=== PATIENT | female | born 1940 | race Caucasian/White ===

== ENCOUNTER → 2016-04-04 | Outpatient (CLI) | payer OTHER ==
[~2016-04-04] MED LIST: CHOL1CAP57 PO; LORA-741 PO; LOSA1TAB PO; MISC4CAP PO
== END | disposition home or self-care (01) ==
LOC: C.LAB 07:50
PROVIDERS: ATTEND Family Medicine
DX: R73.01 Impaired fasting glucose (principal)

== ENCOUNTER → 2016-10-22 | Outpatient (CLI) | payer OTHER | END | disposition home or self-care (01) | LOC: C.LABSPEC 10:46 | PROVIDERS: ATTEND Urology | DX: R33.9 Retention of urine, unspecified (principal); N39.0 Urinary tract infection, site not specified ==

== ENCOUNTER → 2016-10-31 | Outpatient (CLI) | payer OTHER ==
--- NOTE | 2016-10-31 12:44 | MAMMOGRAPHY REPORT ---
BILATERAL DIGITAL SCREENING MAMMOGRAM WITH CAD: 10/31/2016 CLINICAL HISTORY: Routine screening. TECHNIQUE: Current study was also evaluated with a Computer Aided Detection (CAD) system. Bilateral CC and MLO views were obtained. COMPARISON: Comparison is made to exams dated: 10/30/2015 mammogram, 10/26/2014 mammogram, 09/20/2013 m ammogram, 09/06/2012 mammogram, 09/04/2011 mammogram, and 09/02/2010 mammogram - [facility] enter. BREAST COMPOSITION: There are scattered areas of fibroglandular density in both breasts. FINDINGS: No suspicious masses, calcifications, or areas of architectural distortion are noted in ei ther breast. There has been no significant interval change compared to prior exams. Bilateral benign vascular calcifications are again noted. IMPRESSION: ACR BI-RADS CATEGORY 2: BENIGN There is no mammographic evidence of malignancy. A 1 year screening mammogram is recommended. The pa tient will receive written notification of the results. Approximately 10% of breast cancers are not detected with mammography. A negative mammographic report should not delay biopsy if a clinically suggestive mass is present. Shilpa Bardales M.D. 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
== END | disposition home or self-care (01) ==
LOC: C.MAMM 10:37
PROVIDERS: ATTEND Obstetrics & Gynecology
DX: Z12.31 Encounter for screening mammogram for malignant neoplasm of breast (principal)

== ENCOUNTER → 2016-11-24 | Outpatient (CLI) | payer OTHER | END | disposition home or self-care (01) | LOC: C.PAPS 14:53 | PROVIDERS: ATTEND Obstetrics & Gynecology | DX: Z12.4 Encounter for screening for malignant neoplasm of cervix (principal) ==

== ENCOUNTER → 2016-12-30 | Outpatient (CLI) | payer OTHER | END | disposition home or self-care (01) | LOC: C.LABSPEC 17:36 | PROVIDERS: ATTEND Nurse Practitioner Adult Health | DX: N39.0 Urinary tract infection, site not specified (principal) ==

== ENCOUNTER → 2017-04-07 | Outpatient (CLI) | payer OTHER | END | disposition home or self-care (01) | LOC: C.LAB 16:37 | PROVIDERS: ATTEND Urology | DX: N39.0 Urinary tract infection, site not specified (principal); R33.9 Retention of urine, unspecified ==

== ENCOUNTER 2019-09-01 18:49 | Inpatient (IN) ==
[2019-09-01] MEDS ORDERED: SODIUM CHLORIDE 0.9% 1000ML 1,000 ML IV ONE (18:57)
--- NOTE | 2019-09-01 19:22 | Emergency Department Note ---
History of Present Illness General Chief Complaint: Urinary Symptoms Stated Complaint: UTI, DR REFERRED Time Seen by Provider: 09/01/19 18:56 History of Present Illness Provider Complaint: abdominal pain Onset (ago): 1 week(s) Pain Consistency: intermittent Location: suprapubic Radiation: none Severity: moderate Maximum Pain Intensity: 6 Current Pain Intensity: 6 Quality: + sharp Relieved By: + nothing Exacerbated By: + nothing Associated Symptoms: + nausea, + fever, + chills and + dysuria; no vomiting, no diarrhea, no constipation, no hematemesis, no hematochezia, no melena, no hematuria, no anorexia and no syncope Patient states she was referred to the emergency department by urology Dr. Chávez. Home Medications Home Medications Medication Instructions Recorded Confirmed Type losartan 25 mg tablet 25 mg PO HS tab 08/26/18 09/01/19 History polyethylene glycol 3350 17 17 g PO DAILY PRN gm 08/26/18 09/01/19 History gram/dose oral powder lorazepam 0.5 mg tablet 0.5 mg PO HS PRN 04/08/19 09/01/19 History calcium carbonate-vitamin D3 1 tab PO QAM 04/09/19 09/01/19 History [Caltrate 600 plus D] lactobacillus comb no.10 0 mmu cells PO QAM 04/09/19 09/01/19 History [Probiotic] cranberry conc-ascorbic acid 1 cap PO TID 09/01/19 09/01/19 History [Cranberry Plus Vitamin C] Allergies Allergy/AdvReac Type Severity Reaction Status Date / Time celecoxib Allergy Severe Rash Verified 09/01/19 22:27 adhesive Allergy Intermediate RED Verified 08/24/19 09:38 IRRITATED SKIN ciprofloxacin [From Cipro] Allergy Mild Rash Verified 08/24/19 09:38 Sulfa (Sulfonamide Allergy Mild Hives Verified 09/01/19 22:27 Antibiotics) amoxicillin Allergy Unknown Rash Verified 09/01/19 22:27 cefepime Allergy Unknown Rash, drug Verified 09/01/19 22:27 eruption Penicillins Allergy Unknown Rash Verified 09/01/19 22:27 lactose AdvReac Intermediate GI UPSET Verified 08/24/19 09:38 vancomycin AdvReac Unknown Mook Verified 09/01/19 22:27 syndrome Past Med/Surg History Medical History Allergic reaction (Inactive 06/17/13) Cholecystectomy planned (Acute) Colitis (Acute) Cystitis Febrile illness (Inactive) Fever (Inactive 05/02/13) Fever (Inactive) Fever (Inactive) GI bleed Pneumonia (Resolved) Recurrent UTI (urinary tract infection) (Acute) Urticaria (Inactive) Surgical History H/O splenectomy (Acute) H/O: hysterectomy (Acute) History of cholecystectomy (Resolved) History of hysterectomy (Resolved) History of splenectomy (Resolved) Postoperative state (Inactive 02/18/13) Family History Other Family history non-contributory Social History Smoking Status: Never smoker Hx Alcohol Use: No Hx Substance Use: No Preferred Language: [place] Islander Communication Ability: Effective [employer] 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 Beliefs That Will Affect Care: Christianity Current Living Situation: Alone Other Information That Helps Us Care for You: No Feels Safe at Home: Yes Safety Concerns: Feels Safe At This Time Review of Systems A total of 10 systems reviewed and were otherwise negative Physical Exam Vital Signs: Vital Signs - 24 hr 09/01/19 18:51 09/01/19 20:20 09/01/19 21:55 Temperature 36.7 C Temperature Source Oral Pulse Rate 93 H Pulse Rate [Apical ] 80 76 Pulse Rhythm [Apic al] Regular Regular Pulse Strength [Ap ical] Normal Normal Respiratory Rate 18 18 18 Respiratory Effort / Characteristics Non-Labored Sponta neous Non-Labored Sponta neous Respiratory Depth Normal Normal Respiratory Patter n Regular Regular Blood Pressure 170/83 H Blood Pressure [Ri ght Arm] 157/96 H 155/79 H Blood Pressure Moira n 112 Blood Pressure Moira n [Right Arm] 116 104 Blood Pressure Pos ition Sitting Blood Pressure Pos ition [Right Arm] Sitting Sitting Pulse Oximetry 98 98 99 Oxygen Delivery Me thod Room Air Room Air Sepsis Recent Feve r Within 48 Hours No Sepsis New/Unexpla ined Change in Men shasha Status No Sepsis Action Take n by Nursing No Action Required Physical Exam: Physical Exam GENERAL: She is oriented to person, place, and time. She appears well-developed and well-nourished. She does not appear distressed. HENT: Exam performed. -Head: Normocephalic and atraumatic. -Right Ear: External ear normal. No mastoid tenderness. -Left Ear: External ear normal. No mastoid tenderness. -Mouth/Throat: The oropharynx is clear and moist. No trismus in the jaw. No dental abscesses or uvula swelling. No oropharyngeal exudate or tonsillar abscesses. EYES: Conjunctivae and EOM are normal. Pupils are equal, round, and reactive to light. Right eye exhibits no discharge. Left eye exhibits no discharge. No scleral icterus. NECK: Normal range of motion. Neck supple. No JVD present. No spinous process tenderness present. No carotid bruit present. No rigidity. No tracheal deviation and normal range of motion present. No Brudzinski's sign and no Kernig's sign noted. CV: Normal rate, regular rhythm, normal heart sounds and intact distal pulses. There is no peripheral edema. Palpable radial pulses bue. PULM/CHEST: Effort normal and breath sounds normal. No respiratory distress. No stridor. She has no wheezes. She has no rales. -Chest Wall: She exhibits no tenderness. ABD: The abdomen is soft. Bowel sounds are normal. She has no distension. No mass is present. There is no tenderness. There is no rebound, no guarding, no Nye's sign and no tenderness at McBurney's point. Rovsig negative MUSC/SKEL: Normal range of motion. There is no peripheral edema, tenderness or deformity. LYMPH: No cervical adenopathy. NEURO: She is alert and oriented to person, place, and time. She has normal strength. No cranial nerve deficit or sensory deficit. Coordination and gait normal. GCS eye subscore is 4. GCS verbal subscore is 5. GCS motor subscore is 6. Cerebellar tests wnl. SKIN: Skin is warm and dry. She is not diaphoretic. PSYCH: She has a normal mood and affect. Behavior is normal. Judgment and thought content normal. Course Course 1855: The patient was evaluated in room C11. A complete history and physical exam was performed. EMR reviewed. Patient has a history of recurrent UTIs per urology notes. She had a urine culture done on August 23 which grew out Pseudomonas sensitive to amikacin, ceftazidime, Cipro, imipenem, tobramycin and Zosyn. Patient has multiple allergies including to fluoroquinolones where her tongue and lips started swelling. Discussed with ER pharmacist who was able to access patient's chart in the past and the patient has had good results with cephalosporins and states that ceftazidime would be an appropriate antibiotic to start on the patient given her urine culture. No other oral antibiotics will be suitable to treat the patient's pseudomonal urine infection. 2145: Vital signs stable. Labs show no leukocytosis. Initial lactic acid elevated at 2.2. This was after fluid bolus administration as a first lactic acid collected in 1920 had hemolyzed. Given the elevated lactic acid and the Pseudomonas infection that is resistant to any oral antibiotic that the patient can take, [facility]. Administered Medications Acetaminophen (Tylenol) 650 mg PO Q4H PRN PRN Reason: Pain or Fever Stop: 10/02/19 00:51 Last Admin: 09/02/19 01:22 Dose: 650 mg Documented by: [id number] Famotidine (Pepcid) 20 mg PO QAM KEVIN Stop: 10/02/19 00:51 Last Admin: 09/02/19 01:22 Dose: 20 mg Documented by: [id number] Sodium Chloride (Nss 1000ml) 1,000 mls @ 250 mls/hr IV .Q4H KEVIN Stop: 09/02/19 04:51 Last Admin: 09/02/19 01:26 Dose: 250 mls/hr Documented by: [id number] Losartan Potassium (Cozaar) 25 mg PO HS KEVIN Stop: 10/02/19 20:59 Last Admin: 09/02/19 01:37 Dose: 25 mg Documented by: [id number] Discontinued Medications Sodium Chloride (Nss 1000ml) 1,000 mls @ 999 mls/hr IV .Q1H1M ONE Stop: 09/01/19 19:57 Last Infusion: 09/01/19 21:19 Dose: 0 mls/hr Documented by: [id number] Admin: 09/01/19 20:11 Dose: 999 mls/hr Documented by: [id number] Ceftazidime 2,000 mg/ Dextrose 60 mls @ 120 mls/hr IV Q8H KEVIN Stop: 09/11/19 19:59 Last Infusion: 09/01/19 21:08 Dose: 0 mls/hr Documented by: [id number] Admin: 09/01/19 20:15 Dose: 120 mls/hr Documented by: [id number] Imipenem/Cilastatin Sodium 500 (mg/ Dextrose) 110 mls @ 100 mls/hr IV Q6H KEVIN Stop: 09/11/19 23:44 Last Admin: 09/02/19 01:17 Dose: Not Given Documented by: [id number] Medical Decision Making Laboratory Data Result diagrams: 09/01/19 19:21 09/01/19 19:21 Lab Results 09/01/19 09/01/19 09/01/19 Range/Units 19:20 19:21 19:21 WBC 8.02 (4.8-10.8) K/uL RBC 4.00 L (4.2-5.4) M/uL Hgb 12.8 (12.0-16.0) g/dL Hct 37.7 (37-47) % MCV 94.3 (80-100) fL MCH 32.0 (25-34) pg MCHC 34.0 (32-36) g/dL RDW Std Deviation 47.1 H (36.4-46.3) fL RDW Coeff of Bakari 13.5 (11.5-14.5) % Plt Count 418 H (130-400) K/uL MPV 9.6 (7.4-10.4) fL Immature Gran % (Auto) 0.2 % Neut % (Auto) 55.3 % Lymph % (Auto) 26.9 % Archuleta % (Auto) 12.1 % Eos % (Auto) 4.0 % Baso % (Auto) 1.5 % Neut # (Auto) 4.43 (1.4-6.5) K/uL Lymph # (Auto) 2.16 (1.2-3.4) K/uL Archuleta # (Auto) 0.97 H (0.11-0.59) K/uL Eos # (Auto) 0.32 (0-0.5) K/uL Baso # (Auto) 0.12 (0-0.2) K/uL Immature Gran # (Auto) 0.02 (0.00-0.02) K/uL Sodium 134 L (136-145) mmol/L Potassium 4.9 (3.5-5.1) mmol/L Chloride 101 (98-107) mmol/L Carbon Dioxide 26 (21-32) mmol/L Anion Gap 7.0 (3-11) BUN 18 (7-18) mg/dl Creatinine 1.14 (0.6-1.2) mg/dl Est Cr Clr Drug Dosing 36.0 ml/min Est GFR ( Amer) 53.0 Est GFR (Non-Af Amer) 45.7 BUN/Creatinine Ratio 16.2 (10-20) Glucose 107 H (70-99) mg/dl Lactate (0.4-2.0) mmol/L Calcium 10.1 (8.5-10.1) mg/dl Total Bilirubin 0.4 (0.2-1) mg/dl Direct Bilirubin 0.1 (0-0.2) mg/dl AST 14 L (15-37) U/L ALT 15 (12-78) U/L Alkaline Phosphatase 107 (45-117) U/L Total Protein 9.0 H (6.4-8.2) gm/dl Albumin 3.6 (3.4-5.0) gm/dl Lipase 131 (73-393) U/L Urine Color Yellow Urine Appearance Cloudy A (Clear) Urine pH 6.0 (4.5-7.5) Ur Specific Cressey 1.011 (1.000-1.030) Urine Protein Negative (Negative) Urine Glucose (UA) Negative (Negative) Urine Ketones Negative (Negative) Urine Blood Trace H (Negative) Urine Nitrite Positive A (Negative) Urine Bilirubin Negative (Negative) Urine Urobilinogen Negative (Negative) Ur Leukocyte Esterase 2+ H (Negative) Urine WBC (Auto) >30 H (0-5) /hpf Urine RBC (Auto) 0-4 (0-4) /hpf U Hyaline Cast (Auto) 1-5 (0-5) /lpf U Epithel Cells (Auto) 10-20 H (0-5) /lpf Urine Bacteria (Auto) 2+ H (Negative) 09/01/19 09/01/19 Range/Units 19:21 21:17 WBC (4.8-10.8) K/uL RBC (4.2-5.4) M/uL Hgb (12.0-16.0) g/dL Hct (37-47) % MCV (80-100) fL MCH (25-34) pg MCHC (32-36) g/dL RDW Std Deviation (36.4-46.3) fL RDW Coeff of Bakari (11.5-14.5) % Plt Count (130-400) K/uL MPV (7.4-10.4) fL Immature Gran % (Auto) % Neut % (Auto) % Lymph % (Auto) % Archuleta % (Auto) % Eos % (Auto) % Baso % (Auto) % Neut # (Auto) (1.4-6.5) K/uL Lymph # (Auto) (1.2-3.4) K/uL [place]uleta # (Auto) (0.11-0.59) K/uL Eos # (Auto) (0-0.5) K/uL Baso # (Auto) (0-0.2) K/uL Immature Gran # (Auto) (0.00-0.02) K/uL Sodium (136-145) mmol/L Potassium (3.5-5.1) mmol/L Chloride (98-107) mmol/L Carbon Dioxide (21-32) mmol/L Anion Gap (3-11) BUN (7-18) mg/dl Creatinine (0.6-1.2) mg/dl Est Cr Clr Drug Dosing ml/min Est GFR ( Amer) Est GFR (Non-Af Amer) BUN/Creatinine Ratio (10-20) Glucose (70-99) mg/dl Lactate 2.2 H* (0.4-2.0) mmol/L Calcium (8.5-10.1) mg/dl Total Bilirubin (0.2-1) mg/dl Direct Bilirubin (0-0.2) mg/dl AST (15-37) U/L ALT (12-78) U/L Alkaline Phosphatase (45-117) U/L Total Protein (6.4-8.2) gm/dl Albumin (3.4-5.0) gm/dl Lipase (73-393) U/L Urine Color Urine Appearance (Clear) Urine pH (4.5-7.5) Ur Specific Cressey (1.000-1.030) Urine Protein (Negative) Urine Glucose (UA) (Negative) Urine Ketones (Negative) Urine Blood (Negative) Urine Nitrite (Negative) Urine Bilirubin (Negative) Urine Urobilinogen (Negative) Ur Leukocyte Esterase (Negative) Urine WBC (Auto) (0-5) /hpf Urine RBC (Auto) (0-4) /hpf U Hyaline Cast (Auto) (0-5) /lpf U Epithel Cells (Auto) (0-5) /lpf Urine Bacteria (Auto) (Negative) [facility] Narrative 1856: The patient was evaluated in room C11. A complete history and physical exam was performed. EMR reviewed. Patient has a history of recurrent UTIs per urology notes. She had a urine culture done on August 23 which grew out Pseudomonas sensitive to amikacin, ceftazidime, Cipro, imipenem, tobramycin and Zosyn. Patient has multiple allergies including to fluoroquinolones where her tongue and lips started swelling. Discussed with ER pharmacist who was able to access patient's chart in the past and the patient has had good results with cephalosporins and states that ceftazidime would be an appropriate antibiotic to start on the patient given her urine culture. No other oral antibiotics will be suitable to treat the patient's pseudomonal urine infection. 2144: Vital signs stable. Labs show no leukocytosis. Initial lactic acid e levated at 2.2. This was after fluid bolus administration as a first lactic acid collected in 192 had hemolyzed. Given the elevated lactic acid and the Pseudomonas infection that is resistant to any oral antibiotic that the patient can take, the patient will be admitted to the [facility] hospitalist team Dr. Tobias's team notified. Impression & Plan Pseudomonas urinary tract infection Discharge Plan Visit Data *Final* Discharge Date/Time: 09/02/19 00:19 Chief Complaint: Urinary Symptoms Stated Complaint: UTI, DR REFERRED ED Provider: Jameson Britton Discharge Problem: Pseudomonas urinary tract infection Patient Disposition: Admitted As Inpatient Discharge Instructions Interventions: ED Discharge Assessment Last Done: 09/02/19 00:19
[2019-09-01 19:34] LABS: Appearance Urine Cloudy (Clear); Bacteria Urine Automated 2+ (Negative); Bilirubin Urine Negative (Negative); Blood Urine Trace (Negative); Color Urine Yellow; Glucose Urine UA Negative (Negative); Ketones Urine Negative (Negative); Leukocyte Esterase Urine 2+ (Negative); Nitrite Urine Positive (Negative); Protein Urine Negative (Negative); RBC Urine Automated 0-4 /hpf (0-4); Specific Gravity Urine 1.011 (1.000-1.030); Urobilinogen Urine Negative (Negative); WBC Urine Automated >30 /hpf (0-5)
[2019-09-01 19:44] LABS: Basophils # (auto) 0.12 K/uL (0-0.2); Basophils % (auto) 1.5 %; Eosinophils # (auto) 0.32 K/uL (0-0.5); Hematocrit (blood only) 37.7 % (37-47); Hemoglobin 12.8 g/dL (12.0-16.0); Immature Granulocytes # (auto) 0.02 K/uL (0.00-0.02); Immature Granulocytes % (auto) 0.2 %; Lymphocytes # (auto) 2.16 K/uL (1.2-3.4); Lymphocytes % (auto) 26.9 %; Mean Corpuscular Volume 94.3 fL (80-100); Mean Platelet Volume 9.6 fL (7.4-10.4); Monocytes # (auto) 0.97 K/uL (0.11-0.59); Monocytes % (auto) 12.1 %; Neutrophils # (auto) 4.43 K/uL (1.4-6.5); Neutrophils % (auto) 55.3 %; Platelet Count 418 K/uL (130-400); RDW Coefficient of Variation 13.5 % (11.5-14.5); RDW Standard Deviation 47.1 fL (36.4-46.3); White Blood Count 8.02 K/uL (4.8-10.8)
[2019-09-01 20:39] LABS: Albumin Level 3.6 gm/dl (3.4-5.0); BUN Creatinine Ratio 16.2 (10-20); Bilirubin,Total 0.4 mg/dl (0.2-1); Calcium 10.1 mg/dl (8.5-10.1); Est GFR (Non-African American) 45.7
[2019-09-01 21:00] LABS: Bilirubin Direct 0.1 mg/dl (0-0.2); Potassium 4.9 mmol/L (3.5-5.1)
--- NOTE | 2019-09-01 23:39 | History & Physical Report ---
Date of Service September 01, 2019 Assessment & Plan (1) Urinary tract infection: Margie Douglas is a 79 y/o female with past medical hx of cervical cancer (treateed), HCC (current for 9 years), s/p multiple TACE and thermoablation procedures, carcinoid tumor of lung, Hep C, recurrent UTIs, urosepsis, multiple severe drug allergies who presented to [facility] for abormal outpatient lab. She had a positive Urine culture performed on 08/23 with ID of Pseudomonas aeruginosa with resistance to multiple drugs. - She saw urology on 08/23, and she follows with Dr. Chávez. She was told to come here after positive culture with ID/susceptibility. - She has a history of severe allergies to multiple abx. 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 - She follows with [facility] ID Dr. Vega and saw them via Telehealth on 06/29/19. At that time, recommendations for treatment in the hospital were aztreonam, carbapenem, aminoglycoside. - Note this current is resistant to Aztreonam. - In the ED, she was treated with Ceftazidime without any current reaction, itching, or rash. She also received 1L NSS Bolus. - No remarkable elevation WBC, electrolytes are within acceptable ranges, Creatinine 1.14. - No back pain or CVA tenderness concerning for Pyelonephritis, afebrile. - noted to have failed Macrobid outpt which she notes she took within the past couple of weeks without symptom improvement. - Discussed with attending antibiotic selection: plan to double cover to prevent any further resistance to single abx use that could be detrimental. Will discontinue use of Ceftazidime (3rd gen), as known severe allergy to Cefepime (4th gen). Will proceed with Imipenem and Tobramycin. These were based on ID note and also being severely limited to what we could use. - Will watch for allergic reactions, Benadryl 50mg PRN for itching/rash. - Urine cultures and blood cultures ordered. - Coags ordered. DVT ppx: SCDs, unsure of Lovenox use with recent chemoembolization, she is mobile. FENGI: Regular diet, Pepcid 20mg PO daily to help prevent any allergic GI reaction. Will give another 1L NSS via 250mL/hr for 1 bag. Dipso: Full admit, discharge planning consult as suspect might need home abx. Code: DNR/DNI (2) Pseudomonas aeruginosa infection: (3) Dysuria: as above (4) Recurrent UTI: Seems to be doing everything she can to decrease rate, takes cranberry pills, strict hygiene, staying hydrated.I did discuss maybe should consider restarting Premerin cream. (5) Hypertension: Acceptable ranges currently, c/w Losartan 25mg PO HS (6) Hepatocellular carcinoma: Follows with [facility], notes diagnosis 9 years ago, recent chemoembolization about 3-4 weeks at with IR at [facility]. (7) Allergy to sulfa drugs: noted in history, avoid sulfa drugs (8) Cervical cancer: She notes in her 20s-30s, treated. (9) Carcinoid tumor of lung: Noted in chart review, did not discuss with patient, she didn't note carcinoid hx History of Present Illness Chief Complaint: Multi-drug resistant UTI Primary Care Provider: Bradley Jeter Margie Douglas is a 79 y/o female with past medical hx of cervical cancer (treateed), HCC (current for 9 years), s/p multiple TACE and thermoablation procedures, carcinoid tumor of lung, Hep C, recurrent UTIs, urosepsis, multiple severe drug allergies who presented to [facility] for abormal outpatient lab. She had a positive Urine culture performed on 08/23 with ID of Pseudomonas aeruginosa with resistance to multiple drugs. Problematically, she has a history of severe allergies to multiple abx. 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 She follows with [facility] ID Dr. Vega and saw them via Telehealth on 06/29/19. At that time, recommendations for treatment in the hospital were aztreonam, carbapenem, aminoglycoside. Note this current is resistant to Aztreonam. She saw urology on 08/23, and she follows with Dr. Chávez. She was told to come here after positive culture with ID/susceptibility. She notes she has a h/o bladder repair, gave to 6 kids with a set of kids. She takes measures to decrease her UTI rate, takes cranberry pills, strict hygiene, staying hydrated. She recently stopped taking her Premarin cream because she was concerned about interaction with her current Hepatocellular carcinoma. She notes not feeling well since procedure with IR at [facility] with what she describes as chemoembolization (TACE) for her HCC. This has been present for about 3 weeks. She notes feeling generally unwell, easily fatigued, dysuria, urinary frequency. She does not note back pain, abdominal pain, fevers, chills, chest pain, shortness of breath. In the ED, she was treated with Ceftazidime without any current reaction, itching, or rash. Allergies Allergy/AdvReac Type Severity Reaction Status Date / Time celecoxib Allergy Severe Rash Verified 09/01/19 22:27 adhesive Allergy Intermediate RED Verified 08/24/19 09:38 IRRITATED SKIN ciprofloxacin [From Cipro] Allergy Mild Rash Verified 08/24/19 09:38 Sulfa (Sulfonamide Allergy Mild Hives Verified 09/01/19 22:27 Antibiotics) amoxicillin Allergy Unknown Rash Verified 09/01/19 22:27 cefepime Allergy Unknown Rash, drug Verified 09/01/19 22:27 eruption Penicillins Allergy Unknown Rash Verified 09/01/19 22:27 lactose AdvReac Intermediate GI UPSET Verified 08/24/19 09:38 vancomycin AdvReac Unknown Mook Verified 09/01/19 22:27 syndrome Home Medications Home Medications Medication Instructions Recorded Confirmed Type losartan 25 mg tablet 25 mg PO HS tab 08/26/18 09/01/19 History polyethylene glycol 3350 17 17 g PO DAILY PRN gm 08/26/18 09/01/19 History gram/dose oral powder lorazepam 0.5 mg tablet 0.5 mg PO HS PRN 04/08/19 09/01/19 History calcium carbonate-vitamin D3 1 tab PO QAM 04/09/19 09/01/19 History [Caltrate 600 plus D] lactobacillus comb no.10 0 mmu cells PO QAM 04/09/19 09/01/19 History [Probiotic] cranberry conc-ascorbic acid 1 cap PO TID 09/01/19 09/01/19 History [Cranberry Plus Vitamin C] Past Med/Surg History Medical History Allergic reaction (Inactive 06/17/13) Cholecystectomy planned (Acute) Colitis (Acute) Cystitis Febrile illness (Inactive) Fever (Inactive 05/02/13) Fever (Inactive) Fever (Inactive) GI bleed Pneumonia (Resolved) Recurrent UTI (urinary tract infection) (Acute) Urticaria (Inactive) Surgical History H/O splenectomy (Acute) H/O: hysterectomy (Acute) History of cholecystectomy (Resolved) History of hysterectomy (Resolved) History of splenectomy (Resolved) Postoperative state (Inactive 02/18/13) Family History Other Family history non-contributory Social History Smoking Status: Never smoker Hx Alcohol Use: No Hx Substance Use: No Preferred Language: Lao Communication Ability: Effective Qm Consultant Required: No Beliefs That Will Affect Care: Protestant Current Living Situation: Alone Other Information That Helps Us Care for You: No Feels Safe at Home: Yes Safety Concerns: Feels Safe At This Time Review of Systems Review of Systems: All systems reviewed & are unremarkable except as noted in HPI & below Constitutional: + fatigue and + malaise; no fever and no chills Eyes: no diplopia and no spots in vision Ear, Nose, Mouth, Throat: no epistaxis and no sore throat Respiratory: no cough and no dyspnea Cardiovascular: no chest pain, no palpitations and no syncope Gastrointestinal: no abdominal pain, no nausea and no vomiting Genitourinary: as per Subjective / HPI Musculoskeletal: no back pain and no neck pain Integumentary: no rash and no lesions Neurologic: no numbness and no syncope Psychiatric: + anxiety ( in November;current COVID, treated with Ativan as outpt) Physical Exam Constitutional: WD/WN, vitals as above cooperative and comfortable Eyes: PERRL, conjunctivae normal, anicteric sclerae ENMT: external ear and nose normal, oropharynx normal Neck: normal visual inspection and trachea midline Respiratory: normal respiratory effort, lungs clear to auscultation Cardiovascular: RRR, no murmur, no edema Gastrointestinal (Abdomen): Percussion/Palpation: abdomen soft; abdomen nontender, no guarding and abdomen not rigid Musculoskeletal: Head/Neck/Chest: normocephalic and head atraumatic No CVA tenderness Skin: no rashes, warm and dry Neurologic: moves all extremities and awake Psychiatric: Orientation: alert and oriented x 3 Mood: + anxious mood Results & Data Results & Data ([facility]) Vital Signs (Past 12 Hours) Vital Signs Temp Pulse Pulse Resp BP BP Pulse Ox 09/01/19 21:55 76 18 155/79 H 99 09/01/19 20:20 80 18 157/96 H 98 09/01/19 18:51 36.7 C 93 H 18 170/83 H 98 Laboratory Results Laboratory Results - last 24 hr 09/01/19 09/01/19 09/01/19 19:20 19:21 19:21 WBC 8.02 RBC 4.00 L Hgb 12.8 Hct 37.7 MCV 94.3 MCH 32.0 MCHC 34.0 RDW Std Deviation 47.1 H RDW Coeff of Bakari 13.5 Plt Count 418 H MPV 9.6 Immature Gran % (Auto) 0.2 Neut % (Auto) 55.3 Lymph % (Auto) 26.9 [place] % (Auto) 12.1 Eos % (Auto) 4.0 Baso % (Auto) 1.5 Neut # (Auto) 4.43 Lymph # (Auto) 2.16 Marion # (Auto) 0.97 H Eos # (Auto) 0.32 Baso # (Auto) 0.12 Immature Gran # (Auto) 0.02 Sodium 134 L Potassium 4.9 Chloride 101 Carbon Dioxide 26 Anion Gap 7.0 BUN 18 Creatinine 1.14 Est Cr Clr Drug Dosing 36.0 Est GFR ( Amer) 53.0 Est GFR (Non-Af Amer) 45.7 BUN/Creatinine Ratio 16.2 Glucose 107 H Lactate Calcium 10.1 Total Bilirubin 0.4 Direct Bilirubin 0.1 AST 14 L ALT 15 Alkaline Phosphatase 107 Total Protein 9.0 H Albumin 3.6 Lipase 131 Urine Color Yellow Urine Appearance Cloudy A Urine pH 6.0 Ur Specific [place] 1.011 Urine Protein Negative Urine Glucose (UA) Negative Urine Ketones Negative Urine Blood Trace H Urine Nitrite Positive A Urine Bilirubin Negative Urine Urobilinogen Negative Ur Leukocyte Esterase 2+ H Urine WBC (Auto) >30 H Urine RBC (Auto) 0-4 U Hyaline Cast (Auto) 1-5 U Epithel Cells (Auto) 10-20 H Urine Bacteria (Auto) 2+ H 09/01/19 09/01/19 09/01/19 19:21 21:17 23:38 WBC RBC Hgb Hct MCV MCH MCHC RDW Std Deviation RDW Coeff of Bakari Plt Count MPV Immature Gran % (Auto) Neut % (Auto) Lymph % (Auto) [place] % (Auto) Eos % (Auto) Baso % (Auto) Neut # (Auto) Lymph # (Auto) Marion # (Auto) Eos # (Auto) Baso # (Auto) Immature Gran # (Auto) Sodium Potassium Chloride Carbon Dioxide Anion Gap BUN Creatinine Est Cr Clr Drug Dosing Est GFR ( Amer) Est GFR (Non-Af Amer) BUN/Creatinine Ratio Glucose Lactate 2.2 H* 0.8 Calcium Total Bilirubin Direct Bilirubin AST ALT Alkaline Phosphatase Total Protein Albumin Lipase Urine Color Urine Appearance Urine pH Ur Specific [place] Urine Protein Urine Glucose (UA) Urine Ketones Urine Blood Urine Nitrite Urine Bilirubin Urine Urobilinogen Ur Leukocyte Esterase Urine WBC (Auto) Urine RBC (Auto) U Hyaline Cast (Auto) U Epithel Cells (Auto) Urine Bacteria (Auto) Code Status & VTE Plan Code Status DNR/DNI VTE Prophylaxis Plan VTE Prophylaxis will be ordered: Yes Supervising Physician Co-Signing Physician Notes Attending addendum: I have physically seen this patient, have supervised the medical residents activities, and agree with the H&P unless as otherwise noted. Assessment and Plan: Recurrent Pseudomonas aeruginosa UTI- Multidrug-resistant in a patient with multiple drug sensitivities. Double covered with IV meropenem and tobramycin IV. IV fluids Tylenol 650 mg p.o. every 6 hours as needed mild pain or temperature. previously had followed with Dr. Rossi, and will soon be seeing Dr. Chávez from urology Hypertension- Continue losartan with hold parameters Hepatocellular carcinoma- status post recent chemoembolization with [facility] IR 3 to 4 weeks ago. Remaining orders and notations as noted Resident Activity Tracking Resident Involvement: Resident Care Provided Care Provided: Adult [facility] Medicine
[2019-09-01] MEDS ORDERED: IMIPENEM/CILASTATIN SODIUM 500 MG in DEXTROSE 5% 100 ML IV SCH (23:45)
[2019-09-01] MEDS ORDERED: IMIPENEM/CILASTATIN CONSULT ACTIVE PRN (23:59)
[2019-09-02] MEDS ORDERED: ALUMINUM/MAGNESIUM SUSP 30 ML UDC PO PRN (00:52)
[2019-09-02] MEDS ORDERED: SODIUM CHLORIDE 0.9% 1000ML 1,000 ML IV SCH (00:52)
[2019-09-02] MEDS ORDERED: ONDANSETRON INJ 2 MG/ML 2 ML VIAL IV PRN (00:52)
[2019-09-02] MEDS ORDERED: ACETAMINOPHEN 325 MG TAB PO PRN (00:52)
[2019-09-02] MEDS ORDERED: DiphenhydrAMINE HCL 50 MG/ML VIAL IV PRN (00:52)
[2019-09-02] MEDS ORDERED: MAGNESIUM HYDROXIDE SUSP 30 ML UDC PO PRN (00:52)
[2019-09-02] MEDS ORDERED: MELATONIN 3 MG TAB PO PRN (00:52)
[2019-09-02] MEDS ORDERED: POLYETHYLENE (MIRALAX) 17 GM PACK PO PRN (00:52)
[2019-09-02] MEDS ORDERED: IMIPENEM/CILASTATIN CONSULT ACTIVE PRN ×2 (00:52→15:12)
[2019-09-02] MEDS ORDERED: DEXTROSE 5% IV SCH (01:00)
[2019-09-02] MEDS ORDERED: TOBRAMYCIN SULFATE IV SCH (01:00)
[2019-09-02] MEDS ORDERED: TOBRAMYCIN CONSULT ACTIVE PRN (01:04)
[2019-09-02 01:14] LABS: INR 1.1 (0.9-1.1); Prothrombin Time 11.1 Seconds (9.0-12.0)
[2019-09-02] MEDS: FAMOTIDINE 20 MG TAB PO SCH ×2 (01:22→09:10)
[2019-09-02] MEDS: LOSARTAN POTASSIUM 25 MG TAB PO SCH ×2 (01:37→20:12)
[2019-09-02] MEDS: IMIPENEM/CILASTATIN SODIUM 300 MG in DEXTROSE 5% 100 ML IV SCH ×4 (02:36→22:22)
[2019-09-02 08:53] LABS: Basophils # (auto) 0.08 K/uL (0-0.2); Basophils % (auto) 1.2 %; Eosinophils % (auto) 4.6 %; Hemoglobin 12.1 g/dL (12.0-16.0); Immature Granulocytes # (auto) 0.02 K/uL (0.00-0.02); Immature Granulocytes % (auto) 0.3 %; Lymphocytes # (auto) 1.25 K/uL (1.2-3.4); Lymphocytes % (auto) 19.1 %; Mean Corpuscular Hgb Conc 33.6 g/dL (32-36); Mean Corpuscular Volume 95.2 fL (80-100); Mean Platelet Volume 9.7 fL (7.4-10.4); Monocytes # (auto) 0.71 K/uL (0.11-0.59); Monocytes % (auto) 10.9 %; Neutrophils # (auto) 4.17 K/uL (1.4-6.5); Neutrophils % (auto) 63.9 %; Platelet Count 419 K/uL (130-400); RDW Coefficient of Variation 13.7 % (11.5-14.5); RDW Standard Deviation 47.7 fL (36.4-46.3); Red Blood Count 3.78 M/uL (4.2-5.4); White Blood Count 6.53 K/uL (4.8-10.8)
[2019-09-02] MEDS ORDERED: NON-FORMULARY MEDICATION (Cranberry Conc-Ascorbic Acid [Cranberry Plus Vitamin C] 1 CAP) PO SCH (09:00)
[2019-09-02] MEDS: LACTOBACILLUS ACIDOPHILUS (FLORANEX) TAB PO SCH ×4 (09:10→20:12)
[2019-09-02 09:26] LABS: Albumin Level 2.9 gm/dl (3.4-5.0); BUN Creatinine Ratio 13.2 (10-20); Creatinine Clr Calc Pharmacy 40.7 ml/min; Est GFR (African American) 58.5; Est GFR (Non-African American) 50.5; Potassium 4.9 mmol/L (3.5-5.1)
[2019-09-02 09:29] LABS: Albumin Globulin Ratio 0.6 (0.9-2); Bilirubin,Total 0.5 mg/dl (0.2-1); Globulin 4.6 gm/dl (2.5-4.0); Total Protein 7.5 gm/dl (6.4-8.2)
--- NOTE | 2019-09-02 11:08 | Pharmacy Report ---
Pharmacy Abx Initial Consult - Date of Service September 02, 2019 - Pharmacy Dosing Scope Date of Consult: 08/31 Consultation requested by: Dr. Huerta Pharmacy is consulted to initiate tobramycin dosing therapy, order appropriate labs and adjust drug dose/frequency. - Subjective The patient is a 79 year old F admitted on 09/01/19 23:23. - Objective Height: 5 ft 6 in Weight: 68.1 kg Vital Signs (Past 12hrs): Vital Signs Temp Pulse Resp BP Pulse Ox 09/02/19 07:48 36.6 C 73 19 145/69 H 97 09/02/19 04:01 36.7 C 66 18 135/72 97 09/02/19 00:20 36.9 C 79 18 172/77 H 95 09/01/19 23:59 73 13 146/70 H 96 Lab Results (24hrs): Laboratory Tests (24 Hours) 09/02/19 09/02/19 09/02/19 08:36 08:36 08:36 WBC 6.53 Neut # (Auto) 4.17 Creatinine 1.05 Est Cr Clr Drug Dosing 40.7 Random Tobramycin 7.10 09/01/19 09/01/19 19:21 19:21 WBC 8.02 Neut # (Auto) 4.43 Creatinine 1.14 Est Cr Clr Drug Dosing 36.0 Random Tobramycin Micro Results: 09/01/19 23:38 Aerobic Blood Culture - Pending Blood Anaerobic Blood Culture - Pending 09/01/19 23:37 Aerobic Blood Culture - Pending Blood Anaerobic Blood Culture - Pending 09/01/19 19:20 Urine Culture - Pending Urine,Clean Catch - Risk Factors for Resistance * History of infection with a multidrug-resistant organism - Assessment & Plan Assessment 79 year old F admitted with UTI- culture from 08/23 growing pseudomonas, sensitive to amikacin, ceftazidime, ciprofloxacin, imipenem,tobramycin, zosyn. Nickolast has multiple allergies including fluoroquinolones, penicillins, and a reaction to cefepime listed. Patient was started of ceftazidime in the ED but was switched to imipenem + tobramycin for double coverage by admitting team due to previous allergy to cefepime. ID consulted- will await their input as to w eather double coverage is needed. Plan Tobramycin * Patient meets criteria for extended-interval aminoglycoside dosing per the Urban-Kody nomogram * Dose: 340 mg (5 mg/kg) every 36 hours * Random level was 7.10 mcg/ml, 7.08 hrs after start of infusion * Dosage based on actual body weight as patient weight is < 1.2x ideal body weight Pharmacy will continue to follow and will adjust dose/frequency as necessary. Thank you.
[2019-09-02] MEDS ORDERED: FAMOTIDINE 20 MG in SYRINGE 3 ML IV STA (12:10)
[2019-09-02] MEDS ORDERED: predniSONE 50 MG TAB PO STA (12:10)
--- NOTE | 2019-09-02 12:37 | Urology Consultation ---
Date of Consultation September 02, 2019 Assessment & Plan (1) Pseudomonas aeruginosa infection: Long history of UTI with MDR infections in past and significant allergies which limit therapy options. Patient in ICU with supportive care and hydration and IV antibiotics. Agree with plans for monitoring. Likely need infectious disease and wallpaper hanger helper management of issues in future to better determine options for high risk for recurrent severe infections Likely benefit from imaging to rule out stones and other possible infection source. Recommend hydration and supportive management. History of Present Illness Attending Physician: Kyle Rossi MD History of Present Illness Consultation for well known patient with UTI/Pyelo, discomfort, and ill feelings. Long history of multiple UTI with MDR UTI in past. Patient developed sudden onset of ill feeling with mild pain into flank going down and radiating into groin and back in waves comes and goes. Ill feeling can be severe at times. Complex history. Discussed and reviewed patient's family history for any history of issues, infections, and disease. Also, discussed patient's medical/surgery history especially related to any history of urinary issues or stone disease. Patient was admitted and is undergoing observation with broad spectrum IV antibiotics. Has multiple allergies which limit options for therapy. Allergies Allergy/AdvReac Type Severity Reaction Status Date / Time celecoxib Allergy Severe Rash Verified 09/01/19 22:27 adhesive Allergy Intermediate RED Verified 08/24/19 09:38 IRRITATED SKIN ciprofloxacin [From Cipro] Allergy Mild Rash Verified 08/24/19 09:38 Sulfa (Sulfonamide Allergy Mild Hives Verified 09/01/19 22:27 Antibiotics) amoxicillin Allergy Unknown Rash Verified 09/01/19 22:27 cefepime Allergy Unknown Rash, drug Verified 09/01/19 22:27 eruption Penicillins Allergy Unknown Rash Verified 09/01/19 22:27 lactose AdvReac Intermediate GI UPSET Verified 08/24/19 09:38 vancomycin AdvReac Unknown Mook Verified 09/01/19 22:27 syndrome Home Medications Home Medications Medication Instructions Recorded Confirmed Type losartan 25 mg tablet 25 mg PO HS tab 08/26/18 09/01/19 History polyethylene glycol 3350 17 17 g PO DAILY PRN gm 08/26/18 09/01/19 History gram/dose oral powder lorazepam 0.5 mg tablet 0.5 mg PO HS PRN 04/08/19 09/01/19 History calcium carbonate-vitamin D3 1 tab PO QAM 04/09/19 09/01/19 History [Caltrate 600 plus D] lactobacillus comb no.10 0 mmu cells PO QAM 04/09/19 09/01/19 History [Probiotic] cranberry conc-ascorbic acid 1 cap PO TID 09/01/19 09/01/19 History [Cranberry Plus Vitamin C] Patient History Medical History Allergic reaction (Inactive 06/17/13) Cholecystectomy planned (Acute) Colitis (Acute) Cystitis Febrile illness (Inactive) Fever (Inactive 05/02/13) Fever (Inactive) Fever (Inactive) GI bleed Pneumonia (Resolved) Recurrent UTI (urinary tract infection) (Acute) Urticaria (Inactive) Surgical History H/O splenectomy (Acute) H/O: hysterectomy (Acute) History of cholecystectomy (Resolved) History of hysterectomy (Resolved) History of splenectomy (Resolved) Postoperative state (Inactive 02/18/13) Family History Other Family history non-contributory Social History Smoking Status: Never smoker Hx Alcohol Use: No Hx Substance Use: No Preferred Language: Tanzanian Communication Ability: Effective Chief Informatics Officer Required: No Beliefs That Will Affect Care: Buddhism Current Living Situation: Alone Other Information That Helps Us Care for You: No Feels Safe at Home: Yes Safety Concerns: Feels Safe At This Time Review of Systems Review of Systems: All systems reviewed & are unremarkable except as noted in HPI & below Physical Exam Physical Exam: General: Alert and oriented x 3 in no acute distress. Patient is well nourished and well kept. HEENT: Normocephalic Atraumatic. Inspection normal. Cranial Nerves 2-12 Grossly intact. Nares are clear. Neck is supple. Normal inspection of face. Normal inspection of neck. Neurologic: No deficits on inspection. Baseline for motor function and sensory. Psychologic: Normal affect. Respiratory: Nonlabored. No use of accessory muscles. No tachypnea or dyspnea. Cardiovascular: No tachycardia Skin: [place] and Dry. No rashes or visible lesions. Extremities: Moving without issues. No motor deficits on inspection Lymphatics: No edema Abdomen: Soft Non-distended. No acites. No rebound or guarding. Results & Data Vital Signs (Past 12 Hours) Vital Signs Temp Pulse Resp BP Pulse Ox 09/02/19 11:13 36.6 C 75 18 160/74 H 97 09/02/19 07:48 36.6 C 73 19 145/69 H 97 09/02/19 04:01 36.7 C 66 18 135/72 97 PG Care Time/CCT Total # of Minutes Spent Total Time Spent with Patient: Total time spent is greater than 50% in coordination of care (as documented) at patient's floor/unit and/or counseling patient: Coding Level of Care Code 28228 Inpt Consult Level 5 Diagnoses Pseudomonas aeruginosa infection A49.8
[2019-09-02 13:33] LABS: iSTAT Potassium 5.8 mmol/L (3.3-5.0)
[2019-09-02 13:34] LABS: iSTAT Ionized Calcium 1.15 mmol/l (1.12-1.32)
--- NOTE | 2019-09-02 13:35 | Allergy & Immunology Consult ---
Date of Consultation September 02, 2019 Assessment & Plan (1) Multiple drug allergies: patient presents today with a history of multiple drug allergies in the setting of pseudomonal and E Coli urinary tract infection. she was started on a combination of imipenem and tobramycin, but developed a macular eruption. 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 This often happens in patients either with active malignancy or history of malignancy. it is thought to represent abnormal/ hyperactive immune function which then leads to nonspecific reactions to antibiotics. This can be challenging to treat this patient's often developed skin rashes to just about any antibiotic. In most cases, we can treat through the rash with a combination of steroids and antihistamines. In this case, it is somewhat difficult to determine the mechanism of her previous reactions, as there was discordance between the patient's history and h er actual reactions. If she did indeed have a blistering skin rash with penicillins, these would need to be completely avoided moving forward. These types of reactions cannot be desensitized and would be on the spectrum of Vance Favian's/TEN. On the other hand, for medications to which she has developed hives or angioedema, these may be IgE mediated and the desensitization could be helpful in this setting. I discussed the case with Dr. Rossi and we decided that the most optimal antibiotic would be ciprofloxacin, as The Pseudomonas was sensitive and she could be discharged with an oral form to finish her course at home. As her reaction to this was angioedema and along the lines of IgE mediated, I expect that the desensitization be useful to allow her to tolerate the Cipro. He will work on moving her to the ICU to have this done and I spoke to pharmacy and sent an order for the Cipro desensitization. The goal would be to start this at 8:00 a.m. on 09/03/19. it is possible that even with the desensitization she may still develop a rash with this antibiotic that is along the lines of the non- IgE, multiple drug allergy reaction. If this happens and she develops a ma cular or maculopapular / non hive rash without any oral lesions or will as rashes, we can treat through this with a nonsedating antihistamine like cetirizine 10 mg b.i.d., hydroxyzine 25 mg at bedtime, and prednisone 20-40 mg daily to allow her to complete the course of antibiotics. History of Present Illness Attending Physician: Kyle Rossi MD History of Present Illness Patient is a 79-year-old female with a history of multiple drug allergies who presents with a urinary tract infection with previous cultures growing Pseudomonas and E coli. The Pseudomonas is sensitive to amikacin, ceftazidime, Cipro, imipenem, tobramycin, Zosyn. Due to her multiple drug allergies, she was being treated with imipenem, but developed a rash after the 2nd dose. She describes a rashes itchy and very irritating. It occurs primarily in the thighs in the groin area, trunk, underneath the breasts and on the abdomen, and on the back. She denies any other symptoms. Blood work did not show any eosinophilia. I reviewed her medication allergies. Her reaction to penicillin occurred many years ago and she does not recall all of the specific details. She thinks that this was a rash, but not necessarily severe. She was avoiding penicillin, but then got amoxicillin at some point, and she cannot recall exactly when. However, she got a severe rash that required hospitalization for a week. She believes that this was a blistering type of skin rash. she has since avoided all Penicillin. More recently, within the past year so she had a similar type of reaction to cefepime. She believes that this also led to a blistering skin rash with sloughing of the skin similar to Amoxicillin. she believes this was treated with steroids and resolved. However, I reviewed the ER notes from the cefepime reaction, and it appears that this was a macular rash without any blistering or mucosal involvement. She also had a reaction to Celebrex that she said were also a blistering skin rash. However, reviewing her discharge summary from that admission, there was no sloughing of the skin.As result, it is not clear Whether the patient's history is reliable with regards to these drug reactions. She believes that the Cipro reaction was a few months ago. She received this for urinary infection and after taking a dose developed swelling of the lips and tongue. I was not able to find any records of her Cipro reaction. Allergies Allergy/AdvReac Type Severity Reaction Status Date / Time celecoxib Allergy Severe Rash Verified 09/01/19 22:27 adhesive Allergy Intermediate RED Verified 08/24/19 09:38 IRRITATED SKIN ciprofloxacin [From Cipro] Allergy Mild Rash Verified 08/24/19 09:38 Sulfa (Sulfonamide Allergy Mild Hives Verified 09/01/19 22:27 Antibiotics) amoxicillin Allergy Unknown Rash Verified 09/01/19 22:27 cefepime Allergy Unknown Rash, drug Verified 09/01/19 22:27 eruption Penicillins Allergy Unknown Rash Verified 09/01/19 22:27 lactose AdvReac Intermediate GI UPSET Verified 08/24/19 09:38 vancomycin AdvReac Unknown Mook Verified 09/01/19 22:27 syndrome Home Medications Home Medications Medication Instructions Recorded Confirmed Type losartan 25 mg tablet 25 mg PO HS tab 08/26/18 09/01/19 History polyethylene glycol 3350 17 17 g PO DAILY PRN gm 08/26/18 09/01/19 History gram/dose oral powder lorazepam 0.5 mg tablet 0.5 mg PO HS PRN 04/08/19 09/01/19 History calcium carbonate-vitamin D3 1 tab PO QAM 04/09/19 09/01/19 History [Caltrate 600 plus D] lactobacillus comb no.10 0 mmu cells PO QAM 04/09/19 09/01/19 History [Probiotic] cranberry conc-ascorbic acid 1 cap PO TID 09/01/19 09/01/19 History [Cranberry Plus Vitamin C] Patient History Medical History Allergic reaction (Inactive 06/17/13) Cholecystectomy planned (Acute) Colitis (Acute) Cystitis Febrile illness (Inactive) Fever (Inactive 05/02/13) Fever (Inactive) Fever (Inactive) GI bleed Pneumonia (Resolved) Recurrent UTI (urinary tract infection) (Acute) Urticaria (Inactive) Surgical History H/O splenectomy (Acute) H/O: hysterectomy (Acute) History of cholecystectomy (Resolved) History of hysterectomy (Resolved) History of splenectomy (Resolved) Postoperative state (Inactive 02/18/13) Family History Other Family history non-contributory Social History Smoking Status: Never smoker Hx Alcohol Use: No Hx Substance Use: No Preferred Language: Surinamese Communication Ability: Effective [employer] Required: No Beliefs That Will Affect Care: [facility] Current Living Situation: Alone Other Information That Helps Us Care for You: No Feels Safe at Home: Yes Safety Concerns: Feels Safe At This Time Physical Exam Physical Exam: General: alert and oriented. Head: normal in appearance Ears: tympanic membranes clear bilaterally Eyes: sclera anicteric, no conjunctival injection Nose: nasal mucosa without edema, without erythema, without bogginess Throat: oropharynx clear, no cobblestoning, tonsil exam unremarkable Neck and lymphatics: without lymphadenopathy or thyromegaly. Trachea Midline. No masses appreciated. Cardiovascular: regular rate and rhythm, normal S1 and S2. No murmurs, rubs, gallops appreciated. Lungs: Clear to auscultation bilaterally. No wheezing, rhonchi, crackles. Abdomen: Soft, non-tender, normal bowel sounds. Peripheral vascular and extremities: no cyanosis, clubbing, edema. Skin: Erythematous, macular eruption on the inner thighs bilaterally, and the abdomen, under her breasts. A few areas on the back appear maculopapular in nature. However, there are no hive like lesions. She does not have any oral lesions. Results & Data Vital Signs (Past 12 Hours) Vital Signs Temp Pulse Resp BP Pulse Ox 09/02/19 11:13 36.6 C 75 18 160/74 H 97 09/02/19 07:48 36.6 C 73 19 145/69 H 97 09/02/19 04:01 36.7 C 66 18 135/72 97 09/02/19 00:20 36.9 C 79 18 172/77 H 95 Coding Level of Care Code 06429 Initial Inpt Care Lvl 2 Diagnoses Multiple drug allergies Z88.9
--- NOTE | 2019-09-02 15:10 | Hospitalist Progress Note ---
Date of Service September 02, 2019 Assessment & Plan (1) Pseudomonas urinary tract infection: Urine culture from 08/23 grew Pseudomonas sens to Cipro, Zosyn, tobramycin, and ceftazidime. - Continue imipenem/cilastatin per immunology - Considering desensitizing to Cipro tomorrow (2) Multiple drug allergies: Seen by Dr. Wolfe with thought this is a multi-drug reaction that may be associated with her cancer. - Start cetirizine & hydroxyzine - Continue prednisone 20 mg PO daily (3) DVT prophylaxis: Lovenox Admission and Anticipated Discharge Date Admission Date: September 01, 2019 Subjective Was feeling better this morning, and now has a rash. Reports no fevers/chills, chest pain, shortness of breath, abdominal pain, nausea, or vomiting. Physical Exam Constitutional: WD/WN, vitals as above Eyes: EOM intact bilaterally; no conjunctival abnormality ENMT: external ear and nose normal, oropharynx normal Neck: trachea midline, no thyromegaly normal visual inspection Respiratory: normal respiratory effort, lungs clear to auscultation no respiratory distress Cardiovascular: RRR, no murmur, no edema Gastrointestinal (Abdomen): Inspection/Auscultation: abdomen normal to inspection; abdomen not distended Musculoskeletal: no cyanosis or clubbing, extremities motor strength 5/5 Skin: + rash (Red, but not papular.) Neurologic: moves all extremities and awake Psychiatric: Orientation: alert, oriented to person and cooperative Results & Data Results & Data ([facility]) Vital Signs (Past 12 Hours) Vital Signs Temp Pulse Resp BP Pulse Ox 09/02/19 11:13 36.6 C 75 18 160/74 H 97 09/02/19 07:48 36.6 C 73 19 145/69 H 97 09/02/19 04:01 36.7 C 66 18 135/72 97 PG Care Time/CCT Total # of Minutes Spent Total Time Spent with Patient: Total time spent is greater than 50% in coordination of care (as documented) at patient's floor/unit and/or counseling patient: Coding Level of Care Code 63222 Subseq Hosp Care Lvl 3 Diagnoses Pseudomonas urinary tract infection N39.0; B96.5 Multiple drug allergies Z88.9 DVT prophylaxis Z29.9
[2019-09-02] MEDS ORDERED: IMIPENEM/CILASTATIN SODIUM 500 MG in DEXTROSE 5% 100 ML IV SCH (15:15)
--- NOTE | 2019-09-02 15:54 | Electrocardiogram Report ---
Test Reason : Blood Pressure : / mmHG Vent. Rate : 074 BPM Atrial Rate : 074 BPM P-R Int : 154 ms QRS Dur : 092 ms QT Int : 372 ms P-R-T Axes : 042 004 032 degrees QTc Int : 412 ms Poor data quality, interpretation may be adversely affected Normal sinus rhythm Normal ECG When compared with ECG of 02-MAY-2013 11:43, T wave amplitude has increased in Anterior leads Confirmed by Daniel Duncan ([id number]) on 09/02/2019 3:53:29 PM Referred By: Yusuf Chávez Confirmed By:Daniel Duncan
[2019-09-02] MEDS: CETIRIZINE HCL 10 MG TABLET PO SCH ×2 (17:50→20:12)
--- NOTE | 2019-09-02 19:49 | Billing Data ---
Date of Service September 02, 2019 Coding Level of Care Code 93425 Initial Inpt Care Lvl 3
[2019-09-02] MEDS: LORazepam 0.5 MG TAB PO PRN (22:27)
[2019-09-03] MEDS: IMIPENEM/CILASTATIN SODIUM 300 MG in DEXTROSE 5% 100 ML IV SCH ×3 (04:13→15:13)
[2019-09-03 06:19] LABS: Basophils # (auto) 0.01 K/uL (0-0.2); Basophils % (auto) 0.1 %; Hematocrit (blood only) 31.5 % (37-47); Hemoglobin 10.5 g/dL (12.0-16.0); Immature Granulocytes # (auto) 0.02 K/uL (0.00-0.02); Immature Granulocytes % (auto) 0.2 %; Lymphocytes # (auto) 0.95 K/uL (1.2-3.4); Lymphocytes % (auto) 10.3 %; Mean Corpuscular Hemoglobin 31.3 pg (25-34); Mean Corpuscular Hgb Conc 33.3 g/dL (32-36); Monocytes % (auto) 3.2 %; Neutrophils # (auto) 7.97 K/uL (1.4-6.5); Neutrophils % (auto) 86.2 %; Platelet Count 406 K/uL (130-400); RDW Coefficient of Variation 13.4 % (11.5-14.5); RDW Standard Deviation 46.1 fL (36.4-46.3); Red Blood Count 3.35 M/uL (4.2-5.4); White Blood Count 9.25 K/uL (4.8-10.8)
[2019-09-03 06:56] LABS: Albumin Level 2.6 gm/dl (3.4-5.0); BUN Creatinine Ratio 16.6 (10-20); Calcium 8.5 mg/dl (8.5-10.1); Creatinine Clr Calc Pharmacy 39.5 ml/min; Est GFR (African American) 56.5; Est GFR (Non-African American) 48.8; Potassium 4.6 mmol/L (3.5-5.1)
[2019-09-03 06:58] LABS: Albumin Globulin Ratio 0.6 (0.9-2); Bilirubin,Total 0.3 mg/dl (0.2-1); Globulin 4.1 gm/dl (2.5-4.0); Total Protein 6.7 gm/dl (6.4-8.2)
[2019-09-03] MEDS: CETIRIZINE HCL 10 MG TABLET PO SCH ×2 (07:57→21:31)
[2019-09-03] MEDS: ENOXAPARIN INJ 40 MG/0.4 ML SYR SQ SCH (07:57)
[2019-09-03] MEDS: FAMOTIDINE 20 MG TAB PO SCH (07:58)
[2019-09-03] MEDS: LACTOBACILLUS ACIDOPHILUS (FLORANEX) TAB PO SCH ×4 (07:58→21:32)
[2019-09-03] MEDS: predniSONE 20 MG TAB PO SCH (07:59)
[2019-09-03] MEDS ORDERED: TOBRAMYCIN SULFATE IV SCH (13:30)
[2019-09-03] MEDS ORDERED: DEXTROSE 5% IV SCH ×3 (13:30→16:30)
--- NOTE | 2019-09-03 13:53 | Hospitalist Progress Note ---
Date of Service September 03, 2019 Assessment & Plan (1) Pseudomonas urinary tract infection: Urine culture from 08/23 grew Pseudomonas sens to Cipro, Zosyn, tobramycin, and ceftazidime. - Continue imipenem/cilastatin per immunology - Cipro desensitization today in the ICU (2) Multiple drug allergies: Seen by Dr. 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 For this type of rash, it can t reated through. - Start cetirizine & hydroxyzine - Continue prednisone 20 mg PO daily (3) Hypertension: BP is 170/80 today. - Continue losartan (4) Hepatocellular carcinoma: S/p TACE in [place] recently. - Outpatient follow up (5) DVT prophylaxis: Lovenox Admission and Anticipated Discharge Date Admission Date: September 02, 2019 Subjective No major overnight events. Her rash is improved today. Reports no fevers/chills, chest pain, shortness of breath, abdominal pain, nausea, or vomiting. Physical Exam Constitutional: WD/WN, vitals as above Eyes: EOM intact bilaterally; no conjunctival abnormality ENMT: external ear and nose normal, oropharynx normal Neck: trachea midline, no thyromegaly normal visual inspection Respiratory: normal respiratory effort, lungs clear to auscultation no respiratory distress Cardiovascular: RRR, no murmur, no edema Gastrointestinal (Abdomen): Inspection/Auscultation: abdomen normal to inspection; abdomen not distended Musculoskeletal: no cyanosis or clubbing, extremities motor strength 5/5 Skin: + rash (Red, but not papular.) Neurologic: moves all extremities and awake Psychiatric: Orientation: alert, oriented to person and cooperative Results & Data Results & Data ([facility]) Vital Signs (Past 12 Hours) Vital Signs Temp Pulse Pulse Resp BP BP Pulse Ox 09/03/19 11:18 36.5 C 65 20 169/79 H 98 09/03/19 08:14 36.9 C 72 20 136/68 99 09/03/19 07:45 102 H 09/03/19 04:31 36.7 C 68 16 159/67 H 98 PG Care Time/CCT Total # of Minutes Spent Total Time Spent with Patient: Total time spent is greater than 50% in coordination of care (as documented) at patient's floor/unit and/or counseling patient: Coding Level of Care Code 54672 Subseq Hosp Care Lvl 3 Diagnoses Pseudomonas urinary tract infection N39.0; B96.5 Multiple drug allergies Z88.9 Hypertension I10 Hepatocellular carcinoma C22.0 DVT prophylaxis Z29.9
[2019-09-03] MEDS ORDERED: EPINEPHRINE ADULT AUTO-INJECT 0.3 MG SYR IM PRN (14:17)
[2019-09-03] MEDS ORDERED: DiphenhydrAMINE HCL 50 MG/ML VIAL IV PRN (14:17)
[2019-09-03] MEDS ORDERED: ALBUTEROL 0.083% NEBU SOLN 3 ML VIAL NEB PRN (14:17)
--- NOTE | 2019-09-03 14:27 | Procedure Note ---
Procedure Note Date of Service September 03, 2019 Procedure: Partner Indwelling Peripherally Inserted IV Catheter Placement Attending: Dr. Lazo APC: Vern Farnsworth PA-C Indication: Need for IV Access, Poor Vascular Access Anesthesia: None Verbal consent was obtained from patient prior to performing the procedure. A time-out was completed verifying correct patient, procedure, site, positioning, and implant(s) or special equipment if applicable. Utilizing bedside ultrasound, vascularity of the RIGHT upper extremity was assessed. Vessel size was noted for appropriate catheter selection and skin was marked with gentle pressure. Patients RIGHT upper extremity was prepped and draped in the usual sterile fashion utilizing chlorhexidine. Ultrasound guidance was used to aid needle placement. A 20 g Endurance Catheter was introduced into the RIGHT Forearm vein under direct ultrasound guidance. Guide wire was easily deployed without resistance. Catheter was threaded over the guide wire without resistance and the entire apparatus was removed intact. Good venous blood return was noted in the catheter. The IV catheter was easily flushed with sterile saline flush. Sterile clave was attached to the end of the catheter and good blood return was again noted. Tourniquet was released. StatLock device and sterile dressing were applied. The patient tolerated the procedure well. Blood Loss: Minimal Complications: None Procedural Ultrasound Guidance: Procedure Date: 09/03/2019 Indication: Poor Vascular Access Attending: Dr. Lazo APC: Vern Farnsworth PA-C Artery/Veins Identified: YES Access confirmed in Vein with ultrasound: YES Complications: NONE Patient tolerated procedure: WELL Coding CPT Codes Tubes, Drains, and Vasc Access - Tubes, Drains, and Vasc Access: [id number] Venipuncture, Age 3/>Req phys skill, (sep proc), Dx/Tx (not rtn) ([id number]) [facility] Codes (Charges) Tubes, Drains, and Vasc Access Procedure 1: Tubes, Drains, and Vasc Access: [id number] Venipuncture, Age 3/>Req phys skill, (sep proc), Dx/Tx (not rtn)
[2019-09-03] MEDS ORDERED: EPINEPHrine INJ 1 MG/ML AMP IM PRN (14:30)
--- NOTE | 2019-09-03 14:48 | Critical Care Consultation ---
Date of Consultation September 03, 2019 Assessment & Plan (1) Desensitization to allergens: Reason Critically Ill: 79-year-old female here with a PMHx significant for multiple UTIs who presented with recurrent UTI with allergens to multiple antibiotics and who was admitted for treatment of UTi, transferred to ICU for ciprofloxacin desensitization. Neuro - A&O3, no issues Cardiac - HTN, no acute concerns Respiratory - no concerns GI - diverticulosis of colon, hepatocellular carcinoma RENAL/LYTES - No significant electrolyte derangement. Replace lytes as needed. - Recurrent UTIs, current infection with Pseudomonas treated with Imipenem. receiving densensitization for ciprofloxacin ICU monitoring for allergic reactions during densistization procedure ENDO - no concerns HEME - Stable H&H. ID - see Monitor fever curve. INTEGUMENTARY - drug eruption rash prsen LINES/IV ACCESS - L PIV intact, US guided PIV in R arm placed in ICU DVT PROPHYLAXIS - heparin sq Goals of care: Pt previously DNR/DNI. Conversation between Vern GERARDO, myself, patient, patient's daughter regarding possibility to allergic reaction including laryngeal edema and cessation of breathing during procedure, and benefit of temporary intubation to allow for airway protection until swelling can be reduced and medication discontinued. Patient agreed, and okay with temporary intubation and ventilation in the setting of airway compromise during desensitization procedure. Will re-assess code status with patient after procedure. Thank you for allowing us to be part of this patient's care. Please refer to Dr. Lazo's documentation for any further recommendations. (2) Pseudomonas urinary tract infection: (3) Allergy to sulfa drugs: (4) Drug eruption: Supervising Physician Co-Signing Physician Notes Dr. Tubbs was resident physician during care of patient. I separately evaluated patient for cowart portions of the history and the exam. I was present during the critical portion of medical decision making, and I discussed the case with the resident. I generally agree with the findings and plan. History of Present Illness Attending Physician: Kyle Rossi MD History of Present Illness 79 yo F with ongoing frequent UTIs, following with urology who also has had numerous allergic reactions to ciprofloxacin, cefepime, penicillins, vancomycin, sulfa antibiotics. + rash on torso and inner thigh from recent antibiotics. denies shortness of breath,trouble breathing, chest tightness, swelling. Allergies Allergy/AdvReac Type Severity Reaction Status Date / Time celecoxib Allergy Severe Rash Verified 09/01/19 22:27 ciprofloxacin [From Cipro] Allergy Severe DRESS Verified 09/04/19 15:03 adhesive Allergy Intermediate RED Verified 08/24/19 09:38 IRRITATED SKIN Sulfa (Sulfonamide Allergy Mild Hives Verified 09/01/19 22:27 Antibiotics) amoxicillin Allergy Unknown Rash Verified 09/01/19 22:27 cefepime Allergy Unknown Rash, drug Verified 09/01/19 22:27 eruption Penicillins Allergy Unknown Rash Verified 09/01/19 22:27 lactose AdvReac Intermediate GI UPSET Verified 08/24/19 09:38 vancomycin AdvReac Unknown Mook Verified 09/01/19 22:27 syndrome Home Medications Home Medications Medication Instructions Recorded Confirmed Type losartan 25 mg tablet 25 mg PO HS tab 08/26/18 09/01/19 History polyethylene glycol 3350 17 17 g PO DAILY PRN gm 08/26/18 09/01/19 History gram/dose oral powder lorazepam 0.5 mg tablet 0.5 mg PO HS PRN 04/08/19 09/01/19 History Caltrate 600 plus D 1 tab PO QAM 04/09/19 09/01/19 History Probiotic 0 mmu cells PO QAM 04/09/19 09/01/19 History Cranberry Plus Vitamin C 1 cap PO TID 09/01/19 09/01/19 History cetirizine [Zyrtec] 20 mg PO BID #60 tab 09/12/19 Rx hydroxyzine HCl 25 mg PO HS #30 tab 09/12/19 Rx prednisone 20 mg PO DAILY #10 tab 09/12/19 Rx Patient History Medical History Allergic reaction (Inactive 06/17/13) Cholecystectomy planned (Acute) Colitis (Acute) Cystitis Febrile illness (Inactive) Fever (Inactive 05/02/13) Fever (Inactive) Fever (Inactive) GI bleed Pneumonia (Resolved) Recurrent UTI (urinary tract infection) (Acute) Urticaria (Inactive) Surgical History H/O splenectomy (Acute) H/O: hysterectomy (Acute) History of cholecystectomy (Resolved) History of hysterectomy (Resolved) History of splenectomy (Resolved) Postoperative state (Inactive 02/18/13) Family History Other Family history non-contributory Social History Smoking Status: Never smoker Hx Alcohol Use: No Hx Substance Use: No Preferred Language: Arabic Communication Ability: Effective Technical Marketing Engineer Required: No Beliefs That Will Affect Care: Sabianist Current Living Situation: Alone Feels Safe at Home: Yes Review of Systems Review of Systems: All systems reviewed & are unremarkable except as noted in HPI & below Physical Exam Physical Exam: Constitutional: thin, in no apparent distress, sitting comfortably in bed. Eyes: EOMI, pupils equal and reactive bilaterally, no scleral icterus Cardiac: RRR, no murmurs, gallops or rubs. Normal S1, S2 Pulm: CTA BL, no wheezes, rhonchi, crackles or rubs, moving air well throughout both lungs Abd: soft, nontender, nondistended, normal bowel sounds, no rebound or guarding Extremities: 2+ peripheral pulses, no edema Neuro: no focal deficits, moving all 4 limbs, A&Ox3 Skin: papular, erythematous rash covering Results & Data Results & Data ([facility]) Vital Signs (Past 12 Hours) Vital Signs Temp Pulse Pulse Resp BP BP BP 09/03/19 14:23 69 15 142/89 H 09/03/19 13:59 76 09/03/19 13:52 36.9 C 73 15 131/96 09/03/19 13:46 36.9 C 73 22 189/91 H 09/03/19 11:18 36.5 C 65 20 169/79 H 09/03/19 08:14 36.9 C 72 20 136/68 09/03/19 07:45 102 H 09/03/19 04:31 36.7 C 68 16 159/67 H Pulse Ox 09/03/19 14:23 100 09/03/19 13:59 09/03/19 13:52 99 09/03/19 13:46 99 09/03/19 11:18 98 09/03/19 08:14 99 09/03/19 07:45 09/03/19 04:31 98 Laboratory Results WBC 9.25 K/uL (4.8-10.8) 09/03/19 05:52 RBC 3.35 M/uL (4.2-5.4) L 09/03/19 05:52 Hgb 10.5 g/dL (12.0-16.0) L 09/03/19 05:52 POC Hgb 15.0 g/dl (12.0-16.0) 09/01/19 19:41 Hct 31.5 % (37-47) L 09/03/19 05:52 POC Hct 44 % (37-47) 09/01/19 19:41 MCV 94.0 fL (80-100) 09/03/19 05:52 MCH 31.3 pg (25-34) 09/03/19 05:52 MCHC 33.3 g/dL (32-36) 09/03/19 05:52 RDW Std Deviation 46.1 fL (36.4-46.3) 09/03/19 05:52 RDW Coeff of Bakari 13.4 % (11.5-14.5) 09/03/19 05:52 Plt Count 406 K/uL (130-400) H 09/03/19 05:52 MPV 10.0 fL (7.4-10.4) 09/03/19 05:52 Immature Gran % (Auto) 0.2 % 09/03/19 05:52 Neut % (Auto) 86.2 % 09/03/19 05:52 Lymph % (Auto) 10.3 % 09/03/19 05:52 Tripp % (Auto) 3.2 % 09/03/19 05:52 Eos % (Auto) 0.0 % 09/03/19 05:52 Baso % (Auto) 0.1 % 09/03/19 05:52 Neut # (Auto) 7.97 K/uL (1.4-6.5) H 09/03/19 05:52 Lymph # (Auto) 0.95 K/uL (1.2-3.4) L 09/03/19 05:52 Tripp # (Auto) 0.30 K/uL (0.11-0.59) 09/03/19 05:52 Eos # (Auto) 0.00 K/uL (0-0.5) 09/03/19 05:52 Baso # (Auto) 0.01 K/uL (0-0.2) 09/03/19 05:52 Immature Gran # (Auto) 0.02 K/uL (0.00-0.02) 09/03/19 05:52 PT 11.1 Seconds (9.0-12.0) 09/01/19 23:40 INR 1.1 (0.9-1.1) 09/01/19 23:40 POC Sodium 132 mmol/L (135-144) L 09/01/19 19:41 Sodium 134 mmol/L (136-145) L 09/03/19 05:52 POC Potassium 5.8 mmol/L (3.3-5.0) H 09/01/19 19:41 Potassium 4.6 mmol/L (3.5-5.1) 09/03/19 05:52 POC Chloride 99 mmol/L (101-112) L 09/01/19 19:41 Chloride 103 mmol/L (98-107) 09/03/19 05:52 Carbon Dioxide 24 mmol/L (21-32) 09/03/19 05:52 POC Total CO2 26 mmol/L (24-31) 09/01/19 19:41 Anion Gap 7.0 (3-11) 09/03/19 05:52 POC Anion Gap 15.0 mmol/L (16-25) L 09/01/19 19:41 POC BUN 27 mg/dl (7-18) H 09/01/19 19:41 BUN 18 mg/dl (7-18) 09/03/19 05:52 Creatinine 1.08 mg/dl (0.6-1.2) 09/03/19 05:52 POC Creatinine 1.0 mg/dl (0.6-1.3) 09/01/19 19:41 Est Cr Clr Drug Dosing 39.5 ml/min 09/03/19 05:52 Est GFR ( Amer) 56.5 09/03/19 05:52 Est GFR (Non-Af Amer) 48.8 09/03/19 05:52 BUN/Creatinine Ratio 16.6 (10-20) 09/03/19 05:52 Glucose 176 mg/dl (70-99) H 09/03/19 05:52 POC Glucose 168 mg/dl (70-99) H 09/03/19 14:56 POC Glucose (other) 108 mg/dl (70-99) H 09/01/19 19:41 Lactate 0.8 mmol/L (0.4-2.0) 09/01/19 23:38 Calcium 8.5 mg/dl (8.5-10.1) 09/03/19 05:52 POC Ioniz Calcium Terri 1.15 mmol/l (1.12-1.32) 09/01/19 19:41 Magnesium 2.0 mg/dl (1.8-2.4) 09/03/19 05:52 Total Bilirubin 0.3 mg/dl (0.2-1) 09/03/19 05:52 Direct Bilirubin 0.1 mg/dl (0-0.2) 09/01/19 19:21 AST 8 U/L (15-37) L 09/03/19 05:52 ALT 10 U/L (12-78) L 09/03/19 05:52 Alkaline Phosphatase 82 U/L (45-117) 09/03/19 05:52 Total Protein 6.7 gm/dl (6.4-8.2) 09/03/19 05:52 Albumin 2.6 gm/dl (3.4-5.0) L 09/03/19 05:52 Globulin 4.1 gm/dl (2.5-4.0) H 09/03/19 05:52 Albumin/Globulin Ratio 0.6 (0.9-2) L 09/03/19 05:52 Lipase 131 U/L (73-393) 09/01/19 19:21 Urine Color Yellow 09/01/19 19:20 Urine Appearance Cloudy (Clear) A 09/01/19 19:20 Urine pH 6.0 (4.5-7.5) 09/01/19 19:20 Ur Specific [place] 1.011 (1.000-1.030) 09/01/19 19:20 Urine Protein Negative (Negative) 09/01/19 19:20 Urine Glucose (UA) Negative (Negative) 09/01/19 19: Urine Ketones Negative (Negative) 09/01/19 19:20 Urine Blood Trace (Negative) H 09/01/19 19:20 Urine Nitrite Positive (Negative) A 09/01/19 19:20 Urine Bilirubin Negative (Negative) 09/01/19 19:20 Urine Urobilinogen Negative (Negative) 09/01/19 19:20 Ur Leukocyte Esterase 2+ (Negative) H 09/01/19 19:20 Urine WBC (Auto) >30 /hpf (0-5) H 09/01/19 19:20 Urine RBC (Auto) 0-4 /hpf (0-4) 09/01/19 19:20 U Hyaline Cast (Auto) 1-5 /lpf (0-5) 09/01/19 19:20 U Epithel Cells (Auto) 10-20 /lpf (0-5) H 09/01/19 19:20 Urine Bacteria (Auto) 2+ (Negative) H 09/01/19 19:20 Random Tobramycin 7.10 mcg/ml 09/02/19 08:36 Resident Activity Tracking Resident Involvement: Resident Care Provided Care Provided: Adult Hospital Medicine
[2019-09-03] MEDS ORDERED: CIPROFLOXACIN IV SCH ×2 (15:30→16:30)
[2019-09-03] MEDS ORDERED: CIPROFLOXACIN / D5W 400 MG/200 ML BAG IV SCH (18:00)
[2019-09-03] MEDS: LOSARTAN POTASSIUM 25 MG TAB PO SCH (21:30)
[2019-09-04] MEDS: LORazepam 0.5 MG TAB PO PRN (04:05)
[2019-09-04] MEDS ORDERED: DiphenhydrAMINE HCL 50 MG/ML VIAL IV STA ×2 (04:15→06:29)
[2019-09-04] MEDS ORDERED: HYDROCORTISONE 1% OINT 30 GM TUBE EXT PRN (06:29)
--- NOTE | 2019-09-04 09:36 | XRay Report ---
KUB CLINICAL HISTORY: Generalized abdominal pain. FINDINGS: An AP supine abdominal radiograph is compared to study dated 02/06/2012 and correlated with abdominal CT dated 07/16/2018. There is a nonobstructed abdominal bowel gas pattern noting moderate to severe constipation. No evidence of intraperitoneal free air is seen on this supine examination. Cho lecystectomy clips are noted in the right upper quadrant. Suture material projects over the left uppe r quadrant. A surgical clip is also seen in the pelvis. There are no abnormal abdominal calcification s. A phlebolith is noted in the left hemipelvis. The skeletal structures are osteopenic and appear in tact. Fusion hardware is noted in the lumbar spine. IMPRESSION: Moderate to severe constipation. Electronically signed by: Angel Samaniego M.D. 09/04/2019 9:34 AM
[2019-09-04] MEDS: LACTOBACILLUS ACIDOPHILUS (FLORANEX) TAB PO SCH ×4 (10:03→20:24)
[2019-09-04] MEDS: ENOXAPARIN INJ 40 MG/0.4 ML SYR SQ SCH (10:03)
[2019-09-04] MEDS: predniSONE 20 MG TAB PO SCH (10:03)
[2019-09-04] MEDS: FAMOTIDINE 20 MG TAB PO SCH (10:03)
[2019-09-04] MEDS: CETIRIZINE HCL 10 MG TABLET PO SCH ×2 (10:03→20:24)
--- NOTE | 2019-09-04 11:13 | Allergy & Immunology Prog Note ---
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 However, recommend checking a CBC with diff, LFTs, renal function. More dangerous rashes like SJS/TEN or DRESS often present with fever + abnormalities that can include eosinophilis (>1500 cells/mcl), rise in transaminases, or decrease in renal function. If all of those are OK, would try to treat through the rash so she can complete the course of cipro. Would go up on the dose of prednisone to 40-50 mg range, increase cetirizine to 20 mg BID, continue hydroxyzine 25 mg at bedtime, and instead of using benadryl for break through symptoms, would switch to hydroxyzine 25 mg q4-6 h prn (in addition to nightly dose). Hyrdroxyzine is metabolized to an active antihistamine that has a long half life in the skin, whereas benadryl wears off after ~4h and the rash can start to rebound when this happens. If there is a change in any of the blood markers, she develops a fever, she gets any oral lesions, or the rash starts to look bullous or appears like a target lesion on the palms/soles , would need to switch to a different abx and likely would have to switch back to the imipenem with the antihistamine/prednisone cocktail. Admission and Anticipated Discharge Date Admission Date: September 02, 2019 Subjective Pt tolerated desensitization well, but then developed a rash overnight into the next AM. This occurred on her cheeks first and then spread to other areas on the body - chest, abdomen, back mainly. She says that this rash has a burning character, which was similar to the last time she reacted to cipro. She said that episode was also associated with lip and tongue swelling, but has none of that now. That rash also seemed to come on after about 12-24 hours. She denies any oral lesions. The rash on the trunk and back does not burn, but feels more irritated with some pruritus. She has been getting Benadryl, which seems to be helping to decrease the burning and rash on the face. No fevers or chills. No shortness of breath or other associated sx. Review of Systems Review of Systems: All systems reviewed & are unremarkable except as noted in HPI & below Physical Exam Physical Exam: General: alert and oriented. Head: normal in appearance Eyes: sclera anicteric, no conjunctival injection Throat: no sores or ulcers, no redness, no swelling. Oropharynx clear, no cobblestoning, tonsil exam unremarkable Neck and lymphatics: without lymphadenopathy or thyromegaly. Trachea Midline. No masses appreciated. Cardiovascular: regular rate and rhythm, normal S1 and S2. Lungs: Clear to auscultation bilaterally. No wheezing, rhonchi, crackles. Abdomen: Soft, non-tender, normal bowel sounds. Peripheral vascular and extremities: no cyanosis, clubbing, edema. Skin: confluent, erythematous, macular rash on cheeks. Erythematous lacy rash on the abdomen, macular. No bullous lesions. No target lesions. Results & Data ([facility]) Vital Signs (Past 12 Hours) Vital Signs Temp Pulse Pulse Resp BP Pulse Ox 09/04/19 08:00 71 09/04/19 07:36 36.3 C L 62 19 146/74 H 95 09/04/19 06:27 68 18 136/83 100 09/04/19 03:49 36.5 C 73 18 142/83 H 95 09/03/19 23:41 88 PG Care Time/CCT Total # of Minutes Spent Total Time Spent with Patient: Total time spent is greater than 50% in coordination of care (as documented) at patient's floor/unit and/or counseling patient: Coding Level of Care Code 99492 Inpt Consult Level 4 Diagnoses Multiple drug allergies Z88.9
[2019-09-04 11:33] LABS: Hematocrit (blood only) 32.8 % (37-47); Hemoglobin 11.3 g/dL (12.0-16.0); Mean Corpuscular Hemoglobin 32.1 pg (25-34); Mean Corpuscular Hgb Conc 34.5 g/dL (32-36); Mean Corpuscular Volume 93.2 fL (80-100); Mean Platelet Volume 9.6 fL (7.4-10.4); Platelet Count 372 K/uL (130-400); RDW Coefficient of Variation 13.5 % (11.5-14.5); RDW Standard Deviation 45.8 fL (36.4-46.3); Red Blood Count 3.52 M/uL (4.2-5.4); White Blood Count 11.28 K/uL (4.8-10.8)
--- NOTE | 2019-09-04 11:53 | Hospitalist Progress Note ---
Date of Service September 04, 2019 Assessment & Plan (1) Pseudomonas urinary tract infection: Urine culture from 08/23 grew Pseudomonas sens to Cipro, Zosyn, tobramycin, and ceftazidime. - Continue imipenem/cilastatin per immunology - Cipro desensitization on 09/03 in the ICU went ok -> No angioedema, but now has a burning rash on her face, chest, and stomach. Dr. Perea feels this is part of her multi-drug allergy. Will (2) Multiple drug allergies: Seen by Dr. 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 For this type of rash, it can treated through. - Today unclear if she is having a SJS/TEN or DRESS: Will increase prednisone to 50 mg daily, cetirizine 20 mg PO BID, and hydroxyzine QHS & Q4h PRN. From school business administrator note on 09/03: "If there is a change in any of the blood markers, she develops a fever, she gets any oral lesions, or the rash starts to look bullous or appears like a target lesion on the palms/soles , would need to switch to a different abx and likely would have to switch back to the imipenem with the antihistamine/prednisone cocktail." (3) Hypertension: BP is 145/80 today. - Continue losartan (4) Hepatocellular carcinoma: S/p TACE in [place] recently. - Outpatient follow up (5) DVT prophylaxis: Lovenox Admission and Anticipated Discharge Date Admission Date: September 02, 2019 Subjective With worsening rash that started last night. It is a burning rash that hurts. Reports no fevers/chills, chest pain, shortness of breath, abdominal pain, nausea, or vomiting. Physical Exam Constitutional: WD/WN, vitals as above Eyes: EOM intact bilaterally; no conjunctival abnormality ENMT: external ear and nose normal, oropharynx normal Neck: trachea midline, no thyromegaly normal visual inspection Respiratory: normal respiratory effort, lungs clear to auscultation no respiratory distress Cardiovascular: RRR, no murmur, no edema Gastrointestinal (Abdomen): Inspection/Auscultation: abdomen normal to inspection; abdomen not distended Musculoskeletal: no cyanosis or clubbing, extremities motor strength 5/5 Skin: + rash (Red, but not papular. Diffuse on face, chest, and stomach.) Neurologic: moves all extremities and awake Psychiatric: Orientation: alert, oriented to person and cooperative Results & Data Results & Data ([facility]) Vital Signs (Past 12 Hours) Vital Signs Temp Pulse Pulse Resp BP Pulse Ox 09/04/19 11:45 36.5 C 62 19 143/79 H 98 09/04/19 08:00 71 09/04/19 07:36 36.3 C L 62 19 146/74 H 95 09/04/19 06:27 68 18 136/83 100 09/04/19 03:49 36.5 C 73 18 142/83 H 95 PG Care Time/CCT Total # of Minutes Spent Total Time Spent with Patient: Total time spent is greater than 50% in coordination of care (as documented) at patient's floor/unit and/or counseling patient: Coding Level of Care Code 72341 Subseq Hosp Care Lvl 3 Diagnoses Pseudomonas urinary tract infection N39.0; B96.5 Multiple drug allergies Z88.9 Hypertension I10 Hepatocellular carcinoma C22.0 DVT prophylaxis Z29.9
[2019-09-04 12:05] LABS: BUN Creatinine Ratio 16.3 (10-20); Calcium 9.1 mg/dl (8.5-10.1); Creatinine Clr Calc Pharmacy 38.8 ml/min; Est GFR (African American) 55.3; Est GFR (Non-African American) 47.7
[2019-09-04] MEDS: predniSONE 50 MG TAB PO SCH (12:14)
[2019-09-04 12:30] LABS: Alanine Aminotransferase 11 U/L (12-78); Alkaline Phosphatase 88 U/L (45-117); Aspartate Aminotransferase 10 U/L (15-37); Bilirubin Direct < 0.1 mg/dl (0-0.2); Bilirubin,Total 0.4 mg/dl (0.2-1); Total Protein 7.3 gm/dl (6.4-8.2)
[2019-09-04] MEDS ORDERED: CETIRIZINE HCL 10 MG TABLET PO ONE (12:30)
[2019-09-04 12:36] LABS: Basophils # (auto) 0.04 K/uL (0-0.2); Basophils % (auto) 0.4 %; Eosinophils # (auto) 0.58 K/uL (0-0.5); Eosinophils % (auto) 5.1 %; Immature Granulocytes # (auto) 0.04 K/uL (0.00-0.02); Immature Granulocytes % (auto) 0.4 %; Lymphocytes # (auto) 1.72 K/uL (1.2-3.4); Lymphocytes % (auto) 15.2 %; Monocytes # (auto) 1.27 K/uL (0.11-0.59); Monocytes % (auto) 11.2 %; Neutrophils # (auto) 7.66 K/uL (1.4-6.5); Neutrophils % (auto) 67.7 %
[2019-09-04] MEDS ORDERED: CIPROFLOXACIN / D5W 200 MG/100 ML BAG IV ONE (14:00)
[2019-09-04] MEDS ORDERED: IMIPENEM/CILASTATIN CONSULT ACTIVE PRN (14:59)
[2019-09-04] MEDS: IMIPENEM/CILASTATIN SODIUM 300 MG in DEXTROSE 5% 100 ML IV SCH ×2 (15:37→21:49)
[2019-09-04] MEDS: LOSARTAN POTASSIUM 25 MG TAB PO SCH (20:23)
[2019-09-05] MEDS: IMIPENEM/CILASTATIN SODIUM 300 MG in DEXTROSE 5% 100 ML IV SCH ×4 (03:45→20:59)
[2019-09-05 06:18] LABS: Basophils # (auto) 0.01 K/uL (0-0.2); Basophils % (auto) 0.1 %; Hematocrit (blood only) 33.2 % (37-47); Hemoglobin 10.9 g/dL (12.0-16.0); Immature Granulocytes # (auto) 0.03 K/uL (0.00-0.02); Immature Granulocytes % (auto) 0.3 %; Lymphocytes # (auto) 1.34 K/uL (1.2-3.4); Lymphocytes % (auto) 11.2 %; Mean Corpuscular Hemoglobin 30.8 pg (25-34); Mean Corpuscular Hgb Conc 32.8 g/dL (32-36); Mean Corpuscular Volume 93.8 fL (80-100); Mean Platelet Volume 9.7 fL (7.4-10.4); Monocytes # (auto) 1.14 K/uL (0.11-0.59); Monocytes % (auto) 9.5 %; Neutrophils # (auto) 9.45 K/uL (1.4-6.5); Neutrophils % (auto) 78.9 %; Platelet Count 375 K/uL (130-400); RDW Coefficient of Variation 13.6 % (11.5-14.5); RDW Standard Deviation 46.9 fL (36.4-46.3); Red Blood Count 3.54 M/uL (4.2-5.4); White Blood Count 11.97 K/uL (4.8-10.8)
[2019-09-05 06:55] LABS: Albumin Level 2.7 gm/dl (3.4-5.0); BUN Creatinine Ratio 18.8 (10-20); Calcium 8.9 mg/dl (8.5-10.1); Creatinine Clr Calc Pharmacy 40.3 ml/min; Est GFR (African American) 57.8; Est GFR (Non-African American) 49.9; Magnesium 2.1 mg/dl (1.8-2.4); Potassium 4.5 mmol/L (3.5-5.1)
[2019-09-05 06:58] LABS: Albumin Globulin Ratio 0.7 (0.9-2); Bilirubin,Total 0.3 mg/dl (0.2-1); Total Protein 6.7 gm/dl (6.4-8.2)
[2019-09-05] MEDS: predniSONE 50 MG TAB PO SCH (09:06)
[2019-09-05] MEDS: ENOXAPARIN INJ 40 MG/0.4 ML SYR SQ SCH (09:06)
[2019-09-05] MEDS: FAMOTIDINE 20 MG TAB PO SCH (09:07)
[2019-09-05] MEDS: LACTOBACILLUS ACIDOPHILUS (FLORANEX) TAB PO SCH ×4 (09:07→21:06)
[2019-09-05] MEDS: CETIRIZINE HCL 10 MG TABLET PO SCH ×2 (09:07→21:05)
[2019-09-05] MEDS: LOSARTAN POTASSIUM 25 MG TAB PO SCH (21:05)
--- NOTE | 2019-09-05 22:27 | Hospitalist Progress Note ---
Date of Service September 05, 2019 Assessment & Plan (1) Pseudomonas urinary tract infection: Urine culture from 08/23 grew Pseudomonas sens to Cipro, Zosyn, tobramycin, and ceftazidime. - Continue imipenem/cilastatin per immunology - Patient did not tolerate the cipro desentization. Plan will be to complete 10 days worth of antibiotics. (2) Multiple drug allergies: Seen by Dr. 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 For this type of rash, it can treated through. - Today unclear if she is having a SJS/TEN or DRESS: Will increase prednisone to 50 mg daily, cetirizine 20 mg PO BID, and hydroxyzine QHS & Q4h PRN. From investment recovery technician note on 09/03: "If there is a change in any of the blood markers, she develops a fever, she gets any oral lesions, or the rash starts to look bullous or appears like a target lesion on the palms/soles , would need to switch to a different abx and likely would have to switch back to the imipenem with the antihistamine/prednisone cocktail." (3) Hypertension: BP is 145/80 today. - Continue losartan (4) Hepatocellular carcinoma: S/p TACE in [place] recently. - Outpatient follow up (5) DVT prophylaxis: Lovenox Admission and Anticipated Discharge Date Admission Date: September 02, 2019 Subjective Patient reports she is tolerating her medication better than before. She feels better today. She is still concerned about going home however and is unsure is she will be able to handle it. Review of Systems Review of Systems: All systems reviewed & are unremarkable except as noted in HPI & below Physical Exam Physical Exam: Constitutional: WD/WN, vitals as above Eyes: EOM intact bilaterally; no conjunctival abnormality ENMT: external ear and nose normal, oropharynx normal Neck: trachea midline, no thyromegaly normal visual inspection Respiratory: normal respiratory effort, lungs clear to auscultation no respiratory distress Cardiovascular: RRR, no murmur, no edema Gastrointestinal (Abdomen): Inspection/Auscultation: abdomen normal to ins pection; abdomen not distended Musculoskeletal: no cyanosis or clubbing, extremities motor strength 5/5 Skin: + decreased rash (Red, but not papular. Diffuse on face, chest, and stomach.) Neurologic: moves all extremities and awake Psychiatric: Orientation: alert, oriented to person and cooperative Results & Data Results & Data ([facility]) Vital Signs (Past 12 Hours) Vital Signs Temp Pulse Pulse Resp BP Pulse Ox 09/05/19 19:42 36.7 C 70 18 152/81 H 94 09/05/19 16:00 68 09/05/19 15:45 36.6 C 67 19 165/72 H 94 09/05/19 12:14 36.5 C 68 19 148/77 H 99 PG Care Time/CCT Total # of Minutes Spent Total Time Spent with Patient: Total time spent is greater than 50% in coordination of care (as documented) at patient's floor/unit and/or counseling patient: Coding Level of Care Code 78474 Subseq Hosp Care Lvl 3 Diagnoses Pseudomonas urinary tract infection N39.0; B96.5 Multiple drug allergies Z88.9 Hypertension I10 Hepatocellular carcinoma C22.0 DVT prophylaxis Z29.9 Time Spent (min) 35
[2019-09-05] MEDS: LORazepam 0.5 MG TAB PO PRN (23:32)
[2019-09-06] MEDS: IMIPENEM/CILASTATIN SODIUM 300 MG in DEXTROSE 5% 100 ML IV SCH ×4 (04:23→21:11)
[2019-09-06] MEDS: FAMOTIDINE 20 MG TAB PO SCH (08:08)
[2019-09-06] MEDS: predniSONE 50 MG TAB PO SCH (08:08)
[2019-09-06] MEDS: CETIRIZINE HCL 10 MG TABLET PO SCH ×2 (08:08→21:12)
[2019-09-06] MEDS: ENOXAPARIN INJ 40 MG/0.4 ML SYR SQ SCH (08:09)
[2019-09-06] MEDS: LACTOBACILLUS ACIDOPHILUS (FLORANEX) TAB PO SCH ×4 (08:09→21:13)
[2019-09-06] MEDS: POLYETHYLENE (MIRALAX) 17 GM PACK PO SCH (08:09)
[2019-09-06] MEDS: LOSARTAN POTASSIUM 25 MG TAB PO SCH (21:12)
[2019-09-06] MEDS: LORazepam 0.5 MG TAB PO PRN (22:10)
--- NOTE | 2019-09-06 23:04 | Hospitalist Progress Note ---
Date of Service September 06, 2019 Assessment & Plan (1) Pseudomonas urinary tract infection: Urine culture from 08/23 grew Pseudomonas sens to Cipro, Zosyn, tobramycin, and ceftazidime. - Continue imipenem/cilastatin per immunology - Patient did not tolerate the cipro desentization. Plan will be to complete 10 days worth of antibiotics. (2) Multiple drug allergies: Seen by Dr. 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 For this type of rash, it can treated through. - Today unclear if she is having a SJS/TEN or DRESS: Will continue prednisone to 50 mg daily, cetirizine 20 mg PO BID, and hydroxyzine QHS & Q4h PRN. From cost coordinator note on 09/03: "If there is a change in any of the blood markers, she develops a fever, she gets any oral lesions, or the rash starts to look bullous or appears like a target lesion on the palms/soles , would need to switch to a different abx and likely would have to switch back to the imipenem with the antihistamine/prednisone cocktail." (3) Hypertension: BP is 145/80 today. - Continue losartan (4) Hepatocellular carcinoma: S/p TACE in [place] recently. - Outpatient follow up (5) DVT prophylaxis: Lovenox Admission and Anticipated Discharge Date Admission Date: September 02, 2019 Subjective 79 yo female reports feeling well. She has no new complaints at this time. I answered most of the patients questions. Review of Systems Review of Systems: All systems reviewed & are unremarkable except as noted in HPI & below Physical Exam Physical Exam: Constitutional: WD/WN, vitals as above Eyes: EOM intact bilaterally; no conjunctival abnormality ENMT: external ear and nose normal, oropharynx normal Neck: trachea midline, no thyromegaly normal visual inspection Respiratory: normal respiratory effort, lungs clear to auscultation no respiratory distress Cardiovascular: RRR, no murmur, no edema Gastrointestinal (Abdomen): Inspection/Auscultation: abdomen normal to inspection; abdomen not distended Musculoskeletal: no cyanosis or clubbing, extremities motor strength 5/5 Skin: + decreased rash (Red, but not papular. Diffuse on face, chest, and stomach.) Neurologic: moves all extremities and awake Psychiatric: Orientation: alert, oriented to person and cooperative Results & Data Results & Data ([place]) Vital Signs (Past 12 Hours) Vital Signs Temp Pulse Pulse Resp BP Pulse Ox 09/06/19 16:00 36.8 C 76 65 18 147/63 H 97 09/06/19 15:40 36.8 C 66 18 147/63 H 96 09/06/19 12:00 36.9 C 20 157/71 H 98 PG Care Time/CCT Total # of Minutes Spent Total Time Spent with Patient: Total time spent is greater than 50% in coordination of care (as documented) at patient's floor/unit and/or counseling patient: Coding Level of Care Code 26569 Subseq Hosp Care Lvl 3 Diagnoses Pseudomonas urinary tract infection N39.0; B96.5 Multiple drug allergies Z88.9 Hypertension I10 Hepatocellular carcinoma C22.0 DVT prophylaxis Z29.9 Time Spent (min) 25
[2019-09-07] MEDS: IMIPENEM/CILASTATIN SODIUM 300 MG in DEXTROSE 5% 100 ML IV SCH ×4 (03:50→20:22)
[2019-09-07] MEDS: ENOXAPARIN INJ 40 MG/0.4 ML SYR SQ SCH (08:33)
[2019-09-07] MEDS: POLYETHYLENE (MIRALAX) 17 GM PACK PO SCH (08:34)
[2019-09-07] MEDS: predniSONE 50 MG TAB PO SCH (08:34)
[2019-09-07] MEDS: LACTOBACILLUS ACIDOPHILUS (FLORANEX) TAB PO SCH ×4 (08:34→20:22)
[2019-09-07] MEDS: FAMOTIDINE 20 MG TAB PO SCH (08:34)
[2019-09-07] MEDS: CETIRIZINE HCL 10 MG TABLET PO SCH ×2 (08:35→20:22)
[2019-09-07 10:29] LABS: Basophils # (auto) 0.06 K/uL (0-0.2); Basophils % (auto) 0.4 %; Eosinophils % (auto) 0.7 %; Hematocrit (blood only) 32.7 % (37-47); Hemoglobin 11.2 g/dL (12.0-16.0); Immature Granulocytes # (auto) 0.07 K/uL (0.00-0.02); Immature Granulocytes % (auto) 0.5 %; Lymphocytes # (auto) 3.94 K/uL (1.2-3.4); Mean Corpuscular Hemoglobin 31.8 pg (25-34); Mean Corpuscular Hgb Conc 34.3 g/dL (32-36); Mean Corpuscular Volume 92.9 fL (80-100); Mean Platelet Volume 10.2 fL (7.4-10.4); Monocytes % (auto) 13.3 %; Neutrophils % (auto) 56.1 %; Platelet Count 364 K/uL (130-400); RDW Coefficient of Variation 13.8 % (11.5-14.5); RDW Standard Deviation 46.3 fL (36.4-46.3); Red Blood Count 3.52 M/uL (4.2-5.4); White Blood Count 13.57 K/uL (4.8-10.8)
[2019-09-07 10:45] LABS: BUN Creatinine Ratio 22.8 (10-20); Calcium 9.1 mg/dl (8.5-10.1); Creatinine Clr Calc Pharmacy 42.3 ml/min; Est GFR (African American) 61.3; Est GFR (Non-African American) 52.9; Potassium 4.5 mmol/L (3.5-5.1)
[2019-09-07] MEDS: LOSARTAN POTASSIUM 25 MG TAB PO SCH (20:22)
--- NOTE | 2019-09-07 22:56 | Hospitalist Progress Note ---
Date of Service September 07, 2019 Assessment & Plan (1) Pseudomonas urinary tract infection: Urine culture from 08/23 grew Pseudomonas sens to Cipro, Zosyn, tobramycin, and ceftazidime. - Continue imipenem/cilastatin per immunology - Patient did not tolerate the cipro desentization. Plan will be to complete 10 days worth of antibiotics. Patient cannot be discharged as no doctor is willing to manage her antibiotics as an outpatient. (2) Multiple drug allergies: Seen by Dr. 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 For this type of rash, it can treated through. - Today unclear if she is having a SJS/TEN or DRESS: Will continue prednisone to 50 mg daily, cetirizine 20 mg PO BID, and hydroxyzine QHS & Q4h PRN. From property management bookkeeper note on 09/03: "If there is a change in any of the blood markers, she develops a fever, she gets any oral lesions, or the rash starts to look bullous or appears like a target lesion on the palms/soles , would need to switch to a different abx and likely would have to switch back to the imipenem with the antihistamine/prednisone cocktail." (3) Hypertension: BP is 145/80 today. - Continue losartan (4) Hepatocellular carcinoma: S/p TACE in [place] recently. - Outpatient follow up (5) DVT prophylaxis: Lovenox Admission and Anticipated Discharge Date Admission Date: September 02, 2019 Subjective 79 yo female reports no new symptoms. Review of Systems Review of Systems: All systems reviewed & are unremarkable except as noted in HPI & below Physical Exam Physical Exam: Constitutional: WD/WN, vitals as above Eyes: EOM intact bilaterally; no conjunctival abnormality ENMT: external ear and nose normal, oropharynx normal Neck: trachea midline, no thyromegaly normal visual inspection Respiratory: normal respiratory effort, lungs clear to auscultation no respiratory distress Cardiovascular: RRR, no murmur, no edema Gastrointestinal (Abdomen): Inspection/Auscultation: abdomen normal to inspection; abdomen not distended Musculoskeletal: no cyanosis or clubbing, extremities motor strength 5/5 Skin: + decreased rash (Red, but not papular. Diffuse on face, chest, and stomach.) Neurologic: moves all extremities and awake Psychiatric: Orientation: alert, oriented to person and cooperative Results & Data Results & Data ([facility]) Vital Signs (Past 12 Hours) Vital Signs Temp Pulse Pulse Resp BP Pulse Ox 09/07/19 19:33 36.9 C 74 18 123/76 93 09/07/19 16:00 71 09/07/19 15:27 36.9 C 67 18 146/70 H 93 09/07/19 11:26 37.2 C 65 18 161/80 H 98 PG Care Time/CCT Total # of Minutes Spent Total Time Spent with Patient: Total time spent is greater than 50% in coordination of care (as documented) at patient's floor/unit and/or counseling patient: Coding Level of Care Code 90374 Subseq Hosp Care Lvl 2 Diagnoses Pseudomonas urinary tract infection N39.0; B96.5 Multiple drug allergies Z88.9 Hypertension I10 Hepatocellular carcinoma C22.0 DVT prophylaxis Z29.9 Time Spent (min) 25
[2019-09-07] MEDS: LORazepam 0.5 MG TAB PO PRN (23:49)
[2019-09-08] MEDS: IMIPENEM/CILASTATIN SODIUM 300 MG in DEXTROSE 5% 100 ML IV SCH ×4 (04:18→21:43)
[2019-09-08 07:16] LABS: Creatinine Clr Calc Pharmacy 38.1 ml/min; Est GFR (African American) 54.1; Est GFR (Non-African American) 46.7
[2019-09-08] MEDS: POLYETHYLENE (MIRALAX) 17 GM PACK PO SCH (07:42)
[2019-09-08] MEDS: ENOXAPARIN INJ 40 MG/0.4 ML SYR SQ SCH (07:48)
[2019-09-08] MEDS: FAMOTIDINE 20 MG TAB PO SCH (07:49)
[2019-09-08] MEDS: LACTOBACILLUS ACIDOPHILUS (FLORANEX) TAB PO SCH ×4 (07:49→20:57)
[2019-09-08] MEDS: predniSONE 50 MG TAB PO SCH (07:49)
[2019-09-08] MEDS: CETIRIZINE HCL 10 MG TABLET PO SCH ×2 (07:50→20:58)
[2019-09-08] MEDS: LOSARTAN POTASSIUM 25 MG TAB PO SCH (20:56)
[2019-09-08] MEDS: LORazepam 0.5 MG TAB PO PRN (21:45)
--- NOTE | 2019-09-08 23:00 | Hospitalist Progress Note ---
Date of Service September 08, 2019 Assessment & Plan (1) Pseudomonas urinary tract infection: Urine culture from 08/23 grew Pseudomonas sens to Cipro, Zosyn, tobramycin, and ceftazidime. - Continue imipenem/cilastatin per immunology - Patient did not tolerate the cipro desentization. Plan will be to complete 10 days worth of antibiotics. Patient cannot be discharged as no doctor is willing to manage her antibiotics as an outpatient. (2) Multiple drug allergies: Seen by Dr. 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 For this type of rash, it can treated through. - Today unclear if she is having a SJS/TEN or DRESS: Will continue prednisone to 50 mg daily, cetirizine 20 mg PO BID, and hydroxyzine QHS & Q4h PRN. From obiee architect note on 09/03: "If there is a change in any of the blood markers, she develops a fever, she gets any oral lesions, or the rash starts to look bullous or appears like a target lesion on the palms/soles , would need to switch to a different abx and likely would have to switch back to the imipenem with the antihistamine/prednisone cocktail." (3) Hypertension: BP is 145/80 today. - Continue losartan (4) Hepatocellular carcinoma: S/p TACE in [place] recently. - Outpatient follow up (5) DVT prophylaxis: Lovenox Admission and Anticipated Discharge Date Admission Date: September 02, 2019 Subjective 79 yo female is feeling well. She is tolerating the medication. Review of Systems Review of Systems: All systems reviewed & are unremarkable except as noted in HPI & below Physical Exam Physical Exam: Constitutional: WD/WN, vitals as above Eyes: EOM intact bilaterally; no conjunctival abnormality ENMT: external ear and nose normal, oropharynx normal Neck: trachea midline, no thyromegaly normal visual inspection Respiratory: normal respiratory effort, lungs clear to auscultation no respiratory distress Cardiovascular: RRR, no murmur, no edema Gastrointestinal (Abdomen): Inspection/Auscultation: abdomen normal to inspection; abdomen not distended Musculoskeletal: no cyanosis or clubbing, extremities motor strength 5/5 Skin: + decreased rash (Red, but not papular. Diffuse on face, chest, and stomach.) Neurologic: moves all extremities and awake Psychiatric: Orientation: alert, oriented to person and cooperative Results & Data Results & Data ([facility]) Vital Signs (Past 12 Hours) Vital Signs Temp Pulse Resp BP BP Pulse Ox 09/08/19 19:30 37.3 C 64 19 145/76 H 96 09/08/19 15:26 36.6 C 74 18 162/75 H 95 09/08/19 12:00 37.0 C 61 17 150/72 H 97 PG Care Time/CCT Total # of Minutes Spent Total Time Spent with Patient: Total time spent is greater than 50% in coordination of care (as documented) at patient's floor/unit and/or counseling patient: Coding Level of Care Code 24592 Subseq Hosp Care Lvl 2 Diagnoses Pseudomonas urinary tract infection N39.0; B96.5 Multiple drug allergies Z88.9 Hypertension I10 Hepatocellular carcinoma C22.0 DVT prophylaxis Z29.9 Time Spent (min) 25
[2019-09-09] MEDS: IMIPENEM/CILASTATIN SODIUM 300 MG in DEXTROSE 5% 100 ML IV SCH ×4 (04:33→22:24)
[2019-09-09] MEDS: LACTOBACILLUS ACIDOPHILUS (FLORANEX) TAB PO SCH ×4 (07:35→21:35)
[2019-09-09] MEDS: POLYETHYLENE (MIRALAX) 17 GM PACK PO SCH (08:29)
[2019-09-09] MEDS: ENOXAPARIN INJ 40 MG/0.4 ML SYR SQ SCH (08:35)
[2019-09-09] MEDS: CETIRIZINE HCL 10 MG TABLET PO SCH ×2 (08:36→21:37)
[2019-09-09] MEDS: predniSONE 50 MG TAB PO SCH (08:36)
[2019-09-09] MEDS: FAMOTIDINE 20 MG TAB PO SCH (08:36)
[2019-09-09] MEDS: LOSARTAN POTASSIUM 25 MG TAB PO SCH (21:35)
--- NOTE | 2019-09-09 22:31 | Hospitalist Progress Note ---
Date of Service September 09, 2019 Assessment & Plan (1) Pseudomonas urinary tract infection: Urine culture from 08/23 grew Pseudomonas sens to Cipro, Zosyn, tobramycin, and ceftazidime. - Continue imipenem/cilastatin per immunology - Patient did not tolerate the cipro desentization. Plan will be to complete 10 days worth of antibiotics. Patient cannot be discharged as no doctor is willing to manage her antibiotics as an outpatient. Discharge day will be on Thursday. (2) Multiple drug allergies: Seen by Dr. 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 For this type of rash, it can treated through. - Today unclear if she is having a SJS/TEN or DRESS: Will continue prednisone to 50 mg daily, cetirizine 20 mg PO BID, and hydroxyzine QHS & Q4h PRN. From occupational therapy teacher note on 09/03: "If there is a change in any of the blood markers, she develops a fever, she gets any oral lesions, or the rash starts to look bullous or appears like a target lesion on the palms/soles , would need to switch to a different abx and likely would have to switch back to the imipenem with the antihistamine/prednisone cocktail." (3) Hypertension: BP is 145/80 today. - Continue losartan (4) Hepatocellular carcinoma: S/p TACE in [place] recently. - Outpatient follow up (5) DVT prophylaxis: Lovenox Admission and Anticipated Discharge Date Admission Date: September 02, 2019 Subjective 79 yo female reports feeling well. She states she is tolerating her medication. Review of Systems Review of Systems: All systems reviewed & are unremarkable except as noted in HPI & below Physical Exam Physical Exam: Constitutional: WD/WN, vitals as above Eyes: EOM intact bilaterally; no conjunctival abnormality ENMT: external ear and nose normal, oropharynx normal Neck: trachea midline, no thyromegaly normal visual inspection Respiratory: normal respiratory effort, lungs clear to auscultation no respiratory distress Cardiovascular: RRR, no murmur, no edema Gastrointestinal (Abdomen): Inspection/Auscultation: abdomen normal to inspection; abdomen not distended Musculoskeletal: no cyanosis or clubbing, extremities motor strength 5/5 Skin: + decreased rash (Red, but not papular. Diffuse on face, chest, and stomach.) Neurologic: moves all extremities and awake Psychiatric: Orientation: alert, oriented to person and cooperative Results & Data Results & Data ([facility]) Vital Signs (Past 12 Hours) Vital Signs Temp Pulse Resp BP Pulse Ox 09/09/19 19:57 36.6 C 60 17 166/53 H 96 09/09/19 15:25 36.7 C 60 18 146/70 H 97 09/09/19 12:13 36.5 C 72 16 139/62 98 PG Care Time/CCT Total # of Minutes Spent Total Time Spent with Patient: Total time spent is greater than 50% in coordination of care (as documented) at patient's floor/unit and/or counseling patient: Coding Level of Care Code 34694 Subseq Hosp Care Lvl 1 Diagnoses Pseudomonas urinary tract infection N39.0; B96.5 Multiple drug allergies Z88.9 Hypertension I10 Hepatocellular carcinoma C22.0 DVT prophylaxis Z29.9
[2019-09-09] MEDS: LORazepam 0.5 MG TAB PO PRN (23:35)
[2019-09-10] MEDS: IMIPENEM/CILASTATIN SODIUM 300 MG in DEXTROSE 5% 100 ML IV SCH ×4 (04:08→21:55)
[2019-09-10] MEDS: LACTOBACILLUS ACIDOPHILUS (FLORANEX) TAB PO SCH ×4 (08:55→21:59)
[2019-09-10] MEDS: predniSONE 50 MG TAB PO SCH (08:57)
[2019-09-10] MEDS: CETIRIZINE HCL 10 MG TABLET PO SCH ×2 (08:57→21:58)
[2019-09-10] MEDS: FAMOTIDINE 20 MG TAB PO SCH (08:57)
[2019-09-10] MEDS: POLYETHYLENE (MIRALAX) 17 GM PACK PO SCH (08:58)
[2019-09-10] MEDS: ENOXAPARIN INJ 40 MG/0.4 ML SYR SQ SCH (09:26)
[2019-09-10] MEDS: LOSARTAN POTASSIUM 25 MG TAB PO SCH (21:58)
--- NOTE | 2019-09-10 22:19 | Hospitalist Progress Note ---
Date of Service September 10, 2019 Assessment & Plan (1) Pseudomonas urinary tract infection: Urine culture from 08/23 grew Pseudomonas sens to Cipro, Zosyn, tobramycin, and ceftazidime. - Continue imipenem/cilastatin per immunology - Patient did not tolerate the cipro desentization. Plan will be to complete 10 days worth of antibiotics. Patient cannot be discharged as no doctor is willing to manage her antibiotics as an outpatient. Discharge day will be on Thursday. (2) Multiple drug allergies: Seen by Dr. 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 For this type of rash, it can treated through. - Today unclear if she is having a SJS/TEN or DRESS: Will continue prednisone to 50 mg daily, cetirizine 20 mg PO BID, and hydroxyzine QHS & Q4h PRN. From parachute folder note on 09/03: "If there is a change in any of the blood markers, she develops a fever, she gets any oral lesions, or the rash starts to look bullous or appears like a target lesion on the palms/soles , would need to switch to a different abx and likely would have to switch back to the imipenem with the antihistamine/prednisone cocktail." (3) Hypertension: BP is 145/80 today. - Continue losartan (4) Hepatocellular carcinoma: S/p TACE in [place] recently. - Outpatient follow up (5) DVT prophylaxis: Lovenox Admission and Anticipated Discharge Date Admission Date: September 02, 2019 Subjective Patient reports feeling well. Review of Systems Review of Systems: All systems reviewed & are unremarkable except as noted in HPI & below Physical Exam Physical Exam: Constitutional: WD/WN, vitals as above Eyes: EOM intact bilaterally; no conjunctival abnormality ENMT: external ear and nose normal, oropharynx normal Neck: trachea midline, no thyromegaly normal visual inspection Respiratory: normal respiratory effort, lungs clear to auscultation no respiratory distress Cardiovascular: RRR, no murmur, no edema Gastrointestinal (Abdomen): Inspection/Auscultation: abdomen normal to inspection; abdomen not distended Musculoskeletal: no cyanosis or clubbing, extremities motor strength 5/5 Skin: + decreased rash (Red, but not papular. Diffuse on face, chest, and stomach.) Neurologic: moves all extremities and awake Psychiatric: Orientation: alert, oriented to person and cooperative Results & Data Results & Data ([facility]) Vital Signs (Past 12 Hours) Vital Signs Temp Pulse Pulse Resp BP Pulse Ox 09/10/19 19:08 36.5 C 77 18 120/71 93 09/10/19 18:40 90 09/10/19 15:35 36.7 C 71 18 116/69 91 09/10/19 14:54 70 09/10/19 12:13 36.6 C 56 L 17 134/70 98 PG Care Time/CCT Total # of Minutes Spent Total Time Spent with Patient: Total time spent is greater than 50% in coordination of care (as documented) at patient's floor/unit and/or counseling patient: Coding Level of Care Code 68986 Subseq Hosp Care Lvl 1 Diagnoses Pseudomonas urinary tract infection N39.0; B96.5 Multiple drug allergies Z88.9 Hypertension I10 Hepatocellular carcinoma C22.0 DVT prophylaxis Z29.9
[2019-09-11] MEDS: IMIPENEM/CILASTATIN SODIUM 300 MG in DEXTROSE 5% 100 ML IV SCH ×4 (04:33→22:13)
[2019-09-11 08:43] LABS: Creatinine Clr Calc Pharmacy 40.3 ml/min; Est GFR (African American) 57.8; Est GFR (Non-African American) 49.9
[2019-09-11] MEDS: ENOXAPARIN INJ 40 MG/0.4 ML SYR SQ SCH (09:06)
[2019-09-11] MEDS: predniSONE 50 MG TAB PO SCH (09:07)
[2019-09-11] MEDS: LACTOBACILLUS ACIDOPHILUS (FLORANEX) TAB PO SCH ×4 (09:07→21:13)
[2019-09-11] MEDS: CETIRIZINE HCL 10 MG TABLET PO SCH ×2 (09:07→21:31)
[2019-09-11] MEDS: POLYETHYLENE (MIRALAX) 17 GM PACK PO SCH (09:07)
[2019-09-11] MEDS: FAMOTIDINE 20 MG TAB PO SCH (09:07)
[2019-09-11] MEDS: LOSARTAN POTASSIUM 25 MG TAB PO SCH (21:31)
--- NOTE | 2019-09-11 22:03 | Hospitalist Progress Note ---
Date of Service September 11, 2019 Assessment & Plan (1) Pseudomonas urinary tract infection: Urine culture from 08/23 grew Pseudomonas sens to Cipro, Zosyn, tobramycin, and ceftazidime. - Continue imipenem/cilastatin per immunology - Patient did not tolerate the cipro desentization. Plan will be to complete 10 days worth of antibiotics. Patient cannot be discharged as no doctor is willing to manage her antibiotics as an outpatient. Discharge day will be on Thursday. Can be discharged in the AM. Plan would be to have 8 day taper of prednisone. Beginning with 40 mg tomorrow. (2) Multiple drug allergies: Seen by Dr. 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 For this type of rash, it can treated through. - Today unclear if she is having a SJS/TEN or DRESS: Will continue prednisone to 50 mg daily, cetirizine 20 mg PO BID, and hydroxyzine QHS & Q4h PRN. From motorcoach driver note on 09/03: "If there is a change in any of the blood markers, she develops a fever, she gets any oral lesions, or the rash starts to look bullous or appears like a target lesion on the palms/soles , would need to switch to a different abx and likely would have to switch back to the imipenem with the antihis tamine/prednisone cocktail." (3) Hypertension: BP is 145/80 today. - Continue losartan (4) Hepatocellular carcinoma: S/p TACE in [place] recently. - Outpatient follow up (5) DVT prophylaxis: Lovenox Admission and Anticipated Discharge Date Admission Date: September 02, 2019 Subjective 79 yo female reports no new symptoms. Review of Systems Review of Systems: All systems reviewed & are unremarkable except as noted in HPI & below Physical Exam Physical Exam: Constitutional: WD/WN, vitals as above Eyes: EOM intact bilaterally; no conjunctival abnormality ENMT: external ear and nose normal, oropharynx normal Neck: trachea midline, no thyromegaly normal visual inspection Respiratory: normal respiratory effort, lungs clear to auscultation no respiratory distress Cardiovascular: RRR, no murmur, no edema Gastrointestinal (Abdomen): Inspection/Auscultation: abdomen normal to inspection; abdomen not distended Musculoskeletal: no cyanosis or clubbing, extremities motor strength 5/5 Skin: + decreased rash (Red, but not papular. Diffuse on face, chest, and stomach.) Neurologic: moves all extremities and awake Psychiatric: Orientation: alert, oriented to person and cooperative Results & Data Results & Data ([facility]) Vital Signs (Past 12 Hours) Vital Signs Temp Pulse Pulse Resp BP Pulse Ox 09/11/19 18:55 36.7 C 65 19 144/76 H 95 09/11/19 16:00 76 09/11/19 15:38 36.7 C 67 19 130/75 93 09/11/19 12:06 36.6 C 59 L 18 119/69 96 09/11/19 11:42 66 PG Care Time/CCT Total # of Minutes Spent Total Time Spent with Patient: Total time spent is greater than 50% in coordination of care (as documented) at patient's floor/unit and/or counseling patient: Coding Level of Care Code 14560 Subseq Hosp Care Lvl 2 Diagnoses Pseudomonas urinary tract infection N39.0; B96.5 Multiple drug allergies Z88.9 Hypertension I10 Hepatocellular carcinoma C22.0 DVT prophylaxis Z29.9
[2019-09-12] MEDS: IMIPENEM/CILASTATIN SODIUM 300 MG in DEXTROSE 5% 100 ML IV SCH ×2 (04:04→10:21)
[2019-09-12 07:31] VITALS: TEMP 98.2; O2SAT 96
[2019-09-12] MEDS: LACTOBACILLUS ACIDOPHILUS (FLORANEX) TAB PO SCH (09:28)
[2019-09-12] MEDS: POLYETHYLENE (MIRALAX) 17 GM PACK PO SCH (09:29)
[2019-09-12] MEDS: FAMOTIDINE 20 MG TAB PO SCH (09:29)
[2019-09-12] MEDS: predniSONE 50 MG TAB PO SCH (09:29)
[2019-09-12] MEDS: ENOXAPARIN INJ 40 MG/0.4 ML SYR SQ SCH (09:29)
[2019-09-12] MEDS: CETIRIZINE HCL 10 MG TABLET PO SCH (09:30)
[2019-09-12 12:20] VITALS: PULSE 64
[2019-09-12 12:46] VITALS: BP 150/72
--- NOTE | 2019-09-12 13:25 | Billing Data ---
Date of Service August Coding Level of Care Code 13791 Inpt Consult Level 4
--- NOTE | 2019-09-12 15:56 | Discharge Summary ---
Date of Service September 12, 2019 Admission HPI Per Admitting Provider Margie Douglas is a 79 y/o female with past medical hx of cervical cancer (treateed), HCC (current for 9 years), s/p multiple TACE and thermoablation procedures, carcinoid tumor of lung, Hep C, recurrent UTIs, urosepsis, multiple severe drug allergies who presented to [facility] for abormal outpatient lab. She had a positive Urine culture performed on 08/23 with ID of Pseudomonas aeruginosa with resistance to multiple drugs. Problematically, she has a history of severe allergies to multiple abx. 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 She follows with [facility] ID Dr. Vega and saw them via Telehealth on 06/29/19. At that time, recommendations for treatment in the hospital were aztreonam, carbapenem, aminoglycoside. Note this current is resistant to Aztreonam. She saw urology on 08/23, and she follows with Dr. Chávez. She was told to come here after positive culture with ID/susceptibility. She notes she has a h/o bladder repair, gave to 6 kids with a set of kids. She takes measures to decrease her UTI rate, takes cranberry pills, strict hygiene, staying hydrated. She recently stopped taking her Premarin cream because she was concerned about interaction with her current Hepatocellular carcinoma. She notes not feeling well since procedure with IR at [facility] with what she describes as chemoembolization (TACE) for her HCC. This has been present for about 3 weeks. She notes feeling generally unwell, easily fatigued, dysuria, urinary frequency. She does not note back pain, abdominal pain, fevers, chills, chest pain, shortness of breath. In the ED, she was treated with Ceftazidime without any current reaction, itching, or rash. Principal Diagnosis Pseudomonas UTI Multiple drug allergies Discharge Exam Constitutional WD/WN, vitals as above Eyes EOM intact bilaterally; no conjunctival abnormality ENMT external ear and nose normal, oropharynx normal Neck trachea midline, no thyromegaly normal visual inspection Respiratory normal respiratory effort, lungs clear to auscultation no respiratory distress Cardiovascular RRR, no murmur, no edema Gastrointestinal (Abdomen) Inspection/Auscultation: abdomen normal to inspection; abdomen not distended Musculoskeletal no cyanosis or clubbing, extremities motor strength 5/5 Skin + rash (Red, but not papular. Diffuse on face, chest, and stomach.) Neurologic moves all extremities and awake Psychiatric Orientation: alert, oriented to person and cooperative Discharge Data Allergies Allergy/AdvReac Type Severity Reaction Status Date / Time celecoxib Allergy Severe Rash Verified 09/01/19 22:27 ciprofloxacin [From Cipro] Allergy Severe DRESS Verified 09/04/19 15:03 adhesive Allergy Intermediate RED Verified 08/24/19 09:38 IRRITATED SKIN Sulfa (Sulfonamide Allergy Mild Hives Verified 09/01/19 22:27 Antibiotics) amoxicillin Allergy Unknown Rash Verified 09/01/19 22:27 cefepime Allergy Unknown Rash, drug Verified 09/01/19 22:27 eruption Penicillins Allergy Unknown Rash Verified 09/01/19 22:27 lactose AdvReac Intermediate GI UPSET Verified 08/24/19 09:38 vancomycin AdvReac Unknown Mook Verified 09/01/19 22:27 syndrome Consultations 09/01/19 21:44 ED Decision to Admit Stat 09/02/19 00:52 Consult Case Management - Discharge Planning Routine 09/02/19 09:42 Consult Allergy / Immunology Routine Consult Infectious Diseases Routine 09/02/19 17:39 Consult Lodging Manager Routine Hospital Course (1) Pseudomonas urinary tract infection: Urine culture from 08/23 grew Pseudomonas sens to Cipro, Zosyn, tobramycin, and ceftazidime. - Continued imipenem/cilastatin until 09/11 for 10-day course. - Cipro desensitization on 09/03 did not work. Concern for DRESS/SJS/TEN syndrome. Cipro allergy updated. - KUB on 09/03 did not show any kidney stones as a nidus of infection/UTIs. - Will need to follow up with Dr. Chávez for ultrasound and cystoscopy on September 27. (2) Multiple drug allergies: Seen by Dr. 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 For this type of rash, it can treated through. - Attempted Cipro desensitization on 09/03, but possibly had a SJS/TEN or DRESS reaction. Allergy updated in the chart for a strict contraindication. For other antibiotic reactions with rash, will hopefully be able to treat through with pre-treatment with cetirizine and hydrozyxine. -> Prior to starting antibiotics (if able), take Zyrtec 20 mg PO BID and hydroxyzine 25 mg PO QHS for 4-5 days prior to starting the antibiotic. (3) Hypertension: BP is 145/80 today. - Continue losartan (4) Hepatocellular carcinoma: S/p TACE in [place] recently. - Outpatient follow up (5) DVT prophylaxis: Lovenox Total Time Total Time Spent Total Time Spent (In Minutes): 35 Discharge Plan Discharge Items Patient Disposition: Home - Self-Care Reason For Visit: MDR UTI Discharge Diagnosis: Urinary tract infection Activity: Resume your previous activity Non-emergency contact: Primary Care Provider and Urologist Call non-emergency contact if: your symptoms worsen and your pain is worsening Follow-up/Referrals: Yusuf Chávez DO [Physician] - Bradley Jeter [Primary Care Provider] - Isaias Perea MD [Physician] - (Please try to see Dr. Perea in his office in 1-2 weeks to help test for further allergies.) Diet: Regular Addtl Attending Provider Instructions: You were admitted to the hospital with a urinary tract infection. Due to your trouble with antibiotics, you had to be admitted to the hospital for IV antibiotics. The antibiotic that worked for you was called "Primaxin" or imipe nem. We couldn't find someone to monitor the antibiotics, so we had to keep you here to receive them. You got a total of 10 days. Please take the prednisone 40 mg for [address] Perea will help you taper this is you need it. Please call his office this week. Please take the cetirizine and hydroxyzine also for 5 more [address] Please see Dr. Chávez in the office on September 27 for the ultrasound and cystoscopy. Please see Dr. Perea in 1-2 weeks. He will help with further allergy testing and planning. If you need an antibiotic before you see Dr. Perea, please start taking Zyrtec (cetirizine) 20 mg two times per day as well as Vistaril (hydroxyzine) 25 mg in the evening before bedtime. Start this 3 days before you need the antibiotic. You can also take the Vistaril up to every 6 hours as needed for itchiness. Please avoid Benadryl as it can cause a "roller-coaster" effect and make you more itchy as it wears off. Pending Studies at Discharge: No Stand-Alone Forms: My [facility], Smoking Cessation Medications and DC Order Prescriptions: New cetirizine [Zyrtec] 10 mg tablet 20 mg PO BID Qty: 60 RF: 0 hydroxyzine HCl 25 mg tablet 25 mg PO HS Qty: 30 RF: 0 prednisone 20 mg tablet 20 mg PO DAILY Qty: 10 RF: 0 Continued polyethylene glycol 3350 [Miralax] 17 gram/dose powder 17 g PO DAILY PRN (Reason: Constipation) RF: 0 losartan [Cozaar] 25 mg tablet 25 mg PO HS RF: 0 lorazepam [Ativan] 0.5 mg tablet 0.5 mg PO HS PRN (Reason: Anxiety/Sleep) RF: 0 Probiotic 20 billion cell Capsule 0 mmu cells PO QAM RF: 0 Caltrate 600 plus D 600 mg (1,500 mg)-800 unit Tablet,Chewable 1 tab PO QAM RF: 0 Cranberry Plus Vitamin C 140-100 mg Capsule 1 cap PO TID RF: 0 Discharge Orders: Discharge Order (Routine); Ordered 09/12/19 Ordered By: Kyle Barba/Other Patient Handouts: Prednisolone tablets, Cetirizine tablets, Hydroxyzine capsules or tablets Admission Data Admit Date/Time: 09/02/19 00:52 Attending Provider: Kyle Rossi Admit Provider: Federico Huerta Primary Care Provider: Bradley Jeter Other Providers: Kyle Rossi ; Kieran Small ; Isaias Perea Carlos M. ; Nataliia Monahan ; Marcio Vega I. ; Luiz Marr II ; Ann Marie Camara ; Dmitry Beck ; Bradley Lazo ; [facility] Other Interventions: Discharge Summary Assessment (RN) Last Done: 09/12/19 12:44 DC Date/Time DO NOT enter until pt leaves facility: 09/12/19 13:41 Coding Level of Care Code D/C Day Management >30 mins Diagnoses Pseudomonas urinary tract infection N39.0; B96.5 Multiple drug allergies Z88.9 Hypertension I10 Hepatocellular carcinoma C22.0 DVT prophylaxis Z29.9
== END 2019-09-12 13:41 | disposition home or self-care (01) | DRG 690 ==
LOC: ED 18:49 → 2E 23:23 → SUATTDRO 23:23 → 2E 09-02 00:19 → SUATTDRO 09-02 00:52 → 1E 09-03 13:43 → 2S 09-03 22:14

== ENCOUNTER 2020-06-25 16:59 | Inpatient (IN) ==
[2020-06-25 18:27] LABS: Basophils # (auto) 0.12 K/uL (0-0.2); Eosinophils # (auto) 1.43 K/uL (0-0.5); Eosinophils % (auto) 11.8 %; Hemoglobin 11.3 g/dL (12.0-16.0); Immature Granulocytes # (auto) 0.03 K/uL (0.00-0.02); Immature Granulocytes % (auto) 0.2 %; Lymphocytes # (auto) 2.94 K/uL (1.2-3.4); Lymphocytes % (auto) 24.4 %; Mean Corpuscular Hemoglobin 32.3 pg (25-34); Mean Corpuscular Hgb Conc 34.2 g/dL (32-36); Mean Corpuscular Volume 94.3 fL (80-100); Monocytes # (auto) 1.33 K/uL (0.11-0.59); Neutrophils # (auto) 6.22 K/uL (1.4-6.5); Neutrophils % (auto) 51.6 %; Platelet Count 316 K/uL (130-400); RDW Coefficient of Variation 14.1 % (11.5-14.5); RDW Standard Deviation 48.5 fL (36.4-46.3); White Blood Count 12.07 K/uL (4.8-10.8)
[2020-06-25 18:31] LABS: Appearance Urine Cloudy (Clear); Bilirubin Urine Negative (Negative); Blood Urine Trace (Negative); Color Urine Yellow; Glucose Urine UA Negative (Negative); Ketones Urine Negative (Negative); Leukocyte Esterase Urine 2+ (Negative); Nitrite Urine Positive (Negative); Protein Urine Negative (Negative); Specific Gravity Urine 1.008 (1.000-1.030); Urobilinogen Urine Negative (Negative)
[2020-06-25 18:40] LABS: Bacteria Urine 3+ (Negative)
[2020-06-25 18:42] LABS: RBC Urine 0-4 /hpf (0-4)
[2020-06-25 18:48] LABS: Alanine Aminotransferase 15 U/L (12-78); Albumin Level 3.7 gm/dl (3.4-5.0); Aspartate Aminotransferase 14 U/L (15-37); BUN Creatinine Ratio 17.5 (10-20); Blood Urea Nitrogen 17 mg/dl (7-18); Calcium 9.4 mg/dl (8.5-10.1); Carbon Dioxide 23 mmol/L (21-32); Chloride 103 mmol/L (98-107); Est GFR (African American) 63.1 ml/min; Est GFR (Non-African American) 54.5 ml/min; Glucose 87 mg/dl (70-99); Potassium 4.5 mmol/L (3.5-5.1); Sodium 133 mmol/L (136-145)
[2020-06-25 18:51] LABS: Albumin Globulin Ratio 0.9 (0.9-2); Alkaline Phosphatase 70 U/L (45-117); Bilirubin,Total 0.4 mg/dl (0.2-1); Globulin 4.2 gm/dl (2.5-4.0); Total Protein 7.9 gm/dl (6.4-8.2)
[2020-06-25] MEDS ORDERED: diphenhydrAMINE 50 MG/ML VIAL IV STA (19:23)
[2020-06-25] MEDS ORDERED: methylPREDNISolone 125 MG/2 ML VIAL IV STA (19:23)
--- NOTE | 2020-06-25 19:32 | Emergency Department Note ---
Impression & Plan Weakness, Leukocytosis, Bilateral flank pain, Acute UTI ED Provider Note NAME: JUSTINE PENA AGE: 80 SEX: F : 1940 ARRIVES VIA: Walk-In INFORMANT: [Patient][family] ED PROVIDER(S): [Angel Silveira MD] CHIEF COMPLAINT: Urinary symptoms HISTORY OF PRESENT ILLNESS: The patient is an 80-year-old female presents to the ED with urinary symptoms. The patient has not felt quite right for a few weeks and last week, she had a urine culture run that grew Pseudomonas. The Pseudomonas was resistant and she has quite a few allergies. Her reactions to antibiotics have been severe. Because of her findings and history, she was sent to the ED for hospitalization. She has been admitted before for similar reasons. There reilly been no fever, she has had some lower back pain, no anterior abdominal pain, no pelvic pain. She has felt nauseated but there has been no vomiting. No cough or cold or congestion. No chest pain. The patient states that she did notice just over the last 2 days that it is starting to burn when she urinates. REVIEW OF SYSTEMS: See HPI for pertinent positives and negatives. A total of ten systems were reviewed and were otherwise negative. PMHx/PSHx: See Below SOCIAL HISTORY: See Below. PHYSICAL EXAM: GENERAL: Patient is in no acute distress. HEENT: No acute trauma, normocephalic atraumatic, mucous membranes moist, no nasal congestion, no scleral icterus. NECK: No stridor, no adenopathy, no meningismus, trachea is midline. LUNGS: Clear to auscultation bilaterally, no wheeze, no rhonchi, breath sounds equal. Back: Mild flank discomfort to percussion bilaterally. HEART: Without murmurs gallops or rubs, regular rate and rhythm. ABDOMEN: Soft, nontender, bowel sounds positive, no hernias, no peritonitis. EXTREMITIES: No cyanosis or edema, full range of motion of all the joints without pain or difficulty, no signs for acute trauma. NEUROLOGIC: Oriented x 3, no acute motor or sensory deficits, no focal weakness. SKIN: No rash, no jaundice, no diaphoresis. DIFFERENTIAL DIAGNOSIS: Infection, dehydration, metabolic abnormality, hypo/hyperglycemia, UTI, resistant infection, electrolyte disturbance, anemia, hypoxia, cardiac sources, intracerebral event, toxicologic issues, stroke, TIA, as well as other pathologies. EMERGENCY DEPARTMENT COURSE/PROCEDURES: MEDICAL DECISION MAKING: There is a mild leukocytosis, this could be consistent with infection. No concerning anemia. There is a normal platelet count. Sodium slightly low at 133, no kidney failure. No concerning liver enzyme elevation. Urinalysis results are consistent with infection. Covid testing returned negative. I was able to review the patient's outpatient urine culture. She grew Pseudomonas which was sensitive to most pseudomonal antibiotics including imipenem. On my exam, the patient was not toxic. She was not febrile. She did have some flank discomfort to percussion. The patient received IV Solu-Medrol and IV Benadryl. These medications were given in advance as she has a history of severe reactions to antibiotics. I discussed the use of meropenem with the hospitalist and we have chosen this antibiotic given all of her allergies and the sensitivities. The choice of antibiotics was also discussed with pharmacy. The patient is being hospitalized given the UTI, her allergy history. She has required hospitalization before. I did speak with the patient, I talked with case management. The on-call hospitalist was consulted. 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 Urinary tract infection Urticaria Surgical History (Updated 06/25/20 @ 19:49 by Guerline Vega DO) H/O: hysterectomy History of cholecystectomy History of splenectomy Family History Other Family history non-contributory Social History Smoking Status: Never smoker Hx Alcohol Use: Yes Alcohol type: wine Hx Substance Use: No Preferred Language: Azeri Communication Ability: Effective Sandwich Machine Operator Required: No Beliefs That Will Affect Care: None and Restorationist Restorationist Beliefs: Hindu Current Living Situation: Alone Other Information That Helps Us Care for You: No Feels Safe at Home: Yes Safety Concerns: Feels Safe At This Time Assistive Devices: Glasses Allergies Allergies Allergy/AdvReac Type Severity Reaction Status Date / Time celecoxib Allergy Severe Rash Verified 06/08/20 12:37 ciprofloxacin [From Cipro] Allergy Severe DRESS Verified 06/08/20 12:37 adhesive Allergy Intermediate RED Verified 06/08/20 12:37 IRRITATED SKIN Sulfa (Sulfonamide Allergy Mild Hives Verified 06/08/20 12:37 Antibiotics) amoxicillin Allergy Unknown Rash Verified 06/08/20 12:37 cefepime Allergy Unknown Rash, drug Verified 06/08/20 12:37 eruption Penicillins Allergy Unknown Rash Verified 06/08/20 12:37 lactose AdvReac Intermediate GI UPSET Verified 06/08/20 12:37 vancomycin AdvReac Unknown Mook Verified 06/08/20 12:37 syndrome Home Meds Home Medications Medication Instructions Recorded Confirmed polyethylene glycol 3350 17 17 g PO DAILY PRN gm 08/26/18 06/25/20 gram/dose oral powder lorazepam 0.5 mg tablet 0.5 mg PO HS PRN 04/08/19 06/25/20 Probiotic 0 mmu cells PO QAM 04/09/19 06/25/20 acetaminophen [Tylenol Extra 500 mg PO Q6H PRN 04/12/20 06/25/20 Strength] conjugated estrogens 0.625 mg VAGINAL 3XWK 04/12/20 06/25/20 amlodipine 2.5 mg tablet 2.5 mg PO DAILY 05/11/20 06/25/20 cranberry conc-ascorbic acid 1 cap PO DAILY 06/25/20 06/25/20 fluocinonide 1 applic TOPICAL BID PRN 06/25/20 06/25/20 Results & Data (ED) Vital Signs Vital Signs - 24 hr 06/25/20 17:12 06/25/20 19:40 06/25/20 21:02 Temperature 36.8 C Temperature Source Temporal Artery Scan Pulse Rate 83 Pulse Rate [Right Finger] 85 87 Pulse Rhythm Regular Pulse Strength Normal Respiratory Rate 18 20 20 Respiratory Effort / Characteristics Non-Labored Spontaneous Respiratory Depth Normal Respiratory Pattern Regular Blood Pressure 184/84 H Blood Pressure [Right Arm] 190/93 H 190/93 H Blood Pressure Mean 117 Blood Pressure Mean [Right Arm] 125 125 Blood Pressure Position [Right Arm] Sitting Lying Pulse Oximetry 96 98 98 Oxygen Delivery Method Room Air Room Air Room Air Sepsis Recent Fever Within 48 Hours No Sepsis New/Unexplained Change in Mental Status No Sepsis Action Taken by Nursing No Action Required Home Medications Current Medication List: was personally reviewed by me Laboratory Data Attestation: I reviewed the patient's lab results. Result diagrams: 06/25/20 18:17 06/25/20 18:17 Lab Results 06/25/20 06/25/20 06/25/20 Range/Units 18:17 18:17 18:17 WBC 12.07 H (4.8-10.8) K/uL RBC 3.50 L (4.2-5.4) M/uL Hgb 11.3 L (12.0-16.0) g/dL Hct 33.0 L (37-47) % MCV 94.3 (80-100) fL MCH 32.3 (25-34) pg MCHC 34.2 (32-36) g/dL RDW Std Deviation 48.5 H (36.4-46.3) fL RDW Coeff of Bakari 14.1 (11.5-14.5) % Plt Count 316 (130-400) K/uL MPV 10.0 (7.4-10.4) fL Immature Gran % (Auto) 0.2 % Neut % (Auto) 51.6 % Lymph % (Auto) 24.4 % Bent % (Auto) 11.0 % Eos % (Auto) 11.8 % Baso % (Auto) 1.0 % Neut # (Auto) 6.22 (1.4-6.5) K/uL Lymph # (Auto) 2.94 (1.2-3.4) K/uL Bent # (Auto) 1.33 H (0.11-0.59) K/uL Eos # (Auto) 1.43 H (0-0.5) K/uL Baso # (Auto) 0.12 (0-0.2) K/uL Immature Gran # (Auto) 0.03 H (0.00-0.02) K/uL Sodium 133 L (136-145) mmol/L Potassium 4.5 (3.5-5.1) mmol/L Chloride 103 (98-107) mmol/L Carbon Dioxide 23 (21-32) mmol/L Anion Gap 8.0 (3-11) BUN 17 (7-18) mg/dl Creatinine 0.98 (0.6-1.2) mg/dl Est Cr Clr Drug Dosing Not Reportable Est GFR ( Amer) 63.1 ml/min Est GFR (Non-Af Amer) 54.5 ml/min BUN/Creatinine Ratio 17.5 (10-20) Glucose 87 (70-99) mg/dl Calcium 9.4 (8.5-10.1) mg/dl Total Bilirubin 0.4 (0.2-1) mg/dl AST 14 L (15-37) U/L ALT 15 (12-78) U/L Alkaline Phosphatase 70 (45-117) U/L Total Protein 7.9 (6.4-8.2) gm/dl Albumin 3.7 (3.4-5.0) gm/dl Globulin 4.2 H (2.5-4.0) gm/dl Albumin/Globulin Ratio 0.9 (0.9-2) Urine Color Yellow Urine Appearance Cloudy A (Clear) Urine pH 6.0 (4.5-7.5) Ur Specific [place] 1.008 (1.000-1.030) Urine Protein Negative (Negative) Urine Glucose (UA) Negative (Negative) Urine Ketones Negative (Negative) Urine Blood Trace H (Negative) Urine Nitrite Positive A (Negative) Urine Bilirubin Negative (Negative) Urine Urobilinogen Negative (Negative) Ur Leukocyte Esterase 2+ H (Negative) Urine RBC 0-4 (0-4) /hpf Urine WBC 10-30 H (0-5) /hpf Ur Epithelial Cells 10-20 H (0-5) /lpf Urine Bacteria 3+ H (Negative) Acetaminophen (10-30) ug/ml COVID-19 Eval Order SARS-CoV-2 (PCR) (Negative) 06/25/20 06/25/20 06/25/20 Range/Units 19:47 19:47 20:36 WBC (4.8-10.8) K/uL RBC (4.2-5.4) M/uL Hgb (12.0-16.0) g/dL Hct (37-47) % MCV (80-100) fL MCH (25-34) pg MCHC (32-36) g/dL RDW Std Deviation (36.4-46.3) fL RDW Coeff of Bakari (11.5-14.5) % Plt Count (130-400) K/uL MPV (7.4-10.4) fL Immature Gran % (Auto) % Neut % (Auto) % Lymph % (Auto) % Bent % (Auto) % Eos % (Auto) % Baso % (Auto) % Neut # (Auto) (1.4-6.5) K/uL Lymph # (Auto) (1.2-3.4) K/uL Bent # (Auto) (0.11-0.59) K/uL Eos # (Auto) (0-0.5) K/uL Baso # (Auto) (0-0.2) K/uL Immature Gran # (Auto) (0.00-0.02) K/uL Sodium (136-145) mmol/L Potassium (3.5-5.1) mmol/L Chloride (98-107) mmol/L Carbon Dioxide (21-32) mmol/L Anion Gap (3-11) BUN (7-18) mg/dl Creatinine (0.6-1.2) mg/dl Est Cr Clr Drug Dosing Est GFR ( Amer) ml/min Est GFR (Non-Af Amer) ml/min BUN/Creatinine Ratio (10-20) Glucose (70-99) mg/dl Calcium (8.5-10.1) mg/dl Total Bilirubin (0.2-1) mg/dl AST (15-37) U/L ALT (12-78) U/L Alkaline Phosphatase (45-117) U/L Total Protein (6.4-8.2) gm/dl Albumin (3.4-5.0) gm/dl Globulin (2.5-4.0) gm/dl Albumin/Globulin Ratio (0.9-2) Urine Color Urine Appearance (Clear) Urine pH (4.5-7.5) Ur Specific [place] (1.000-1.030) Urine Protein (Negative) Urine Glucose (UA) (Negative) Urine Ketones (Negative) Urine Blood (Negative) Urine Nitrite (Negative) Urine Bilirubin (Negative) Urine Urobilinogen (Negative) Ur Leukocyte Esterase (Negative) Urine RBC (0-4) /hpf Urine WBC (0-5) /hpf Ur Epithelial Cells (0-5) /lpf Urine Bacteria (Negative) Acetaminophen < 2 L (10-30) ug/ml COVID-19 Eval Order Covid19 at [facility] SARS-CoV-2 (PCR) NEGATIVE (Negative) Administered Medications Acetaminophen (Acetaminophen 500 Mg Tab) 1,000 mg PO Q8 PRN PRN Reason: pain or fever Stop: 07/25/20 22:36 Last Admin: 06/25/20 23:20 Dose: 1,000 mg Documented by: [id number] Cetirizine HCl (Cetirizine Hcl 10 Mg Tablet) 10 mg PO BID KEVIN Stop: 07/25/20 22:36 Last Admin: 06/25/20 23:55 Dose: 10 mg Documented by: [id number] Hydroxyzine HCl (Hydroxyzine Hcl 10 Mg Tab) 10 mg PO KEVIN Stop: 07/25/20 22:36 Last Admin: 06/25/20 23:55 Dose: 10 mg Documented by: [id number] Meropenem 500 mg/ Syringe 10 mls @ 2 mls/min IV Q12H KEVIN; Protocol Stop: 06/30/20 21:59 Last Admin: 06/25/20 23:54 Dose: 2 mls/min Documented by: [id number] Sodium Chloride (Nss 1000ml) 1,000 mls @ 100 mls/hr IV .Q10H KEVIN Stop: 06/26/20 18:36 Last Admin: 06/25/20 23:54 Dose: 100 mls/hr Documented by: [id number] Melatonin (Melatonin 3 Mg Tab) 3 mg PO HS [facility] Stop: 07/25/20 22:36 Last Admin: 06/25/20 23:56 Dose: 3 mg Documented by: [id number] Metoprolol Tartrate (Metoprolol Tartrate 1 Mg/Ml Vial) 5 mg IV Q4 PRN PRN Reason: see dose instructions Stop: 07/26/20 00:00 Last Admin: 06/25/20 23:56 Dose: 5 mg Documented by: [id number] Discontinued Medications Diphenhydramine HCl (Diphenhydramine 50 Mg/Ml Vial) 6.25 mg IV NOW STA Stop: 06/25/20 19:24 Last Admin: 06/25/20 19:35 Dose: 6.25 mg Documented by: [id number] Methylprednisolone (Methylprednisolone 125 Mg/2 Ml Vial) 60 mg IV NOW STA Stop: 06/25/20 19:24 Last Admin: 06/25/20 19:35 Dose: 60 mg Documented by: [id number] Miscellaneous (Patient's Height And Weight Needed) 1 ea N/A NOW STA Stop: 06/25/20 21:07 Last Admin: 06/25/20 21:10 Dose: 1 ea Documented by: [id number] Discharge Plan Visit Data Chief Complaint: Urinary Symptoms Stated Complaint: UTI SYMPTOMS ED Provider: Angel Silveira Discharge Problem: Weakness, Leukocytosis, Bilateral flank pain, Acute UTI Patient Disposition: Admitted As Inpatient Condition: Fair Discharge Instructions Interventions: ED Discharge Assessment Last Done: 06/25/20 22:20 Discharge Problem: Leukocytosis Qualifiers: Leukocytosis type: unspecified Qualified Code(s): D72.829 - Elevated white blood cell count, unspecified
[2020-06-25] MEDS ORDERED: MEROPENEM CONSULT ACITVE PRN (20:21)
--- NOTE | 2020-06-25 20:22 | History & Physical Report ---
Date of Service June 25, 2020 Assessment & Plan (1) Complicated UTI (urinary tract infection): 80 yo F with an extensive list of allergies to antibiotics, frequent pseudomonas UTIs requiring hospitalization, multiple cancers, who is being admitted for a UTI growing pansensitive Pseudomonas. UTI - pansensitive (<2 imipenem, <0.25 ciprofloxacin, 16 zosyn, <1 cefepime) per outpatient urine culture - started on meropenem in ER give allergies to other antibiotics - predosed with solumedrol and benadryl - in house UA showing 2+ LE, bacteria, Nitrites. UCx pending - afebrile, wbc 12.7, not tachycardic, no blood cultures drawn give stable status and receipt of antibiotics - acetaminophen level <2, drawn due to patient reportedly taking 3g of tylenol at home for multiple days - continue cranberry tabs, probiotic, vaginal estrogen to help avoid bacterial overgrowth Allergy History - per recommendations from Resident Engineer Dr. Perea, will give 40 mg prednisone daily, cetirizine 10 mg BID, hydroxyzine 10 mg HS - communication order to monitor for rash/respiratory distress Resitant HTN - amlodipine 2.5 mg daily. recently taken off HCTZ and started on 25 metoprolol succinate at bedtime. - PRN IV metoprolol for SBP >180 with HR >60 or HR >120 with Sys BP >100 Insomnia - cont nightly ativan 0.5 mg PO HS Hyponatremia - mild, likely secondary to HCTZ that was recently stopped - on NS for IVF, should return to normal without additional intervention DVT ppx: lovenox FEN/GI: regular diet, Code Status: DNR/DNI Dispo: PCU (2) Hepatocellular carcinoma: (3) Dysuria: (4) Diverticulosis of colon: (5) Chronic kidney disease with active medical management without dialysis, stage 3 (moderate): (6) Insomnia: (7) Gastritis: (8) Multiple drug allergies: (9) Pseudomonas aeruginosa infection: (10) Internal hemorrhoids: (11) Hypertension: History of Present Illness 80 yo F with hx leukemia, CKD3, HTN, Hep C, currently undergoing treatment of hepatocellular carcinoma, sent to ED by PCP for urine cultre growing Pseudomonas. Patient has an extensive history of resistant UTIs growing Pseudomonas. She also has multiple antibiotic allergies to ciprofloxacin, penicillins, Sulfa, cefepime, vancomycin. She states with most of these allergies she swells and has a body-wide rash but does not have any throat swelling/pressure or compromise of airway. She recently saw Dr. Perea of allergy/immunology who recommended she be on daily prednisone and anti-histamine optimization if she is getting antibiotics. She states she has been feeling burning with urination, increased frequency and general malaise for the past 5-6 days. She was seen by her PCP who had an outpatient UA and Culture sent, which brought her to the ED today. Chief Complaint: UTI Primary Care Provider: Bradley Jeter Allergies Allergy/AdvReac Type Severity Reaction Status Date / Time celecoxib Allergy Severe Rash Verified 06/08/20 12:37 ciprofloxacin [From Cipro] Allergy Severe DRESS Verified 06/08/20 12:37 adhesive Allergy Intermediate RED Verified 06/08/20 12:37 IRRITATED SKIN Sulfa (Sulfonamide Allergy Mild Hives Verified 06/08/20 12:37 Antibiotics) amoxicillin Allergy Unknown Rash Verified 06/08/20 12:37 cefepime Allergy Unknown Rash, drug Verified 06/08/20 12:37 eruption Penicillins Allergy Unknown Rash Verified 06/08/20 12:37 lactose AdvReac Intermediate GI UPSET Verified 06/08/20 12:37 vancomycin AdvReac Unknown Mook Verified 06/08/20 12:37 syndrome Home Medications Medication Instructions Recorded Confirmed Type polyethylene glycol 3350 17 17 g PO DAILY PRN gm 08/26/18 06/25/20 History gram/dose oral powder lorazepam 0.5 mg tablet 0.5 mg PO HS PRN 04/08/19 06/25/20 History Probiotic 0 mmu cells PO QAM 04/09/19 06/25/20 History acetaminophen [Tylenol Extra 500 mg PO Q6H PRN 04/12/20 06/25/20 History Strength] conjugated estrogens 0.625 mg VAGINAL 3XWK 04/12/20 06/25/20 History amlodipine 2.5 mg tablet 2.5 mg PO DAILY 05/11/20 06/25/20 History cranberry conc-ascorbic acid 1 cap PO DAILY 06/25/20 06/25/20 History fluocinonide 1 applic TOPICAL BID PRN 06/25/20 06/25/20 History 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 Urinary tract infection Urticaria Surgical History (Updated 06/25/20 @ 19:49 by Guerline Vega DO) H/O: hysterectomy History of cholecystectomy History of splenectomy Family History Other Family history non-contributory Social History Smoking Status: Never smoker Hx Alcohol Use: Yes Alcohol type: wine Hx Substance Use: No Preferred Language: Albanian Communication Ability: Effective Bean Weigher Required: No Beliefs That Will Affect Care: None and Rastafarian Rastafarian Beliefs: Scientology marital status: / Current Living Situation: Alone How many Children do You have: 6 Other Information That Helps Us Care for You: No Feels Safe at Home: Yes Safety Concerns: Feels Safe At This Time Assistive Devices: None Review of Systems Constitutional: + chills; no fever, no sweats and no fatigue Eyes: no blind spots and no discharge Ear, Nose, Mouth, Throat: no hearing loss and no nasal congestion Respiratory: no cough and no dyspnea Cardiovascular: no chest pain, no dyspnea on exertion and no edema Gastrointestinal: + abdominal pain, + nausea and + diarrhea/loose stools; no vomiting, no constipation and no blood in stools Genitourinary: + dysuria and + urinary frequency Musculoskeletal: no joint pain and no myalgia Neurologic: no tingling, no numbness and no headache(s) Endocrine: + fatigue Physical Exam Physical Exam: Constitutional: thin elderly female laying in bed in no acute distress Eyes: EOMI, pupils equal and reactive bilaterally, no scleral icterus Cardiac: RRR, no murmurs, gallops or rubs. Normal S1, S2 Pulm: CTA BL, no wheezes, rhonchi, crackles or rubs, moving air well throughout both lungs Abd: soft, nontender, nondistended, normal bowel sounds, no rebound or guarding Extremities: 2+ peripheral pulses, no edema Neuro: no focal deficits, moving all 4 limbs, A&Ox3 Skin: dry, without rashes or erythema Results & Data Results & Data ([facility]) Vital Signs (Past 12 Hours) Vital Signs Temp Pulse Pulse Resp BP BP Pulse Ox 06/25/20 19:40 85 20 190/93 H 98 06/25/20 17:12 36.8 C 83 18 184/84 H 96 Laboratory Results WBC 12.07 K/uL (4.8-10.8) H 06/25/20 18:17 RBC 3.50 M/uL (4.2-5.4) L 06/25/20 18:17 Hgb 11.3 g/dL (12.0-16.0) L 06/25/20 18:17 Hct 33.0 % (37-47) L 06/25/20 18:17 MCV 94.3 fL (80-100) 06/25/20 18:17 MCH 32.3 pg (25-34) 06/25/20 18:17 MCHC 34.2 g/dL (32-36) 06/25/20 18:17 RDW Std Deviation 48.5 fL (36.4-46.3) H 06/25/20 18:17 RDW Coeff of Bakari 14.1 % (11.5-14.5) 06/25/20 18:17 Plt Count 316 K/uL (130-400) 06/25/20 18:17 MPV 10.0 fL (7.4-10.4) 06/25/20 18:17 Immature Gran % (Auto) 0.2 % 06/25/20 18:17 Neut % (Auto) 51.6 % 06/25/20 18:17 Lymph % (Auto) 24.4 % 06/25/20 18:17 Luce % (Auto) 11.0 % 06/25/20 18:17 Eos % (Auto) 11.8 % 06/25/20 18:17 Baso % (Auto) 1.0 % 06/25/20 18:17 Neut # (Auto) 6.22 K/uL (1.4-6.5) 06/25/20 18:17 Lymph # (Auto) 2.94 K/uL (1.2-3.4) 06/25/20 18:17 Luce # (Auto) 1.33 K/uL (0.11-0.59) H 06/25/20 18:17 Eos # (Auto) 1.43 K/uL (0-0.5) H 06/25/20 18:17 Baso # (Auto) 0.12 K/uL (0-0.2) 06/25/20 18:17 Immature Gran # (Auto) 0.03 K/uL (0.00-0.02) H 06/25/20 18:17 Sodium 133 mmol/L (136-145) L 06/25/20 18:17 Potassium 4.5 mmol/L (3.5-5.1) 06/25/20 18:17 Chloride 103 mmol/L (98-107) 06/25/20 18:17 Carbon Dioxide 23 mmol/L (21-32) 06/25/20 18:17 Anion Gap 8.0 (3-11) 06/25/20 18:17 BUN 17 mg/dl (7-18) 06/25/20 18:17 Creatinine 0.98 mg/dl (0.6-1.2) 06/25/20 18:17 Est Cr Clr Drug Dosing Not Reportable 06/25/20 18:17 Est GFR ( Amer) 63.1 ml/min 06/25/20 18:17 Est GFR (Non-Af Amer) 54.5 ml/min 06/25/20 18:17 BUN/Creatinine Ratio 17.5 (10-20) 06/25/20 18:17 Glucose 87 mg/dl (70-99) 06/25/20 18:17 Calcium 9.4 mg/dl (8.5-10.1) 06/25/20 18:17 Total Bilirubin 0.4 mg/dl (0.2-1) 06/25/20 18:17 AST 14 U/L (15-37) L 06/25/20 18:17 ALT 15 U/L (12-78) 06/25/20 18:17 Alkaline Phosphatase 70 U/L (45-117) 06/25/20 18:17 Total Protein 7.9 gm/dl (6.4-8.2) 06/25/20 18:17 Albumin 3.7 gm/dl (3.4-5.0) 06/25/20 18:17 Globulin 4.2 gm/dl (2.5-4.0) H 06/25/20 18:17 Albumin/Globulin Ratio 0.9 (0.9-2) 06/25/20 18:17 Urine Color Yellow 06/25/20 18:17 Urine Appearance Cloudy (Clear) A 06/25/20 18:17 Urine pH 6.0 (4.5-7.5) 06/25/20 18:17 Ur Specific [place] 1.008 (1.000-1.030) 06/25/20 18:17 Urine Protein Negative (Negative) 06/25/20 18:17 Urine Glucose (UA) Negative (Negative) 06/25/20 18:17 Urine Ketones Negative (Negative) 06/25/20 18:17 Urine Blood Trace (Negative) H 06/25/20 18:17 Urine Nitrite Positive (Negative) A 06/25/20 18:17 Urine Bilirubin Negative (Negative) 06/25/20 18:17 Urine Urobilinogen Negative (Negative) 06/25/20 18:17 Ur Leukocyte Esterase 2+ (Negative) H 06/25/20 18:17 Urine RBC 0-4 /hpf (0-4) 06/25/20 18:17 Urine WBC 10-30 /hpf (0-5) H 06/25/20 18:17 Ur Epithelial Cells 10-20 /lpf (0-5) H 06/25/20 18:17 Urine Bacteria 3+ (Negative) H 06/25/20 18:17 Acetaminophen < 2 ug/ml (10-30) L 06/25/20 20:36 COVID-19 Eval Order Covid19 at [facility] 06/25/20 19:47 SARS-CoV-2 (PCR) NEGATIVE (Negative) 06/25/20 19:47 Supervising Physician Co-Signing Physician Notes Patient seen and examined, chart reviewed, case discussed with Dr. Tubbs and I agree with her assessment and plan as above. 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 Patient has had multiple UTIs in the past with Pseudomonas. She presents today with several days of generalized weakness and not feeling well as well as dysuria. Urine culture obtained from outpatient setting positive for Pseudomonas - fairly sensitive strain, however, patient has had severe reaction to Ciprofloxacin in the past so outpatient therapy is limited. On exam she is afebrile, HD stable, nontoxic in appearance Skin - no rash HEENT - NC/AT, PERRL, EOMI, MMM, Neck supple Heart - +S1/S2, regular, no m/r/g Lungs - CTA Abd - +BS, soft, NT/ND, mild suprapubic discomfort, no CVA tenderness Ext - No edema Labs and images reviewed - +leukocytosis, +peripheral eosionophilia Assessment/Plan: 80yo C female presenting with Pseudomonas UTI/cystitis. Patient with multiple drug allergies and is unable to receive outpatient therapy. She has been seen by ID as well as Allergy/Immunology in the past for these issues. She is nontoxic in appearance. HD stable -Meropenem -Continue Prednisone, Cetirizine and Hydroxyzine while receiving antibiotics -Remainder of plan as above Resident Activity Tracking Resident Involvement: Resident Care Provided Care Provided: Adult Hospital Medicine
[2020-06-25] MEDS ORDERED: PATIENT'S HEIGHT AND WEIGHT NEEDED STA (21:06)
[2020-06-25] MEDS ORDERED: ONDANSETRON INJ 2 MG/ML 2 ML VIAL IV PRN (22:37)
[2020-06-25] MEDS ORDERED: POLYETHYLENE (MIRALAX) 17 GM PACK PO PRN (22:37)
[2020-06-25] MEDS ORDERED: ALUMINUM/MAGNESIUM SUSP 30 ML UDC PO PRN (22:37)
[2020-06-25] MEDS ORDERED: NITROGLYCERIN SL 0.4 MG/TAB TAB SL PRN (22:37)
[2020-06-25] MEDS: ACETAMINOPHEN 500 MG TAB PO PRN (23:20)
[2020-06-25] MEDS: SODIUM CHLORIDE 0.9% 1000ML 1,000 ML IV SCH (23:54)
[2020-06-25] MEDS: MEROPENEM 500 MG in SYRINGE 0 ML IV SCH (23:54)
[2020-06-25] MEDS: hydrOXYzine HCl 10 MG TAB PO SCH (23:55)
[2020-06-25] MEDS: CETIRIZINE HCL 10 MG TABLET PO SCH (23:55)
[2020-06-25] MEDS: MELATONIN 3 MG TAB PO SCH (23:56)
[2020-06-26] MEDS ORDERED: METOPROLOL TARTRATE 1 MG/ML VIAL IV PRN
[2020-06-26] MEDS ORDERED: diphenhydrAMINE 50 MG/ML VIAL IV STA (01:50)
[2020-06-26] MEDS: LORazepam 0.5 MG TAB PO PRN ×2 (03:29→22:18)
[2020-06-26] MEDS: amLODIPine BESYLATE 5 MG TAB PO SCH (07:48)
[2020-06-26] MEDS: predniSONE 20 MG TAB PO SCH (07:48)
[2020-06-26] MEDS: ENOXAPARIN INJ 40 MG/0.4 ML SYR SQ SCH (07:49)
[2020-06-26] MEDS: ADVANCED PROBIOTIC 1250 MG CAPSULE PO SCH (07:49)
[2020-06-26] MEDS: METOPROLOL SUCC 25MG EXT REL TAB PO SCH (07:54)
[2020-06-26] MEDS: ACETAMINOPHEN 500 MG TAB PO PRN ×2 (08:56→17:12)
[2020-06-26] MEDS: CETIRIZINE HCL 10 MG TABLET PO SCH ×2 (09:23→21:02)
[2020-06-26] MEDS: MEROPENEM 500 MG in SYRINGE 0 ML IV SCH ×2 (10:12→22:18)
--- NOTE | 2020-06-26 11:29 | Hospitalist Progress Note ---
Date of Service June 26, 2020 Assessment & Plan (1) Complicated UTI (urinary tract infection): Margie is an 80 yo F with an extensive list of allergies to antibiotics, frequent pseudomonas UTIs requiring hospitalization, HCC, Carcinoid tumor of lung, CKD III who presented to [facility] at recommendation of outpatient provider after growing culture for pansensitive Pseudomonas. She is hemodynamically stable. Urinary Tract Infection -- with history of multiple Pseudomonas UTIs - patient reporting several days' worth of dysuria, urinary frequency, and urgency without systemic manifestations - work-up as follows: - pansensitive Pseudomonas (<2 imipenem, <0.25 ciprofloxacin, 16 zosyn, <1 cefepime) per outpatient urine culture reported 06/21/20 - in house UA showing 2+ LE, bacteria, Nitrites. UCx pending - afebrile, WBC 12.7, not tachycardic, no blood cultures drawn give stable status and receipt of antibiotics - acetaminophen level <2, drawn due to patient reportedly taking 3g of tylenol at home for multiple days - given high risk for MDR and culture showing Pseudomonas and numerous allergies, initiated on Ertapenem - Previous ID consult in 04/2020 recommending fosfomycin as possible agent -- should provide coverage against Pseudomonas, Klebsiella - Given that this can be taken orally may also reduce need for future hospitalizations - Thorough discussion with patient and daughter this evening. They are aware this is a novel drug to her immune system and may/may not produce reaction - Amenable to proceed. Will continue prednisone, cetirizine, hydroxyzine as below - Trial tomorrow AM. Plan for staying until second dose as tomorrow will be initial exposure - await UCX here, sensitivities - adjust p.r.n. - Allergy treatment as outlined below - continue cranberry tabs, probiotic, vaginal estrogen to help avoid bacterial overgrowth Significant History of Pharmacologic Allergens - patient has a significant amount of cutaneous allergies to antimicrobials - has followed with Dr. Perea, chief payroll clerk here, who recommended the following whenever on ABX: - prednisone 40mg daily, cetirizine 10 mg BID, hydroxyzine 10 mg HS - will continue - communication order entered to monitor for rash/respiratory distress Resistant HTN - Continue amlodipine 2.5mg PO daily - Continue metoprolol 25mg PO qAM - Hold ARB, HCTZ at recommendation of nephrology (see note 06/25) - PRN IV metoprolol for SBP >180 with HR >60 or HR >120 with Sys BP >100 CKD III - Baseline Cr 1.0 - 1.3, EGFR ~42 per nephrology notes 06/25 - Renally dose medications - Noted -- stable Insomnia - Continue nightly Ativan 0.5 mg PO HS Hyponatremia - noted at 133 on admission - mild, likely secondary to HCTZ that was recently stopped - s/p nearly ~2L NSS since arrival -- will d/c for now - promote PO initake - BMP in AM DVT ppx: lovenox FEN/GI: regular diet, Code Status: DNR/DNI Dispo: PCU (2) Ford-Favian syndrome: (3) Hepatocellular carcinoma: (4) Dysuria: (5) Diverticulosis of colon: (6) Chronic kidney disease with active medical management without dialysis, stage 3 (moderate): (7) Insomnia: (8) Gastritis: (9) Multiple drug allergies: (10) Pseudomonas aeruginosa infection: (11) Internal hemorrhoids: (12) Hypertension: Admission and Anticipated Discharge Date Admission Date: June 25, 2020 Supervising Physician Co-Signing Physician Notes Patient seen and examined with PGY-1 Dr. Toscano. Agree with history, exam findings, assessment and plan of care as outlined. In brief, Ms. Douglas is an 80 year old female with prior history of simple cystitis with Klebsiella and Pseudomonas requiring hospital admission for IV antibiotics due to multiple drug allergies. Infectious disease was consulted during a spring admission for assistance with antibiotic selection in the face of these allergies. She is also followed by allergy as an outpatient. Outpatient culture growing ortega-sensitive Pseudomonas. Started on meropenem here. She is pre-medicated with prednisone and zrytec. Has soumya doing well on this. Well appearing, non-toxic. Abdomen is soft, non-tender. No suprapubic tenderness. No CVA tenderness. 1. simple cystitis in the setting of multiple drug allergies. Continue meropenem for tonight and plan to switch to fosfomycin tomorrow AM. If she tolerates this well, will give second dose on morning. Discussed risks/benefits of fosfomycin. One big benefit of this antibiotic is that she will be able to get this as an outpatient if she does not have a reaction and will keep her out of the hospital. Other chronic medical issues are stable. Home medications are being continued. Dispo: possible discharge on after antibiotic dose. Subjective Feeing tired this morning. Reviewed HPI with her - no significant additions or modifications to remark on. Frustrated she has another UTI. From a systemic standpoint, she denies any recent fevers/chills/sweats. Appetite isn't great but has been able to eat/drink without difficulty. Still reports dysuria, but better than before. Can't tell if she still has urinary frequency/urgency as she's been getting IVF. No significant back pain. No nausea or vomiting. Review of Systems Review of Systems: as per HPI Physical Exam Physical Exam: General: Frail and tired appearing 80yoF who is lying back in her hospital bed, relaxed, upon my arrival. She converses freely without acute distress. HEENT: NCAT. Eyes - Sclera are white, anicteric, and without injection. PERRL. Cardiac: Normal rate and regular rhythm; S1 and S2 present with no murmurs, rubs, or gallops. Pulmonary: Good respiratory effort with symmetric expansion of the chest. No use of accessory muscles. Lungs were clear to auscultation bilaterally with no crackles or wheezes. Abdominal: Normoactive bowel sounds. Abdomen was soft, nondistended, and non- tender to palpation. No suprapubic tenderness. Very mild left CVA tenderness. Extremities: Upper and lower extremities are warm and well perfused. Radial pulses 2+. Results & Data Results & Data ([facility]) Vital Signs (Past 12 Hours) Vital Signs Temp Pulse Pulse Resp BP BP Pulse Ox 06/26/20 08:00 68 06/26/20 07:17 36.4 C L 74 17 133/70 96 06/26/20 03:26 36.4 C L 74 20 144/77 H 96 06/25/20 23:56 186/76 H Resident Activity Tracking Resident Involvement: Resident Care Provided Care Provided: Adult [facility] Medicine
[2020-06-26] MEDS: SODIUM CHLORIDE 0.9% 1000ML 1,000 ML IV SCH (11:33)
[2020-06-26] MEDS: PANTOprazole 40 MG TAB PO SCH (11:50)
--- NOTE | 2020-06-26 18:43 | Billing Data ---
Date of Service June 25, 2020 Coding Level of Care Code 01287 Initial Inpt Care Lvl 3
[2020-06-26] MEDS: hydrOXYzine HCl 10 MG TAB PO SCH (21:03)
[2020-06-26] MEDS: MELATONIN 3 MG TAB PO SCH (21:08)
--- NOTE | 2020-06-27 07:01 | Hospitalist Progress Note ---
Date of Service June 27, 2020 Assessment & Plan (1) Complicated UTI (urinary tract infection): Margie is an 80 yo F with an extensive list of allergies to antibiotics, frequent pseudomonas UTIs requiring hospitalization, HCC, Carcinoid tumor of lung, CKD III who presented to [facility] at recommendation of outpatient provider after growing culture for pansensitive Pseudomonas. She is hemodynamically stable. Urinary Tract Infection -- with history of multiple Pseudomonas UTIs - patient reporting several days' worth of dysuria, urinary frequency, and urgency without systemic manifestations - work-up as follows: - pansensitive Pseudomonas (<2 imipenem, <0.25 ciprofloxacin, 16 zosyn, <1 cefepime) per outpatient urine culture reported 06/21/20 - in house UA showing 2+ LE, bacteria, Nitrites. UCx pending - afebrile, WBC 12.7, not tachycardic, no blood cultures drawn give stable status and receipt of antibiotics - given high risk for MDR and culture showing Pseudomonas and numerous allergies, initiated on meropenem* (not ertapenem - written incorrectly yesterday but pt has been on meropenem) - UCX demonstrating GNB -- characterizations, sensitivities pending - Trial fosfomycin x 2 days (complete 3 day treatment course) -- if patient has reaction on day 1/2, switch back to meropenem - Allergy treatment as outlined below - continue cranberry tabs, probiotic, vaginal estrogen to help avoid bacterial overgrowth Significant History of Pharmacologic Allergens - patient has a significant amount of cutaneous allergies to antimicrobials - has followed with Dr. Perea, global supply chain vice president here, who recommended the following whenever on ABX: - prednisone 40mg daily, cetirizine 10 mg BID, hydroxyzine 10 mg HS - will continue - tolerating Fosfomycin well so far - will monitor. PRN IV benadryl electronic scale subassembler should it be needed - communication order entered to monitor for rash/respiratory distress Resistant HTN -- stable since arrival - Continue amlodipine 2.5mg PO daily - Continue metoprolol 25mg PO qAM - Hold ARB, HCTZ at recommendation of nephrology (see note 06/25) - PRN IV metoprolol for SBP >180 with HR >60 or HR >120 with Sys BP >100 CKD III - Baseline Cr 1.0 - 1.3, EGFR ~42 per nephrology notes 06/25 - Renally dose medications - Noted -- stable Insomnia - Continue nightly Ativan 0.5 mg PO HS Hyponatremia - noted at 133 on admission - mild, likely secondary to HCTZ that was recently stopped - s/p nearly ~2L NSS since arrival -- will d/c for now - promote PO initake, recheck - will recheck tomorrow AM DVT ppx: lovenox FEN/GI: regular diet, Code Status: DNR/DNI Dispo: PCU (2) Hepatocellular carcinoma: (3) Dysuria: (4) Diverticulosis of colon: (5) Chronic kidney disease with active medical management without dialysis, stage 3 (moderate): (6) Insomnia: (7) Gastritis: (8) Multiple drug allergies: (9) Pseudomonas aeruginosa infection: (10) Internal hemorrhoids: (11) Hypertension: Admission and Anticipated Discharge Date Admission Date: June 25, 2020 Supervising Physician Co-Signing Physician Notes Patient seen and examined with PGY-1 Dr. Toscano. Agree with history, exam findings, assessment and plan of care as outlined. In brief, Ms. Douglas is an 80 year old female with prior history of simple cystitis with Klebsiella and Pseudomonas requiring hospital admission for IV antibiotics due to multiple drug allergies. Infectious disease was consulted during a spring admission for assistance with antibiotic selection in the face of these allergies. She is also followed by allergy as an outpatient. Outpatient culture growing ortega-sensitive Pseudomonas. Started on meropenem here. She is pre-medicated with prednisone and zrytec. Has soumya doing well on this. She did get her first dose of fosfomycin today. Did mention that her cheeks felt a bit warm, but did not have a rash or redness in the chest or neck. Urniary symptoms are resolved. Well appearing, non-toxic Heart with regular rate and rhythm. Lungs are clear to auscultation throughout. No wheezes, ronchi or rales. 1. simple cystitis in the setting of multiple drug allergies. First dose of fosfomycin today--did well. Will continue with two more doses to complete treatment course. Other chronic medical issues are stable. Home medications are being continued. Dispo: possible discharge on after antibiotic dose. Subjective Feeling well. Less dysuria, urinary frequency. Got good sleep. No nausea or vomiting. No flank pain. Otherwise, eagerly looking forward to Fosfomycin this AM -- thinks she may have gotten it once before, but isn't sure Review of Systems Review of Systems: As per HPI Physical Exam Physical Exam: General: Tired appearing 80yoF who is lying back in her hospital bed, relaxed, upon my arrival. She converses freely without acute distress. HEENT: NCAT. Eyes - Sclera are white, anicteric, and without injection. PERRL. Cardiac: Normal rate and regular rhythm; S1 and S2 present with no murmurs, rubs, or gallops. Pulmonary: Good respiratory effort with symmetric expansion of the chest. No use of accessory muscles. Lungs were clear to auscultation bilaterally with no crackles or wheezes. Abdominal: Normoactive bowel sounds. Abdomen was soft, nondistended, and non- tender to palpation. No suprapubic tenderness. Extremities: Upper and lower extremities are warm and well perfused. Radial pulses 2+. Results & Data Results & Data ([facility]) Vital Signs (Past 12 Hours) Vital Signs Temp Pulse Pulse Resp BP Pulse Ox 06/27/20 03:40 36.4 C L 61 18 126/66 98 06/27/20 01:00 70 06/26/20 23:00 36.4 C L 64 20 115/61 96 06/26/20 19:50 36.7 C 60 18 134/66 96 Resident Activity Tracking Resident Involvement: Resident Care Provided Care Provided: Adult Hospital Medicine
[2020-06-27] MEDS: ENOXAPARIN INJ 40 MG/0.4 ML SYR SQ SCH (07:32)
[2020-06-27] MEDS: predniSONE 20 MG TAB PO SCH (07:33)
[2020-06-27] MEDS: ADVANCED PROBIOTIC 1250 MG CAPSULE PO SCH (07:33)
[2020-06-27] MEDS: amLODIPine BESYLATE 5 MG TAB PO SCH (07:33)
[2020-06-27] MEDS: METOPROLOL SUCC 25MG EXT REL TAB PO SCH (07:33)
[2020-06-27] MEDS: CETIRIZINE HCL 10 MG TABLET PO SCH ×2 (07:34→20:35)
[2020-06-27] MEDS: PANTOprazole 40 MG TAB PO SCH (07:34)
[2020-06-27 08:05] LABS: BUN Creatinine Ratio 23.2 (10-20); Calcium 9.2 mg/dl (8.5-10.1); Creatinine Clr Calc Pharmacy 37.2 ml/min; Est GFR (African American) 53.2 ml/min; Est GFR (Non-African American) 45.9 ml/min; Potassium 4.6 mmol/L (3.5-5.1)
[2020-06-27] MEDS ORDERED: diphenhydrAMINE 50 MG/ML VIAL IV PRN (08:39)
[2020-06-27] MEDS: FOSFOMYCIN TROMETHAMINE 3 GM PACKET PO SCH (08:40)
[2020-06-27] MEDS: MELATONIN 3 MG TAB PO SCH (20:35)
[2020-06-27] MEDS: hydrOXYzine HCl 10 MG TAB PO SCH (20:35)
[2020-06-27] MEDS ORDERED: PREMARIN VAG CRM 14 APPLN/30 GM TUBE PV SCH (21:00)
[2020-06-27] MEDS: ACETAMINOPHEN 500 MG TAB PO PRN (23:22)
[2020-06-28] MEDS: predniSONE 20 MG TAB PO SCH (07:19)
[2020-06-28] MEDS: METOPROLOL SUCC 25MG EXT REL TAB PO SCH (07:19)
[2020-06-28] MEDS: amLODIPine BESYLATE 5 MG TAB PO SCH (07:20)
[2020-06-28] MEDS: CETIRIZINE HCL 10 MG TABLET PO SCH (07:21)
[2020-06-28] MEDS: ADVANCED PROBIOTIC 1250 MG CAPSULE PO SCH (07:21)
[2020-06-28] MEDS: PANTOprazole 40 MG TAB PO SCH (07:21)
[2020-06-28] MEDS: ENOXAPARIN INJ 40 MG/0.4 ML SYR SQ SCH (07:22)
[2020-06-28 07:24] LABS: BUN Creatinine Ratio 22.8 (10-20); Calcium 9.4 mg/dl (8.5-10.1); Creatinine Clr Calc Pharmacy 42.1 ml/min; Est GFR (African American) 55.5 ml/min; Est GFR (Non-African American) 47.9 ml/min; Potassium 4.1 mmol/L (3.5-5.1)
[2020-06-28 07:50] LABS: Basophils # (auto) 0.06 K/uL (0-0.2); Basophils % (auto) 0.4 %; Eosinophils # (auto) 0.79 K/uL (0-0.5); Eosinophils % (auto) 5.2 %; Hemoglobin 11.5 g/dL (12.0-16.0); Immature Granulocytes # (auto) 0.05 K/uL (0.00-0.02); Immature Granulocytes % (auto) 0.3 %; Lymphocytes # (auto) 4.19 K/uL (1.2-3.4); Lymphocytes % (auto) 27.6 %; Mean Corpuscular Hemoglobin 31.7 pg (25-34); Mean Corpuscular Hgb Conc 33.8 g/dL (32-36); Mean Corpuscular Volume 93.7 fL (80-100); Mean Platelet Volume 10.7 fL (7.4-10.4); Monocytes # (auto) 1.38 K/uL (0.11-0.59); Monocytes % (auto) 9.1 %; Neutrophils % (auto) 57.4 %; Platelet Count 297 K/uL (130-400); RDW Coefficient of Variation 14.5 % (11.5-14.5); RDW Standard Deviation 49.5 fL (36.4-46.3); Red Blood Count 3.63 M/uL (4.2-5.4); White Blood Count 15.17 K/uL (4.8-10.8)
[2020-06-28] MEDS: FOSFOMYCIN TROMETHAMINE 3 GM PACKET PO SCH (08:42)
[2020-06-28] MEDS: ACETAMINOPHEN 500 MG TAB PO PRN (11:26)
--- NOTE | 2020-06-28 12:22 | Discharge Summary ---
Date of Service June 28, 2020 Admission HPI Per Admitting Provider 80 yo F with hx leukemia, CKD3, HTN, Hep C, currently undergoing treatment of hepatocellular carcinoma, sent to ED by PCP for urine cultre growing Pseudomonas. Patient has an extensive history of UTIs growing Pseudomonas. She also has multiple antibiotic allergies to ciprofloxacin, penicillins, Sulfa, cefepime, vancomycin. She states with most of these allergies she swells and has a body-wide rash but does not have any throat swelling/pressure or compromise of airway. She recently saw Dr. Perea of allergy/immunology who recommended she be on daily prednisone and anti-histamine optimization if she is getting anti biotics. She states she has been feeling burning with urination, increased frequency and general malaise for the past 5-6 days. She was seen by her PCP who had an outpatient UA and Culture sent, which brought her to the ED today. Chief Complaint: UTI Primary Care Provider: Bradley Jeter Admission Exam Per Admitting Provider Constitutional: thin elderly female laying in bed in no acute distress Eyes: EOMI, pupils equal and reactive bilaterally, no scleral icterus Cardiac: RRR, no murmurs, gallops or rubs. Normal S1, S2 Pulm: CTA BL, no wheezes, rhonchi, crackles or rubs, moving air well throughout both lungs Abd: soft, nontender, nondistended, normal bowel sounds, no rebound or guarding Extremities: 2+ peripheral pulses, no edema Neuro: no focal deficits, moving all 4 limbs, A&Ox3 Skin: dry, without rashes or erythema Principal Diagnosis Pseudomonas UTI Discharge Exam General: Frail and tired appearing 80yoF who is lying back in her hospital bed, relaxed, upon my arrival. She converses freely without acute distress. HEENT: NCAT. Eyes - Sclera are white, anicteric, and without injection. PERRL. Cardiac: Normal rate and regular rhythm; S1 and S2 present with no murmurs, rubs, or gallops. Pulmonary: Good respiratory effort with symmetric expansion of the chest. No use of accessory muscles. Lungs were clear to auscultation bilaterally with no crackles or wheezes. Abdominal: Normoactive bowel sounds. Abdomen was soft, nondistended, and non- tender to palpation. No suprapubic tenderness. Very mild left CVA tenderness. Extremities: Upper and lower extremities are warm and well perfused. Radial pulses 2+. Discharge Data Allergies Allergy/AdvReac Type Severity Reaction Status Date / Time celecoxib Allergy Severe Rash Verified 06/08/20 12:37 ciprofloxacin [From Cipro] Allergy Severe DRESS Verified 06/08/20 12:37 adhesive Allergy Intermediate RED Verified 06/08/20 12:37 IRRITATED SKIN Sulfa (Sulfonamide Allergy Mild Hives Verified 06/08/20 12:37 Antibiotics) amoxicillin Allergy Unknown Rash Verified 06/08/20 12:37 cefepime Allergy Unknown Rash, drug Verified 06/08/20 12:37 eruption Penicillins Allergy Unknown Rash Verified 06/08/20 12:37 lactose AdvReac Intermediate GI UPSET Verified 06/08/20 12:37 vancomycin AdvReac Unknown Mook Verified 06/08/20 12:37 syndrome Consultations 06/25/20 19:28 ED Decision to Admit Stat Hospital Course (1) Complicated UTI (urinary tract infection): Margie is an 80 yo F with an extensive list of allergies to antibiotics, frequent pseudomonas UTIs requiring hospitalization, HCC, Carcinoid tumor of lung, CKD III who presented to [facility] at recommendation of outpatient provider after growing culture for pansensitive Pseudomonas. She is hemodynamically stable. Urinary Tract Infection -- uncomplicated; with history of multiple Pseudomonas UTIs - patient reported several days' worth of dysuria, urinary frequency, and urgency without systemic manifestations - work-up as follows: - outpatient (06/21) and inpatient UCX growing pansensitive Pseudomonas - in house UA showing 2+ LE, bacteria, Nitrites. UCx pending - initially on meropenem due to significant number of allergies to ABX - switched to Fosfomycin thereafter with ~3 day treatment course (previously recommended by Juan BROWN during Spring admission) - utilized pre-treatment outlined below with good response - continued cranberry tabs, probiotic, vaginal estrogen to help avoid bacterial overgrowth Significant History of Pharmacologic Allergens - patient has a significant amount of cutaneous allergies to antimicrobials - has followed with Dr. Perea, manager utilization here, who recommended the following whenever on ABX: - prednisone 40mg daily, cetirizine 10 mg BID, hydroxyzine 10 mg HS - worked well during stay here - tolerated Fosfomycin well ------ Patient has been noted to have multiple hospitalizations secondary to UTIs in the setting of her multiple antibiotic restrictions due to severe allergies. If Pseudomonas UTI appreciated as outpatient and attempting to treat, can consider the following regimen (potentially to prevent further hospitalizations): 1. Pretreat with prednisone 40mg daily, cetirizine 10mg b.i.d. [these two at least 1 hour before administration], hydroxyzine 10mg qHS 2. Utilize fosfomycin x 2+ days (traditionally used as a single, one time dose; previous ID recommendations had suggested higher for her - use clinical judgement to modify as appropriate) ------ Resistant HTN -- stable since arrival - Continue amlodipine - Continue metoprolol - Hold ARB, HCTZ at recommendation of nephrology (note 06/25) CKD III - Baseline Cr 1.0 - 1.3, EGFR ~42 per nephrology notes 06/25 Insomnia - Continue nightly Ativan 0.5 mg PO HS Code: DNR/DNI (2) Hepatocellular carcinoma: (3) Dysuria: (4) Diverticulosis of colon: (5) Chronic kidney disease with active medical management without dialysis, stage 3 (moderate): (6) Insomnia: (7) Gastritis: (8) Multiple drug allergies: (9) Pseudomonas aeruginosa infection: (10) Internal hemorrhoids: (11) Hypertension: Total Time Total Time Spent Total Time Spent (In Minutes): 30 Total Time Includes: Examination of the Patient, Discharge Planning, Medication Reconciliation, Communication With Other Providers and Other Discharge Plan Discharge Items Patient Disposition: Home - Self-Care Reason For Visit: PSEUDOMONAS UTI Discharge Diagnosis: Pseudomonas UTI Condition on Discharge: Fair Activity: Per Instructions section Non-emergency contact: Primary Care Provider Call non-emergency contact if: you have any medication questions, your symptoms worsen and your temperature is above 101 Follow-up/Referrals: Bradley Jeter [Primary Care Provider] - Diet: Regular Addtl Attending Provider Instructions: You were seen and managed at [facility] for evaluation of a Pseudomonas UTI. During your stay, we underwent extensive conversation about the antibiotic needs of the specific type of UTI, and the options that we have available to us that would be reasonable based off your severe allergy history. You are initially treated with the medication through IV; we then discussed transitioning to a medication called fosfomycin to help complete your course. Thankfully, you demonstrated no allergic response to this medication over the 2 days you were given it here. Upon your discharge, please follow these instructions: - Take Atarax 10mg x 1 the night of your discharge - Tomorrow morning, take prednisone 40mg x 1 and cetirizine 10mg with it at the same time (note: your prednisone may come in 2x 20mg pills - take both at the same time to achieve dose of 40mg) - Wait an hour from the time you take your prednisone - Take your Fosfomycin - That night, take the other ceterizine 10mg x 1 Please follow-up with your primary care physician within 1 week to review this visit. In the interim, if you begin experiencing any worsening discomfort with urination, urinary frequency or urgency (meaning having to go frequently, but disproportionally based off how much or drinking), fever, chills, nausea, vomiting, shortness of breath, significant allergic reaction, or other worrisome symptoms to you, please seek medical attention for evaluation; if your symptoms are severe, please call 911 or report to the nearest ER for evaluation. It has been a pleasure caring for you while here; we wish you all the best in your recovery! Shayne Toscano MD Resident Physician [facility] Medicine [address], [address] [place], [place] ----- FOR YOUR REFERENCE (plan we discussed as an option for going forward): Ms. Douglas has had multiple hospitalizations secondary to Pseudomonas/Klebsiella UTIs in the setting of multiple antibiotic restrictions due to severe allergies. If Pseudomonas UTI appreciated as outpatient and attempting to treat, can consider the following regimen (potentially to prevent further hospitalizations): 1. Pretreat with prednisone 40mg daily in AM, cetirizine 10mg b.i.d. [these two at least 1 hour before administration]; also add hydroxyzine 10mg qHS over treatment duration 2. Utilize fosfomycin x 2+ days (traditionally used as a single, one time dose; previous ID recommendations had suggested higher for her - use clinical judgement to modify as appropriate) Pending Studies at Discharge: No Stand-Alone Forms: My Bloxy, Smoking Cessation Medications and DC Order Prescriptions: New fosfomycin tromethamine 3 gram packet 1 packet PO ONCE 1 Days Qty: 1 RF: 0 hydroxyzine HCl 10 mg tablet 10 mg PO HS 1 Days Qty: 1 RF: 0 prednisone 20 mg tablet 40 mg PO DAILY 1 Days Qty: 2 RF: 0 cetirizine 10 mg Tablet 10 mg PO BID 1 Days Qty: 2 RF: 0 Continued polyethylene glycol 3350 [Miralax] 17 gram/dose powder 17 g PO DAILY PRN (Reason: Constipation) RF: 0 amlodipine 2.5 mg tablet 2.5 mg PO DAILY RF: 0 lorazepam [Ativan] 0.5 mg tablet 0.5 mg PO HS PRN (Reason: Anxiety/Sleep) RF: 0 Probiotic 20 billion cell Capsule 0 mmu cells PO QAM RF: 0 acetaminophen [Tylenol Extra Strength] 500 mg Tablet 500 mg PO Q6H PRN (Reason: Pain) RF: 0 conjugated estrogens 0.625 mg/gram Cream 0.625 mg VAGINAL 3XWK RF: 0 cranberry conc-ascorbic acid 140-100 mg Capsule 1 cap PO DAILY RF: 0 fluocinonide 0.05 % Solution 1 applic TOPICAL BID PRN (Reason: Skin Irritation) RF: 0 Discharge Orders: Discharge Order (Routine); Ordered 06/28/20 Ordered By: Shayne Toscano Admission Data Admit Date/Time: 06/25/20 21:10 Attending Provider: Paolo Russell Admit Provider: Sadaf Tubbs Primary Care Provider: Bradley Jeter Other Providers: Guerline Vega Other Interventions: Discharge Summary Assessment (RN) Last Done: 06/28/20 15:56 Supervising Physician Co-Signing Physician Notes Patient seen and examined with PGY-1 Dr. Toscano. Agree with history, exam findings, assessment and plan of care as outlined. In brief, Ms. Douglas is an 80 year old female with prior history of simple cystitis with Klebsiella and Pseudomonas requiring hospital admission for IV antibiotics due to multiple drug allergies. Infectious disease was consulted during a spring admission for assistance with antibiotic selection in the face of these allergies. She is also followed by allergy as an outpatient. Outpatient culture growing ortega-sensitive Pseudomonas. Started on meropenem here. She is pre-medicated with prednisone and zrytec. Has soumya doing well on this. She did get her second dose of fosfomycin today. Did not have an adverse reaction. Does endorse minimal dysuria this morning. Well appearing, non-toxic 1. simple cystitis in the setting of multiple drug allergies. Received 1 day of meropenem and 2 doses of fosfomycin. Will get one more dose of fosfomycin tomorrow for a total of 4 days of antibiotic treatment for simple cystitis. With the last dose of fosfomycin, she will still take the steroid and zyrtec with the atarax at night. Other chronic medical issues are stable. Home medications are being continued. Dispo: Discharge home today. I personally spent 35 minutes discharge planning for this patient. Resident Activity Tracking Resident Involvement: Resident Care Provided Care Provided: Adult Hospital Medicine
== END 2020-06-28 15:32 | disposition home or self-care (01) | DRG 690 ==
LOC: ED 16:59 → 2S 21:10 → SUATTDRO 21:10 → 2S 22:20

== ENCOUNTER 2020-09-16 19:08 | Inpatient (IN) ==
[2020-09-16] MEDS ORDERED: SODIUM CHLORIDE 0.9% 1000ML 1,000 ML IV STA (19:34)
--- NOTE | 2020-09-16 19:42 | Emergency Department Note ---
Impression & Plan Urinary tract infection, Diarrhea, Acute dehydration ED Provider Note NAME: JUSTINE PENA AGE: 80 SEX: F : 1940 ARRIVES VIA: Walk-In INFORMANT: Patient, ED PROVIDER(S): Daniel Ruiz DO CHIEF COMPLAINT: Diarrhea HPI: The patient is an 80-year-old female who presented to the emergency department for an evaluation of diarrhea. The patient states that she started having loose bowel movements over the last few days. She was treated on Thursday with immunotherapy for hepatocellular carcinoma. The patient received OPDIVO. The patient has a 9-year history of hepatocellular carcinoma. She is received chemotherapy in the past. She started having some increase in tumor growth and was thought to be a good candidate for immunotherapy. She received this therapy on Thursday. She called her primary oncologist today and was referred to the emergency department. There was concern of dehydration. The patient presented with a family member. They state that the diarrhea is not on unexpected given the immunotherapy but she was sent in for concerns of dehydration. She was recently treated for a UTI. She states those symptoms have resolved. She denies having any back pain. She does describe some abdominal pain which she describes as crampy. She denies having any nausea or vomiting at this time. She has no chest pain or difficulty breathing. She denies having any black or bloody bowel movements. ROS: See above HPI for pertinent positives & negatives. A total of 10 systems reviewed and were otherwise negative. PAST MEDICAL HISTORY: See Below PAST SURGICAL HISTORY: See Below FAMILY HISTORY: See Below SOCIAL HISTORY: See Below HOME MEDICATIONS: See Below ALLERGIES: See Below VITALS: See Below PHYSICAL EXAMINATION: GENERAL: Patient is awake alert in no acute distress patient is resting comf ortably and showing no signs of anxiety EYES: The conjunctivae are clear. The pupils are round and reactive. EARS, NOSE, MOUTH AND THROAT: The nose is without any evidence of any deformity. NECK: The neck is nontender and supple. RESPIRATORY: Normal respiratory effort is noted there is no evidence of wheezing rhonchi or rales CARDIOVASCULAR: Regular rate and rhythm noted there no murmurs rubs or gallops normal S1 normal S2. GASTROINTESTINAL: The abdomen is soft and mildly distended. There is no guarding or rigidity noted. MUSCULOSKELETAL/EXTREMITIES: There is no evidence of gross deformity full range of motion is noted in the hips and shoulders. SKIN: There is no obvious evidence of any rash. There are no petechiae, pallor or cyanosis noted. NEUROLOGIC: Patient is awake alert and oriented x3. MEDICAL DECISION MAKING: The patient is an 80-year-old female who presented to the emergency department for an evaluation of diarrhea. The patient was recently treated with immunotherapy for recurrent hepatocellular carcinoma. The patient started having diarrhea which was felt to be secondary to the therapy. The patient presented to the emergency department at the request of her primary oncologist for IV fluids. The patient was found to have an elevated white blood cell count as well as signs of urinary tract infection. I reviewed the patient's recent urinary cultures does show that she has had multiple different bacteria including Klebsiella and Pseudomonas. The problem is the patient has multiple allergies to antibiotics. I discussed the patient's laboratory and radiographic studies with her. I discussed her case with the on-call [facility]ist. Given her findings he did recommend we start the patient on gentamicin and they will determine further treatment as an inpatient. The patient was agreeable with this plan. Triage Nursing notes reviewed. Prior medical records reviewed Vital Signs: reviewed and remarkable for no significant abnormalities Differential diagnosis: Infection, dehydration, metabolic abnormality, hypo/hyperglycemia, electrolyte disturbance, anemia, hypoxia, cardiac sources, intracerebral event, toxicologic, neurologic, as well as other pathologies. ER treatment provided: See below Diagnostics interpreted by me: ECG: none Cardiac Monitoring: An order was placed for continuous cardiac monitoring. The monitor shows a rate of 80 bpm with sinus rhythm. Laboratory studies: As stated above and show below. Imaging studies: See below Consultation(s): I discussed this case with Dr. Nichols who is on-call for the [facility] group. He will evaluate the patient in the emergency department for further management and disposition. 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 Urinary tract infection Urticaria Surgical History H/O: hysterectomy History of cholecystectomy History of splenectomy Family History Other Family history non-contributory Social History Smoking Status: Never smoker Hx Alcohol Use: No Hx Substance Use: No Preferred Language: [place] Communication Ability: Effective Branch Service Representative Required: No Beliefs That Will Affect Care: None marital status: / Current Living Situation: Alone How many Children do You have: 6 Other Information That Helps Us Care for You: No Feels Safe at Home: Yes Safety Concerns: Feels Safe At This Time Assistive Devices: Glasses Allergies Allergies Allergy/AdvReac Type Severity Reaction Status Date / Time celecoxib Allergy Severe Rash Verified 09/16/20 19:19 ciprofloxacin [From Cipro] Allergy Severe DRESS Verified 09/16/20 19:19 adhesive Allergy Intermediate RED Verified 09/16/20 19:19 IRRITATED SKIN Sulfa (Sulfonamide Allergy Mild Hives Verified 09/16/20 19:19 Antibiotics) amoxicillin Allergy Unknown Rash Verified 09/16/20 19:19 cefepime Allergy Unknown Rash, drug Verified 09/16/20 19:19 eruption Penicillins Allergy Unknown Rash Verified 09/16/20 19:19 lactose AdvReac Intermediate GI UPSET Verified 09/16/20 19:19 vancomycin AdvReac Unknown Mook Verified 09/16/20 19:19 syndrome Home Meds Home Medications Medication Instructions Recorded Confirmed polyethylene glycol 3350 17 17 g PO DAILY PRN gm 08/26/18 09/16/20 gram/dose oral powder (Miralax) lorazepam 0.5 mg tablet (Ativan) 0.5 mg PO HS 04/08/19 09/16/20 lactobacillus comb no.10 20 0 mmu cells PO QAM 04/09/19 09/16/20 billion cell capsule (Probiotic) acetaminophen 500 mg tablet 500 mg PO Q6H PRN 04/12/20 09/16/20 (Tylenol Extra Strength) conjugated estrogens 0.625 mg/gram 0.625 mg VAGINAL 3XWK 04/12/20 09/16/20 vaginal cream amlodipine 2.5 mg tablet 2.5 mg PO DAILY 05/11/20 09/16/20 cranberry concentrate-ascorbic 1 cap PO DAILY 06/25/20 09/16/20 acid 140 mg-100 mg capsule fluocinonide 0.05 % topical 1 applic TOPICAL BID PRN 06/25/20 09/16/20 solution ascorbic acid (vitamin C) 500 mg 500 mg PO DAILY 09/16/20 09/16/20 tablet (Vitamin C) methenamine hippurate 1 gram tablet 1 g PO DAILY 09/16/20 09/16/20 Results & Data (ED) Vital Signs Vital Signs - 24 hr 09/16/20 19:16 09/16/20 19:53 09/16/20 20:30 Temperature 36.5 C Temperature Source Temporal Artery Scan Pulse Rate 88 100 H 73 Pulse Rate from SpO2 Sensor 73 Respiratory Rate 18 14 24 Respiratory Depth Normal Blood Pressure 172/79 H 165/71 H 144/51 H Blood Pressure Mean 110 102 82 Pulse Oximetry 96 98 97 Oxygen Delivery Method Room Air Room Air Room Air Sepsis Recent Fever Within 48 Hours No Sepsis New/Unexplained Change in Mental Status N/A Sepsis Action Taken by Nursing No Action Required 09/16/20 21:00 09/16/20 21:30 09/16/20 22:00 Temperature Temperature Source Pulse Rate 72 91 H 82 Pulse Rate from SpO2 Sensor 72 88 82 Respiratory Rate 18 19 19 Respiratory Depth Blood Pressure 150/55 H 159/57 H 161/58 H Blood Pressure Mean 86 91 92 Pulse Oximetry 97 98 98 Oxygen Delivery Method Room Air Room Air Room Air Sepsis Recent Fever Within 48 Hours Sepsis New/Unexplained Change in Mental Status Sepsis Action Taken by Group Home Medications Current Medication List: was personally reviewed by me Laboratory Data Attestation: I reviewed the patient's lab results. Result diagrams: 09/16/20 20:08 09/16/20 20:08 Lab Results 09/16/20 09/16/20 09/16/20 Range/Units 20:08 20:08 20:08 WBC 17.15 H (4.8-10.8) K/uL RBC 3.60 L (4.2-5.4) M/uL Hgb 11.7 L (12.0-16.0) g/dL Hct 34.2 L (37-47) % MCV 95.0 (80-100) fL MCH 32.5 (25-34) pg MCHC 34.2 (32-36) g/dL RDW Std Deviation 50.7 H (36.4-46.3) fL RDW Coeff of Bakari 14.6 H (11.5-14.5) % Plt Count 293 (130-400) K/uL MPV 10.4 (7.4-10.4) fL Immature Gran % (Auto) 0.2 % Neut % (Auto) 71.6 % Lymph % (Auto) 11.5 % Ferry % (Auto) 10.6 % Eos % (Auto) 5.6 % Baso % (Auto) 0.5 % Neut # (Auto) 12.28 H (1.4-6.5) K/uL Lymph # (Auto) 1.98 (1.2-3.4) K/uL Ferry # (Auto) 1.81 H (0.11-0.59) K/uL Eos # (Auto) 0.96 H (0-0.5) K/uL Baso # (Auto) 0.09 (0-0.2) K/uL Immature Gran # (Auto) 0.03 H (0.00-0.02) K/uL Sodium 133 L (136-145) mmol/L Potassium 4.9 (3.5-5.1) mmol/L Chloride 101 (98-107) mmol/L Carbon Dioxide 25 (21-32) mmol/L Anion Gap 7.0 (3-11) BUN 19 H (7-18) mg/dl Creatinine 0.99 (0.6-1.2) mg/dl Est Cr Clr Drug Dosing 42.4 ml/min Est GFR ( Amer) 62.4 ml/min Est GFR (Non-Af Amer) 53.8 ml/min BUN/Creatinine Ratio 19.1 (10-20) Glucose 99 (70-99) mg/dl Calcium 9.3 (8.5-10.1) mg/dl Magnesium 1.7 L (1.8-2.4) mg/dl Total Bilirubin 0.6 (0.2-1) mg/dl AST 23 (15-37) U/L ALT 19 (12-78) U/L Alkaline Phosphatase 75 (45-117) U/L Total Protein 7.9 (6.4-8.2) gm/dl Albumin 3.5 (3.4-5.0) gm/dl Globulin 4.4 H (2.5-4.0) gm/dl Albumin/Globulin Ratio 0.8 L (0.9-2) Lipase 102 (73-393) U/L Specimen Hemolysis Urine Color Yellow Urine Appearance Cloudy A (Clear) Urine pH 6.0 (4.5-7.5) Ur Specific [place] 1.010 (1.000-1.030) Urine Protein Negative (Negative) Urine Glucose (UA) Negative (Negative) Urine Ketones Negative (Negative) Urine Blood Negative (Negative) Urine Nitrite Negative (Negative) Urine Bilirubin Negative (Negative) Urine Urobilinogen Negative (Negative) Ur Leukocyte Esterase 2+ H (Negative) Urine WBC (Auto) >30 H (0-5) /hpf Urine RBC (Auto) 0-4 (0-4) /hpf U Hyaline Cast (Auto) 1-5 (0-5) /lpf U Epithel Cells (Auto) 20-30 H (0-5) /lpf Urine Bacteria (Auto) 4+ H (Negative) COVID-19 Eval Order SARS-CoV-2 (PCR) (Negative) 09/16/20 09/16/20 Range/Units 20:49 20:49 WBC (4.8-10.8) K/uL RBC (4.2-5.4) M/uL Hgb (12.0-16.0) g/dL Hct (37-47) % MCV (80-100) fL MCH (25-34) pg MCHC (32-36) g/dL RDW Std Deviation (36.4-46.3) fL RDW Coeff of Bakari (11.5-14.5) % Plt Count (130-400) K/uL MPV (7.4-10.4) fL Immature Gran % (Auto) % Neut % (Auto) % Lymph % (Auto) % Ferry % (Auto) % Eos % (Auto) % Baso % (Auto) % Neut # (Auto) (1.4-6.5) K/uL Lymph # (Auto) (1.2-3.4) K/uL Ferry # (Auto) (0.11-0.59) K/uL Eos # (Auto) (0-0.5) K/uL Baso # (Auto) (0-0.2) K/uL Immature Gran # (Auto) (0.00-0.02) K/uL Sodium (136-145) mmol/L Potassium (3.5-5.1) mmol/L Chloride (98-107) mmol/L Carbon Dioxide (21-32) mmol/L Anion Gap (3-11) BUN (7-18) mg/dl Creatinine (0.6-1.2) mg/dl Est Cr Clr Drug Dosing ml/min Est GFR ( Amer) ml/min Est GFR (Non-Af Amer) ml/min BUN/Creatinine Ratio (10-20) Glucose (70-99) mg/dl Calcium (8.5-10.1) mg/dl Magnesium (1.8-2.4) mg/dl Total Bilirubin (0.2-1) mg/dl AST (15-37) U/L ALT (12-78) U/L Alkaline Phosphatase (45-117) U/L Total Protein (6.4-8.2) gm/dl Albumin (3.4-5.0) gm/dl Globulin (2.5-4.0) gm/dl Albumin/Globulin Ratio (0.9-2) Lipase (73-393) U/L Specimen Hemolysis Urine Color Urine Appearance (Clear) Urine pH (4.5-7.5) Ur Specific [place] (1.000-1.030) Urine Protein (Negative) Urine Glucose (UA) (Negative) Urine Ketones (Negative) Urine Blood (Negative) Urine Nitrite (Negative) Urine Bilirubin (Negative) Urine Urobilinogen (Negative) Ur Leukocyte Esterase (Negative) Urine WBC (Auto) (0-5) /hpf Urine RBC (Auto) (0-4) /hpf U Hyaline Cast (Auto) (0-5) /lpf U Epithel Cells (Auto) (0-5) /lpf Urine Bacteria (Auto) (Negative) COVID-19 Eval Order Covid19 at [facility] SARS-CoV-2 (PCR) NEGATIVE (Negative) Administered Medications Acetaminophen (Acetaminophen 325 Mg Tab) 650 mg PO Q4H PRN PRN Reason: Pain or Fever Stop: 10/17/20 00:03 Last Admin: 09/17/20 01:31 Dose: 650 mg Documented by: [id number] Cetirizine HCl (Cetirizine Hcl 10 Mg Tablet) 10 mg PO BID KEVIN Stop: 10/17/20 00:29 Last Admin: 09/17/20 01:23 Dose: 10 mg Documented by: [id number] Diclofenac Sodium (Diclofenac Sod 1% Gel 100 Gm Tube) 2 gm EXT Q6 KEVIN Stop: 10/17/20 00:29 Last Admin: 09/17/20 01:24 Dose: 2 gm Documented by: [id number] Hydroxyzine HCl (Hydroxyzine Hcl 10 Mg Tab) 10 mg PO HS KEVIN Stop: 10/17/20 00:29 Last Admin: 09/17/20 01:23 Dose: 10 mg Documented by: [id number] Prednisone (Prednisone 20 Mg Tab) 40 mg PO DAILY KEVIN Stop: 10/17/20 00:29 Last Admin: 09/17/20 01:23 Dose: 40 mg Documented by: [id number] Discontinued Medications Acetaminophen (Acetaminophen 500 Mg Tab) Confirm Administered Dose 500 mg .ROUTE .STK-MED ONE Stop: 09/16/20 21:27 Last Admin: 09/16/20 21:27 Dose: 500 mg Documented by: [id number] Sodium Chloride (Nss 1000ml) 1,000 mls @ 999 mls/hr IV .Q1H1M STA Stop: 09/16/20 20:34 Last Infusion: 09/16/20 21:08 Dose: 0 mls/hr Documented by: [id number] Admin: 09/16/20 20:07 Dose: 999 mls/hr Documented by: [id number] Magnesium Sulfate/Dextrose (Magnesium Sulfate / D5w) 1 gm in 100 mls @ 100 mls/hr IV NOW STA Stop: 09/16/20 21:51 Last Infusion: 09/16/20 22:01 Dose: 0 mls/hr Documented by: [id number] Admin: 09/16/20 20:59 Dose: 100 mls/hr Documented by: [id number] Gentamicin Sulfate 320 mg/ (Dextrose) 108 mls @ 100 mls/hr IV ONE ONE; Protocol Stop: 09/16/20 22:47 Last Infusion: 09/16/20 23:24 Dose: 0 mls/hr Documented by: [id number] Admin: 09/16/20 22:17 Dose: 100 mls/hr Documented by: [id number] Lorazepam (Lorazepam 1 Mg Tab) 1 mg PO NOW STA Stop: 09/16/20 22:17 Last Admin: 09/16/20 22:21 Dose: 1 mg Documented by: [id number] Imaging Data Radiologist's Impression: KUB X-Ray 09/16/20 19:34 KUB CLINICAL HISTORY: Diarrhea. FINDINGS: 2 AP supine abdominal radiographs are compared to study dated 09/04/2019 and correlated with abdominal CT dated 07/16/2018. There is a nonobstructed abdominal bowel gas pattern. Moderate fecal retention is seen in the right colon. No evidence of intraperitoneal free air is seen on these supine images. Cholecystectomy clips and suture material project over the upper abdomen. There are no abnormal abdominal calcifications. There is advanced atherosclerotic calcification of the abdominal aorta. The skeletal structures are osteopenic and appear intact. Postoperative and spondylotic change is noted in the lumbar spine. The lung bases are clear as imaged. IMPRESSION: Nonobstructed bowel gas pattern. Electronically signed by: Angel Samaniego M.D. 09/16/2020 7:52 PM Discharge Plan Visit Data Chief Complaint: Illness Stated Complaint: NAUSEA, DIARRHEA, WEAKNESS , DEHYDRATION ED Provider: Daniel Ruiz Discharge Problem: Urinary tract infection, Diarrhea, Acute dehydration Patient Disposition: Admitted As Inpatient Condition: Good Discharge Instructions Interventions: ED Discharge Assessment Last Done: 09/16/20 23:28 Discharge Problem: Urinary tract infection Qualifiers: Urinary tract infection type: site unspecified Hematuria presence: without hematuria Qualified Code(s): N39.0 - Urinary tract infection, site not specified Diarrhea Qualifiers: Diarrhea type: unspecified type Qualified Code(s): R19.7 - Diarrhea, unspecified
--- NOTE | 2020-09-16 19:54 | XRay Report ---
KUB CLINICAL HISTORY: Diarrhea. FINDINGS: 2 AP supine abdominal radiographs are compared to study dated 09/04/2019 and correlated with abdominal CT dated 07/16/2018. There is a nonobstructed abdominal bowel gas pattern. Moderate fecal re tention is seen in the right colon. No evidence of intraperitoneal free air is seen on these supine i mages. Cholecystectomy clips and suture material project over the upper abdomen. There are no abnorma l abdominal calcifications. There is advanced atherosclerotic calcification of the abdominal aorta. T he skeletal structures are osteopenic and appear intact. Postoperative and spondylotic change is note d in the lumbar spine. The lung bases are clear as imaged. IMPRESSION: Nonobstructed bowel gas pattern. Electronically signed by: Angel Samaniego M.D. 09/16/2020 7:52 PM
[2020-09-16 20:18] LABS: Basophils # (auto) 0.09 K/uL (0-0.2); Basophils % (auto) 0.5 %; Eosinophils # (auto) 0.96 K/uL (0-0.5); Eosinophils % (auto) 5.6 %; Hematocrit (blood only) 34.2 % (37-47); Hemoglobin 11.7 g/dL (12.0-16.0); Immature Granulocytes # (auto) 0.03 K/uL (0.00-0.02); Immature Granulocytes % (auto) 0.2 %; Lymphocytes # (auto) 1.98 K/uL (1.2-3.4); Lymphocytes % (auto) 11.5 %; Mean Corpuscular Hemoglobin 32.5 pg (25-34); Mean Corpuscular Hgb Conc 34.2 g/dL (32-36); Mean Platelet Volume 10.4 fL (7.4-10.4); Monocytes # (auto) 1.81 K/uL (0.11-0.59); Monocytes % (auto) 10.6 %; Neutrophils # (auto) 12.28 K/uL (1.4-6.5); Neutrophils % (auto) 71.6 %; Platelet Count 293 K/uL (130-400); RDW Coefficient of Variation 14.6 % (11.5-14.5); RDW Standard Deviation 50.7 fL (36.4-46.3); White Blood Count 17.15 K/uL (4.8-10.8)
[2020-09-16 20:19] LABS: Appearance Urine Cloudy (Clear); Bacteria Urine Automated 4+ (Negative); Bilirubin Urine Negative (Negative); Blood Urine Negative (Negative); Color Urine Yellow; Epithelial Cell Urine Auto 20-30 /lpf (0-5); Glucose Urine UA Negative (Negative); Ketones Urine Negative (Negative); Leukocyte Esterase Urine 2+ (Negative); Nitrite Urine Negative (Negative); Protein Urine Negative (Negative); RBC Urine Automated 0-4 /hpf (0-4); Urobilinogen Urine Negative (Negative); WBC Urine Automated >30 /hpf (0-5)
[2020-09-16 20:35] LABS: Albumin Level 3.5 gm/dl (3.4-5.0); BUN Creatinine Ratio 19.1 (10-20); Calcium 9.3 mg/dl (8.5-10.1); Creatinine Clr Calc Pharmacy 42.4 ml/min; Est GFR (African American) 62.4 ml/min; Est GFR (Non-African American) 53.8 ml/min; Magnesium 1.7 mg/dl (1.8-2.4); Potassium 4.9 mmol/L (3.5-5.1)
[2020-09-16 20:49] LABS: Albumin Globulin Ratio 0.8 (0.9-2); Bilirubin,Total 0.6 mg/dl (0.2-1); Globulin 4.4 gm/dl (2.5-4.0); Total Protein 7.9 gm/dl (6.4-8.2)
[2020-09-16] MEDS ORDERED: MAGNESIUM SULFATE / D5W 1 GM/100 ML BAG IV STA (20:52)
[2020-09-16] MEDS ORDERED: ACETAMINOPHEN 500 MG TAB ONE (21:26)
[2020-09-16] MEDS ORDERED: GENTAMICIN CONSULT ACTIVE PRN (21:42)
[2020-09-16] MEDS ORDERED: GENTAMICIN SULFATE 320 MG in DEXTROSE 5% 100 ML IV ONE (21:43)
--- NOTE | 2020-09-16 22:08 | History & Physical Report ---
Date of Service September 16, 2020 Assessment & Plan (1) Diarrhea: Plan: Mrs. 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 - etiology uncertain: could be due to a viral or bacterial gastroenteritis vs. side effect of recent Opdivo infusion vs. manifestation of carcinoid syndrome - WBC elevated, which would favor infectious etiology, although patient may also have concurrent urinary tract infection - carcinoid syndrome seems unlikely, as this condition has a lower likelihood in primary lung tumors (compared to those in the abdomen) and patient has no other apparent sequela - patient does have risk factors for cdiff given recent antibiotic use and hospitalization within the last 3 months. Cdiff test ordered - stool culture ordered - continue home probiotic (2) Acute UTI: Plan: - patient reports dysuria - UA showing 2+ LE, 4+ bacteria, neg nitrites - urine culture pending - presumptive uncomplicated urinary tract infection - history of pseudomonal UTIs with allergic reactions to various classes of antibiotics (mostly cutaneous) - 1 dose gentamicin given in ED. After discussion with pharmacy, will transition to meropenem IV with the plan to go to Fosfomycin as an oral agent upon dischar ge - pre-treatment with prednisone 40mg daily, cetirizine 10mg BID and hydroxyzine 10mg HQ per Dr. Perea recommendations (3) Leukocytosis: Plan: - WBC elevated to 17k on admission - etiology: possible due to urinary tract infection vs. gastroenteritis vs. multifactorial - antibiotics as above - trend CBC (4) Hypomagnesemia: Plan: - level was 1.7 on admission - 1g replacement ordered - recheck level in am DVT ppx: Lovenox Diet: regular Dispo: Med/Surg Code: DNR/DNI, I discussed with patient History of Present Illness Primary Care Provider: Bradley Jeter Mrs. Douglas is an 80 yo woman with a PMHx of hepatitis C and hepatocellular carcinoma who presents for evaluation of a 1 day history of bilateral lower quadrant abdominal pain and non-bloody diarrhea. She denies any preceding illness, ie fever/chills, cough, congestion, generalized malaise. On 09/14/20, she did undergo an IV infusion of immunotherapy (Opdivo) for her hepatocellular carcinoma - despite having completed chemo, her tumor has enlarged on surveillance scans. The evening after her infusion, she developed a rash - but the bilateral lower quadrant abdominal pain did not begin until Satur morning (09/15/20). The diarrhea started today. She has been nauseous, but has not vomited. She has been able to hold down some applesauce and a piece of toast. Of note, she was recently admitted at [facility] in June 2020 for a urinary tract infection; recurrent UTI in August 2020 (treated as outpatient). She has a history of pseudomonal UTIs. While inpatient, she was initially placed on meropenem due to significant number of allergies to antibiotics (all seem to be cutaneous), however she was switched to Fosfomycin thereafter. She follows with Dr. Perea in [facility], who has recommended pre-treatment with prednisone 40mg daily, cetirizine 10 mg BID, hydroxyzine 10 mg HS while on any antimicrobial therapy. In the ED, she was afebrile. Her HR was initially 100bpm on arrival, but soon went down to 80 bpm. BP was 138/52. RR 17, satting 96 on room air. Her WBC was elevated to 17. Her Hgb was 11.7, MCV 95. Na low at 133, Mag low at 1.7. Kidney function normal, LFTs not elevated. Lipase not elevated. UA showing 2+ LE, neg nitrites, 4+ bacteria. Urine culture pending. COVDI 19 neg. She was givne 1g of IV magnesium, 1 liter of NSS and started on IV gentimycin in the ED. Allergies Allergy/AdvReac Type Severity Reaction Status Date / Time celecoxib Allergy Severe Rash Verified 09/16/20 19:19 ciprofloxacin [From Cipro] Allergy Severe DRESS Verified 09/16/20 19:19 adhesive Allergy Intermediate RED Verified 09/16/20 19:19 IRRITATED SKIN Sulfa (Sulfonamide Allergy Mild Hives Verified 09/16/20 19:19 Antibiotics) amoxicillin Allergy Unknown Rash Verified 09/16/20 19:19 cefepime Allergy Unknown Rash, drug Verified 09/16/20 19:19 eruption Penicillins Allergy Unknown Rash Verified 09/16/20 19:19 lactose AdvReac Intermediate GI UPSET Verified 09/16/20 19:19 vancomycin AdvReac Unknown Mook Verified 09/16/20 19:19 syndrome Home Medications Medication Instructions Recorded Confirmed Type polyethylene glycol 3350 17 17 g PO DAILY PRN gm 08/26/18 09/16/20 History gram/dose oral powder (Miralax) lorazepam 0.5 mg tablet (Ativan) 0.5 mg PO HS 04/08/19 09/16/20 History lactobacillus comb no.10 20 0 mmu cells PO QAM 04/09/19 09/16/20 History billion cell capsule (Probiotic) acetaminophen 500 mg tablet 500 mg PO Q6H PRN 04/12/20 09/16/20 History (Tylenol Extra Strength) conjugated estrogens 0.625 mg/gram 0.625 mg VAGINAL 3XWK 04/12/20 09/16/20 History vaginal cream amlodipine 2.5 mg tablet 2.5 mg PO DAILY 05/11/20 09/16/20 History cranberry concentrate-ascorbic 1 cap PO DAILY 06/25/20 09/16/20 History acid 140 mg-100 mg capsule fluocinonide 0.05 % topical 1 applic TOPICAL BID PRN 06/25/20 09/16/20 History solution ascorbic acid (vitamin C) 500 mg 500 mg PO DAILY 09/16/20 09/16/20 History tablet (Vitamin C) methenamine hippurate 1 gram tablet 1 g PO DAILY 09/16/20 09/16/20 History 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 Urinary tract infection Urticaria Surgical History H/O: hysterectomy History of cholecystectomy History of splenectomy Family History Other Family history non-contributory Social History Smoking Status: Never smoker Hx Alcohol Use: No Hx Substance Use: No Preferred Language: [place] Communication Ability: Effective Driver Education Instructor Required: No Beliefs That Will Affect Care: None marital status: / Current Living Situation: Alone How many Children do You have: 6 Other Information That Helps Us Care for You: No Feels Safe at Home: Yes Safety Concerns: Feels Safe At This Time Assistive Devices: None Review of Systems Constitutional: no fever and no chills Respiratory: no cough Cardiovascular: no chest pain Gastrointestinal: + abdominal pain and + diarrhea/loose stools; no vomiting and no blood in stools Genitourinary: + dysuria Physical Exam Constitutional: WD/WN, vitals as above cooperative; no acute distress Eyes: + anicteric sclerae ENMT: external ear and nose normal, oropharynx normal Neck: trachea midline Respiratory: normal respiratory effort, lungs clear to auscultation no cough Cardiovascular: RRR, no murmur, no edema Heart Sounds: normal S1 and normal S2 Extremities: no pedal edema Gastrointestinal (Abdomen): Inspection/Auscultation: abdomen normal to in spection and normal bowel sounds; abdomen not distended Percussion/Palpation: + abdomen tender (b/l lower quadrants ) and abdomen soft; no guarding Musculoskeletal: Head/Neck/Chest: normocephalic and head atraumatic Skin: no rashes, warm and dry Neurologic: moves all extremities Psychiatric: A+Ox3, euthymic affect Results & Data Results & Data ([facility]) Vital Signs (Past 12 Hours) Vital Signs Temp Pulse Resp BP Pulse Ox 09/16/20 21:30 91 H 19 159/57 H 98 09/16/20 21:00 72 18 150/55 H 97 09/16/20 20:30 73 24 144/51 H 97 09/16/20 19:53 100 H 14 165/71 H 98 09/16/20 19:16 36.5 C 88 18 172/79 H 96 Code Status & VTE Plan VTE Prophylaxis Plan VTE Prophylaxis will be ordered: Yes Supervising Physician Co-Signing Physician Notes Attending addendum: I have physically seen this patient, have supervised the medical residents activities, and agree with the H&P unless as otherwise noted. Assessment and Plan: Diarrhea- Follow stool culture and C. difficile studies Cholestyramine twice daily for treatment Acute urinary tract infection- History of Pseudomonas 06/25/2020 History of Klebsiella 1 and 2 resistant to nitrofurantoin Extended release gentamicin IV given in ED we will continue, do not recommend conversion to meropenem or fosfomycin inpatient, and subject patient to need for desensitization Remaining orders and notations as noted Resident Activity Tracking Resident Involvement: Resident Care Provided Care Provided: Adult Hospital Medicine (1) Leukocytosis Leukocytosis type: unspecified Qualified Code(s): D72.829 - Elevated white blood cell count, unspecified
[2020-09-16] MEDS ORDERED: LORazepam 1 MG TAB PO STA (22:16)
[2020-09-17] MEDS ORDERED: ONDANSETRON INJ 2 MG/ML 2 ML VIAL IV PRN (00:04)
[2020-09-17] MEDS ORDERED: MEROPENEM CONSULT ACITVE PRN (00:36)
[2020-09-17] MEDS: CETIRIZINE HCL 10 MG TABLET PO SCH ×3 (01:23→21:16)
[2020-09-17] MEDS: predniSONE 20 MG TAB PO SCH ×2 (01:23→09:25)
[2020-09-17] MEDS: hydrOXYzine HCl 10 MG TAB PO SCH ×2 (01:23→21:15)
[2020-09-17] MEDS: DICLOFENAC SOD 1% GEL 100 GM TUBE EXT SCH ×5 (01:24→21:15)
[2020-09-17] MEDS: ACETAMINOPHEN 325 MG TAB PO PRN ×4 (01:31→21:20)
[2020-09-17] MEDS: MEROPENEM 500 MG in SYRINGE 0 ML IV SCH ×2 (05:15→16:09)
[2020-09-17 06:03] LABS: Hematocrit (blood only) 31.9 % (37-47); Hemoglobin 10.7 g/dL (12.0-16.0); Mean Corpuscular Hemoglobin 31.5 pg (25-34); Mean Corpuscular Hgb Conc 33.5 g/dL (32-36); Mean Corpuscular Volume 93.8 fL (80-100); Mean Platelet Volume 9.7 fL (7.4-10.4); Platelet Count 266 K/uL (130-400); RDW Coefficient of Variation 14.4 % (11.5-14.5); RDW Standard Deviation 49.8 fL (36.4-46.3); White Blood Count 14.66 K/uL (4.8-10.8)
[2020-09-17 06:27] LABS: Acanthocytes 1+; Basophils # (auto) 0.03 K/uL (0-0.2); Basophils % (auto) 0.2 %; Eosinophils # (auto) 0.11 K/uL (0-0.5); Eosinophils % (auto) 0.8 %; Immature Granulocytes # (auto) 0.05 K/uL (0.00-0.02); Immature Granulocytes % (auto) 0.3 %; Lymphocytes % (auto) 6.8 %; Monocytes # (auto) 0.26 K/uL (0.11-0.59); Monocytes % (auto) 1.8 %; Neutrophils # (auto) 13.21 K/uL (1.4-6.5); Neutrophils % (auto) 90.1 %
[2020-09-17 06:30] LABS: BUN Creatinine Ratio 17.4 (10-20); Calcium 8.4 mg/dl (8.5-10.1); Creatinine Clr Calc Pharmacy 46.7 ml/min; Est GFR (Non-African American) 60.4 ml/min; Magnesium 2.4 mg/dl (1.8-2.4)
[2020-09-17] MEDS: amLODIPine BESYLATE 5 MG TAB PO SCH (09:23)
[2020-09-17] MEDS: ADVANCED PROBIOTIC 1250 MG CAPSULE PO SCH (09:24)
[2020-09-17] MEDS: ENOXAPARIN INJ 40 MG/0.4 ML SYR SQ SCH (09:26)
--- NOTE | 2020-09-17 09:42 | Hospitalist Progress Note ---
Date of Service September 17, 2020 Assessment & Plan (1) Diarrhea: (2) Acute UTI: (3) Leukocytosis: (4) Hypomagnesemia: Plan: Mrs. 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 Diarrhea - etiology uncertain: could be due to a viral or bacterial gastroenteritis vs. side effect of recent Opdivo infusioon - patient does have risk factors for cdiff given recent antibiotic use and hospitalization within the last 3 months. - Cdiff test ordered -- only one BM thus far (making Cdiff very unlikely) and test was not able to be performed per lab - stool culture ordered - continue home probiotic Acute UTI - patient reports dysuria - UA showing 2+ LE, 4+ bacteria, neg nitrites - urine culture growing Gram negative bacilli - history of pseudomonal UTIs with allergic reactions to various classes of antibiotics (mostly cutaneous) - 1 dose gentamicin given in ED - Transitioned to meropenem IV with the plan to go to Fosfomycin as an oral agent upon discharge - Pre-treatment with prednisone 40mg daily, cetirizine 10mg BID and hydroxyzine 10mg HQ per Dr. Perea recommendations Hypomagnesemia - resolved - level was 1.7 on admission, which normalized after 1g repletion DVT ppx: Lovenox Diet: regular Dispo: Med/Surg Code: DNR/DNI Admission and Anticipated Discharge Date Admission Date: September 16, 2020 Supervising Physician Co-Signing Physician Notes Patient seen and examined with PGY-2 Dr. Combs. Agree with history, exam findings, assessment and plan of care as outlined. In brief, Ms. Douglas is an 80 year old female with hx of hepatitis C, HCC, and new carcinoid tumor of the lung admitted with diarrhea and lower abdominal pain. Today, she had one episode of soft stool that appeared slimy with a pink tinge. Abdominal pain is slightly improved. No nausea, vomiting. Vital signs and nursing notes reviewed. Well appearing. Heart with regular rate and rhythm. No peripheral edema. Lungs are clear to auscultation. Abdomen is soft. Minimally distended. Tender in the left lower quadrant and suprapubic area. Labs and imaging reviewed. 1. Diarrhea/abdominal pain. Lower suspicion for c. diff since she has only had 1 bowel movement since admission. ?mild colitis secondary to viral infection vs medication side effect. 2. Dirty urine. Culture with gram neg bacilliawaiting final results. Continue with meropenem and prednisone, cetirizine, hydroxyzine. Can discharge with fosfomycin if needed. 3. Leukocytosis. Improving, but may not decrease down to normal given concomitant prednisone. Monitor. 4. Hypomag. Repleted. 5. Carcinoid tumor of the lung. Follows with [facility] (Dr. Meza). Dispo: pending clinical improvement. Subjective Patient reports feeling a bit tired and weak today. She has tolerated oral nutrition and hydration here--reports feeling somewhat queasy but no vomiting. She has had one BM thus far since admission, which she says was loose. Otherwise hemodynamically stable, afebrile. Review of Systems Review of Systems: per Subjective Physical Exam Constitutional: WD/WN, vitals as above cooperative; no acute distress Eyes: + anicteric sclerae ENMT: external ear and nose normal, oropharynx normal Respiratory: normal respiratory effort, lungs clear to auscultation no cough Cardiovascular: RRR, no murmur, no edema Heart Sounds: normal S1 and normal S2 Extremities: no pedal edema Gastrointestinal (Abdomen): Inspection/Auscultation: abdomen normal to inspection, + abdomen distended (mildly) and normal bowel sounds Percussion/Palpation: + abdomen tender (b/l lower quadrants ) and abdomen soft; no guarding Musculoskeletal: Head/Neck/Chest: normocephalic and head atraumatic Skin: no rashes, warm and dry Neurologic: moves all extremities Psychiatric: A+Ox3, euthymic affect Results & Data Results [facility] ([facility]) Vital Signs (Past 12 Hours) Vital Signs Temp Pulse Pulse Resp BP BP Pulse Ox 09/17/20 08:00 36.7 C 73 16 130/71 95 09/16/20 23:40 36.9 C 81 16 152/70 H 97 09/16/20 23:00 80 17 138/52 L 96 09/16/20 22:30 84 20 144/47 H 97 09/16/20 22:00 82 19 161/58 H 98 Resident Activity Tracking Resident Involvement: Resident Care Provided Care Provided: Adult Hospital Medicine (1) Leukocytosis Leukocytosis type: unspecified Qualified Code(s): D72.829 - Elevated white blood cell count, unspecified
[2020-09-17] MEDS ORDERED: MELATONIN 3 MG TAB PO PRN (21:21)
[2020-09-17] MEDS ORDERED: LORazepam 0.5 MG TAB PO STA (21:32)
[2020-09-18] MEDS: MEROPENEM 500 MG in SYRINGE 0 ML IV SCH (04:35)
[2020-09-18] MEDS: DICLOFENAC SOD 1% GEL 100 GM TUBE EXT SCH ×2 (04:35→12:40)
[2020-09-18 06:14] LABS: Basophils # (auto) 0.02 K/uL (0-0.2); Basophils % (auto) 0.1 %; Eosinophils # (auto) 0.13 K/uL (0-0.5); Eosinophils % (auto) 0.7 %; Hematocrit (blood only) 30.1 % (37-47); Hemoglobin 10.2 g/dL (12.0-16.0); Immature Granulocytes # (auto) 0.06 K/uL (0.00-0.02); Immature Granulocytes % (auto) 0.3 %; Lymphocytes % (auto) 13.2 %; Mean Corpuscular Hemoglobin 31.6 pg (25-34); Mean Corpuscular Hgb Conc 33.9 g/dL (32-36); Mean Corpuscular Volume 93.2 fL (80-100); Mean Platelet Volume 10.2 fL (7.4-10.4); Monocytes # (auto) 2.22 K/uL (0.11-0.59); Monocytes % (auto) 12.2 %; Neutrophils % (auto) 73.5 %; Platelet Count 253 K/uL (130-400); RDW Coefficient of Variation 14.5 % (11.5-14.5); RDW Standard Deviation 49.8 fL (36.4-46.3); Red Blood Count 3.23 M/uL (4.2-5.4); White Blood Count 18.13 K/uL (4.8-10.8)
[2020-09-18 06:41] LABS: BUN Creatinine Ratio 26.3 (10-20); Calcium 8.6 mg/dl (8.5-10.1); Creatinine Clr Calc Pharmacy 46.2 ml/min; Est GFR (African American) 69.1 ml/min; Est GFR (Non-African American) 59.6 ml/min; Potassium 4.3 mmol/L (3.5-5.1)
[2020-09-18] MEDS: CETIRIZINE HCL 10 MG TABLET PO SCH (08:40)
[2020-09-18] MEDS: ADVANCED PROBIOTIC 1250 MG CAPSULE PO SCH (08:40)
[2020-09-18] MEDS: predniSONE 20 MG TAB PO SCH (08:40)
[2020-09-18] MEDS: amLODIPine BESYLATE 5 MG TAB PO SCH (08:40)
[2020-09-18] MEDS: ENOXAPARIN INJ 40 MG/0.4 ML SYR SQ SCH (08:41)
--- NOTE | 2020-09-18 10:37 | Billing Data ---
Date of Service September 18, 2020 Coding Level of Care Code 82196 Initial Inpt Care Lvl 3
[2020-09-18] MEDS: ACETAMINOPHEN 325 MG TAB PO PRN (12:41)
--- NOTE | 2020-09-18 12:43 | Discharge Summary ---
Date of Service September 18, 2020 Admission HPI Per Admitting Provider Mrs. Douglas is an 80 yo woman with a PMHx of hepatitis C and hepatocellular carcinoma who presents for evaluation of a 1 day history of bilateral lower quadrant abdominal pain and non-bloody diarrhea. She denies any preceding illness, ie fever/chills, cough, congestion, generalized malaise. On 09/14/20, she did undergo an IV infusion of immunotherapy (Opdivo) for her hepatocellular carcinoma - despite having completed chemo, her tumor has enlarged on surveillance scans. The evening after her infusion, she developed a rash - but the bilateral lower quadrant abdominal pain did not begin until Thursday morning (09/15/20). The diarrhea started today. She has been nauseous, but has not vomited. She has been able to hold down some applesauce and a piece of toast. Of note, she was recently admitted at [facility] in June 2020 for a urinary tract infection; recurrent UTI in August 2020 (treated as outpatient). She has a history of pseudomonal UTIs. While inpatient, she was initially placed on meropenem due to significant number of allergies to antibiotics (all seem to be cutaneous), however she was switched to Fosfomycin thereafter. She follows with Dr. Perea in [facility], who has recommended pre-treatment with prednisone 40mg daily, cetirizine 10 mg BID, hydroxyzine 10 mg HS while on any antimicrobial therapy. In the ED, she was afebrile. Her HR was initially 100bpm on arrival, but soon went down to 80 bpm. BP was 138/52. RR 17, satting 96 on room air. Her WBC was elevated to 17. Her Hgb was 11.7, MCV 95. Na low at 133, Mag low at 1.7. Kidney function normal, LFTs not elevated. Lipase not elevated. UA showing 2+ LE, neg nitrites, 4+ bacteria. Urine culture pending. COVDI 19 neg. She was givne 1g of IV magnesium, 1 liter of NSS and started on IV gentimycin in the ED. Admission Exam Per Admitting Provider Constitutional: WD/WN, vitals as above cooperative; no acute distress Eyes: + anicteric sclerae ENMT: external ear and nose normal, oropharynx normal Neck: trachea midline Respiratory: normal respiratory effort, lungs clear to auscultation no cough Cardiovascular: RRR, no murmur, no edema Heart Sounds: normal S1 and normal S2 Extremities: no pedal edema Gastrointestinal (Abdomen): Inspection/Auscultation: abdomen normal to inspection and normal bowel sounds; abdomen not distended Percussion/Palpation: + abdomen tender (b/l lower quadrants ) and abdomen soft; no guarding Musculoskeletal: Head/Neck/Chest: normocephalic and head atraumatic Skin: no rashes, warm and dry Neurologic: moves all extremities Psychiatric: A+Ox3, euthymic affect Principal Diagnosis Diarrhea, UTI Discharge Exam Constitutional well developed; no acute distress and not ill appearing Respiratory normal respiratory effort, lungs clear to auscultation Cardiovascular RRR, no murmur, no edema Gastrointestinal (Abdomen) Inspection/Auscultation: abdomen normal to inspection; abdomen not distended Percussion/Palpation: + abdomen tender (lower abdomen) Skin no rashes, warm and dry Discharge Data Allergies Allergy/AdvReac Type Severity Reaction Status Date / Time celecoxib Allergy Severe Rash Verified 09/16/20 19:19 ciprofloxacin [From Cipro] Allergy Severe DRESS Verified 09/16/20 19:19 adhesive Allergy Intermediate RED Verified 09/16/20 19:19 IRRITATED SKIN Sulfa (Sulfonamide Allergy Mild Hives Verified 09/16/20 19:19 Antibiotics) amoxicillin Allergy Unknown Rash Verified 09/16/20 19:19 cefepime Allergy Unknown Rash, drug Verified 09/16/20 19:19 eruption Penicillins Allergy Unknown Rash Verified 09/16/20 19:19 lactose AdvReac Intermediate GI UPSET Verified 09/16/20 19:19 vancomycin AdvReac Unknown Mook Verified 09/16/20 19:19 syndrome Consultations 09/16/20 21:42 ED Decision to Admit Stat Hospital Course (1) Diarrhea: (2) Acute UTI: (3) Leukocytosis: (4) Hypomagnesemia: Mrs. 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 Diarrhea - etiology uncertain: could be due to a viral or bacterial gastroenteritis vs. side effect of recent Opdivo infusioon - patient did have risk factors for cdiff given recent antibiotic use and hospitalization within the last 3 months. - Cdiff test ordered -- only one BM during admission (making Cdiff very unlikely) and test was not able to be performed per lab - stool culture pending at time of DC--will update patient if results are concerning - Advised on bland diet while recovering from presumed viral GI illness/OTC meds for symptomatic relief as needed - continue home probiotic Acute UTI - patient reports dysuria - UA showing 2+ LE, 4+ bacteria, neg nitrites - urine culture with pansensitive Klebsiella - history of pseudomonal UTIs with allergic reactions to various classes of antibiotics (mostly cutaneous) - 1 dose gentamicin given in ED - Transitioned to meropenem IV while admitted - Prescribed Fosfomycin 3g x1 dose on day after discharge - Patient given additional fosfomycin dose and she already had two at home--advised to take one every 10 days for prophylaxis of UTI - Recommend continuing UTI ppx until seen by ID in November - Pre-treatment with prednisone 40mg daily, cetirizine 10mg BID and hydroxyzine 10mg HQ per Dr. Perea recommendations--prescribed 1 week of these and recommend f/u with PCP to discuss this in the setting of continuing with prohylaxis as above Hypomagnesemia - resolved - level was 1.7 on admission, which normalized after 1g repletion Diet: reg Dispo: Home -- Self Care Total Time Total Time Spent Total Time Spent (In Minutes): see attending attestation Discharge Plan Discharge Items Patient Disposition: Home - Self-Care Reason For Visit: DIARRHEA Discharge Diagnosis: Diarrhea, acute UTI Condition on Discharge: Good Activity: Per Instructions section Non-emergency contact: Primary Care Provider and Specialist Call non-emergency contact if: you have any medication questions, your symptoms worsen and your temperature is above 101 Follow-up/Referrals: Bradley Jeter [Primary Care Provider] - (Office will call patient with appointment date and time) Diet: Regular Addtl Attending Provider Instructions: You were admitted to [facility] for diarrhea. You were also found to have acute urinary tract infection. While admitted your diarrhea self resolved and as such, we consider it is possible that you had a viral illness causing this versus side effect of your recent immunotherapy. As discussed, this should continue to improve on its own. We recommend that you continue to follow a bland diet until you are able to tolerate advancing your diet to regular nutrition. If you do have symptoms with certain foods, consider avoiding these for a while until no symptoms occur with them. You can try over the counter Pepto Bismol for GI upset, just note that this medication can cause dark or black stools with normal use. For your urinary tract infection you were treated with intravenous meropenem and were given pretreatment with prednisone, cetirizine, and hydroxyzine as previously recommended by Allergy/Immunology. At discharge you will be prescribed fosfomycin. You will take 1 pack every 10 days for prophylaxis of future urinary tract infections. We recommend that you follow with your primary care provider to continue to discuss this plan going forward. Additionally, you will need to continue to be treated with prednisone, cetirizine, and hydroxyzine to avoid allergic reaction to the antibiotic. We will send you enough of these medications for a week of treatment. From this point onward please discuss this with your primary care provider for further instructions. Pending Studies at Discharge: No Stand-Alone Forms: [facility], Smoking Cessation Medications and DC Order Prescriptions: New cetirizine 10 mg Tablet 10 mg PO BID 7 Days Qty: 14 RF: 0 hydroxyzine HCl 10 mg Tablet 10 mg PO HS 7 Days Qty: 7 RF: 0 prednisone 20 mg Tablet 40 mg PO DAILY 7 Days Qty: 14 RF: 0 fosfomycin tromethamine 3 gram packet 1 packet PO .Q WEEK 14 Days Qty: 2 RF: 0 Continued polyethylene glycol 3350 [Miralax] 17 gram/dose powder 17 g PO DAILY PRN (Reason: Constipation) RF: 0 amlodipine 2.5 mg tablet 2.5 mg PO DAILY RF: 0 lorazepam [Ativan] 0.5 mg tablet 0.5 mg PO HS RF: 0 Probiotic 20 billion cell Capsule 0 mmu cells PO QAM RF: 0 acetaminophen [Tylenol Extra Strength] 500 mg Tablet 500 mg PO Q6H PRN (Reason: Pain) RF: 0 conjugated estrogens 0.625 mg/gram Cream 0.625 mg VAGINAL 3XWK RF: 0 methenamine hippurate 1 gram tablet 1 g PO DAILY RF: 0 ascorbic acid (vitamin C) [Vitamin C] 500 mg tablet 500 mg PO DAILY RF: 0 cranberry conc-ascorbic acid 140-100 mg Capsule 1 cap PO DAILY RF: 0 fluocinonide 0.05 % Solution 1 applic TOPICAL BID PRN (Reason: Skin Irritation) RF: 0 Discharge Orders: Discharge Order (Routine); Ordered 09/18/20 Ordered By: Demetrius Barba/Other Patient Handouts: Treating Diarrhea Admission Data Admit Date/Time: 09/17/20 12:19 Attending Provider: Paolo Russell Admit Provider: Senia Omer Primary Care Provider: Bradley Jeter Other Providers: Kieran Small Other Interventions: Discharge Summary Assessment (RN) Last Done: 09/18/20 13:34 Supervising Physician Co-Signing Physician Notes Patient seen and examined with PGY-2 Dr. Combs. Agree with history, exam findings, assessment and plan of care as outlined. In brief, Ms. Douglas is an 80 year old female with hx of hepatitis C, HCC, and new carcinoid tumor of the lung admitted with diarrhea and lower abdominal pain. She has not had any bowel movements since the initial one yesterday. PO intake is ok. Still has some lower abdominal discomfort, but otherwise doing well. Vital signs and nursing notes reviewed. Well appearing. No acute distress. Labs and imaging reviewed. 1. Diarrhea/abdominal pain. Lower suspicion for c. diff since she has only had 1 bowel movement since admission. Stool culture is negative. ?mild colitis secondary to viral infection vs medication side effect. 2. Dirty urine. Culture with Kelbsiella. Stop meropenem. She can take one more day of fosfomycin. Continue prednisone, cetirizine, hydroxyzine while she is on antibiotics. Discussed using fosfomycin prophylactically in addition to methen amine as was prescribed by ID. 3. Leukocytosis. Secondary to steroid use. 4. Hypomag. Repleted. 5. Carcinoid tumor of the lung. [facility]s [facility] (Dr. Meza). Dispo: Discharge home. I personally spent 25 minutes discharge planning for this patient. Resident Activity Tracking Resident Involvement: Resident Care Provided Care Provided: Adult Hospital Medicine
== END 2020-09-18 15:10 | disposition home or self-care (01) | DRG 690 ==
LOC: ED 19:08 → 3E 19:08 → SUATTDRO 22:02 → 3E 23:28
DX: Z87.440 Personal history of urinary (tract) infections; B96.1 Klebsiella pneumoniae [K. pneumoniae] as the cause of diseases classified elsewhere; Z86.19 Personal history of other infectious and parasitic diseases; E83.42 Hypomagnesemia; Z88.0 Allergy status to penicillin; Z88.2 Allergy status to sulfonamides; C22.0 Liver cell carcinoma; Y92.009 Unspecified place in unspecified non-institutional (private) residence as the place of occurrence of the external cause; N39.0 Urinary tract infection, site not specified; T45.1X5A Adverse effect of antineoplastic and immunosuppressive drugs, initial encounter; A08.4 Viral intestinal infection, unspecified; C7A.090 Malignant carcinoid tumor of the bronchus and lung; R19.7 Diarrhea, unspecified; Z90.81 Acquired absence of spleen; Z66 Do not resuscitate; E86.0 Dehydration

== ENCOUNTER 2020-10-24 11:04 | Inpatient (IN) ==
[2020-10-24 13:12] LABS: Basophils # (auto) 0.13 K/uL (0-0.2); Basophils % (auto) 1.2 %; Eosinophils # (auto) 1.38 K/uL (0-0.5); Eosinophils % (auto) 12.3 %; Hematocrit (blood only) 39.5 % (37-47); Hemoglobin 12.9 g/dL (12.0-16.0); Immature Granulocytes # (auto) 0.02 K/uL (0.00-0.02); Immature Granulocytes % (auto) 0.2 %; Lymphocytes % (auto) 20.4 %; Mean Corpuscular Hemoglobin 31.6 pg (25-34); Mean Corpuscular Hgb Conc 32.7 g/dL (32-36); Mean Corpuscular Volume 96.8 fL (80-100); Mean Platelet Volume 10.1 fL (7.4-10.4); Monocytes # (auto) 1.06 K/uL (0.11-0.59); Monocytes % (auto) 9.4 %; Neutrophils # (auto) 6.36 K/uL (1.4-6.5); Neutrophils % (auto) 56.5 %; Platelet Count 358 K/uL (130-400); RDW Coefficient of Variation 14.1 % (11.5-14.5); RDW Standard Deviation 50.5 fL (36.4-46.3); Red Blood Count 4.08 M/uL (4.2-5.4); White Blood Count 11.25 K/uL (4.8-10.8)
[2020-10-24 13:43] LABS: Albumin Globulin Ratio 0.7 (0.9-2); Albumin Level 3.5 gm/dl (3.4-5.0); BUN Creatinine Ratio 17.1 (10-20); Bilirubin,Total 0.6 mg/dl (0.2-1); Calcium 9.5 mg/dl (8.5-10.1); Creatinine Clr Calc Pharmacy 34.7 ml/min; Est GFR (African American) 48.9 ml/min; Est GFR (Non-African American) 42.2 ml/min; Total Protein 8.5 gm/dl (6.4-8.2)
[2020-10-24] MEDS ORDERED: SODIUM CHLORIDE 0.9% 1000ML 1,000 ML IV ONE (15:30)
--- NOTE | 2020-10-24 15:39 | Electrocardiogram Report ---
Test Reason : Blood Pressure : / mmHG Vent. Rate : 074 BPM Atrial Rate : 074 BPM P-R Int : 144 ms QRS Dur : 092 ms QT Int : 378 ms P-R-T Axes : 056 015 054 degrees QTc Int : 419 ms Normal sinus rhythm Normal ECG When compared with ECG of 01-SEP-2019 19:49, No significant change was found Confirmed by Daniel Duncan ([id number]) on 10/24/2020 3:39:31 PM Referred By: Confirmed By:Daniel Duncan
--- NOTE | 2020-10-24 15:39 | Emergency Department Note ---
Impression & Plan Acute upper gastrointestinal bleeding, Hepatocellular carcinoma, Cough, Hematemesis ED Provider Note NAME: JUSTINE PENA AGE: 80 SEX: F : 1940 ARRIVES VIA: Walk-In INFORMANT: Patient ED PROVIDER(S): Shayne Meneses DO CHIEF COMPLAINT: Vomiting up blood HPI: Patient is an 80-year-old female, with a past medical history of liver cancer since the ER for a little bit of a cough. She has dyspnea and dry cough. She was coughing which gagged herself and made her self vomit. She vomited up bright red blood. She believes it is about a quarter of a cup to half a cup. Denies any headache or change in vision. No chest pain or shortness of breath. She denies any blood thinners, Motrin or ibuprofen/NSAIDs or steroids.. No dysuria or frequency. No other exacerbating or remitting factors. No dark tarry stools or black stools. ROS: See above HPI for pertinent positives & negatives. A total of 10 systems reviewed and were otherwise negative. PAST MEDICAL HISTORY:See Below PAST SURGICAL HISTORY:See Below FAMILY HISTORY:See Below SOCIAL HISTORY:See Below HOME MEDICATIONS:See Below ALLERGIES:See Below VITALS:See Below PHYSICAL EXAMINATION: GENERAL: Sitting up in bed, alert, well appearing, well nourished, no distress, non-toxic EYE EXAM: normal conjunctiva. OROPHARYNX: no exudate, no erythema, lips, buccal mucosa, and tongue normal and mucous membranes are moist NECK: supple, no nuchal rigidity, no adenopathy, non-tender LUNGS: Clear to auscultation. Normal chest wall mechanics HEART: no murmurs, S1 normal and S2 normal ABDOMEN: abdomen soft, non-tender, normo-active bowel sounds, no masses, no rebound or guarding. UPPER EXTREMITIES: upper extremities are grossly normal. LOWER EXTREMITIES: No pitting edema. NEURO EXAM: Normal sensorium, cranial nerves II-XII grossly intact, normal speech, no gross weakness of arms, no gross weakness of legs. MEDICAL DECISION MAKING: Patient is an 80 presents ER for about a fourth of a cup to half of a cup of bright red blood with a PMH of HCC. IV was established with a presenting. Labs show mild leukocytosis of 11,000. 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 Creatinine 1.2. Lipase was normal. Covid was negative. Patient was typed and screened. CT abdomen pelvis shows some thickening of the antrum of the gastric region. Discussed with Dr. Joseph recommend admission, Protonix drip and bolus as well as octreotide drip. Discussed with hospitalist for further evaluation. Will likely scope in the a.m. Patient was updated bedside. Triage Nursing notes reviewed. Limited review of prior medical records performed Vital Signs: reviewed and remarkable for HTN Differential diagnosis: Differential diagnoses includes but is not limited to pneumonia, bronchitis, COPD/Asthma exacerbation, pneumothorax, pulmonary embolism, congestive heart failure, acute coronary syndrome ER treatment provided: See below Diagnostics interpreted by me: ECG: Sinus rhythm rate of 74 Normal axis No PVCs QTC 419 Cardiac Monitoring: An order was placed for continuous cardiac monitoring. The monitor shows a rate of 82 with sinus rhythm. Laboratory studies: As stated above and show below. Imaging studies: See below Consultation(s): Discussed with Dr. Joseph as stated above Discussed with hospitalist Dr. Agarwal Procedures: none Critical Care: None 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 Urinary tract infection Urticaria Surgical History H/O: hysterectomy History of cholecystectomy History of splenectomy Family History Other Family history non-contributory Social History Smoking Status: Never smoker Hx Alcohol Use: No Hx Substance Use: No Preferred Language: Guyanese Communication Ability: Effective Associate Professor Of Radiology Required: No Beliefs That Will Affect Care: None marital status: / Current Living Situation: Alone How many Children do You have: 6 Feels Safe at Home: Yes Assistive Devices: None Allergies Allergies Allergy/AdvReac Type Severity Reaction Status Date / Time celecoxib Allergy Severe Rash Verified 10/24/20 15:39 ciprofloxacin [From Cipro] Allergy Severe DRESS Verified 10/24/20 15:39 adhesive Allergy Intermediate RED Verified 10/24/20 15:39 IRRITATED SKIN Sulfa (Sulfonamide Allergy Mild Hives Verified 10/24/20 15:39 Antibiotics) amoxicillin Allergy Unknown Rash Verified 10/24/20 15:39 cefepime Allergy Unknown Rash, drug Verified 10/24/20 15:39 eruption Penicillins Allergy Unknown Rash Verified 10/24/20 15:39 lactose AdvReac Intermediate GI UPSET Verified 10/24/20 15:39 vancomycin AdvReac Unknown Mook Verified 10/24/20 15:39 syndrome Home Meds Home Medications Medication Instructions Recorded Confirmed polyethylene glycol 3350 17 17 g PO DAILY PRN gm 08/26/18 10/24/20 gram/dose oral powder (Miralax) lorazepam 0.5 mg tablet (Ativan) 0.5 mg PO HS 04/08/19 10/24/20 acetaminophen 500 mg tablet 500 mg PO Q6H PRN 04/12/20 10/24/20 (Tylenol Extra Strength) amlodipine 2.5 mg tablet 2.5 mg PO DAILY 05/11/20 10/24/20 fluocinonide 0.05 % topical 1 applic TOPICAL BID PRN 06/25/20 10/24/20 solution ascorbic acid (vitamin C) 500 mg 500 mg PO BID 09/16/20 10/24/20 tablet (Vitamin C) methenamine hippurate 1 gram tablet 1 g PO BID 09/16/20 10/24/20 Opdivo 1 dose IV . Q 2 WEEKS 10/24/20 10/24/20 diclofenac sodium 1 % topical gel 2 g TOPICAL QID 10/24/20 10/24/20 hydroxyzine HCl 10 mg tablet 10 mg PO TID PRN 10/24/20 10/24/20 lorazepam 0.5 mg tablet 0.5 mg PO UD PRN 10/24/20 10/24/20 Results & Data (ED) Vital Signs Vital Signs - 24 hr 10/24/20 11:36 10/24/20 15:35 10/24/20 17:52 Temperature 37 C Temperature Source Oral Pulse Rate 87 Pulse Rate [Right Finger] 81 81 Respiratory Rate 16 19 18 Respiratory Effort / Characteristics Non-Labored Non-Labored Respiratory Depth Normal Normal Blood Pressure 167/75 H Blood Pressure [Right Arm] 157/74 H 166/75 H Blood Pressure Mean 105 Blood Pressure Mean [Right Arm] 101 105 Pulse Oximetry 97 96 99 Oxygen Delivery Method Room Air Room Air Room Air Sepsis Recent Fever Within 48 Hours No Sepsis New/Unexplained Change in Mental Status No Sepsis Action Taken by Nursing No Action Required Laboratory Data Result diagrams: 10/24/20 12:36 10/24/20 12:36 Lab Results 10/24/20 10/24/20 10/24/20 Range/Units 12:36 12:36 15:55 WBC 11.25 H (4.8-10.8) K/uL RBC 4.08 L (4.2-5.4) M/uL Hgb 12.9 (12.0-16.0) g/dL Hct 39.5 (37-47) % MCV 96.8 (80-100) fL MCH 31.6 (25-34) pg MCHC 32.7 (32-36) g/dL RDW Std Deviation 50.5 H (36.4-46.3) fL RDW Coeff of Bakari 14.1 (11.5-14.5) % Plt Count 358 (130-400) K/uL MPV 10.1 (7.4-10.4) fL Immature Gran % (Auto) 0.2 % Neut % (Auto) 56.5 % Lymph % (Auto) 20.4 % Marshall % (Auto) 9.4 % Eos % (Auto) 12.3 % Baso % (Auto) 1.2 % Neut # (Auto) 6.36 (1.4-6.5) K/uL Lymph # (Auto) 2.30 (1.2-3.4) K/uL Marshall # (Auto) 1.06 H (0.11-0.59) K/uL Eos # (Auto) 1.38 H (0-0.5) K/uL Baso # (Auto) 0.13 (0-0.2) K/uL Immature Gran # (Auto) 0.02 (0.00-0.02) K/uL Sodium 135 L (136-145) mmol/L Potassium (3.5-5.1) mmol/L Chloride 107 (98-107) mmol/L Carbon Dioxide 23 (21-32) mmol/L Anion Gap 5.0 (3-11) BUN 21 H (7-18) mg/dl Creatinine 1.21 H (0.6-1.2) mg/dl Est Cr Clr Drug Dosing 34.7 ml/min Est GFR ( Amer) 48.9 ml/min Est GFR (Non-Af Amer) 42.2 ml/min BUN/Creatinine Ratio 17.1 (10-20) Glucose 114 H (70-99) mg/dl Calcium 9.5 (8.5-10.1) mg/dl Total Bilirubin 0.6 (0.2-1) mg/dl AST (15-37) U/L ALT 17 (12-78) U/L Alkaline Phosphatase 109 (45-117) U/L Total Protein 8.5 H (6.4-8.2) gm/dl Albumin 3.5 (3.4-5.0) gm/dl Globulin 5.0 H (2.5-4.0) gm/dl Albumin/Globulin Ratio 0.7 L (0.9-2) Lipase 116 (73-393) U/L COVID-19 Eval Order SARS-CoV-2 (PCR) (Negative) Blood Type Antibody Screen 10/24/20 10/24/20 10/24/20 Range/Units 15:55 17:48 17:48 WBC (4.8-10.8) K/uL RBC (4.2-5.4) M/uL Hgb (12.0-16.0) g/dL Hct (37-47) % MCV (80-100) fL MCH (25-34) pg MCHC (32-36) g/dL RDW Std Deviation (36.4-46.3) fL RDW Coeff of Bakari (11.5-14.5) % Plt Count (130-400) K/uL MPV (7.4-10.4) fL Immature Gran % (Auto) % Neut % (Auto) % Lymph % (Auto) % Marshall % (Auto) % Eos % (Auto) % Baso % (Auto) % Neut # (Auto) (1.4-6.5) K/uL Lymph # (Auto) (1.2-3.4) K/uL Marshall # (Auto) (0.11-0.59) K/uL Eos # (Auto) (0-0.5) K/uL Baso # (Auto) (0-0.2) K/uL Immature Gran # (Auto) (0.00-0.02) K/uL Sodium (136-145) mmol/L Potassium (3.5-5.1) mmol/L Chloride (98-107) mmol/L Carbon Dioxide (21-32) mmol/L Anion Gap (3-11) BUN (7-18) mg/dl Creatinine (0.6-1.2) mg/dl Est Cr Clr Drug Dosing ml/min Est GFR ( Amer) ml/min Est GFR (Non-Af Amer) ml/min BUN/Creatinine Ratio (10-20) Glucose (70-99) mg/dl Calcium (8.5-10.1) mg/dl Total Bilirubin (0.2-1) mg/dl AST (15-37) U/L ALT (12-78) U/L Alkaline Phosphatase (45-117) U/L Total Protein (6.4-8.2) gm/dl Albumin (3.4-5.0) gm/dl Globulin (2.5-4.0) gm/dl Albumin/Globulin Ratio (0.9-2) Lipase (73-393) U/L COVID-19 Eval Order Covid19 at [facility] SARS-CoV-2 (PCR) NEGATIVE (Negative) Blood Type A Positive Antibody Screen NEGATIVE Administered Medications Discontinued Medications Sodium Chloride (Nss 1000ml) 1,000 mls @ 999 mls/hr IV .Q1H1M ONE Stop: 10/24/20 16:30 Last Infusion: 10/24/20 17:17 Dose: 0 mls/hr Documented by: [id number] Admin: 10/24/20 15:49 Dose: 999 mls/hr Documented by: [id number] Ioversol (Optiray 320 100ml) 90 ml IV ONCE ONE Stop: 10/24/20 16:08 Last Admin: 10/24/20 16:07 Dose: 90 ml Documented by: [id number] Imaging Data Radiologist's Impression: Abdomen/Pelvis CT 10/24/20 15:[address] WITH IV CONTRAST CT DOSE: 314.94 mGy.cm HISTORY: vomiting blood TECHNIQUE: Multiaxial CT images of the abdomen and pelvis were performed following the use of intravenous contrast. A dose lowering technique was utilized adhering to the principles of ALARA. COMPARISON STUDY: Abdomen and pelvis CT 07/16/2018. FINDINGS: Mild interstitial thickening at the lung bases which is likely chronic. No pneumoperitoneum. No pneumatosis. L3-L5 posterior decompression fusion with pedicle screws and rods. Small hiatus hernia. There is mild thickening at the gastric antrum best seen on image 159. Prior cholecystectomy and partial right hepatectomy. Intermittent low density lesion within the right hepatic lobe demonstrating peripheral calcification. This appears to have increased in size and currently measures approximately 5.5 x 4.8 cm. This previously measured approximately 5.2 x 4.5 cm. This abuts results in mild mass effect along the upper pole the right kidney. Stable 1.9 cm hypodense lesion within the left hepatic lobe. This favors a cyst. The main portal vein is patent. Normal pancreas. The spleen is not identified and may be surgically absent. The adrenal glands unremarkable. No hydronephrosis. Stable small bilateral renal hypodense lesions. Interval development of necrotic retroperitoneal lymphadenopathy. Dominant lymph node on image 160 measures 3 cm. The aorta is normal in caliber. The bladder is unremarkable. The uterus is surgically absent. Extensive colonic diverticulosis. No evidence for acute diverticulitis. Moderate well-formed stool within the colon. No evidence for bowel obstruction. There is a mildly enlarged lymph node inferior to the right hepatic lobe mass which measures 11 mm on image 101. This is suspicious for underlying malignancy. IMPRESSION: 1. Increase in size in the solid and cystic lesion within the residual right h epatic lobe at the resection margin. This abuts and results in mild mass effect along the adjacent right kidney. There is also retroperitoneal necrotic lymphadenopathy as described above. These finds are highly suspicious for neoplastic/metastatic disease. 2. Mild thickening of the gastric antrum. This may represent a nonspecific gastritis. 3. No evidence for bowel obstruction. 4. Colonic diverticulosis. No evidence for acute diverticulitis. 5. Postoperative changes as described above. ACT 112: Negative or not required by law. Electronically signed by: Hung Sommer M.D. 10/24/2020 4:27 PM Chest X-Ray 10/24/20 16:39 XR chest 1V portable HISTORY: cough COMPARISON: Chest 07/26/2017. FINDINGS: No pneumothorax. No pleural effusions. The heart is normal in size. There is mild diffuse interstitial thickening. This is likely chronic. No new focal lung consolidations to suggest pneumonia. No evidence for pulmonary edema. There is a mildly tortuous thoracic aorta. Cervical spinal fusion hardware is again noted. There is a 2 cm lobular left upper lobe mass. This is been present dating back to the 2011 studies. This may have slightly increased in size in the interval. IMPRESSION: 1. No acute process within the chest. 2. A 1.9 cm lobular left upper lobe mass which has been present since 2010. This may have slightly increased in size in the interval. Follow-up nonemergent pulmonary consultation and chest CT is recommended for further evaluation. ACT 112: Positive. There are findings on this exam that require communication between the performing entity and the patient following Patient Test Result Information Act ([place] Act 112) guidelines. Electronically signed by: Hung Sommer M.D. 10/24/2020 5:24 PM Discharge Plan Visit Data Chief Complaint: Cough Stated Complaint: COUGHING UP BLOOD ED Provider: Shayne Meneses Discharge Problem: Acute upper gastrointestinal bleeding, Hepatocellular carcinoma, Cough, Hematemesis Forms Stand Alone Forms: LP33.[id number] Prescriptions Prescriptions: No Action polyethylene glycol 3350 [Miralax] 17 gram/dose powder 17 g PO DAILY PRN (Reason: Constipation) RF: 0 amlodipine 2.5 mg tablet 2.5 mg PO DAILY RF: 0 lorazepam [Ativan] 0.5 mg tablet 0.5 mg PO HS RF: 0 acetaminophen [Tylenol Extra Strength] 500 mg Tablet 500 mg PO Q6H PRN (Reason: Pain) RF: 0 methenamine hippurate 1 gram tablet 1 g PO BID RF: 0 ascorbic acid (vitamin C) [Vitamin C] 500 mg tablet 500 mg PO BID RF: 0 hydroxyzine HCl 10 mg tablet 10 mg PO TID PRN (Reason: Anxiety) RF: 0 lorazepam 0.5 mg tablet 0.5 mg PO UD PRN (Reason: for cancer treatment) RF: 0 diclofenac sodium [Voltaren] 1 % Gel 2 g TOPICAL QID RF: 0 Opdivo 1 dose IV . Q 2 WEEKS RF: 0 fluocinonide 0.05 % Solution 1 applic TOPICAL BID PRN (Reason: Skin Irritation) RF: 0 Referrals Referrals: Bradley Jeter [Primary Care Provider] -
[2020-10-24] MEDS ORDERED: OPTIRAY 320 100ml IV ONE (16:07)
--- NOTE | 2020-10-24 16:28 | CT Scan Report ---
ABDOMEN AND PELVIS CT WITH IV CONTRAST CT DOSE: 314.94 mGy.cm HISTORY: vomiting blood TECHNIQUE: Multiaxial CT images of the abdomen and pelvis were performed following the use of intrave nous contrast. A dose lowering technique was utilized adhering to the principles of ALARA. COMPARISON STUDY: Abdomen and pelvis CT 07/16/2018. FINDINGS: Mild interstitial thickening at the lung bases which is likely chronic. No pneumoperitoneum . No pneumatosis. L3-L5 posterior decompression fusion with pedicle screws and rods. Small hiatus her cristiano. There is mild thickening at the gastric antrum best seen on image 159. Prior cholecystectomy and partial right hepatectomy. Intermittent low density lesion within the right hepatic lobe demonstrati ng peripheral calcification. This appears to have increased in size and currently measures approximat juan carlos 5.5 x 4.8 cm. This previously measured approximately 5.2 x 4.5 cm. This abuts results in mild mas s effect along the upper pole the right kidney. Stable 1.9 cm hypodense lesion within the left hepati c lobe. This favors a cyst. The main portal vein is patent. Normal pancreas. The spleen is not identi fied and may be surgically absent. The adrenal glands unremarkable. No hydronephrosis. Stable small b ilateral renal hypodense lesions. Interval development of necrotic retroperitoneal lymphadenopathy. D ominant lymph node on image 160 measures 3 cm. The aorta is normal in caliber. The bladder is unremar kable. The uterus is surgically absent. Extensive colonic diverticulosis. No evidence for acute diver ticulitis. Moderate well-formed stool within the colon. No evidence for bowel obstruction. There is a mildly enlarged lymph node inferior to the right hepatic lobe mass which measures 11 mm on image 101 . This is suspicious for underlying malignancy. IMPRESSION: 1. Increase in size in the solid and cystic lesion within the residual right hepatic lobe at the rese ction margin. This abuts and results in mild mass effect along the adjacent right kidney. There is al so retroperitoneal necrotic lymphadenopathy as described above. These finds are highly suspicious for neoplastic/metastatic disease. 2. Mild thickening of the gastric antrum. This may represent a nonspecific gastritis. 3. No evidence for bowel obstruction. 4. Colonic diverticulosis. No evidence for acute diverticulitis. 5. Postoperative changes as described above. ACT 112: Negative or not required by law. Electronically signed by: Hung Sommer M.D. 10/24/2020 4:27 PM
--- NOTE | 2020-10-24 17:26 | XRay Report ---
XR chest 1V portable HISTORY: cough COMPARISON: Chest 07/26/2017. FINDINGS: No pneumothorax. No pleural effusions. The heart is normal in size. There is mild diffuse i nterstitial thickening. This is likely chronic. No new focal lung consolidations to suggest pneumonia . No evidence for pulmonary edema. There is a mildly tortuous thoracic aorta. Cervical spinal fusion hardware is again noted. There is a 2 cm lobular left upper lobe mass. This is been present dating ba ck to the 2011 studies. This may have slightly increased in size in the interval. IMPRESSION: 1. No acute process within the chest. 2. A 1.9 cm lobular left upper lobe mass which has been present since 2010. This may have slightly in creased in size in the interval. Follow-up nonemergent pulmonary consultation and chest CT is recomme nded for further evaluation. ACT 112: Positive. There are findings on this exam that require communication between the performing entity and the patient following Patient Test Result Information Act ([place] Act 112) guidelines. Electronically signed by: Hugn Sommer M.D. 10/24/2020 5:24 PM
[2020-10-24] MEDS ORDERED: PANTOPRAZOLE BOLUS/DRIP 1 EA IV STA (17:31)
[2020-10-24] MEDS ORDERED: PANTOprazole 80 MG in DEXTROSE 5% 100 ML IV ONE (17:31)
[2020-10-24] MEDS ORDERED: OCTREOTIDE ACETATE 50 MCG in SYRINGE 9.5 ML IV STA (17:33)
--- NOTE | 2020-10-24 18:54 | History & Physical Report ---
Date of Service October 24, 2020 Assessment & Plan (1) Hepatocellular carcinoma: Plan: Admit to monitored bed ER physicians already discussed with GI, they are recommending a PPI and octreotide drips, will order Will keep patient n.p.o. on gentle IV hydration Follow H&H every 8 hours, does not need a pRBC transfusion at this time Consult GI for further recommendations, consideration to EGD in the morning if patient remains stable (2) Hypertension: Plan: Blood pressure is a little elevated, will continue to monitor and may drop on the octreotide drip We will hold antihypertensives for now, consider dosing after planned procedure History of Present Illness Chief Complaint: Hematemesis Primary Care Provider: Bradley Jeter This is an 80-year-old female with past medical history of hepatocellular carcinoma on immunotherapy that presents today complaining of hematemesis. Patient is a decent historian, accompanied by her daughter. Patient has been receiving immunotherapy for her HCC. She says she has developed a mild cough but read that this is one of the side effects she was not concerned. Earlier today she had a coughing fit that seemed more extreme. She got a little mucus stuck in her throat and felt that she had vomited. When she did, she found bright red blood in the vomitus. This was only a single episode and has not occurred since. However, the patient was concerned enough to seek medical attention here in the hospital. Patient denies of the symptoms such as shortness of breath, hemoptysis, rectal bleeding or more systemic symptoms such as fever and chills, continued nausea or vomiting, palpitations, chest pain. Work-up to emergency room reveals a hemoglobin of 12.9 which is actually better than her baseline. She does have a mild white count of this is improved. Other laboratory work is normal. CT scan of the abdomen pelvis shows a necrotic right hepatic lobe lesion which is presumably her known carcinoma but no other findings that would explain the bleeding. Allergies Allergy/AdvReac Type Severity Reaction Status Date / Time celecoxib Allergy Severe Rash Verified 10/24/20 15:39 ciprofloxacin [From Cipro] Allergy Severe DRESS Verified 10/24/20 15:39 adhesive Allergy Intermediate RED Verified 10/24/20 15:39 IRRITATED SKIN Sulfa (Sulfonamide Allergy Mild Hives Verified 10/24/20 15:39 Antibiotics) amoxicillin Allergy Unknown Rash Verified 10/24/20 15:39 cefepime Allergy Unknown Rash, drug Verified 10/24/20 15:39 eruption Penicillins Allergy Unknown Rash Verified 10/24/20 15:39 lactose AdvReac Intermediate GI UPSET Verified 10/24/20 15:39 vancomycin AdvReac Unknown Mook Verified 10/24/20 15:39 syndrome Home Medications Medication Instructions Recorded Confirmed Type polyethylene glycol 3350 17 17 g PO DAILY PRN gm 08/26/18 10/24/20 History gram/dose oral powder (Miralax) lorazepam 0.5 mg tablet (Ativan) 0.5 mg PO HS 04/08/19 10/24/20 History acetaminophen 500 mg tablet 500 mg PO Q6H PRN 04/12/20 10/24/20 History (Tylenol Extra Strength) amlodipine 2.5 mg tablet 2.5 mg PO DAILY 05/11/20 10/24/20 History fluocinonide 0.05 % topical 1 applic TOPICAL BID PRN 06/25/20 10/24/20 History solution ascorbic acid (vitamin C) 500 mg 500 mg PO BID 09/16/20 10/24/20 History tablet (Vitamin C) methenamine hippurate 1 gram tablet 1 g PO BID 09/16/20 10/24/20 History Opdivo 1 dose IV . Q 2 WEEKS 10/24/20 10/24/20 History diclofenac sodium 1 % topical gel 2 g TOPICAL QID 10/24/20 10/24/20 History hydroxyzine HCl 10 mg tablet 10 mg PO TID PRN 10/24/20 10/24/20 History lorazepam 0.5 mg tablet 0.5 mg PO UD PRN 10/24/20 10/24/20 History 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 Urinary tract infection Urticaria Surgical History H/O: hysterectomy History of cholecystectomy History of splenectomy Family History Other Family history non-contributory Social History Smoking Status: Never smoker Hx Alcohol Use: No Hx Substance Use: No Preferred Language: Portuguese Communication Ability: Effective [employer] Required: No Beliefs That Will Affect Care: None marital status: / Current Living Situation: Alone How many Children do You have: 6 Feels Safe at Home: Yes Assistive Devices: None Review of Systems Constitutional: no fever, no chills, no weakness, no weight loss and no weight gain Eyes: as per Subjective / HPI Respiratory: no cough, no chest congestion, no dyspnea and no dyspnea on exertion Cardiovascular: no chest pain, no orthopnea, no palpitations, no lightheadedness and no edema Gastrointestinal: + abdominal pain (vague diffuse), + bloating and + hematemesis; no nausea, no vomiting, no constipation and no diarrhea/loose stools Genitourinary: no dysuria, no difficulty urinating, no urinary frequency, no urinary hesitancy, no urinary urgency and no flank pain Musculoskeletal: no back pain, no neck pain, no joint pain, no stiffness and no myalgia Integumentary: no rash Neurologic: no gait abnormality, no unsteadiness, no falls and no generalized weakness Physical Exam Constitutional: cooperative; no acute distress Neck: trachea midline, no thyromegaly Respiratory: normal respiratory effort Auscultation: lungs clear to auscultation bilaterally; no crackles, no rales, no rhonchi and no wheezes Cardiovascular: Rate/Rhythm: regular rate and regular rhythm Heart Sounds: normal S1 and normal S2 Gastrointestinal (Abdomen): Inspection/Auscultation: abdomen normal to inspection Percussion/Palpation: abdomen soft and + tympanic to percussion; abdomen nontender, no guarding, abdomen not rigid and no hepatosplenomegaly Skin: no rashes, warm and dry Results & Data Results & Data ([facility]) Vital Signs (Past 12 Hours) Vital Signs Temp Pulse Pulse Resp BP BP Pulse Ox 10/24/20 17:52 81 18 166/75 H 99 10/24/20 15:35 81 19 157/74 H 96 10/24/20 11:36 37 C 87 16 167/75 H 97 Laboratory Results Laboratory Results WBC 11.25 K/uL (4.8-10.8) H 10/24/20 12:36 RBC 4.08 M/uL (4.2-5.4) L 10/24/20 12:36 Hgb 12.9 g/dL (12.0-16.0) 10/24/20 12:36 Hct 39.5 % (37-47) 10/24/20 12:36 MCV 96.8 fL (80-100) 10/24/20 12:36 MCH 31.6 pg (25-34) 10/24/20 12:36 MCHC 32.7 g/dL (32-36) 10/24/20 12:36 RDW Std Deviation 50.5 fL (36.4-46.3) H 10/24/20 12:36 RDW Coeff of Bakari 14.1 % (11.5-14.5) 10/24/20 12:36 Plt Count 358 K/uL (130-400) 10/24/20 12:36 MPV 10.1 fL (7.4-10.4) 10/24/20 12:36 Immature Gran % (Auto) 0.2 % 10/24/20 12:36 Neut % (Auto) 56.5 % 10/24/20 12:36 Lymph % (Auto) 20.4 % 10/24/20 12:36 [place] % (Auto) 9.4 % 10/24/20 12:36 Eos % (Auto) 12.3 % 10/24/20 12:36 Baso % (Auto) 1.2 % 10/24/20 12:36 Neut # (Auto) 6.36 K/uL (1.4-6.5) 10/24/20 12:36 Lymph # (Auto) 2.30 K/uL (1.2-3.4) 10/24/20 12:36 [place] # (Auto) 1.06 K/uL (0.11-0.59) H 10/24/20 12:36 Eos # (Auto) 1.38 K/uL (0-0.5) H 10/24/20 12:36 Baso # (Auto) 0.13 K/uL (0-0.2) 10/24/20 12:36 Immature Gran # (Auto) 0.02 K/uL (0.00-0.02) 10/24/20 12:36 Sodium 135 mmol/L (136-145) L 10/24/20 12:36 Potassium mmol/L (3.5-5.1) 10/24/20 12:36 Chloride 107 mmol/L (98-107) 10/24/20 12:36 Carbon Dioxide 23 mmol/L (21-32) 10/24/20 12:36 Anion Gap 5.0 (3-11) 10/24/20 12:36 BUN 21 mg/dl (7-18) H 10/24/20 12:36 Creatinine 1.21 mg/dl (0.6-1.2) H 10/24/20 12:36 Est Cr Clr Drug Dosing 34.7 ml/min 10/24/20 12:36 Est GFR ( Amer) 48.9 ml/min 10/24/20 12:36 Est GFR (Non-Af Amer) 42.2 ml/min 10/24/20 12:36 BUN/Creatinine Ratio 17.1 (10-20) 10/24/20 12:36 Glucose 114 mg/dl (70-99) H 10/24/20 12:36 Calcium 9.5 mg/dl (8.5-10.1) 10/24/20 12:36 Total Bilirubin 0.6 mg/dl (0.2-1) 10/24/20 12:36 AST U/L (15-37) 10/24/20 12:36 ALT 17 U/L (12-78) 10/24/20 12:36 Alkaline Phosphatase 109 U/L (45-117) 10/24/20 12:36 Total Protein 8.5 gm/dl (6.4-8.2) H 10/24/20 12:36 Albumin 3.5 gm/dl (3.4-5.0) 10/24/20 12:36 Globulin 5.0 gm/dl (2.5-4.0) H 10/24/20 12:36 Albumin/Globulin Ratio 0.7 (0.9-2) L 10/24/20 12:36 Lipase 116 U/L (73-393) 10/24/20 15:55 COVID-19 Eval Order Covid19 at [facility] 10/24/20 17:48 SARS-CoV-2 (PCR) NEGATIVE (Negative) 10/24/20 17:48 Blood Type A Positive 10/24/20 15:55 Antibody Screen NEGATIVE 10/24/20 15:55 Impressions Abdomen/Pelvis CT 10/24/20 15:[address] WITH IV CONTRAST CT DOSE: 314.94 mGy.cm HISTORY: vomiting blood TECHNIQUE: Multiaxial CT images of the abdomen and pelvis were performed following the use of intravenous contrast. A dose lowering technique was utilized adhering to the principles of ALARA. COMPARISON STUDY: Abdomen and pelvis CT 07/16/2018. FINDINGS: Mild interstitial thickening at the lung bases which is likely chronic. No pneumoperitoneum. No pneumatosis. L3-L5 posterior decompression fusion with pedicle screws and rods. Small hiatus hernia. There is mild thickening at the gastric antrum best seen on image 159. Prior cholecystectomy and partial right hepatectomy. Intermittent low density lesion within the right hepatic lobe demonstrating peripheral calcification. This appears to have increased in size and currently measures approximately 5.5 x 4.8 cm. This previously measured approximately 5.2 x 4.5 cm. This abuts results in mild mass effect along the upper pole the right kidney. Stable 1.9 cm hypodense lesion within the left hepatic lobe. This favors a cyst. The main portal vein is patent. Normal pancreas. The spleen is not identified and may be surgically absent. The adrenal glands unremarkable. No hydronephrosis. Stable small bilateral renal hypodense lesions. Interval development of necrotic retroperitoneal lymphadenopathy. Dominant lymph node on image 160 measures 3 cm. The aorta is normal in caliber. The bladder is unremarkable. The uterus is surgically absent. Extensive colonic diverticulosis. No evidence for acute diverticulitis. Moderate well-formed stool within the colon. No evidence for bowel obstruction. There is a mildly enlarged lymph node inferior to the right hepatic lobe mass which measures 11 mm on image 101. This is suspicious for underlying malignancy. IMPRESSION: 1. Increase in size in the solid and cystic lesion within the residual right hepatic lobe at the resection margin. This abuts and results in mild mass effect along the adjacent right kidney. There is also retroperitoneal necrotic lymphadenopathy as described above. These finds are highly suspicious for neoplastic/metastatic disease. 2. Mild thickening of the gastric antrum. This may represent a nonspecific gastritis. 3. No evidence for bowel obstruction. 4. Colonic diverticulosis. No evidence for acute diverticulitis. 5. Postoperative changes as described above. ACT 112: Negative or not required by law. Electronically signed by: Hung Sommer M.D. 10/24/2020 4:27 PM Chest X-Ray 10/24/20 16:39 XR chest 1V portable HISTORY: cough COMPARISON: Chest 07/26/2017. FINDINGS: No pneumothorax. No pleural effusions. The heart is normal in size. There is mild diffuse interstitial thickening. This is likely chronic. No new focal lung consolidations to suggest pneumonia. No evidence for pulmonary edema. There is a mildly tortuous thoracic aorta. Cervical spinal fusion hardware is again noted. There is a 2 cm lobular left upper lobe mass. This is been present dating back to the 2010 studies. This may have slightly increased in size in the interval. IMPRESSION: 1. No acute process within the chest. 2. A 1.9 cm lobular left upper lobe mass which has been present since 2010. This may have slightly increased in size in the interval. Follow-up nonemergent pulmonary consultation and chest CT is recommended for further evaluation. ACT 112: Positive. There are findings on this exam that require communication between the performing entity and the patient following Patient Test Result Information Act ([place] Act 112) guidelines. Electronically signed by: Hung Sommer M.D. 10/24/2020 5:24 PM PG Care Time/CCT Total # of Minutes Spent Total Time Spent with Patient: Total time spent is greater than 50% in coordination of care (as documented) at patient's floor/unit and/or counseling patient: Coding Level of Care Code 75052 Initial Inpt Care Lvl 3 Diagnoses Hepatocellular carcinoma C22.0 Hypertension I10
[2020-10-24] MEDS: OCTREOTIDE ACETATE 500 MCG in 0.9 % SODIUM CHLORIDE 100 ML IV SCH (19:25)
[2020-10-24] MEDS: PANTOprazole 40 MG in DEXTROSE 5% 100 ML IV SCH (20:15)
[2020-10-24] MEDS ORDERED: ONDANSETRON INJ 2 MG/ML 2 ML VIAL IV PRN (21:24)
[2020-10-24] MEDS: SODIUM CHLORIDE 0.9% 1000ML 1,000 ML IV SCH (22:00)
[2020-10-24 22:03] LABS: Hematocrit (blood only) 33.7 % (37-47); Hemoglobin 10.9 g/dL (12.0-16.0)
[2020-10-24] MEDS: DICLOFENAC SOD 1% GEL 100 GM TUBE EXT SCH (22:33)
[2020-10-24 23:24] LABS: Appearance Urine Clear (Clear); Bilirubin Urine Negative (Negative); Blood Urine Negative (Negative); Color Urine Orange; Glucose Urine UA Negative (Negative); Ketones Urine Negative (Negative); Leukocyte Esterase Urine Negative (Negative); Nitrite Urine Negative (Negative); Protein Urine Negative (Negative); Specific Gravity Urine 1.022 (1.000-1.030); Urobilinogen Urine Negative (Negative)
[2020-10-25] MEDS: PANTOprazole 40 MG in DEXTROSE 5% 100 ML IV SCH ×4 (02:09→15:45)
[2020-10-25] MEDS: OCTREOTIDE ACETATE 500 MCG in 0.9 % SODIUM CHLORIDE 100 ML IV SCH ×3 (04:15→17:35)
[2020-10-25 06:13] LABS: Basophils # (auto) 0.17 K/uL (0-0.2); Basophils % (auto) 1.7 %; Eosinophils # (auto) 1.43 K/uL (0-0.5); Eosinophils % (auto) 14.6 %; Hematocrit (blood only) 33.8 % (37-47); Immature Granulocytes # (auto) 0.02 K/uL (0.00-0.02); Immature Granulocytes % (auto) 0.2 %; Lymphocytes # (auto) 2.13 K/uL (1.2-3.4); Lymphocytes % (auto) 21.7 %; Mean Corpuscular Hemoglobin 31.3 pg (25-34); Mean Corpuscular Hgb Conc 32.5 g/dL (32-36); Mean Corpuscular Volume 96.3 fL (80-100); Mean Platelet Volume 10.2 fL (7.4-10.4); Monocytes % (auto) 13.3 %; Neutrophils # (auto) 4.76 K/uL (1.4-6.5); Neutrophils % (auto) 48.5 %; Platelet Count 337 K/uL (130-400); RDW Coefficient of Variation 14.1 % (11.5-14.5); RDW Standard Deviation 49.7 fL (36.4-46.3); Red Blood Count 3.51 M/uL (4.2-5.4); White Blood Count 9.81 K/uL (4.8-10.8)
[2020-10-25 06:48] LABS: BUN Creatinine Ratio 14.3 (10-20); Calcium 8.6 mg/dl (8.5-10.1); Creatinine Clr Calc Pharmacy 37.8 ml/min; Est GFR (African American) 54.3 ml/min; Est GFR (Non-African American) 46.9 ml/min; Potassium 4.7 mmol/L (3.5-5.1)
[2020-10-25] MEDS: SODIUM CHLORIDE 0.9% 1000ML 1,000 ML IV SCH (07:41)
[2020-10-25] MEDS: DICLOFENAC SOD 1% GEL 100 GM TUBE EXT SCH ×2 (08:25→21:37)
--- NOTE | 2020-10-25 08:38 | Hospitalist Progress Note ---
Date of Service October 25, 2020 Assessment & Plan (1) Acute upper gastrointestinal bleeding: Plan: 80-year-old female with history of HCV, HCC (on immunotherapy via Dr. Meza), and carcinoid tumor of the lung who presented to [facility] following a single episode of post-tussive emesis with hematemesis. She is hemodynamically stable. Hematemesis -- in the setting of ongoing HCC * In the setting of ongoing treatment for HCC with immunotherapy * Clinically, does appear to be hematemesis. While it did occur in a post- tussive state, less likely this was hemoptysis based on story and lung exam. Notable that she does have a carcinoid tumor in [place]OV[place]. No infectious symptoms to suggest infectious-etiology. * Work-up as follows: -- Hgb 11.0 (patient's baseline), VSS -- stable throughout day -- LFTs grossly within normal limits -- CT-A/P showing increase in right hepatic lobe lesion, +necrotic LAD, mild thickening of gastric antrum, diverticulosis -- A+/Ig- * GI Consulted in ED, appreciate insight and recommendations: -- EGD: Mild Schatzki ring s/p clipping; portal HTN gastropathy; no bleeding * Given unremarkable EGD --> d/c octreotide, PPI gtt. Will add protonix 40 b.i.d. po for now * Given rather unremarkable EGD --> proceed with chest CT to r/o hemoptyic etiology * Continue PPI b.i.d. * Transfuse if symptomatic anemia or Hgb < 8 HTN * Stable in setting of possible UGIB * Hold amlodipine * Consider adjustment of octreotide if needed Code: FULL CODE Dispo: MS/Tele Diet: NPO in setting of upcoming EGD PPX: SCDs (2) Cough: (3) Hematemesis: (4) Carcinoid tumor of lung: (5) Urinary tract infection: (6) Diarrhea: (7) Acute dehydration: (8) Diarrhea: Admission and Anticipated Discharge Date Admission Date: October 24, 2020 Supervising Physician Co-Signing Physician Notes I personally examined the patient and verified all cowart points of history and exam, discussed case, and agree with decision making with Dr Toscano Feeling pretty good post EGD. Notes that she was able to eat about half of her tray, feels full relatively easily, but no nausea vomiting or abdominal pain. Discussed situation, reviewed labs and imaging and scope with patient personally at the bedside. Vitals noted, in general she is awake and alert pleasant no distress. HEENT normocephalic atraumatic mucous membranes moist. Breathing unlabored no accessory muscle use good effort. Gait is stable with no instability. Neuro without focal deficits. Hematemesisfortunately resolved without any significant acute blood loss anemia (strongly suspect high hemoglobin at ER visit was hemoconcentration, given that hemoglobin quickly dropped to and stayed at what has been her recent baseline). Follow into tomorrow, hopefully home as long as she continues to look and feel well. Otherwise as above Subjective Feeling ok this morning. Just fatigued. Wasn't able to sleep last night. No pain. Breathing ok. No belly pain. No chest pain or palpitations. Appetite ok. Reviewed history -- On immunotherapy now. Since she has started, has had a cough -- was told this was a known side effect. Also occasionally gets hives. Has been in normal health up until yesterday, had a coughing fit (which isn't totally unusual for her) and felt like she had to 'gag.' [place] nauseous, then threw up BRB - said it 'covered the toilet bowl and went everywhere.' No other episodes of this. No frequent nausea. No recent chills, fevers, NS. Cough hasn't changed. Passing BMs ok, no melena or hematochezia. Voiding w/o difficulty. Review of Systems Review of Systems: as per HPI Physical Exam Physical Exam: General: Frail [id number] female who is lying back in her hospital bed, sleeping, upon my arrival. She awakens easily and converses without difficulty. Fully alert and oriented. No acute distress. HEENT: NCAT. Eyes - Sclera are white, anicteric, and without injection. Mouth - MMM with no tonsillar edema or exudates. Cardiac: Normal rate and regular rhythm; S1 and S2 present with no murmurs, rubs, or gallops. Pulmonary: Good respiratory effort with symmetric expansion of the chest. No use of accessory muscles. Lungs were clear to auscultation bilaterally with no crackles or wheezes. Abdominal: Normoactive bowel sounds. Abdomen was soft, nondistended, and non- tender to palpation. No hepatomegaly or splenomegaly. Extremities: Upper and lower extremities are warm and well perfused. No peripheral edema. Psych: Well-developed, well-nourished, appropriately dressed for occasion. Behavior is cooperative and appropriate. Affect is WNL. Insight is appropriate. Results & Data Results & Data ([facility]) Vital Signs (Past 12 Hours) Vital Signs Temp Pulse Pulse Resp BP BP Pulse Ox 10/25/20 08:01 68 10/25/20 07:38 36.8 C 63 18 121/61 94 10/25/20 03:30 36.5 C 78 16 138/66 96 10/24/20 23:12 75 10/24/20 23:00 36.7 C 91 H 18 153/75 H 96 10/24/20 21:30 36.8 C 90 16 179/75 H 96 10/24/20 21:24 91 H Resident Activity Tracking Resident Involvement: Resident Care Provided Care Provided: Adult Hospital Medicine (1) Urinary tract infection Hematuria presence: without hematuria Urinary tract infection type: site unspecified Qualified Code(s): N39.0 - Urinary tract infection, site not specified (2) Diarrhea Diarrhea type: unspecified type Qualified Code(s): R19.7 - Diarrhea, unspecified (3) Hematemesis Nausea presence: unspecified Qualified Code(s): K92.0 - Hematemesis
--- NOTE | 2020-10-25 10:39 | Gastrointestinal Consultation ---
Date of Consultation October 25, 2020 Assessment & Plan (1) Acute upper gastrointestinal bleeding: (2) Hematemesis: DDX: bleeding from varices (no recent EGD per her report) vs Carlene-Cedillo tear vs PUD vs AVM vs portal gastropathy with bleeding vs other. Plan: * NPO for now. * Continue PPI and Octreotide ggts. * EGD today with Dr. Elizabeth for further evaluation. * Further recommendations pending results of testing. Thank you for allowing us to participate in the care of this pleasant patient. If you have any questions or concerns, please do not hesitate to contact us. Supervising Physician Co-Signing Physician Notes I personally evaluated the patient and agree with the findings as documented by RAIN Bowens Exam: abd: soft, nt, nd Proceed with EGD. risks/benefits and procedure discussed with patient, who agrees to proceed History of Present Illness Reason for Consultation: Hematemesis Requesting Physician: Dr. Agarwal Attending Physician: Shayne Liz DO History of Present Illness Patient is a 80 y.o. female with a history of Hep C cirrhosis currently undergoing treatment for HCC via Dr. Meza of [facility] oncology. She follows [facility] hepatology in [place], [place] as well. States she was doing well with her immunotherapy until she developed an abrupt onset of bright red emesis yesterday. States "it splattered all over the toilet". Her H&H dropped from 12.9/37.[address] 10.9/[address].7. Dr. Mas was notified upon her arrival last evening and he advised she be started on both PPI and Octreotide ggts with plan for upper endoscopic evaluation today. She denies any further hematemesis since arrival. No associated chest or abdominal pain, nausea, melena or hematochezia. States she has been bloated since starting Opdivo and her upper abdomen is sore but not tender. She remains NPO. Allergies Allergy/AdvReac Type Severity Reaction Status Date / Time celecoxib Allergy Severe Rash Verified 10/24/20 15:39 ciprofloxacin [From Cipro] Allergy Severe DRESS Verified 10/24/20 15:39 adhesive Allergy Intermediate RED Verified 10/24/20 15:39 IRRITATED SKIN Sulfa (Sulfonamide Allergy Mild Hives Verified 10/24/20 15:39 Antibiotics) amoxicillin Allergy Unknown Rash Verified 10/24/20 15:39 cefepime Allergy Unknown Rash, drug Verified 10/24/20 15:39 eruption Penicillins Allergy Unknown Rash Verified 10/24/20 15:39 lactose AdvReac Intermediate GI UPSET Verified 10/24/20 15:39 vancomycin AdvReac Unknown Mook Verified 10/24/20 15:39 syndrome Home Medications Medication Instructions Recorded Confirmed Type polyethylene glycol 3350 17 17 g PO DAILY PRN gm 08/26/18 10/24/20 History gram/dose oral powder (Miralax) lorazepam 0.5 mg tablet (Ativan) 0.5 mg PO HS 04/08/19 10/24/20 History acetaminophen 500 mg tablet 500 mg PO Q6H PRN 04/12/20 10/24/20 History (Tylenol Extra Strength) amlodipine 2.5 mg tablet 2.5 mg PO DAILY 05/11/20 10/24/20 History fluocinonide 0.05 % topical 1 applic TOPICAL BID PRN 06/25/20 10/24/20 History solution ascorbic acid (vitamin C) 500 mg 500 mg PO BID 09/16/20 10/24/20 History tablet (Vitamin C) methenamine hippurate 1 gram tablet 1 g PO BID 09/16/20 10/24/20 History Opdivo 1 dose IV . Q 2 WEEKS 10/24/20 10/24/20 History diclofenac sodium 1 % topical gel 2 g TOPICAL QID 10/24/20 10/24/20 History hydroxyzine HCl 10 mg tablet 10 mg PO TID PRN 10/24/20 10/24/20 History lorazepam 0.5 mg tablet 0.5 mg PO UD PRN 10/24/20 10/24/20 History Patient History Medical History Acute ischemic colitis Allergic reaction (06/17/13) Carcinoid tumor of lung Cervical cancer Colitis Cystitis Desensitization to allergens Diverticulosis of colon DVT prophylaxis Febrile illness GI bleed Hepatitis C virus Hyperkalemia Pneumonia Recurrent UTI (urinary tract infection) 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 Urinary tract infection Urticaria Surgical History H/O: hysterectomy History of cholecystectomy History of splenectomy Family History Other Family history non-contributory Social History Smoking Status: Never smoker Hx Alcohol Use: No Hx Substance Use: No Preferred Language: Bhutanese Communication Ability: 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 Beliefs That Will Affect Care: None marital status: / Current Living Situation: Alone How many Children do You have: 6 Other Information That Helps Us Care for You: No Feels Safe at Home: Yes Safety Concerns: Feels Safe At This Time Assistive Devices: None Review of Systems Constitutional: no fever, no chills and no fatigue Respiratory: + cough; no dyspnea Cardiovascular: as per Subjective / HPI; no chest pain and no palpitations Gastrointestinal: as per Subjective / HPI Physical Exam Constitutional: WD/WN, vitals as above Eyes: EOM intact bilaterally Neck: normal appearance Respiratory: normal respiratory effort, lungs clear to auscultation Cardiovascular: Rate/Rhythm: regular rate and regular rhythm Heart Sounds: no gallop and no murmur Gastrointestinal (Abdomen): normal bowel sounds, soft, nontender, no hepatosplenomegaly Inspection/Auscultation: abdomen not distended Musculoskeletal: Extremities: no cyanosis no lower extremity edema Skin: no rashes, warm and dry Neurologic: moves all extremities Psychiatric: A+Ox3, euthymic affect Results & Data ([facility]) Vital Signs (Past 12 Hours) Vital Signs Temp Pulse Pulse Resp BP BP Pulse Ox 10/25/20 08:01 68 10/25/20 07:38 36.8 C 63 18 121/61 94 10/25/20 03:30 36.5 C 78 16 138/66 96 10/24/20 23:12 75 10/24/20 23:00 36.7 C 91 H 18 153/75 H 96 Laboratory Results Abnormal lab results 10/24/20 10/24/20 10/24/20 Range/Units 12:36 12:36 21:54 WBC 11.25 H (4.8-10.8) K/uL RBC 4.08 L (4.2-5.4) M/uL Hgb 10.9 L (12.0-16.0) g/dL Hct 33.7 L (37-47) % RDW Std Deviation 50.5 H (36.4-46.3) fL Ida # (Auto) 1.06 H (0.11-0.59) K/uL Eos # (Auto) 1.38 H (0-0.5) K/uL Sodium 135 L (136-145) mmol/L Chloride (98-107) mmol/L BUN 21 H (7-18) mg/dl Creatinine 1.21 H (0.6-1.2) mg/dl Glucose 114 H (70-99) mg/dl Total Protein 8.5 H (6.4-8.2) gm/dl Globulin 5.0 H (2.5-4.0) gm/dl Albumin/Globulin Ratio 0.7 L (0.9-2) 10/25/20 10/25/20 Range/Units 05:33 05:33 WBC (4.8-10.8) K/uL RBC 3.51 L (4.2-5.4) M/uL Hgb 11.0 L (12.0-16.0) g/dL Hct 33.8 L (37-47) % RDW Std Deviation 49.7 H (36.4-46.3) fL Ida # (Auto) 1.30 H (0.11-0.59) K/uL Eos # (Auto) 1.43 H (0-0.5) K/uL Sodium (136-145) mmol/L Chloride 109 H (98-107) mmol/L BUN (7-18) mg/dl Creatinine (0.6-1.2) mg/dl Glucose 151 H (70-99) mg/dl Total Protein (6.4-8.2) gm/dl Globulin (2.5-4.0) gm/dl Albumin/Globulin Ratio (0.9-2) PG Care Time/CCT Total # of Minutes Spent Total Time Spent with Patient: Total time spent is greater than 50% in coordination of care (as documented) at patient's floor/unit and/or counseling patient: Coding Level of Care Code 98857 Initial Inpt Care Lvl 3 Diagnoses Acute upper gastrointestinal bleeding K92.2 Hematemesis K92.0 Nausea presence: unspecified (1) Hematemesis Nausea presence: unspecified Qualified Code(s): K92.0 - Hematemesis
--- NOTE | 2020-10-25 10:53 | Anesthesiology Consultation ---
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 Glenn Elizabeth MD Height/Weight Height: 5 ft 6 in Weight: 70.5 kg Allergies Allergy/AdvReac Type Severity Reaction Status Date / Time celecoxib Allergy Severe Rash Verified 10/24/20 15:39 ciprofloxacin [From Cipro] Allergy Severe DRESS Verified 10/24/20 15:39 adhesive Allergy Intermediate RED Verified 10/24/20 15:39 IRRITATED SKIN Sulfa (Sulfonamide Allergy Mild Hives Verified 10/24/20 15:39 Antibiotics) amoxicillin Allergy Unknown Rash Verified 10/24/20 15:39 cefepime Allergy Unknown Rash, drug Verified 10/24/20 15:39 eruption Penicillins Allergy Unknown Rash Verified 10/24/20 15:39 lactose AdvReac Intermediate GI UPSET Verified 10/24/20 15:39 vancomycin AdvReac Unknown Mook Verified 10/24/20 15:39 syndrome Medications Home Medications Medication Instructions Recorded Confirmed Last Taken polyethylene glycol 3350 17 17 g PO DAILY PRN gm 08/26/18 10/24/20 04/12/20 gram/dose oral powder (Miralax) lorazepam 0.5 mg tablet (Ativan) 0.5 mg PO HS 04/08/19 10/24/20 04/11/20 acetaminophen 500 mg tablet 500 mg PO Q6H PRN 04/12/20 10/24/20 04/11/20 (Tylenol Extra Strength) 500 mg amlodipine 2.5 mg tablet 2.5 mg PO DAILY 05/11/20 10/24/20 Unknown fluocinonide 0.05 % topical 1 applic TOPICAL BID PRN 06/25/20 10/24/20 Unknown solution ascorbic acid (vitamin C) 500 mg 500 mg PO BID 09/16/20 10/24/20 Unknown tablet (Vitamin C) methenamine hippurate 1 gram tablet 1 g PO BID 09/16/20 10/24/20 Unknown Opdivo 1 dose IV . Q 2 WEEKS 10/24/20 10/24/20 10/12/20 3rd treatment diclofenac sodium 1 % topical gel 2 g TOPICAL QID 10/24/20 10/24/20 Unknown hydroxyzine HCl 10 mg tablet 10 mg PO TID PRN 10/24/20 10/24/20 Unknown lorazepam 0.5 mg tablet 0.5 mg PO UD PRN 10/24/20 10/24/20 Unknown Active Medications Generic Name Dose Route Start Last Admin Trade Name Mary Kate PRN Reason Stop Dose Admin Diclofenac Sodium 2 gm 10/24/20 22:00 10/25/20 08:25 Diclofenac Sod 1% Gel 100 Gm Tube EXT 11/23/20 21:59 2 gm BID KEVIN Administration Pantoprazole Sodium 40 mg/ 100 mls @ 20 mls/hr 10/24/20 18:00 10/25/20 07:38 Dextrose IV 11/23/20 17:59 8 mg/hr Q5H KEVIN 20 mls/hr Administration 8 MG/HR Octreotide Acetate 500 mcg/ 105 mls @ 10.5 mls/hr 10/24/20 17:45 10/25/20 04:15 Sodium Chloride IV 11/23/20 17:44 50 mcg/hr .Q10H KEVIN 10.5 mls/hr Administration 50 MCG/HR Sodium Chloride 1,000 mls @ 80 mls/hr 10/24/20 21:30 10/25/20 07:41 Nss 1000ml IV 10/25/20 13:27 100 mls/hr .[id number] KEVIN Administration Past Medical History Medical History Acute ischemic colitis Allergic reaction (06/17/13) Carcinoid tumor of lung Cervical cancer Colitis Cystitis Desensitization to allergens Diverticulosis of colon DVT prophylaxis Febrile illness GI bleed Hepatitis C virus Hyperkalemia Pneumonia Recurrent UTI (urinary tract infection) 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 Urinary tract infection Urticaria Past Family History Family History Other Family history non-contributory Past Surgical History Surgical History H/O: hysterectomy History of cholecystectomy History of splenectomy Social History Smoking Status: Never smoker Hx Alcohol Use: No Alcohol type: wine alcohol intake frequency: holidays/special occasions only Hx Substance Use: No substance use type: does not use Physical Exam Vital Signs Last Vital Signs Temp 98.2 F 10/25/20 07:38 Pulse 68 10/25/20 08:01 Resp 18 10/25/20 07:38 BP 121/61 10/25/20 07:38 Pulse Ox 94 10/25/20 07:38 Testing Laboratory Results 10/25/20 05:33 10/25/20 05:33 Urine Color [place] 10/24/20 22:55 Urine Appearance Clear (Clear) 10/24/20 22:55 Urine pH 6.0 (4.5-7.5) 10/24/20 22:55 Ur Specific [place] 1.022 (1.000-1.030) 10/24/20 22:55 Urine Protein Negative (Negative) 10/24/20 22:55 Urine Glucose (UA) Negative (Negative) 10/24/20 22:55 Urine Ketones Negative (Negative) 10/24/20 22:55 Urine Nitrite Negative (Negative) 10/24/20 22:55 Ur Leukocyte Esterase Negative (Negative) 10/24/20 22:55 Blood Type A Positive 10/24/20 15:55 Antibody Screen NEGATIVE 10/24/20 15:55 Electrocardiogram Date: 10/24/20 Normal sinus rhythm, rate 74 bpm Normal ECG When compared with ECG of 01-SEP-2019 19:49, No significant change was found Confirmed by Daniel Duncan ([id number]) on 10/24/2020 3:39:31 PM Chest X-Ray Date: 10/24/20 IMPRESSION: 1. No acute process within the chest. 2. A 1.9 cm lobular left upper lobe mass which has been present since 2010. This may have slightly increased in size in the interval. Follow-up nonemergent pulmonary consultation and chest CT is recommended for further evaluation.
[2020-10-25] MEDS ORDERED: PROPOFOL IV EMULSION 10 MG/ML 20 ML VIAL IV ONE (12:48)
[2020-10-25] MEDS ORDERED: LIDOCAINE 2% 2 ML VIAL/AMP(20MG/ML) INFIL ONE (12:48)
--- NOTE | 2020-10-25 12:54 | Anesthesiology Progress Note ---
Date of Service October 25, 2020 Anesthesia Post Procedure Vital Signs Vital Signs: Temp Pulse Pulse Resp BP BP Pulse Ox 10/25/20 12:44 65 16 125/64 95 10/25/20 11:51 98.1 F 73 16 173/74 H 100 10/25/20 11:06 98.1 F 68 20 146/74 H 95 10/25/20 08:01 68 10/25/20 07:38 98.2 F 63 18 121/61 94 10/25/20 03:30 97.7 F 78 16 138/66 96 10/24/20 23:12 75 10/24/20 23:00 98.1 F 91 H 18 153/75 H 96 10/24/20 21:30 98.2 F 90 16 179/75 H 96 10/24/20 21:24 91 H 10/24/20 19:32 76 18 158/85 H 98 10/24/20 17:52 81 18 166/75 H 99 10/24/20 15:35 81 19 157/74 H 96 Transfer of Care Handoff Completed per policy Notes Mental Status: alert / awake / arousable and participated in evaluation Patient Amnestic to Procedure: Yes Nausea / Vomiting: adequately controlled Pain: adequately controlled Airway Patency, RR, SpO2: stable & adequate BP & HR: stable & adequate Hydration State: stable & adequate Anesthetic Complications: no major complications apparent and Pt Satisfied with anesthetic care
--- NOTE | 2020-10-25 12:57 | GI REPORT ---
Addendum Number: 1 Addendum Date: 11/05/2020 9:31:28 AM Dilation was done via TTS balloon up to 18 mm successfully. Morteza Elizabeth MD 11/05/2020 9:32:10 AM This report has been signed electronically. Patient Name: Margie Douglas Procedure Date: 10/25/2020 12:21 PM Date of : 1940 Admit Type: Inpatient Age: 80 Gender: Female Attending MD: Morteza Elizabeth MD Procedure: Upper GI endoscopy Providers: Morteza Elizabeth MD Referring MD: Shayne Liz Indications: Melena, Occult blood in stool Medicines: Monitored Anesthesia Care Complications: No immediate complications. Estimated blood loss: None. Estimated Blood Loss: Estimated blood loss: none. Procedure: Pre-Anesthesia Assessment: - Prior Anticoagulants: The patient has taken no previous anticoagulant or antiplatelet agents. - ASA Grade Assessment: II - A patient with mild systemic disease. After obtaining informed consent, the endoscope was passed under direct vision. Throughout the procedure, the patient's blood pressure, pulse, and oxygen saturations were monitored continuously. The Endoscope was introduced through the mouth, and advanced to the second part of duodenum. The upper GI endoscopy was accomplished without difficulty. The patient tolerated the procedure well. Findings: A mild Schatzki ring was found in the lower third of the esophagus. The dilation site was examined following endoscope reinsertion and showed mild mucosal disruption and moderate improvement in luminal narrowing. To prevent bleeding post-intervention, three hemostatic clips were successfully placed. There was no bleeding at the end of the procedure. Mild portal hypertensive gastropathy was found in the entire examined stomach. The duodenal bulb and second portion of the duodenum were normal. No evidence of varices nor bleeding throughout the procedure Impression: - Mild Schatzki ring. Clips were placed. - Portal hypertensive gastropathy. - Normal duodenal bulb and second portion of the duodenum. - No specimens collected. Recommendation: - Return patient to [facility] for ongoing care. - Advance diet as tolerated today. Morteza Elizabeth MD 10/25/2020 12:57:15 PM This report has been signed electronically. Note Initiated On: 10/25/2020 12:21 PM Number of Addenda: 1 I attest to the content of the Intraoperative Record and orders documented therein, exceptions below {[id number]}
[2020-10-25 14:41] LABS: Hematocrit (blood only) 31.6 % (37-47); Hemoglobin 10.4 g/dL (12.0-16.0)
--- NOTE | 2020-10-25 17:06 | CT Scan Report ---
CT SCAN OF THE CHEST WITHOUT IV CONTRAST CLINICAL HISTORY: Hemoptysis. COMPARISON STUDY: Chest CT dated 11/30/2013. Chest x-ray dated 10/24/2020. Abdominal CT dated 10/25/19. TECHNIQUE: CT scan of the thorax was performed from the thoracic inlet to the upper abdomen. Images are reviewed in the axial, sagittal, and coronal planes. IV contrast was not administered for this ex amination as per the referring clinician. A dose lowering technique was utilized adhering to the han Villagomez. CT DOSE: 243.19 mGy.cm FINDINGS: Thyroid: Imaged portions of the thyroid gland are normal in size and attenuation. Thoracic aorta: There is atherosclerotic calcification of the thoracic aorta, which is normal in [place]ali [place] and demonstrates standard 3-vessel arch anatomy. Heart: The heart is mildly enlarged and and without pericardial effusion. The coronary arteries and m itral annulus are densely calcified. Lungs and pleural spaces: There is no airspace consolidation typical for pneumonia or pleural effusio n. The trachea and central airways are clear. Scarring/atelectasis is seen at the lung bases. A 2.4 c m lobulated nodule in the left upper lobe is seen on image #103. This has increased in size as compar ed to 2013. A 4 mm right lower lobe pulmonary nodule image #169 is new from 2014. Mediastinum: There is no mediastinal lymphadenopathy. Diane: Not well assessed without IV contrast. Axillae: There is no axillary lymphadenopathy. Upper abdomen: There is a small hiatal hernia. Surgical clips are seen above the gastroesophageal joceline ction. There is evidence of previous right hepatic lobe resection. A mass lesion is again seen in the right lobe at the resection margin. This measures at least 4.6 cm as seen on image #258. The liver a ppears cirrhotic in morphology with hypertrophy of the left lobe and nodularity of the surface contou r. Cholecystectomy clips are noted. The spleen is not identified and presumed surgically absent. A 1. 8 cm right lobe hepatic cyst is seen on image #246. Skeletal structures: The skeletal structures are osteopenic. Fusion hardware is noted in the lower ce rvical spine. No lytic or blastic bony lesions are seen. IMPRESSION: 1. There is no airspace consolidation typical for pneumonia or pleural effusion. 2. A 2.4 cm lobulated pulmonary nodule in the left upper lobe has increased in size as compared to 14. The appearance and growth pattern suggest a low-grade neoplasm such as carcinoid tumor. 3. A 4 mm right lower lobe pulmonary nodule is new as compared to 2014. This can be followed if clini mike warranted as per the Fleischner criteria. See below. 4. There is postoperative change from right lobe hepatic resection, splenectomy, and cholecystectomy. Postoperative change is also seen in the lower esophagus. Correlate with the medical/oncological his tory. 5. A mass lesion is again seen in the right lobe of the liver at the resection margin. 6. Cardiomegaly. 7. Additional findings as above. Please refer to below summary of Fleischner criteria recommendations for follow-up of incidental CT n odules (Jenny Ramirez, Guidelines for management of small pulmonary nodules detected on CT scans: A sta tement from the Fleischner Society, Radiology 237: [phone].) SOLID NODULES Solitary nodule size: <6 mm * low risk patients: no follow-up needed * high risk patients: optional CT at 12 months Solitary nodule size: 6-8 mm * low risk patients: follow-up at 6-12 months, then consider further follow-up at 18-24 months * high risk patients: initial follow-up CT at 6-12 months and then at 18-24 months if no change Solitary nodule size: >8 mm * either low or high risk patients - consider follow-up CT at 3 months, and/or CT-PET, and/or biopsy Multiple nodules size: <6 mm * low risk patients: no routine follow-up * high risk patients: optional CT at 12 months Multiple nodules size: 6-8 mm * low risk patients: follow-up at 3-6 months, then consider further follow-up at 18-24 months * high risk patients: follow-up at 3-6 months, then at 18-24 months if no change Multiple nodules size: >8 mm * low risk patients: follow-up at 3-6 months, then consider further follow-up at 18-24 months * high risk patients: follow-up at 3-6 months, then at 18-24 months if no change Note: newly detected indeterminate nodule in persons 35 years of age or older. * low risk patients: minimal or absent history of smoking and/or other known risk factors * high risk patients: history of smoking or of other known risk factors (e.g. first degree relative with lung cancer, or exposure to asbestos, radon, uranium) * if a nodule up to 8 mm is partly solid or is ground glass further follow-up is required after 24 m onths to exclude possible slow growing adenocarcinoma (SHARON) SUBSOLID NODULES Solitary pure ground-glass nodule * nodule size <6 mm - no CT follow-up required * nodule size >=6 mm - follow-up CT at 6-12 months, then every 2 years until 5 years Solitary part-solid nodule * nodule size <6 mm - no CT follow-up required * nodule size >=6 mm - follow-up CT at 3-6 months. If unchanged, and solid component remains <6 mm, then annual follow-up for 5 years Multiple subsolid nodules * nodule size <6 mm - follow-up CT at 3-6 months, consider further follow-up at 2 and 4 years if sta ble * nodule size >=6 mm - follow-up CT at 3-6 months, subsequent management based on the most suspiciou s nodule(s) ACT 112: Negative or not required by law. Electronically signed by: Angel Samaniego M.D. 10/25/2020 5:04 PM
--- NOTE | 2020-10-25 19:19 | Billing Data ---
Date of Service October 25, 2020 Coding Level of Care Code 09357 Subseq Hosp Care Lvl 3
[2020-10-25] MEDS ORDERED: LORazepam 0.5 MG TAB PO STA (21:21)
[2020-10-25] MEDS: PANTOprazole 40 MG TAB PO SCH (21:37)
[2020-10-25] MEDS ORDERED: ACETAMINOPHEN 325 MG TAB PO PRN (23:21)
[2020-10-26 06:34] LABS: Basophils # (auto) 0.19 K/uL (0-0.2); Basophils % (auto) 2.1 %; Eosinophils # (auto) 1.37 K/uL (0-0.5); Eosinophils % (auto) 15.2 %; Hematocrit (blood only) 33.3 % (37-47); Hemoglobin 10.8 g/dL (12.0-16.0); Immature Granulocytes # (auto) 0.01 K/uL (0.00-0.02); Immature Granulocytes % (auto) 0.1 %; Lymphocytes # (auto) 2.12 K/uL (1.2-3.4); Lymphocytes % (auto) 23.6 %; Mean Corpuscular Hemoglobin 31.8 pg (25-34); Mean Corpuscular Hgb Conc 32.4 g/dL (32-36); Mean Corpuscular Volume 97.9 fL (80-100); Mean Platelet Volume 10.1 fL (7.4-10.4); Monocytes % (auto) 11.1 %; Neutrophils # (auto) 4.31 K/uL (1.4-6.5); Neutrophils % (auto) 47.9 %; Platelet Count 351 K/uL (130-400); RDW Coefficient of Variation 13.8 % (11.5-14.5); RDW Standard Deviation 49.3 fL (36.4-46.3)
[2020-10-26 07:10] LABS: BUN Creatinine Ratio 14.4 (10-20); Creatinine Clr Calc Pharmacy 34.4 ml/min; Est GFR (African American) 48.5 ml/min; Est GFR (Non-African American) 41.8 ml/min; Potassium 4.7 mmol/L (3.5-5.1)
[2020-10-26] MEDS: DICLOFENAC SOD 1% GEL 100 GM TUBE EXT SCH (08:27)
[2020-10-26] MEDS: PANTOprazole 40 MG TAB PO SCH (08:27)
[2020-10-26] MEDS ORDERED: amLODIPine BESYLATE 5 MG TAB PO ONE (09:46)
--- NOTE | 2020-10-26 09:48 | Discharge Summary ---
Date of Service October 26, 2020 Admission HPI Per Admitting Provider This is an 80-year-old female with past medical history of hepatocellular carcinoma on immunotherapy that presents today complaining of hematemesis. Patient is a decent historian, accompanied by her daughter. Patient has been receiving immunotherapy for her HCC. She says she has developed a mild cough but read that this is one of the side effects she was not concerned. Earlier today she had a coughing fit that seemed more extreme. She got a little mucus stuck in her throat and felt that she had vomited. When she did, she found bright red blood in the vomitus. This was only a single episode and has not occurred since. However, the patient was concerned enough to seek medical attention here in the hospital. Patient denies of the symptoms such as shortness of breath, hemoptysis, rectal bleeding or more systemic symptoms such as fever and chills, continued nausea or vomiting, palpitations, chest pain. Work-up to emergency room reveals a hemoglobin of 12.9 which is actually better than her baseline. She does have a mild white count of this is improved. Other laboratory work is normal. CT scan of the abdomen pelvis shows a necrotic right hepatic lobe lesion which is presumably her known carcinoma but no other findings that would explain the bleeding. Admission Exam Per Admitting Provider Constitutional: cooperative; no acute distress Neck: trachea midline, no thyromegaly Respiratory: normal respiratory effort Auscultation: lungs clear to auscultation bilaterally; no crackles, no rales, no rhonchi and no wheezes Cardiovascular: Rate/Rhythm: regular rate and regular rhythm Heart Sounds: normal S1 and normal S2 Gastrointestinal (Abdomen): Inspection/Auscultation: abdomen normal to inspection Percussion/Palpation: abdomen soft and + tympanic to percussion; abdomen nontender, no guarding, abdomen not rigid and no hepatosplenomegaly Skin: no rashes, warm and dry Principal Diagnosis hematemesis suspected ugib Discharge Exam General: NAD. Good energy this AM. HEENT: NCAT. Eyes - Sclera are white, anicteric, and without injection. Mouth - MMM with no tonsillar edema or exudates. Cardiac: Normal rate and regular rhythm; S1 and S2 present with no murmurs, rubs, or gallops. Pulmonary: Good respiratory effort with symmetric expansion of the chest. No use of accessory muscles. Lungs were clear to auscultation bilaterally with no crackles or wheezes. Abdominal: Normoactive bowel sounds. Abdomen was soft, nondistended, and non- tender to palpation. No hepatomegaly or splenomegaly. Extremities: Upper and lower extremities are warm and well perfused. No peripheral edema. Psych: Well-developed, well-nourished, appropriately dressed for occasion. Behavior is cooperative and appropriate. Affect is WNL. Insight is appropriate. Discharge Data Allergies Allergy/AdvReac Type Severity Reaction Status Date / Time celecoxib Allergy Severe Rash Verified 10/24/20 15:39 ciprofloxacin [From Cipro] Allergy Severe DRESS Verified 10/24/20 15:39 adhesive Allergy Intermediate RED Verified 10/24/20 15:39 IRRITATED SKIN Sulfa (Sulfonamide Allergy Mild Hives Verified 10/24/20 15:39 Antibiotics) amoxicillin Allergy Unknown Rash Verified 10/24/20 15:39 cefepime Allergy Unknown Rash, drug Verified 10/24/20 15:39 eruption Penicillins Allergy Unknown Rash Verified 10/24/20 15:39 lactose AdvReac Intermediate GI UPSET Verified 10/24/20 15:39 vancomycin AdvReac Unknown Mook Verified 10/24/20 15:39 syndrome Consultations 10/24/20 17:37 ED Decision to Admit Stat 10/24/20 21:24 Consult Gastroenterology Routine Procedures Performed Operation Date: 10/25/20 17:45 Actual Procedures p EGD Simona - Morteza Elizabeth MD Ordered Studies CT SCAN OF THE CHEST WITHOUT IV CONTRAST (10/25) CLINICAL HISTORY: Hemoptysis. COMPARISON STUDY: Chest CT dated 11/30/2013. Chest x-ray dated 10/24/2020. Abdominal CT dated 10/24/2020. TECHNIQUE: CT scan of the thorax was performed from the thoracic inlet to the upper abdomen. Images are reviewed in the axial, sagittal, and coronal planes. IV contrast was not administered for this examination as per the referring clinician. A dose lowering technique was utilized adhering to the principles of ALARA. CT DOSE: 243.19 mGy.cm FINDINGS: Thyroid: Imaged portions of the thyroid gland are normal in size and att enuation. Thoracic aorta: There is atherosclerotic calcification of the thoracic aorta, which is normal in caliber and demonstrates standard 3-vessel arch anatomy. Heart: The heart is mildly enlarged and and without pericardial effusion. The coronary arteries and mitral annulus are densely calcified. Lungs and pleural spaces: There is no airspace consolidation typical for pneumonia or pleural effusion. The trachea and central airways are clear. Scarring/atelectasis is seen at the lung bases. A 2.4 cm lobulated nodule in the left upper lobe is seen on image #103. This has increased in size as compared to 2014. A 4 mm right lower lobe pulmonary nodule image #169 is new from 2014. Mediastinum: There is no mediastinal lymphadenopathy. Diane: Not well assessed without IV contrast. Axillae: There is no axillary lymphadenopathy. Upper abdomen: There is a small hiatal hernia. Surgical clips are seen above the gastroesophageal junction. There is evidence of previous right hepatic lobe res ection. A mass lesion is again seen in the right lobe at the resection margin. This measures at least 4.6 cm as seen on image #258. The liver appears cirrhotic in morphology with hypertrophy of the left lobe and nodularity of the surface contour. Cholecystectomy clips are noted. The spleen is not identified and presumed surgically absent. A 1.8 cm right lobe hepatic cyst is seen on image #246. Skeletal structures: The skeletal structures are osteopenic. Fusion hardware is noted in the lower cervical spine. No lytic or blastic bony lesions are seen. IMPRESSION: 1. There is no airspace consolidation typical for pneumonia or pleural effusion. 2. A 2.4 cm lobulated pulmonary nodule in the left upper lobe has increased in size as compared to 2014. The appearance and growth pattern suggest a low-grade neoplasm such as carcinoid tumor. 3. A 4 mm right lower lobe pulmonary nodule is new as compared to 2014. This can be followed if clinically warranted as per the Fleischner criteria. See below. 4. There is postoperative change from right lobe hepatic resection, splenectomy, and cholecystectomy. Postoperative change is also seen in the lower esophagus. Correlate with the medical/oncological history. 5. A mass lesion is again seen in the right lobe of the liver at the resection margin. 6. Cardiomegaly. 7. Additional findings as above. ---- XR chest 1V portable (10/23) HISTORY: cough COMPARISON: Chest 07/26/2017. FINDINGS: No pneumothorax. No pleural effusions. The heart is normal in size. There is mild diffuse interstitial thickening. This is likely chronic. No new focal lung consolidations to suggest pneumonia. No evidence for pulmonary edema. There is a mildly tortuous thoracic aorta. Cervical spinal fusion hardware is again noted. There is a 2 cm lobular left upper lobe mass. This is been present dating back to the 2011 studies. This may have slightly increased in size in the interval. IMPRESSION: 1. No acute process within the chest. 2. A 1.9 cm lobular left upper lobe mass which has been present since 2011. This may have slightly increased in size in the interval. Follow-up nonemergent pulmonary consultation and chest CT is recommended for further evaluation. ACT 112: Positive. There are findings on this exam that require communication between the performing entity and the patient following Patient Test Result Information Act ([place] Act 112) guidelines. ---- ABDOMEN AND PELVIS CT WITH IV CONTRAST (10/23) CT DOSE: 314.94 mGy.cm HISTORY: vomiting blood TECHNIQUE: Multiaxial CT images of the abdomen and pelvis were performed following the use of intravenous contrast. A dose lowering technique was utilized adhering to the principles of ALARA. COMPARISON STUDY: Abdomen and pelvis CT 07/16/2018. FINDINGS: Mild interstitial thickening at the lung bases which is likely chronic. No pneumoperitoneum. No pneumatosis. L3-L5 posterior decompression fusion with pedicle screws and rods. Small hiatus hernia. There is mild thickening at the gastric antrum best seen on image 159. Prior cholecystectomy and partial right hepatectomy. Intermittent low density lesion within the right hepatic lobe demonstrating peripheral calcification. This appears to have increased in size and currently measures approximately 5.5 x 4.8 cm. This previously measured approximately 5.2 x 4.5 cm. This abuts results in mild mass effect along the upper pole the right kidney. Stable 1.9 cm hypodense lesion within the left hepatic lobe. This favors a cyst. The main portal vein is patent. Normal pancreas. The spleen is not identified and may be surgically absent. The adrenal glands unremarkable. No hydronephrosis. Stable small bilateral renal hypodense lesions. Interval development of necrotic retroperitoneal lymphadenopathy. Dominant lymph node on image 160 measures 3 cm. The aorta is normal in caliber. The bladder is unremarkable. The uterus is surgically absent. Extensive colonic diverticulosis. No evidence for acute diverticulitis. Moderate well-formed stool within the colon. No evidence for bowel obstruction. There is a mildly enlarged lymph node inferior to the right hepatic lobe mass which measures 11 mm on image 101. This is suspicious for underlying malignancy. IMPRESSION: 1. Increase in size in the solid and cystic lesion within the residual right hepatic lobe at the resection margin. This abuts and results in mild mass effect along the adjacent right kidney. There is also retroperitoneal necrotic lymphadenopathy as described above. These finds are highly suspicious for neoplastic/metastatic disease. 2. Mild thickening of the gastric antrum. This may represent a nonspecific gastritis. 3. No evidence for bowel obstruction. 4. Colonic diverticulosis. No evidence for acute diverticulitis. 5. Postoperative changes as described above. Hospital Course (1) Acute upper gastrointestinal ble[age]-year-old female with history of HCV, HCC (on immunotherapy via Dr. Meza), and carcinoid tumor of the lung who presented to [facility] following a single episode of post-tussive emesis with hematemesis. She is hemodynamically stable. Hematemesis -- in the setting of ongoing HCC * In the setting of ongoing treatment for HCC with immunotherapy * Clinically, history is c/w hematemesis. While it did occur in a post-tussive state, less likely this was hemoptysis based on story and lung exam. Notable that she does have a carcinoid tumor in YOVANNY. No infectious symptoms to suggest infectious-etiology. * Work-up as follows: -- Hgb 10-11 throughout stay (patient's baseline), VSS -- LFTs grossly within normal limits -- CT-A/P showing increase in right hepatic lobe lesion, +necrotic LAD, mild thickening of gastric antrum, diverticulosis -- CT-Chest: 2.4cm lobulated pulmonary nodule in YOVANNY, increased from 2014, carcinoid. Also a 4mm RLL pulmonary nodule, new compared to 2014.4 Mass lesion in liver. * GI Consulted in ED, appreciate insight and recommendations: -- EGD: Mild Schatzki ring s/p clipping; portal HTN gastropathy; no bleeding * Initially on octreotide and pantoprazole gtt's --> transitioned to panto prazole 40mg daily at d/c x 4 weeks * Can consider pill endoscopy as outpatient * CT-Chest, as above, obtained to r/o hemoptysis-drive source too: no acute areas of infarct, though YOVANNY lesion increased in size from 2014. New nodule also seen in RLL. Recommend following up with patient's oncologist to review these at discharge. * Recommend rechecking BMP within 1 week of d/c given borderline elevated Cr 1.22 on day of d/c - likely 2/2 dehydration HTN * Stable in setting of possible UGIB * Resume amlodipine 2.5 / day at d/c Code: Patient identifies as FULL CODE (2) Cough: (3) Hematemesis: (4) Carcinoid tumor of lung: (5) Urinary tract infection: (6) Diarrhea: (7) Acute dehydration: Total Time Total Time Spent Total Time Spent (In Minutes): <30 Discharge Plan Discharge Items Patient Disposition: Home - Self-Care Reason For Visit: HEMATEMESIS Discharge Diagnosis: hematemesis Activity: Per Instructions section Non-emergency contact: Primary Care Provider and Oncologist Call non-emergency contact if: you have any medication questions, your symptoms worsen, your pain is concerning for you and your temperature is above 101 Follow-up/Referrals: Bradley Jeter [Primary Care Provider] - 11/01/20 12:00 pm Diet: Regular Addtl Attending Provider Instructions: You were seen at [facility] for evaluation of blood in your vomit. Upon your arrival here, you underwent several tests to determine the cause of your symptoms. Thankfully, your blood counts were normal. You were seen by our gastroenterology experts, who performed an upper endoscopy (a procedure in which they looked down your esophagus, the food tube, with the camera), which did not show any obvious sources of bleeding. You also underwent scans of your belly and chest. These did demonstrate nodules (collections of tissue) in your lungs. They also demonstrated persistence of the lesion within your liver. Upon discharge, please follow-up your specialty team at [facility] upon discharge to further discuss these results. Thankfully, there were no recurrence of symptoms while you are here. Upon discharge, please follow-up with your primary care physician within 1 week to review this visit. You may also want to discuss obtaining a referral to GI, who can arrange other tests, such as pill endoscopy (a portable camera that looks through your intestines) and a colonoscopy To further evaluate for other source of bleeding. In the interim, if you experience any worsening abdominal pain, recurrences of significant blood in your vomitus, lightheadedness, dizziness, chest pain, palpitations, shortness of breath, or other concerning symptoms, please seek medical attention; if your symptoms are severe, please report to the emergency room for immediate evaluation. Please take pantoprazole 40mg, daily, x 30 days upon discharge, or until directed otherwise by your PCP. It was a pleasure for caring for you while you were here, we wish you all the best in your recovery. Pending Studies at Discharge: No Stand-Alone Forms: Anesthesia/Sedation, Adult, My [facility], Smoking Cessation Medications and DC Order Prescriptions: New pantoprazole 40 mg Tablet,Delayed Release (Dr/Ec) 40 mg PO DAILY 30 Days Qty: 30 RF: 0 Continued polyethylene glycol 3350 [Miralax] 17 gram/dose powder 17 g PO DAILY PRN (Reason: Constipation) RF: 0 amlodipine 2.5 mg tablet 2.5 mg PO DAILY RF: 0 lorazepam [Ativan] 0.5 mg tablet 0.5 mg PO HS RF: 0 acetaminophen [Tylenol Extra Strength] 500 mg Tablet 500 mg PO Q6H PRN (Reason: Pain) RF: 0 methenamine hippurate 1 gram tablet 1 g PO BID RF: 0 ascorbic acid (vitamin C) [Vitamin C] 500 mg tablet 500 mg PO BID RF: 0 hydroxyzine HCl 10 mg tablet 10 mg PO TID PRN (Reason: Anxiety) RF: 0 lorazepam 0.5 mg tablet 0.5 mg PO UD PRN (Reason: for cancer treatment) RF: 0 diclofenac sodium 1 % Gel 2 g TOPICAL QID RF: 0 Opdivo 1 dose IV . Q 2 WEEKS RF: 0 fluocinonide 0.05 % Solution 1 applic TOPICAL BID PRN (Reason: Skin Irritation) RF: 0 Discharge Orders: Discharge Order (Routine); Ordered 10/26/20 Ordered By: Shayne Barba/Other Patient Handouts: ED Upper GI Bleeding (Stable) Admission Data Admit Date/Time: 10/24/20 19:08 Attending Provider: Shayne Liz Admit Provider: Bryan Agarwal Primary Care Provider: Bradley Jeter Other Providers: Bryan Agarwal ; Marek Han Other Interventions: Discharge Summary Assessment (RN) Last Done: 10/26/20 11:50 Supervising Physician Co-Signing Physician Notes I personally examined the patient and verified all cowart points of history and exam, discussed case, and agree with decision making with Dr Toscano Feels okay, feels up to going home. No new complaints. Vitals noted, in general she is awake and alert pleasant no distress. HEENT normocephalic atraumatic mucous membranes moist. Breathing unlabored no accessory muscle use good effort. Gait is stable with no instability. Neuro without focal deficits. Hematemesisfortunately resolved without any significant acute blood loss anemia (strongly suspect high hemoglobin at ER visit was hemoconcentration, given that hemoglobin quickly dropped to and stayed at what has been her recent baseline). Appears stable for home. Otherwise as above Resident Activity Tracking Resident Involvement: Resident Care Provided Care Provided: Adult Hospital Medicine
[2020-10-26 15:51] VITALS: BP 147/75; PULSE 67; TEMP 98.1; O2SAT 95
--- NOTE | 2020-10-26 20:46 | Billing Data ---
Date of Service October 26, 2020 Coding Level of Care Code D/C DAY MANAGEMENT <30 MINS
--- NOTE | 2020-10-26 20:47 | Billing Data ---
Date of Service October 26, 2020 Coding Level of Care Code D/C DAY MANAGEMENT <30 MINS
== END 2020-10-26 16:40 | disposition home or self-care (01) | DRG 378 ==
LOC: ED 11:04 → SUATTDRO 19:08 → 2N 19:08 → 3W 10-25 22:11
DX: R04.2 Hemoptysis; Z88.2 Allergy status to sulfonamides; K22.2 Esophageal obstruction; R91.1 Solitary pulmonary nodule; C7A.090 Malignant carcinoid tumor of the bronchus and lung; Z79.899 Other long term (current) drug therapy; K76.6 Portal hypertension; Z88.1 Allergy status to other antibiotic agents; K31.89 Other diseases of stomach and duodenum; Z91.048 Other nonmedicinal substance allergy status; Z88.6 Allergy status to analgesic agent; K92.2 Gastrointestinal hemorrhage, unspecified; C22.0 Liver cell carcinoma; Z88.0 Allergy status to penicillin; Z20.822 Contact with and (suspected) exposure to COVID-19; I10 Essential (primary) hypertension; E86.0 Dehydration

== ENCOUNTER 2022-01-24 16:02 | Inpatient (IN) ==
[2022-01-24 17:12] LABS: Hematocrit (blood only) 36.9 % (34.1-44.9); Hemoglobin 12.5 g/dl (12.0-16.0); Mean Platelet Volume 10.4 fL (9.4-12.3); Platelet Count 317 K/uL (130-400)
--- NOTE | 2022-01-24 17:14 | XRay Report ---
SINGLE VIEW CHEST CLINICAL HISTORY: Illness FINDINGS: An AP, portable, upright chest radiograph is compared to study dated 10/24/2020 and correlat ed with chest CT dated 10/25/2020. The cardiomediastinal silhouette is unremarkable. Chronic interstit ial thickening is similar to previous. A left suprahilar nodule measures up to 2.5 cm. No airspace co nsolidation or large pleural effusion is identified. Scarring/atelectasis is noted at the lung bases. No pneumothorax is seen. The skeletal structures are osteopenic. The bony thorax is grossly intact. A surgical clip is seen in the left upper quadrant. IMPRESSION: 1. No active disease in the chest. 2. A 2.5 cm left suprahilar nodule is similar to previous. ACT 112: Negative or not required by law. Electronically signed by: Angel Samaniego M.D. 01/24/2022 5:13 PM
[2022-01-24 17:15] LABS: Appearance Urine Turbid (Clear); Bacteria Urine Automated Negative (Negative); Bilirubin Urine Negative (Negative); Blood Urine 2+ (Negative); Color Urine Yellow; Epithelial Cell Urine Auto 20-30 /lpf (0-5); Glucose Urine UA Negative (Negative); Ketones Urine Trace (Negative); Leukocyte Esterase Urine 3+ (Negative); Nitrite Urine Negative (Negative); Protein Urine 2+ (Negative); Specific Gravity Urine 1.015 (1.000-1.030); Urobilinogen Urine Negative (Negative); WBC Urine Automated >30 /hpf (0-5); pH Urine 6.5 (4.5-7.5)
[2022-01-24 17:23] LABS: Albumin Globulin Ratio 1.1 (0.9-2); Bilirubin,Total 0.5 mg/dl (0.2-1.0); Creatinine Clr Calc Pharmacy 20.1 ml/min; Est GFR (African American) 25.7 ml/min; Est GFR (Non-African American) 22.2 ml/min; Globulin 3.8 gm/dl (2.5-4.0); Potassium 3.7 mmol/L (3.5-5.1); Total Protein 7.8 gm/dl (6.0-8.3)
[2022-01-24 17:28] LABS: Acanthocytes 1+; Basophils # (auto) 0.14 K/uL (0-0.2); Basophils % (auto) 1.2 %; Eosinophils # (auto) 1.04 K/uL (0-0.50); Eosinophils % (auto) 8.6 %; Immature Granulocytes # (auto) 0.03 K/uL (0.00-0.02); Immature Granulocytes % (auto) 0.2 %; Lymphocytes % (auto) 18.3 %; Mean Corpuscular Hemoglobin 31.6 pg (25.0-34.0); Mean Corpuscular Hgb Conc 33.9 g/dL (32.0-36.0); Mean Corpuscular Volume 93.2 fL (80.0-100.0); Monocytes # (auto) 1.32 K/uL (0.24-0.82); Neutrophils % (auto) 60.7 %; RDW Coefficient of Variation 15.9 % (11.5-14.5); RDW Standard Deviation 53.8 fL (36.4-46.3); Red Blood Count 3.96 M/uL (3.93-5.22); White Blood Count 12.03 K/ul (4.8-10.8)
[2022-01-24 17:45] LABS: Influenza A virus by PCR Negative (Neg); Influenza B virus by PCR Negative (Neg); RSV by PCR Negative (Neg); SARS CoV2 RNA(COVID-19) Ceph NEGATIVE (Negative)
[2022-01-24] MEDS ORDERED: SODIUM CHLORIDE 0.9% 1000ML 1,000 ML IV ONE (17:54)
--- NOTE | 2022-01-24 18:02 | Emergency Department Note ---
History of Present Illness General Chief complaint: Diarrhea Stated complaint: REFERRED BY DOC, DEHYDRATION, DIARREAH 2 WKS Time Seen by Provider: 01/24/22 17:41 Source: patient Mode of arrival: ambulatory Limitations: no limitations History of Present Illness Maximum Pain Intensity: 9 This patient 81-year-old female who has a history of liver cancer and is on immunotherapy, comes in after having illness and weakness for about a week she is had diarrhea she is lost about 10 pounds in the last month. Her urine has no dysuria but is been pinkish. She is supposed to have immunotherapy today but they held it because she is in so sick. Has had nausea and decreased p.o. intake no vomiting no fever no cough she has had some hoarseness no definite sick contacts. No history of C. difficile or diarrhea illness in the past. 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 She fell over a week ago and hit her head but has no headache and no fall since then she just feels generally weak. Her stool has not been bloody or black. No significant abdominal pain Home Medications Medication Instructions Recorded Confirmed Type polyethylene glycol 3350 17 17 g PO DAILY PRN Constipation 08/26/18 01/24/22 History gram/dose oral powder (Miralax) lorazepam 0.5 mg tablet (Ativan) 0.5 mg PO HS 04/08/19 01/24/22 History acetaminophen 500 mg tablet 500 mg PO Q6H PRN Pain 04/12/20 01/24/22 History (Tylenol Extra Strength) amlodipine 2.5 mg tablet 2.5 mg PO DAILY 05/11/20 01/24/22 History ascorbic acid (vitamin C) 500 mg 500 mg PO DAILY 09/16/20 01/24/22 History tablet (Vitamin C) methenamine hippurate 1 gram tablet 1 g PO BID 09/16/20 01/24/22 History lorazepam 0.5 mg tablet 0.5 mg PO UD PRN for cancer 10/24/20 01/24/22 History treatment fosfomycin tromethamine 3 gram 1 packet PO ONCE PRN uti 05/31/21 01/24/22 History oral packet Lactobacillus acidophilus 1.5 mg 1,000 mmu cells PO DAILY 01/24/22 01/24/22 History (250 million cell) capsule (Probiotic Acidophilus) Opdivo 1 dose IV UD 01/24/22 01/24/22 History biotin 1,000 mcg chewable tablet 1,000 mcg PO DAILY 01/24/22 01/24/22 History cholecalciferol (vitamin D3) 50 50 mcg PO DAILY 01/24/22 01/24/22 History mcg (2,000 unit) capsule (Vitamin D3) levothyroxine 25 mcg tablet 25 mcg PO QAM 01/24/22 01/24/22 History magnesium 250 mg tablet 250 mg PO DAILY 01/24/22 01/24/22 History multivit with 1 tab PO DAILY 01/24/22 01/24/22 History gwdroqpt-bahh-JY-lutein 8 mg iron-400 mcg-300 mcg tablet (Centrum Silver Women) ondansetron HCl 8 mg tablet 8 mg PO Q8 PRN Nausea 01/24/22 01/24/22 History oxycodone-acetaminophen 5 mg-325 1 tab PO Q6 PRN Pain, Moderate 01/24/22 01/24/22 History mg tablet sertraline 100 mg tablet 100 mg PO DAILY 01/24/22 01/24/22 History vibegron 75 mg tablet (Gemtesa) 75 mg PO .DAILY AT NOON 01/24/22 01/24/22 History Allergies Allergy/AdvReac Type Severity Reaction Status Date / Time celecoxib Allergy Severe Rash Verified 08/07/21 13:16 ciprofloxacin [From Cipro] Allergy Severe DRESS Verified 08/07/21 13:16 adhesive Allergy Intermediate RED Verified 08/07/21 13:16 IRRITATED SKIN Sulfa (Sulfonamide Allergy Mild Hives Verified 08/07/21 13:16 Antibiotics) amoxicillin Allergy Unknown Rash Verified 08/07/21 13:16 cefepime Allergy Unknown Rash, drug Verified 08/07/21 13:16 eruption Penicillins Allergy Unknown Rash Verified 08/07/21 13:16 lactose AdvReac Intermediate GI UPSET Verified 08/07/21 13:16 vancomycin AdvReac Unknown Mook Verified 08/07/21 13:16 syndrome 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 Urinary tract infection Urticaria Surgical History H/O: hysterectomy History of cholecystectomy History of splenectomy Family History Other Family history non-contributory Social History Smoking Status: Never smoker Hx Alcohol Use: No Hx Substance Use: No Preferred Language: Stateless Communication Ability: Effective Automatic Spooler Operator Required: No Beliefs That Will Affect Care: None marital status: / Current Living Situation: Alone How many Children do You have: 6 Feels Safe at Home: Yes Assistive Devices: None Review of Systems A total of 10 systems reviewed and were otherwise negative Physical Exam Vital Signs Vital Signs - 24 hr 01/24/22 16:07 01/24/22 17:12 Temperature 37.4 C Temperature Source Temporal Artery Scan Pulse Rate 102 H Pulse Rate [Apical] 89 Respiratory Rate 20 16 Respiratory Effort / Characteristics Non-Labored Spontaneous Non-Labored Spontaneous Respiratory Depth Normal Normal Respiratory Pattern Regular Blood Pressure 152/79 H Blood Pressure [Right Arm] 119/62 Blood Pressure Mean 103 Blood Pressure Mean [Right Arm] 81 Pulse Oximetry 94 94 Oxygen Delivery Method Room Air Room Air Sepsis Recent Fever Within 48 Hours No Sepsis New/Unexplained Change in Mental Status No Sepsis Action Taken by Nursing No Action Required General: Well developed well nourished older female who appears in no acute distress, breathing comfortably on room air. Normal speech HEENT: Normal cephalic atraumatic. Pupils are equal round and reactive to light. Extraocular movements are intact. Oropharynx is pink with moist mucous membranes. No swelling of the mouth lips or tongue. Neck: Supple with a midline trachea. No meningeal signs or stiffness, no JVD or bruits. No Stridor. Chest: Clear to auscultation bilaterally. No wheezes or rhonchi. No increased work of breathing. Heart: Regular rate and rhythm without murmurs or gallops. Abdomen: Soft nontender, nondistended without rebound guarding or rigidity. Extremities: No cyanosis clubbing or edema. No calf tenderness or assymetry Spine/Back. Non tender to palpation. No CVA tenderness Skin: Good turgor without rashes. Neurologic exam: Cranial nerves two through 12 are intact. Motor and sensation are intact and symmetrical throughout. Course Administered Medications Cetirizine HCl (Cetirizine Hcl 10 Mg Tablet) 10 mg PO BID [facility] Stop: 02/23/22 20:59 Last Admin: 01/24/22 21:38 Dose: 10 mg Documented By: CAMI Hydroxyzine HCl (Hydroxyzine Hcl 10 Mg Tab) 10 mg PO [facility] Stop: 02/23/22 20:59 Last Admin: 01/24/22 21:38 Dose: 10 mg Documented By: CAMI Meropenem 500 mg/ Syringe 10 mls @ 2 mls/min IV Q12H [facility]; Protocol Stop: 02/03/22 21:59 Last Admin: 01/24/22 22:51 Dose: 2 mls/min Documented By: CAMI Multivitamins 10 ml/ Thiamine HCl 100 mg/ Folic Acid 1 mg/Sodium Chloride 1,011.2 mls @ 100 mls/hr IV .Q10H7M ONE Stop: 01/25/22 07:51 Last Admin: 01/24/22 22:31 Dose: 100 mls/hr Documented By: CAMI Lorazepam (Lorazepam 0.5 Mg Tab) 0.5 mg PO [facility] Stop: 02/23/22 20:59 Last Admin: 01/24/22 21:38 Dose: 0.5 mg Documented By: CAMI Ondansetron HCl (Ondansetron 4 Mg Od Tab) 8 mg PO Q8 PRN PRN Reason: Nausea Stop: 02/23/22 20:50 Last Admin: 01/24/22 22:28 Dose: 8 mg Documented By: CAMI Oxycodone/Acetaminophen (Oxycodone/Acetaminophen 5mg/325mg Tab) 1 tab PO Q8 PRN PRN Reason: Pain, Moderate Stop: 02/07/22 20:23 Last Admin: 01/24/22 22:27 Dose: 1 tab Documented By: CAMI Discontinued Medications Sodium Chloride (Nss 1000ml) 1,000 mls @ 999 mls/hr IV .Q1H1M ONE Stop: 01/24/22 18:54 Last Infusion: 01/24/22 19:13 Dose: 0 mls/hr Documented By: Admin: 01/24/22 18:10 Dose: 999 mls/hr Documented By: KEYLA Prednisone (Prednisone 20 Mg Tab) 40 mg PO NOW STA Stop: 01/24/22 21:09 Last Admin: 01/24/22 22:05 Dose: Not Given Documented By: CAMI Medical Decision Making Differential Diagnosis Diarrhea, C. difficile, dehydration, complication related to cancer or chemotherapy, infection, influenza, GI illness, vascular disease Medical Records Attestation: I reviewed the patient's medical records. Home Medications Current Medication List: was personally reviewed by me Laboratory Data Attestation: I reviewed the patient's lab results. Result diagrams: 01/24/22 16:52 01/24/22 16:52 Lab Results 01/24/22 01/24/22 01/24/22 Range/Units 16:52 16:52 16:52 WBC 12.03 H (4.8-10.8) K/ul RBC 3.96 (3.93-5.22) M/uL Hgb 12.5 (12.0-16.0) g/dl Hct 36.9 (34.1-44.9) % MCV 93.2 (80.0-100.0) fL MCH 31.6 (25.0-34.0) pg MCHC 33.9 (32.0-36.0) g/dL RDW Std Deviation 53.8 H (36.4-46.3) fL RDW Coeff of Bakari 15.9 H (11.5-14.5) % Plt Count 317 (130-400) K/uL MPV 10.4 (9.4-12.3) fL Immature Gran % (Auto) 0.2 % Neut % (Auto) 60.7 % Lymph % (Auto) 18.3 % Deuel % (Auto) 11.0 % Eos % (Auto) 8.6 % Baso % (Auto) 1.2 % Neut # (Auto) 7.30 H (1.4-6.5) K/uL Lymph # (Auto) 2.20 (1.2-3.4) K/uL Deuel # (Auto) 1.32 H (0.24-0.82) K/uL Eos # (Auto) 1.04 H (0-0.50) K/uL Baso # (Auto) 0.14 (0-0.2) K/uL Immature Gran # (Auto) 0.03 H (0.00-0.02) K/uL Acanthocytes (Spur) 1+ Sodium 135 L (136-145) mmol/L Potassium 3.7 (3.5-5.1) mmol/L Chloride 99 (98-107) mmol/L Carbon Dioxide 28 (21-32) mmol/L Anion Gap 8 (3-11) BUN 41 H (6-23) mg/dl Creatinine 2.05 H (0.6-1.2) mg/dl Est Cr Clr Drug Dosing 20.1 ml/min Est GFR ( Amer) 25.7 ml/min Est GFR (Non-Af Amer) 22.2 ml/min BUN/Creatinine Ratio 20.0 (10-20) Glucose 129 H (70-99(Fasting)) mg/dl Calcium 10.0 (8.5-10.1) mg/dl Total Bilirubin 0.5 (0.2-1.0) mg/dl AST 24 (13-39) U/L ALT 12 (7-52) U/L Alkaline Phosphatase 61 (34-104) U/L Total Protein 7.8 (6.0-8.3) gm/dl Albumin 4.0 (3.4-5.0) gm/dl Globulin 3.8 (2.5-4.0) gm/dl Albumin/Globulin Ratio 1.1 (0.9-2) Procalcitonin (0-0.5) ng/ml Urine Color Urine Appearance (Clear) Urine pH (4.5-7.5) Ur Specific [place] (1.000-1.030) Urine Protein (Negative) Urine Glucose (UA) (Negative) Urine Ketones (Negative) Urine Blood (Negative) Urine Nitrite (Negative) Urine Bilirubin (Negative) Urine Urobilinogen (Negative) Ur Leukocyte Esterase (Negative) Urine WBC (Auto) (0-5) /hpf Urine RBC (Auto) (0-4) /hpf U Hyaline Cast (Auto) (0-5) /lpf U Epithel Cells (Auto) (0-5) /lpf Urine Bacteria (Auto) (Negative) Urine Yeast SARS-CoV-2 (PCR) NEGATIVE (Negative) Influenza Type A (PCR) Negative (Neg) Influenza Type B (PCR) Negative (Neg) RSV (RT-PCR) Negative (Neg) 01/24/22 01/24/22 Range/Units 16:52 16:52 WBC (4.8-10.8) K/ul RBC (3.93-5.22) M/uL Hgb (12.0-16.0) g/dl Hct (34.1-44.9) % MCV (80.0-100.0) fL MCH (25.0-34.0) pg MCHC (32.0-36.0) g/dL RDW Std Deviation (36.4-46.3) fL RDW Coeff of Bakari (11.5-14.5) % Plt Count (130-400) K/uL MPV (9.4-12.3) fL Immature Gran % (Auto) % Neut % (Auto) % Lymph % (Auto) % Deuel % (Auto) % Eos % (Auto) % Baso % (Auto) % Neut # (Auto) (1.4-6.5) K/uL Lymph # (Auto) (1.2-3.4) K/uL Deuel # (Auto) (0.24-0.82) K/uL Eos # (Auto) (0-0.50) K/uL Baso # (Auto) (0-0.2) K/uL Immature Gran # (Auto) (0.00-0.02) K/uL Acanthocytes (Spur) Sodium (136-145) mmol/L Potassium (3.5-5.1) mmol/L Chloride (98-107) mmol/L Carbon Dioxide (21-32) mmol/L Anion Gap (3-11) BUN (6-23) mg/dl Creatinine (0.6-1.2) mg/dl Est Cr Clr Drug Dosing ml/min Est GFR ( Amer) ml/min Est GFR (Non-Af Amer) ml/min BUN/Creatinine Ratio (10-20) Glucose (70-99(Fasting)) mg/dl Calcium (8.5-10.1) mg/dl Total Bilirubin (0.2-1.0) mg/dl AST (13-39) U/L ALT (7-52) U/L Alkaline Phosphatase (34-104) U/L Total Protein (6.0-8.3) gm/dl Albumin (3.4-5.0) gm/dl Globulin (2.5-4.0) gm/dl Albumin/Globulin Ratio (0.9-2) Procalcitonin 0.07 (0-0.5) ng/ml Urine Color Yellow Urine Appearance Turbid A (Clear) Urine pH 6.5 (4.5-7.5) Ur Specific [place] 1.015 (1.000-1.030) Urine Protein 2+ H (Negative) Urine Glucose (UA) Negative (Negative) Urine Ketones Trace H (Negative) Urine Blood 2+ H (Negative) Urine Nitrite Negative (Negative) Urine Bilirubin Negative (Negative) Urine Urobilinogen Negative (Negative) Ur Leukocyte Esterase 3+ H (Negative) Urine WBC (Auto) >30 H (0-5) /hpf Urine RBC (Auto) 10-30 H (0-4) /hpf U Hyaline Cast (Auto) 1-5 (0-5) /lpf U Epithel Cells (Auto) 20-30 H (0-5) /lpf Urine Bacteria (Auto) Negative (Negative) Urine Yeast Not Reportable SARS-CoV-2 (PCR) (Negative) Influenza Type A (PCR) (Neg) Influenza Type B (PCR) (Neg) RSV (RT-PCR) (Neg) Imaging Data Attestation: I personally reviewed and interpreted this imaging study as follows: My Impression: Chest x-rayno acute infiltrate, failure, pneumothorax. She has a previously documented node in the left suprahilar area Radiologist's Impression: Chest X-Ray 01/24/22 16:13 SINGLE VIEW CHEST CLINICAL HISTORY: Illness FINDINGS: An AP, portable, upright chest radiograph is compared to study dated 10/24/2020 and correlated with chest CT dated 10/25/2020. The cardiomediastinal silhouette is unremarkable. Chronic interstitial thickening is similar to previous. A left suprahilar nodule measures up to 2.5 cm. No airspace consolidation or large pleural effusion is identified. Scarring/atelectasis is noted at the lung bases. No pneumothorax is seen. The skeletal structures are osteopenic. The bony thorax is grossly intact. A surgical clip is seen in the left upper quadrant. IMPRESSION: 1. No active disease in the chest. 2. A 2.5 cm left suprahilar nodule is similar to previous. ACT 112: Negative or not required by law. Electronically signed by: Angel Samaniego M.D. 01/24/2022 5:13 PM ECG Data Attestation: I personally reviewed and interpreted this ECG as follows: Indication: + weakness Rate (beats per minute): 87 Rhythm: + normal sinus ECG Intervals/blocks: + Normal QRS and + Normal QT ECG Ellerbe: + Normal ECG ST segments: + Normal ST segments ECG Findings: no PACs or no PVCs Comparison ECG Date: from (10/24/20) Change: no significant change MDM Narrative This patient comes in as described above. She was placed on a compliance monitor in room C3. She has had weight loss and diarrhea and dehydration. Her creatinine has increased significantly to over 2 and clinically she looks dehydrated her abdomen is benign. Her white count is mildly elevated but she has not thrombocytopenic or neutropenic or significantly anemic. IV access was established and she was hydrated with a 1 L IV normal saline bolus. COVID/influenza/flu was negative. Chest x-ray was negative. EKG was u nremarkable. She was reassessed frequently. I also ordered stool studies including C. difficile and she was reassessed. The stool studies are pending. She has no significant electrolyte or metabolic abnormality with exception of her BUN and creatinine being elevated which is likely prerenal/dehydration. Her lactic acid was normal which would go against ischemic colitis and sepsis. Her procalcitonin was also normal. I do think she needs to be admitted/observed for hydration and further treatment and evaluation. I have consulted the [facility] team to see her in the ER for these measures. Continuous cardiac monitoring: Orders placed in EMR for continuous cardiac monitoring. Upon my interpretation patient was noted to be in normal sinus rhythm with a rate of 78. Impression & Plan Weakness, Hepatocellular carcinoma, Diarrhea, Dehydration, Recent weight loss, Not currently Discharge Plan Visit Data Chief Complaint: Diarrhea Stated Complaint: REFERRED BY DOC, DEHYDRATION, DIARREAH 2 WKS ED Provider: Bradley Coulter Discharge Problem: Weakness, Hepatocellular carcinoma, Diarrhea, Dehydration, Recent weight loss, Not currently Patient Disposition: Admitted As Inpatient Discharge Instructions Interventions: ED Discharge Assessment Last Done: 01/24/22 20:17
--- NOTE | 2022-01-24 19:07 | History & Physical Report ---
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 Meza) s/p chemoembolization by [facility], carcinoid tumor of the lung, hairy cell leukemia (in remission), CKD3b who presented to [facility] for evaluation of weakness, generalized fatigue, and diarrhea, subsequently found to be dehydrated based on labs. Work-up for her illness is ongoing. Generalized Fatigue - Approx. 2 weeks of worsening fatigue in the setting of metastatic cancer, recurrent UTIs, and diarrheal illness - Work-up as follows: - WBC 12 with left shift (+monocytosis, eosinophilia, neutrophilia) - BUN 41 / Cr 2.05 - Procal 0.07 - UA: 2+ protein, 2+ blood, 3+ LE, >30 WBC - Blood cultures, urine cultures, stool studies pending - Likely multifactorial between diarrhea, poor PO intake, and suspected recurrent UTI - Hydrate and add daily IV thiamine and folic acid - Consult PT and OT -- patient reports recent fall at home while getting out of the shower (2) Diarrhea: Plan: Diarrhea - Approx. 2 weeks of worsening diarrhea that at times is continuous, and as of recent, intermittent; no hematochezia or melena reported - Patient on methenamine and has frequent exposure to antibiotics - Check stool PCR panel as well as C. diff - No significantly reported adverse effects of diarrhea with methenamine - Hydration to be provided. Hold from antidiarrheals until situation is more clear (3) Chronic cystitis: Plan: Recurrent UTI / Chronic Cystitis - Reporting several days' worth of more frequent urination, urgency, and dysuria - UA: 2+ protein, 2+ blood, 3+ LE, >30 WBC on arrival -- though 20-30 epis and known chronic cystitis - Given degree of weakness, poor PO intake, constitutional symptoms, will treat as complicated UTI until situation is more clear - Unfortunately, patient has h/o Pseudomonal, E. coli, and Klebsiella UTIs, but significant ABX allergies that limit broad-spectrum choices (follows with A&I) - Opt to treat with meropenem for now -- tolerated well previously - Hold methenamine with ongoing ABX She has minimal abdominal tenderness on exam. Can consider CT-A/P if there is any concern for worsening intraabdominal process. Patient normally takes fosfomycin with acute UTIs - this will likely be an option moving forward, however, given overall presentation and pending w/u, will start with meropenem IV and can convert to this when/if appropriate (4) Allergy to multiple antibiotics: Plan: Significant History of Pharmacologic Allergens - patient has a significant amount of cutaneous allergies to antimicrobials - has followed with Dr. Perea, patch driller here, who recommended the following whenever on non-regular ABX - prednisone 40mg daily, cetirizine 10 mg BID, hydroxyzine 10 mg HS while taking (5) Chronic kidney disease with active medical management without dialysis, stage 3 (moderate): Plan: SALAZAR-on-CKD3 - Follows with Dr. Alberto for CKD3b - Baseline Cr 1.0-1.3 - On arrival, BUN 41 / Cr 2.05 - Majority of SALAZAR likely secondary to dehydration given poor PO intake, frequent diarrhea -- noted that some of patient's hepatic cancer has invaded the R kidney on 12/2021 MRI - Rehydrate, monitor on daily labs (6) Hepatocellular carcinoma: Plan: Metastatic HCC - Follows with Dr. Meza, currently on immunotherapy (Optivo), receives MRI q3mo - Evidence of spread to kidney and retroperitoneal lymphatics on on 12/2021 MRI - Continue Percocet and Zofran (7) Weight loss: Plan: Weight Loss - >20lb weight loss in the last 6 months per EMR and reported by patient - 2 weeks of worsening PO intake and diarrhea are noted in this regard - Significant contribution likely from worsening cancer burden and chronic inflammatory state - Will consult nutrition while here for inpatient/outpatient recommendations - Nutritional shakes ordered - Thiamine and folate replacement daily Plan Code: DNR/DNI PPX: Lovenox Diet: Regular Dispo: MS History of Present Illness Primary Care Provider: Bradley Jeter 81-year-old female with history of recurrent 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 Meza) s/p chemoembolization by [facility], carcinoid tumor of the lung, hairy cell leukemia (in remission), CKD3b who presented to [facility] for evaluation of weakness, generalized fatigue, and diarrhea. She is accompanied by her daughter, who contributes to the history. She says beginning about 2 to 3 weeks ago, she began feeling ill. She describes this is a severe sense of fatigue, lack of appetite. She also says over the last couple days she has got new chills and night sweats. She notes that she began developing diarrhea around this time. Initially, it was pretty much [id number]. Then it became more spaced out. However, 2 days ago, she said it was "nearly every hour." Denies hematochezia/melena. She thinks that over the past couple days, she is also had some increased urinary frequency, urgency, and dysuria. She further adds that over the past 2 months, she has lost almost 20 pounds. She is currently on immunotherapy, Opdivo. She receives MRIs of the abdomen and pelvis every [address] Meza. Most recent scan from December 2021 demonstrated "continue to enlargement of the right hepatic lobe viable tumor surrounding the treatment cavity. Increasing extrahepatic tumor extension invading the right kidney to a greater extent than previously. Enlarging metastatic hepatocellular carcinoma deposit at the posterior margin Increasing metastatic retroperitoneal lymphadenopathy. " In the ED, patient found to be mildly hypertensive to 150/80 with heart rate 102. Weight 60.6 kg which is a notable change from 69.4 kg in July 2021. Labs demonstrated leukocytosis with left shift, monocytosis, eosinophilia. Chemistries reveal mild hyponatremia 135, BUN 41/creatinine 2.05 (baseline creatinine about 1.1). LFTs normal. Urine had a turbid appearance with 2+ protein, 2+ blood, 3+ leuk esterase in the setting of over 30 WBCs, 10-30 RBCs, but also 20-30 epithelial cells. Urine yeast negative. COVID-negative, flu negative, RSV negative. Chest x-ray demonstrated similar-appearing left suprahilar lung nodule. --- This documentation was created utilizing dictation software. As such, syntax, grammatical, and word-choice errors may be present. Notes are screened prior to submission in an attempt to reduce these errors. If there are any questions or concerns, please contact the author directly for clarification. Allergies Allergy/AdvReac Type Severity Reaction Status Date / Time celecoxib Allergy Severe Rash Verified 08/07/21 13:16 ciprofloxacin [From Cipro] Allergy Severe DRESS Verified 08/07/21 13:16 adhesive Allergy Intermediate RED Verified 08/07/21 13:16 IRRITATED SKIN Sulfa (Sulfonamide Allergy Mild Hives Verified 08/07/21 13:16 Antibiotics) amoxicillin Allergy Unknown Rash Verified 08/07/21 13:16 cefepime Allergy Unknown Rash, drug Verified 08/07/21 13:16 eruption Penicillins Allergy Unknown Rash Verified 08/07/21 13:16 lactose AdvReac Intermediate GI UPSET Verified 08/07/21 13:16 vancomycin AdvReac Unknown Mook Verified 08/07/21 13:16 syndrome Home Medications Medication Instructions Recorded Confirmed Type polyethylene glycol 3350 17 17 g PO DAILY PRN Constipation 08/26/18 01/24/22 History gram/dose oral powder (Miralax) lorazepam 0.5 mg tablet (Ativan) 0.5 mg PO HS 04/08/19 01/24/22 History acetaminophen 500 mg tablet 500 mg PO Q6H PRN Pain 04/12/20 01/24/22 History (Tylenol Extra Strength) amlodipine 2.5 mg tablet 2.5 mg PO DAILY 05/11/20 01/24/22 History ascorbic acid (vitamin C) 500 mg 500 mg PO DAILY 09/16/20 01/24/22 History tablet (Vitamin C) methenamine hippurate 1 gram tablet 1 g PO BID 09/16/20 01/24/22 History lorazepam 0.5 mg tablet 0.5 mg PO UD PRN for cancer 10/24/20 01/24/22 History treatment fosfomycin tromethamine 3 gram 1 packet PO ONCE PRN uti 05/31/21 01/24/22 History oral packet Lactobacillus acidophilus 1.5 mg 1,000 mmu cells PO DAILY 01/24/22 01/24/22 History (250 million cell) capsule (Probiotic Acidophilus) Opdivo 1 dose IV UD 01/24/22 01/24/22 History biotin 1,000 mcg chewable tablet 1,000 mcg PO DAILY 01/24/22 01/24/22 History cholecalciferol (vitamin D3) 50 50 mcg PO DAILY 01/24/22 01/24/22 History mcg (2,000 unit) capsule (Vitamin D3) levothyroxine 25 mcg tablet 25 mcg PO QAM 01/24/22 01/24/22 History magnesium 250 mg tablet 250 mg PO DAILY 01/24/22 01/24/22 History multivit with 1 tab PO DAILY 01/24/22 01/24/22 History llgdmeqg-qgbd-HQ-lutein 8 mg iron-400 mcg-300 mcg tablet (Centrum Silver Women) ondansetron HCl 8 mg tablet 8 mg PO Q8 PRN Nausea 01/24/22 01/24/22 History oxycodone-acetaminophen 5 mg-325 1 tab PO Q6 PRN Pain, Moderate 01/24/22 01/24/22 History mg tablet sertraline 100 mg tablet 100 mg PO DAILY 01/24/22 01/24/22 History vibegron 75 mg tablet (Gemtesa) 75 mg PO .DAILY AT NOON 01/24/22 01/24/22 History 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 Urinary tract infection Urticaria Surgical History H/O: hysterectomy History of cholecystectomy History of splenectomy Family History Other Family history non-contributory Social History Smoking Status: Never smoker Second Hand Exposure: Yes (first smoked); Hx Alcohol Use: No Hx Substance Use: Yes Substance Use Type Other:: patient stated she takes percoset Q6H Preferred Language: Kinyarwanda Communication Ability: Effective Crepe Laminator Operator Required: No Beliefs That Will Affect Care: Taoist Taoist Beliefs: Patient stated she is Restoration marital status: / Current Living Situation: Family Current Living Situation Comment: with son and daughter in law at this time How many Children do You have: 6 Other Information That Helps Us Care for You: No Feels Safe at Home: Yes Safety Concerns: Feels Safe At This Time Assistive Devices: Cane Assistive Devices Comment: patient wears reading glasses Review of Systems Review of Systems: as per HPI Physical Exam Physical Exam: General: 81-year old female who appears thin, frail, but in no acute distress. HEENT: NCAT. - Eyes - Sclera are white, anicteric, and without injection. - Mouth - MMM - Neck - supple, no appreciable JVD Cardiac: Normal rate and regular rhythm; S1 and S2 present with no murmurs, rubs, or gallops. Pulmonary: Good respiratory effort with symmetric expansion of the chest. No use of accessory muscles. Lungs were clear to auscultation bilaterally with no crackles or wheezes. Abdominal: Normoactive bowel sounds. Abdomen was soft, mildly distended, and mildly TTP in the suprapubic region. Extremities: Upper and lower extremities are warm and well perfused. No peripheral edema in the lower extremities bilaterally Psych: Well-developed, well-nourished, appropriately dressed for occasion. Behavior is cooperative and appropriate. Affect is WNL. Insight is appropriate. Results & Data Results & Data ([facility]) Vital Signs (Past 12 Hours) Vital Signs Temp Pulse Pulse Resp BP BP Pulse Ox 01/24/22 17:12 89 16 119/62 94 01/24/22 16:07 37.4 C 102 H 20 152/79 H 94 O2 Del Method 01/24/22 17:12 Room Air 01/24/22 16:07 Room Air Laboratory Results Laboratory Results WBC 12.03 K/ul (4.8-10.8) H 01/24/22 16:52 RBC 3.96 M/uL (3.93-5.22) 01/24/22 16:52 Hgb 12.5 g/dl (12.0-16.0) 01/24/22 16:52 Hct 36.9 % (34.1-44.9) 01/24/22 16:52 MCV 93.2 fL (80.0-100.0) 01/24/22 16:52 MCH 31.6 pg (25.0-34.0) 01/24/22 16:52 MCHC 33.9 g/dL (32.0-36.0) 01/24/22 16:52 RDW Std Deviation 53.8 fL (36.4-46.3) H 01/24/22 16:52 RDW Coeff of Bakari 15.9 % (11.5-14.5) H 01/24/22 16:52 Plt Count 317 K/uL (130-400) 01/24/22 16:52 MPV 10.4 fL (9.4-12.3) 01/24/22 16:52 Immature Gran % (Auto) 0.2 % 01/24/22 16:52 Neut % (Auto) 60.7 % 01/24/22 16:52 Lymph % (Auto) 18.3 % 01/24/22 16:52 Bent % (Auto) 11.0 % 01/24/22 16:52 Eos % (Auto) 8.6 % 01/24/22 16:52 Baso % (Auto) 1.2 % 01/24/22 16:52 Neut # (Auto) 7.30 K/uL (1.4-6.5) H 01/24/22 16:52 Lymph # (Auto) 2.20 K/uL (1.2-3.4) 01/24/22 16:52 Bent # (Auto) 1.32 K/uL (0.24-0.82) H 01/24/22 16:52 Eos # (Auto) 1.04 K/uL (0-0.50) H 01/24/22 16:52 Baso # (Auto) 0.14 K/uL (0-0.2) 01/24/22 16:52 Immature Gran # (Auto) 0.03 K/uL (0.00-0.02) H 01/24/22 16:52 Acanthocytes (Spur) 1+ 01/24/22 16:52 Sodium 135 mmol/L (136-145) L 01/24/22 16:52 Potassium 3.7 mmol/L (3.5-5.1) 01/24/22 16:52 Chloride 99 mmol/L (98-107) 01/24/22 16:52 Carbon Dioxide 28 mmol/L (21-32) 01/24/22 16:52 Anion Gap 8 (3-11) 01/24/22 16:52 BUN 41 mg/dl (6-23) H 01/24/22 16:52 Creatinine 2.05 mg/dl (0.6-1.2) H 01/24/22 16:52 Est Cr Clr Drug Dosing 20.1 ml/min 01/24/22 16:52 Est GFR ( Amer) 25.7 ml/min 01/24/22 16:52 Est GFR (Non-Af Amer) 22.2 ml/min 01/24/22 16:52 BUN/Creatinine Ratio 20.0 (10-20) 01/24/22 16:52 Glucose 129 mg/dl (70-99(Fasting)) H 01/24/22 16:52 Lactate 0.6 mmol/L (0.4-2.0) 01/24/22 19:09 Calcium 10.0 mg/dl (8.5-10.1) 01/24/22 16:52 Total Bilirubin 0.5 mg/dl (0.2-1.0) 01/24/22 16:52 AST 24 U/L (13-39) 01/24/22 16:52 ALT 12 U/L (7-52) 01/24/22 16:52 Alkaline Phosphatase 61 U/L (34-104) 01/24/22 16:52 Total Protein 7.8 gm/dl (6.0-8.3) 01/24/22 16:52 Albumin 4.0 gm/dl (3.4-5.0) 01/24/22 16:52 Globulin 3.8 gm/dl (2.5-4.0) 01/24/22 16:52 Albumin/Globulin Ratio 1.1 (0.9-2) 01/24/22 16:52 Procalcitonin 0.07 ng/ml (0-0.5) 01/24/22 16:52 Urine Color Yellow 01/24/22 16:52 Urine Appearance Turbid (Clear) A 01/24/22 16:52 Urine pH 6.5 (4.5-7.5) 01/24/22 16:52 Ur Specific Herbster 1.015 (1.000-1.030) 01/24/22 16:52 Urine Protein 2+ (Negative) H 01/24/22 16:52 Urine Glucose (UA) Negative (Negative) 01/24/22 16:52 Urine Ketones Trace (Negative) H 01/24/22 16:52 Urine Blood 2+ (Negative) H 01/24/22 16:52 Urine Nitrite Negative (Negative) 01/24/22 16:52 Urine Bilirubin Negative (Negative) 01/24/22 16:52 Urine Urobilinogen Negative (Negative) 01/24/22 16:52 Ur Leukocyte Esterase 3+ (Negative) H 01/24/22 16:52 Urine WBC (Auto) >30 /hpf (0-5) H 01/24/22 16:52 Urine RBC (Auto) 10-30 /hpf (0-4) H 01/24/22 16:52 U Hyaline Cast (Auto) 1-5 /lpf (0-5) 01/24/22 16:52 U Epithel Cells (Auto) 20-30 /lpf (0-5) H 01/24/22 16:52 Urine Bacteria (Auto) Negative (Negative) 01/24/22 16:52 Urine Yeast Not Reportable 01/24/22 16:52 SARS-CoV-2 (PCR) NEGATIVE (Negative) 01/24/22 16:52 Influenza Type A (PCR) Negative (Neg) 01/24/22 16:52 Influenza Type B (PCR) Negative (Neg) 01/24/22 16:52 RSV (RT-PCR) Negative (Neg) 01/24/22 16:52 Impressions Chest X-Ray 01/24/22 16:13 SINGLE VIEW CHEST CLINICAL HISTORY: Illness FINDINGS: An AP, portable, upright chest radiograph is compared to study dated 10/24/2020 and correlated with chest CT dated 10/25/2020. The cardiomediastinal silhouette is unremarkable. Chronic interstitial thickening is similar to previous. A left suprahilar nodule measures up to 2.5 cm. No airspace consolidation or large pleural effusion is identified. Scarring/atelectasis is noted at the lung bases. No pneumothorax is seen. The skeletal structures are osteopenic. The bony thorax is grossly intact. A surgical clip is seen in the left upper quadrant. IMPRESSION: 1. No active disease in the chest. 2. A 2.5 cm left suprahilar nodule is similar to previous. ACT 112: Negative or not required by law. Electronically signed by: Angel Samaniego M.D. 01/24/2022 5:13 PM Supervising Physician Co-Signing Physician Notes Patient seen and examined, chart reviewed, case discussed with Dr. Toscano and I agree with the assessment and plan as above. In brief, patient is an 81yo female with HCC presenting with fatigue, weight loss, diarrhea. Sleeping comfortably during my encounter +S1/S2, regular Lungs CTA Abd soft Labs and images reviewed Assessment/Plan -Check stool studies -Meropenem for UTI - patient with increased frequency/urgency and some dysuria. Significant medication allergies - treatment with Prednisone, Hydroxyzine and Cetirizine while on antibiotic therapy -IVF, monitor renal function -Remainder of plan as above Resident Activity Tracking Resident Involvement: Resident Care Provided Care Provided: Adult Hospital Medicine
[2022-01-24] MEDS ORDERED: LACTATED RINGER'S 1,000 ML IV SCH (19:15)
[2022-01-24] MEDS ORDERED: hydrOXYzine HCl 10 MG TAB PO SCH (20:30)
[2022-01-24] MEDS ORDERED: PROMETHAZINE HCL 12.5 MG in SODIUM CHLORIDE 0.9% 50 ML IV PRN (20:53)
[2022-01-24] MEDS ORDERED: predniSONE 20 MG TAB PO STA (21:08)
[2022-01-24] MEDS: CETIRIZINE HCL 10 MG TABLET PO SCH (21:38)
[2022-01-24] MEDS: hydrOXYzine HCl 10 MG TAB PO SCH (21:38)
[2022-01-24] MEDS: LORazepam 0.5 MG TAB PO SCH (21:38)
[2022-01-24] MEDS ORDERED: MULTI-VITAMIN INFUSION 10 ML, THIAMINE HCL 100 MG, FOLIC ACID 1 MG in SODIUM CHLORIDE 0... IV ONE (21:45)
[2022-01-24] MEDS: oxyCODONE/ACETAMINOPHEN 5mg/325mg TAB PO PRN (22:27)
[2022-01-24] MEDS: ONDANSETRON 4 MG OD TAB PO PRN (22:28)
[2022-01-24] MEDS: MEROPENEM 500 MG in SYRINGE 0 ML IV SCH (22:51)
--- NOTE | 2022-01-25 02:11 | Billing Data ---
Date of Service January 24, 2022 Coding Level of Care Code 82928 Initial Inpt Care Lvl 3
[2022-01-25 08:15] LABS: Basophils # (auto) 0.17 K/uL (0-0.2); Basophils % (auto) 1.4 %; Eosinophils # (auto) 1.34 K/uL (0-0.50); Eosinophils % (auto) 10.6 %; Hematocrit (blood only) 32.5 % (34.1-44.9); Hemoglobin 10.9 g/dl (12.0-16.0); Immature Granulocytes # (auto) 0.04 K/uL (0.00-0.02); Immature Granulocytes % (auto) 0.3 %; Lymphocytes # (auto) 2.13 K/uL (1.2-3.4); Lymphocytes % (auto) 16.9 %; Mean Corpuscular Hgb Conc 33.5 g/dL (32.0-36.0); Mean Corpuscular Volume 92.3 fL (80.0-100.0); Mean Platelet Volume 11.2 fL (9.4-12.3); Monocytes # (auto) 1.65 K/uL (0.24-0.82); Monocytes % (auto) 13.1 %; Neutrophils # (auto) 7.26 K/uL (1.4-6.5); Neutrophils % (auto) 57.7 %; Platelet Count 285 K/uL (130-400); RDW Standard Deviation 53.8 fL (36.4-46.3); Red Blood Count 3.52 M/uL (3.93-5.22); White Blood Count 12.59 K/ul (4.8-10.8)
[2022-01-25 08:48] LABS: Albumin Globulin Ratio 1.1 (0.9-2); Albumin Level 3.2 gm/dl (3.4-5.0); BUN Creatinine Ratio 23.9 (10-20); Bilirubin,Total 0.5 mg/dl (0.2-1.0); Calcium 8.8 mg/dl (8.5-10.1); Creatinine Clr Calc Pharmacy 25.3 ml/min; Est GFR (African American) 33.9 ml/min; Est GFR (Non-African American) 29.2 ml/min; Potassium 3.6 mmol/L (3.5-5.1); Total Protein 6.2 gm/dl (6.0-8.3)
[2022-01-25] MEDS: CETIRIZINE HCL 10 MG TABLET PO SCH ×2 (09:07→21:42)
[2022-01-25] MEDS: SERTRALINE HCL 100 MG TABLET PO SCH (09:07)
[2022-01-25] MEDS: amLODIPine BESYLATE 5 MG TAB PO SCH (09:07)
[2022-01-25] MEDS: predniSONE 20 MG TAB PO SCH (09:07)
[2022-01-25] MEDS: LEVOTHYROXINE SODIUM 25 MCG TABLET PO SCH (09:08)
[2022-01-25] MEDS: THIAMINE HCL 200 MG in SODIUM CHLORIDE 0.9% 50 ML IV SCH (09:20)
[2022-01-25] MEDS: MEROPENEM 500 MG in SYRINGE 0 ML IV SCH ×2 (09:21→17:41)
[2022-01-25] MEDS: FOLIC ACID 1 MG in SYRINGE 9.8 ML IV SCH (12:01)
[2022-01-25] MEDS ORDERED: SODIUM CHLORIDE 0.9% 1000ML 1,000 ML IV SCH (17:15)
[2022-01-25] MEDS: oxyCODONE/ACETAMINOPHEN 5mg/325mg TAB PO PRN (17:37)
[2022-01-25] MEDS: ONDANSETRON INJ 2 MG/ML 2 ML VIAL IV PRN (20:11)
[2022-01-25 20:26] LABS: Cdiff Toxin B Gene (2yr or >) Positive Cdiff Gene (Neg)
[2022-01-25 20:44] LABS: Adenovirus F 40/41 PCR Not Detected (NotDetected); Astrovirus PCR Not Detected (NotDetected); Campylobacter PCR Not Detected (NotDetected); Cryptosporidium PCR Not Detected (NotDetected); Cyclospora cayetanensis PCR Not Detected (NotDetected); Entamoeba histolytica PCR Not Detected (NotDetected); Enteroaggregative E.coli(EAEC) Not Detected (NotDetected); Enteropathogenic E.coli (EPEC) Not Detected (NotDetected); Enterotoxigenic E.coli (ETEC) Not Detected (NotDetected); Giardia lamblia PCR Not Detected (NotDetected); Norovirus GI/GII PCR Not Detected (NotDetected); Plesiomonas shigelloides PCR Not Detected (NotDetected); Rotavirus A PCR Not Detected (NotDetected); Salmonella PCR Not Detected (NotDetected); Sapovirus PCR Not Detected (NotDetected); Shiga-like Toxin E.coli (STEC) Not Detected (NotDetected); Shigella/Enteroinvasive E.coli Not Detected (NotDetected); Vibrio cholerae PCR Not Detected (NotDetected); Vibrio species PCR Not Detected (NotDetected); Yersinia enterocolitica PCR Not Detected (NotDetected)
[2022-01-25 21:12] LABS: Cdiff Antigen Positive; Cdiff Toxin A+B Negative Cdiff Toxin (Negative)
[2022-01-25] MEDS: hydrOXYzine HCl 10 MG TAB PO SCH (21:42)
[2022-01-25] MEDS: LORazepam 0.5 MG TAB PO SCH (21:42)
--- NOTE | 2022-01-25 22:17 | Hospitalist Progress Note ---
Date of Service January 25, 2022 Assessment & Plan (1) Generalized weakness: Plan: 81-year-old female with history of recurrent UTIs on methenamine followed by [facility], HCV, HCC (on immunotherapy via Dr. Meza) s/p chemoembolization by [facility], carcinoid tumor of the lung, hairy cell leukemia (in remission), CKD3b who presented to [facility] for evaluation of weakness, generalized fatigue, and diarrhea, subsequently found to be dehydrated based on labs. Work-up for her illness is ongoing. Generalized Fatigue - Approx. 2 weeks of worsening fatigue in the setting of metastatic cancer, recurrent UTIs, and diarrheal illness - Work-up as follows: - WBC 12 with left shift (+monocytosis, eosinophilia, neutrophilia) - BUN 41 / Cr 2.05 - Procal 0.07 - UA: 2+ protein, 2+ blood, 3+ LE, >30 WBC - Blood cultures, urine cultures, stool studies pending - Likely multifactorial between diarrhea, poor PO intake, and suspected recurrent UTI - Hydrate and add daily IV thiamine and folic acid - Consult PT and OT -- patient reports recent fall at home while getting out of the shower -On 01/25, continue with above plan. (2) Diarrhea: Plan: Diarrhea - Approx. 2 weeks of worsening diarrhea that at times is continuous, and as of recent, intermittent; no hematochezia or melena reported - Patient on methenamine and has frequent exposure to antibiotics - Check stool PCR panel as well as C. diff - No significantly reported adverse effects of diarrhea with methenamine - Hydration to be provided. Hold from antidiarrheals until situation is more clear (3) Chronic cystitis: Plan: Recurrent UTI / Chronic Cystitis - Reporting several days' worth of more frequent urination, urgency, and dysuria - UA: 2+ protein, 2+ blood, 3+ LE, >30 WBC on arrival -- though 20-30 epis and known chronic cystitis - Given degree of weakness, poor PO intake, constitutional symptoms, will treat as complicated UTI until situation is more clear - Unfortunately, patient has h/o Pseudomonal, E. coli, and Klebsiella UTIs, but significant ABX allergies that limit broad-spectrum choices (follows with A&I) - Opt to treat with meropenem for now -- tolerated well previously - Hold methenamine with ongoing ABX She has minimal abdominal tenderness on exam. Can consider CT-A/P if there is any concern for worsening intraabdominal process. Patient normally takes fosfomycin with acute UTIs - this will likely be an option moving forward, however, given overall presentation and pending w/u, will start with meropenem IV and can convert to this when/if appropriate may order once her creatinine improves. (4) Allergy to multiple antibiotics: Plan: Significant History of Pharmacologic Allergens - patient has a significant amount of cutaneous allergies to antimicrobials - has followed with Dr. Perea, clinical data analyst here, who recommended the following whenever on non-regular ABX - prednisone 40mg daily, cetirizine 10 mg BID, hydroxyzine 10 mg HS while taking (5) Chronic kidney disease with active medical management without dialysis, stage 3 (moderate): Plan: SALAZAR-on-CKD3 - Follows with Dr. Alberto for CKD3b - Baseline Cr 1.0-1.3 - On arrival, BUN 41 / Cr 2.05 improved to 1.6 - Majority of SALAZAR likely secondary to dehydration given poor PO intake, frequent diarrhea -- noted that some of patient's hepatic cancer has invaded the R kidney on 12/2021 MRI - Rehydrate, monitor on daily labs (6) Hepatocellular carcinoma: Plan: Metastatic HCC - Follows with Dr. Meza, currently on immunotherapy (Optivo), receives MRI q3mo - Evidence of spread to kidney and retroperitoneal lymphatics on on 12/2021 MRI - Continue Percocet and Zofran (7) Weight loss: Plan: Weight Loss - >20lb weight loss in the last 6 months per EMR and reported by patient - 2 weeks of worsening PO intake and diarrhea are noted in this regard - Significant contribution likely from worsening cancer burden and chronic inflammatory state - Will consult nutrition while here for inpatient/outpatient recommendations - Nutritional shakes ordered - Thiamine and folate replacement daily Plan Code: DNR/DNI PPX: Lovenox Diet: Regular Dispo: MS Admission and Anticipated Discharge Date Admission Date: January 24, 2022 Subjective 81 yo female reports no improvement. She continues to have generalized malaise, feeling weak. Review of Systems Review of Systems: All systems reviewed & are unremarkable except as noted in HPI & below Physical Exam Physical Exam: General: 81-year old female who appears thin, frail, but in no acute distress. HEENT: NCAT. - Eyes - Sclera are white, anicteric, and without injection. - Mouth - MMM - Neck - supple, no appreciable JVD Cardiac: Normal rate and regular rhythm; S1 and S2 present with no murmurs, rubs, or gallops. Pulmonary: Good respiratory effort with symmetric expansion of the chest. No use of accessory muscles. Lungs were clear to auscultation bilaterally with no crackles or wheezes. Abdominal: Normoactive bowel sounds. Abdomen was soft, mildly distended, and remains mildly TTP in the suprapubic region. Extremities: Upper and lower extremities are warm and well perfused. No peripheral edema in the lower extremities bilaterally Psych: Well-developed, well-nourished, appropriately dressed for occasion. Behavior is cooperative and appropriate. Affect is WNL. Insight is appropriate. Results & Data Results & Data ([facility]) Vital Signs (Past 12 Hours) Vital Signs Temp Pulse Resp BP Pulse Ox O2 Del Method 01/25/22 15:30 36.9 C 105 H 18 117/75 94 Room Air PG Care Time/CCT Total # of Minutes Spent Total Time Spent with Patient: Total time spent is greater than 50% in coordination of care (as documented) at patient's floor/unit and/or counseling patient: Coding Level of Care Code 79400 Subseq Hosp Care Lvl 2 Diagnoses Generalized weakness R53.1 Diarrhea R19.7 Diarrhea type: unspecified type Chronic cystitis N30.20 Allergy to multiple antibiotics Z88.1 Chronic kidney disease with active medical management without dialysis, stage 3 (moderate) N18.30 Hepatocellular carcinoma C22.0 Weight loss R63.4 (1) Diarrhea Diarrhea type: unspecified type Qualified Code(s): R19.7 - Diarrhea, unspecified
[2022-01-26] MEDS: ONDANSETRON 4 MG OD TAB PO PRN ×2 (01:54→09:56)
[2022-01-26] MEDS: MEROPENEM 500 MG in SYRINGE 0 ML IV SCH ×2 (01:55→10:35)
[2022-01-26 08:05] LABS: Basophils # (auto) 0.15 K/uL (0-0.2); Basophils % (auto) 1.3 %; Eosinophils # (auto) 1.14 K/uL (0-0.50); Eosinophils % (auto) 9.7 %; Hematocrit (blood only) 30.2 % (34.1-44.9); Hemoglobin 10.2 g/dl (12.0-16.0); Immature Granulocytes # (auto) 0.04 K/uL (0.00-0.02); Immature Granulocytes % (auto) 0.3 %; Lymphocytes # (auto) 2.06 K/uL (1.2-3.4); Lymphocytes % (auto) 17.5 %; Mean Corpuscular Hemoglobin 31.1 pg (25.0-34.0); Mean Corpuscular Hgb Conc 33.8 g/dL (32.0-36.0); Mean Corpuscular Volume 92.1 fL (80.0-100.0); Mean Platelet Volume 11.2 fL (9.4-12.3); Monocytes # (auto) 1.46 K/uL (0.24-0.82); Monocytes % (auto) 12.4 %; Neutrophils # (auto) 6.94 K/uL (1.4-6.5); Neutrophils % (auto) 58.8 %; Platelet Count 273 K/uL (130-400); RDW Standard Deviation 54.5 fL (36.4-46.3); Red Blood Count 3.28 M/uL (3.93-5.22); White Blood Count 11.79 K/ul (4.8-10.8)
[2022-01-26] MEDS: predniSONE 20 MG TAB PO SCH (08:06)
[2022-01-26 08:44] LABS: BUN Creatinine Ratio 25.8 (10-20); C Reactive Protein 2.85 mg/dl (0-0.5); Calcium 8.8 mg/dl (8.5-10.1); Creatinine Clr Calc Pharmacy 31.3 ml/min; Est GFR (African American) 43.7 ml/min; Est GFR (Non-African American) 37.7 ml/min; Potassium 3.5 mmol/L (3.5-5.1)
[2022-01-26] MEDS: SERTRALINE HCL 100 MG TABLET PO SCH (09:04)
[2022-01-26] MEDS: amLODIPine BESYLATE 5 MG TAB PO SCH (09:04)
[2022-01-26] MEDS: CETIRIZINE HCL 10 MG TABLET PO SCH (09:04)
[2022-01-26] MEDS: LEVOTHYROXINE SODIUM 25 MCG TABLET PO SCH (09:05)
[2022-01-26] MEDS: oxyCODONE/ACETAMINOPHEN 5mg/325mg TAB PO PRN ×2 (09:14→20:41)
[2022-01-26] MEDS: THIAMINE HCL 200 MG in SODIUM CHLORIDE 0.9% 50 ML IV SCH (09:17)
[2022-01-26] MEDS: FOLIC ACID 1 MG in SYRINGE 9.8 ML IV SCH (09:17)
--- NOTE | 2022-01-26 13:27 | Hospitalist Progress Note ---
Date of Service January 26, 2022 Assessment & Plan (1) Diarrhea: Plan: - Approx. 2 weeks of worsening diarrhea that at times is continuous, and as of recent, intermittent; no hematochezia or melena reported. No abdominal pain to suggest need for CT imaging. She has known metastatic disease. Pt reports improving. - C. diff gene positive but toxin negative. Isolation precautions ordered but no need to treat. - Suspect diarrheal illness reason for her acute deterioration on top of her more chronic medical conditions. Low threshold for repeat CT if not improving. (2) Generalized weakness: Plan: - Approx. 2 weeks of worsening fatigue in the setting of metastatic cancer, recurrent UTIs, and diarrheal illness - Suspect acute presentation due to diarrheal illness and reduced oral intake. Cr now improving. PT/OT, possible need for acute rehab placement - Banana bag given therefore no benefit in measuring B12 - would consider this as outpatient but will start on supplementation here. - concerning is her lower extremity weakness discrepancy compared to her upper extremities however she reports this is more longstanding for > year and appears to correlate well with immunotherapy therefore will defer this to outpatient workup is necessary such as EMG/NCS testing. - Consult PT and OT -- patient reports recent fall at home while getting out of the shower (3) Acute kidney failure: Plan: Improved with IV fluids No lightheaded, dizziness therefore will continue low dose amlodipine 2.5mg PO daily (4) Chronic cystitis: Plan: Chronic Cystitis - Reporting several days' worth of more frequent urination, urgency, and dysuria - Initial concern for acute UTI ruled out, culture with no growth after 24 hours. 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 Perea, softball player here, who recommended the following whenever on non-regular ABX - Stop allergy medicine now d/c'd meropenem (6) Chronic kidney disease with active medical management without dialysis, stage 3 (moderate): Plan: Creatinine close back to baseline from July which is impressive given recent MRI showing extrahepatic tumor extension invading the right kidney to a greater extent than previously. (7) Hepatocellular carcinoma: Plan: Metastatic HCC - Follows with Dr. Meza, currently on immunotherapy (Optivo), receives MRI q3mo - Evidence of spread to kidney and retroperitoneal lymphatics on on 12/2021 MRI - Continue Percocet and Zofran (8) Weight loss: Plan: Weight Loss - >20lb weight loss in the last 6 months per EMR and reported by patient - Significant contribution likely from metastatic cancer burden and chronic inflammatory state - Nutritional shakes ordered - Thiamine and folate replacement daily Plan Code: DNR/DNI VTE Prophylaxis - not previously ordered, start heparin 5000 units SQ BID Diet: switch to low fiber to see if this helps diarrheal illness Dispo: continue on med/surg pending PT/OT evals and likely need for placement for acute rehab Admission and Anticipated Discharge Date Admission Date: January 24, 2022 Subjective She reports continuing to feel significantly weak. Weakness involves her legs but not her arms but she reports this discrepency is chronic ever since she started chemotherapy. Diarrhea is improving. No nausea or vomiting. C. diff gene positive however toxin is negative. Review of Systems Review of Systems: All systems reviewed & are unremarkable except as noted in Subjective Physical Exam Constitutional: WD/WN, vitals as above Respiratory: normal respiratory effort, lungs clear to auscultation Cardiovascular: Rate/Rhythm: regular rate and regular rhythm Heart Sounds: no murmur b/l varicose veins present Gastrointestinal (Abdomen): normal bowel sounds, soft, nontender, no hepatosplenomegaly Psychiatric: A+Ox3, euthymic affect Results & Data Results & Data ([facility]) Vital Signs (Past 12 Hours) Vital Signs Temp Pulse Pulse Resp BP Pulse Ox O2 Del Method 01/26/22 08:17 78 95 Room Air 01/26/22 07:28 36.9 C 87 14 110/57 L 92 Room Air PG Care Time/CCT Total # of Minutes Spent Total Time Spent with Patient: Total time spent is greater than 50% in coordination of care (as documented) at patient's floor/unit and/or counseling patient: Coding Level of Care Code 10187 Subseq Hosp Care Lvl 2 Diagnoses Diarrhea R19.7 Diarrhea type: unspecified type Generalized weakness R53.1 Acute kidney failure N17.9 Chronic cystitis N30.20 Allergy to multiple antibiotics Z88.1 Chronic kidney disease with active medical management without dialysis, stage 3 (moderate) N18.30 Hepatocellular carcinoma C22.0 Weight loss R63.4 (1) Diarrhea Diarrhea type: unspecified type Qualified Code(s): R19.7 - Diarrhea, unspecified
[2022-01-26] MEDS: ONDANSETRON INJ 2 MG/ML 2 ML VIAL IV PRN (20:41)
[2022-01-26] MEDS: LORazepam 0.5 MG TAB PO SCH (20:41)
[2022-01-26] MEDS: HEPARIN SOD 5,000 UNIT/0.5 ML VIAL SQ SCH (20:49)
--- NOTE | 2022-01-26 20:49 | Electrocardiogram Report ---
Test Reason : Blood Pressure : / mmHG Vent. Rate : 087 BPM Atrial Rate : 087 BPM P-R Int : 154 ms QRS Dur : 090 ms QT Int : 350 ms P-R-T Axes : 060 010 042 degrees QTc Int : 421 ms Normal sinus rhythm Possible Left atrial enlargement Borderline ECG When compared with ECG of 24-OCT-2020 12:43, T wave amplitude has decreased in Inferior leads Confirmed by Jose Miguel Dan ([id number]) on 01/26/2022 8:49:22 PM Referred By: Bradley Jeter Confirmed By:Jose Miguel Dan
[2022-01-27] MEDS: oxyCODONE/ACETAMINOPHEN 5mg/325mg TAB PO PRN ×2 (06:07→21:31)
[2022-01-27] MEDS: amLODIPine BESYLATE 5 MG TAB PO SCH (08:19)
[2022-01-27] MEDS: CYANOCOBALAMIN (B-12) 500 MCG TABLET PO SCH (08:20)
[2022-01-27] MEDS: FOLIC ACID 1 MG TAB PO SCH (08:20)
[2022-01-27] MEDS: SERTRALINE HCL 100 MG TABLET PO SCH (08:21)
[2022-01-27] MEDS: LEVOTHYROXINE SODIUM 25 MCG TABLET PO SCH (08:21)
[2022-01-27] MEDS: THIAMINE HCL 100 MG TAB PO SCH (08:22)
[2022-01-27] MEDS: HEPARIN SOD 5,000 UNIT/0.5 ML VIAL SQ SCH ×2 (08:23→21:33)
[2022-01-27 09:20] LABS: Albumin Level 2.9 gm/dl (3.4-5.0); BUN Creatinine Ratio 23.1 (10-20); Bilirubin,Total 0.4 mg/dl (0.2-1.0); Calcium 9.3 mg/dl (8.5-10.1); Creatinine Clr Calc Pharmacy 30.8 ml/min; Est GFR (Non-African American) 37.1 ml/min; Globulin 2.9 gm/dl (2.5-4.0); Magnesium 1.7 mg/dl (1.7-2.4); Phosphorus 2.9 mg/dl (2.5-4.9); Potassium 3.6 mmol/L (3.5-5.1); Total Protein 5.8 gm/dl (6.0-8.3)
--- NOTE | 2022-01-27 09:24 | Hospitalist Progress Note ---
Date of Service January 27, 2022 Assessment & Plan (1) Diarrhea: Plan: - Approx. 2 weeks of worsening diarrhea that at times is continuous, and as of recent, intermittent; no hematochezia or melena reported. 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 improving diarrhea . - C. diff gene positive but toxin negative. Isolation precautions ordered but no need to treat. -Biofire negative for stool infection - Suspect diarrheal illness reason for her acute deterioration on top of her more chronic medical conditions. REpeat CT ordered abd/pelvis with oral and iv contrast (2) Generalized weakness: Plan: - Approx. 2 weeks of worsening fatigue in the setting of metastatic cancer, recurrent UTIs, and diarrheal illness - Suspect acute presentation due to diarrheal illness and reduced oral intake. Cr now improving. PT/OT, possible need for acute rehab placement - Banana bag given therefore no benefit in measuring B12 - would consider this as outpatient but will start on supplementation here. - concerning is her lower extremity weakness discrepancy compared to her upper extremities however she reports this is more longstanding for > year and appears to correlate well with immunotherapy therefore - Consult PT and OT -- patient reports recent fall at home while getting out of the shower (3) Acute kidney failure: Plan: Improved with IV fluids another slow liter wtih iv contrast No lightheaded, dizziness therefore will continue low dose amlodipine 2.5mg PO daily (4) Chronic cystitis: Plan: Chronic Cystitis - Reporting several days' worth of more frequent urination, urgency, and dysuria - Initial concern for acute UTI ruled out, culture with no growth after 24 hours. 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 Perea, assistant maintenance manager here, who recommended the following whenever on non-regular ABX - Stop allergy medicine now d/c'd meropenem (6) Chronic kidney disease with active medical management without dialysis, stage 3 (moderate): Plan: Creatinine close back to baseline from July which is impressive given recent MRI showing extrahepatic tumor extension invading the right kidney to a greater extent than previously. (7) Hepatocellular carcinoma: Plan: Metastatic HCC - Follows with Dr. Meza, currently on immunotherapy (Optivo), receives MRI q3mo - Evidence of spread to kidney and retroperitoneal lymphatics on on 12/2021 MRI - Continue Percocet and Zofran (8) Weight loss: Plan: Weight Loss Severe protein-calorie malnutrition - >20lb weight loss in the last 6 months per EMR and reported by patient - Significant contribution likely from metastatic cancer burden and chronic inflammatory state - Nutritional shakes ordered - Thiamine and folate replacement daily Plan Code: DNR/DNI VTE Prophylaxis - not previously ordered, start heparin 5000 units SQ BID Dispo: continue on med/surg pending PT/OT evals and likely need for placement for acute rehab Admission and Anticipated Discharge Date Admission Date: January 24, 2022 Subjective Patient is now feeling dramatically better she feels weak and tired. Try to discuss her outpatient MRI scan which showed progression of her hepatocellular c arcinoma but she did not recall the events. I eventually called her daughter who said she was told this but was not really sure what that meant to her overall disease course and survival she remains on immunotherapy but is no longer a candidate for any other invasive cancer therapy. Her biggest issues have been diarrhea and decreased oral intake. She did have some acute acute kidney injury which resolved with hydration. She did have a bio fire which was negative and a C. difficile which was gene positive but toxin negative. She however is on vancomycin at this time Review of Systems Review of Systems: Moderate distress and fatigue no headache, no visual changes no speech or swallowing issues no chest pain, pressure or palpitations no shortness of breath, cough or wheezes no abdominal pain, nausea or vomiting, persistent loose bowel no dysuria, hematuria or frequency no focal joint pain or swelling mild diffuse back pain, no CVA tenderness or radicular pain no bruising, bleeding or rashes no focal signs of weakness or numbness or altered sensation no complaints of anxiety or depression.. Physical Exam Physical Exam: The patient appeared chronically ill mild to moderate malnourishment and stated age of 81 Vital signs as documented. Head exam is normocephalic atraumatic Neck is without JVD, thyromegaly, or carotid bruits. Lungs are clear to auscultation, no focal loss of breath sounds Cardiac exam, Rhythm is regular.. No murmurs, rubs or gallops. Abdominal exam reveals normal bowel sounds, soft uncomfortable to exam Extremities are nonedematous and both pedal pulses are present Neurologic exam is alert and oriented, no focal loss of strength or sensation Skin is without bruises or rashes Psychologically is without concerns for anxiety or depression..she does have some memory loss Results & Data Results & Data ([facility]) Vital Signs (Past 12 Hours) Vital Signs Temp Pulse Resp BP Pulse Ox O2 Del Method 01/27/22 07:10 98.1 F 78 16 115/53 L 92 Room Air 01/26/22 21:34 97.9 F 74 16 120/71 96 Room Air PG Care Time/CCT Total # of Minutes Spent Total Time Spent with Patient: Total time spent is greater than 50% in coordination of care (as documented) at patient's floor/unit and/or counseling patient: Coding Level of Care Code 99334 Subseq Hosp Care Lvl 2 Diagnoses Diarrhea R19.7 Diarrhea type: unspecified type Generalized weakness R53.1 Acute kidney failure N17.9 Chronic cystitis N30.20 Allergy to multiple antibiotics Z88.1 Chronic kidney disease with active medical management without dialysis, stage 3 (moderate) N18.30 Hepatocellular carcinoma C22.0 Weight loss R63.4 (1) Diarrhea Diarrhea type: unspecified type Qualified Code(s): R19.7 - Diarrhea, unspecified
[2022-01-27] MEDS: VIBEGRON 75 MG TAB PO SCH (12:22)
[2022-01-27] MEDS ORDERED: SODIUM CHLORIDE 0.9% 1000ML 1,000 ML IV SCH (16:30)
[2022-01-27] MEDS ORDERED: OPTIRAY 350 100ml IV ONE (19:12)
--- NOTE | 2022-01-27 21:02 | CT Scan Report ---
CT abd pelvis oral and IV con CLINICAL HISTORY: eval for metastatic cancer invasion. Hepatocellular carcinoma with metastases. TECHNIQUE: Helical axial images of the abdomen and pelvis were obtained and displayed. Automated dose lowering techniques and/or adjustment according to patient size were utilized for this exam. This e xam was performed with intravenous contrast. CT DOSE: 251.10 mGy.cm COMPARISON: Comparison is made to CT abdomen pelvis 10/24/2020 FINDINGS: Lower chest: Bibasilar atelectasis versus scarring is seen. Liver: Hypodensity in the right lobe of the liver is somewhat decreased from prior exam, measuring 42 mm compared to 47 mm in prior exam. However there is increased size of an ill-defined lobulated lesi on in the superior right hepatic lobe measuring 73 x 47 mm compared to 53 x 45 mm on prior exam. Ther e is also an increased inferior component abutting the right kidney. Postsurgical changes of partial right hepatectomy are seen. Gallbladder and biliary tree: Patient is status post cholecystectomy. No intra- or extrahepatic bilia ry ductal dilation. Pancreas: Unremarkable, no focal lesions. Spleen: Patient is status post splenectomy. Adrenals: Unremarkable. Kidneys and ureters: Subcentimeter hypodensities are too small to characterize. 19 mm cyst is seen in the left kidney. Compared to prior exam, there is a less direct abutment of the liver mass upon the right kidney. However, loss of fat plane is still seen, particularly inferiorly. Bladder: Diffuse homogeneous wall thickening is seen. Reproductive organs: Unremarkable. Bowel: Diverticulosis is seen without evidence of diverticulitis. A hiatal hernia is seen. Lymph nodes Retroperitoneal: There is a lymph node conglomerate in the retroperitoneum measuring 54 x 31 mm, this is enlarged from prior exam where it measured 27 x 28 mm and was necrotic-appearing of the time. Por ta hepatis lymph nodes are decreased in size. Bee hepatis nodes are now subcentimeter, decreased fr om prior exam. Pelvic: Unremarkable. Mesenteric: Unremarkable. Peritoneum: Normal. Vessels: Atherosclerotic calcifications are seen. Abdominal wall: Unremarkable. Bones: Degenerative changes in the visualized spine. Posterior fixation hardware is seen in the lower lumbar spine. IMPRESSION: 1. Concern for worsening disease. There is enlargement of the irregular nodularity of the right kidn ey concerning for residual disease. There is enlargement of a lymph node conglomerate in the retroper itoneum. This previously had appeared necrotic. 2. Mucous thickening of the bladder may represent cystitis, correlation with urinalysis is recommend ed. 3. Additional findings as above. ACT 112: Negative or not required by law. Electronically signed by: Mars Felix M.D. 01/27/2022 9:00 PM
[2022-01-27] MEDS: LORazepam 0.5 MG TAB PO SCH (21:32)
[2022-01-27] MEDS ORDERED: LORazepam 0.5 MG TAB PO STA (22:22)
[2022-01-27] MEDS: LOPERAMIDE HCL 2 MG CAP PO PRN (22:40)
[2022-01-28] MEDS: LEVOTHYROXINE SODIUM 25 MCG TABLET PO SCH (08:14)
[2022-01-28] MEDS: HEPARIN SOD 5,000 UNIT/0.5 ML VIAL SQ SCH ×2 (08:15→20:41)
[2022-01-28] MEDS: CYANOCOBALAMIN (B-12) 500 MCG TABLET PO SCH (08:15)
[2022-01-28] MEDS: SERTRALINE HCL 100 MG TABLET PO SCH (08:15)
[2022-01-28] MEDS: amLODIPine BESYLATE 5 MG TAB PO SCH (08:15)
[2022-01-28] MEDS: FOLIC ACID 1 MG TAB PO SCH (08:15)
[2022-01-28] MEDS: THIAMINE HCL 100 MG TAB PO SCH (08:15)
[2022-01-28] MEDS: ONDANSETRON 4 MG OD TAB PO PRN ×2 (09:28→20:41)
[2022-01-28 10:42] LABS: BUN Creatinine Ratio 20.6 (10-20); Calcium 9.8 mg/dl (8.5-10.1); Creatinine Clr Calc Pharmacy 38.6 ml/min; Est GFR (African American) 56.4 ml/min; Est GFR (Non-African American) 48.6 ml/min; Potassium 3.6 mmol/L (3.5-5.1)
[2022-01-28] MEDS: VIBEGRON 75 MG TAB PO SCH (11:40)
--- NOTE | 2022-01-28 18:40 | Hospitalist Progress Note ---
Date of Service January 28, 2022 Assessment & Plan (1) Diarrhea: Plan: - Approx. 2 weeks of worsening diarrhea that at times is continuous, and as of recent, intermittent; no hematochezia or melena reported. 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 improving diarrhea . Had a recent treatment with immune modulating treatment which could be the culprit for her diarrhea - C. diff gene positive but toxin negative. Isolation precautions ordered but no need to treat. -Biofire negative for stool infection - Suspect diarrheal illness reason for her acute deterioration on top of her more chronic medical conditions. 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 2 weeks of worsening fatigue in the setting of metastatic cancer, recurrent UTIs, and diarrheal illness - Suspect acute presentation due to diarrheal illness and reduced oral intake. Cr now improving. PT/OT, possible need for acute rehab placement - Banana bag given therefore no benefit in measuring B12 - would consider this as outpatient but will start on supplementation here. - concerning is her lower extremity weakness discrepancy compared to her upper extremities however she reports this is more longstanding for > year and appears to correlate well with immunotherapy therefore - Consult PT and OT -- patient reports recent fall at home while getting out of the shower (3) Acute kidney failure: Plan: Improved with IV fluids another slow liter wtih iv contrast No lightheaded, dizziness therefore will continue low dose amlodipine 2.5mg PO daily (4) Chronic cystitis: Plan: Chronic Cystitis - Reporting several days' worth of more frequent urination, urgency, and dysuria - Initial concern for acute UTI ruled out, culture with no growth after 24 hours. 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 Perea, cargo service supervisor here, who recommended the following whenever on non-regular ABX - Stop allergy medicine now d/c'd meropenem (6) Chronic kidney disease with active medical management without dialysis, stage 3 (moderate): Plan: Creatinine close back to baseline from July which is impressive given recent MRI showing extrahepatic tumor extension invading the right kidney to a greater extent than previously. (7) Hepatocellular carcinoma: Plan: Metastatic HCC - Follows with Dr. Meza, currently on immunotherapy (Optivo), receives MRI q3mo - Evidence of spread to kidney and retroperitoneal lymphatics on on 12/2021 MRI - Continue Percocet and Zofran (8) Weight loss: Plan: Weight Loss Severe protein-calorie malnutrition - >20lb weight loss in the last 6 months per EMR and reported by patient - Significant contribution likely from metastatic cancer burden and chronic inflammatory state - Nutritional shakes ordered - Thiamine and folate replacement daily Plan Code: DNR/DNI VTE Prophylaxis - not previously ordered, start heparin 5000 units SQ BID Dispo: continue on med/surg pending PT/OT evals and likely need for placement for acute rehab Admission and Anticipated Discharge Date Admission Date: January 24, 2022 Subjective There is a subsiding slowly, possibly secondary to recent immunotherapy that the patient had monitor for now Physical Exam Physical Exam: The patient appeared chronically ill mild to moderate malnourishment and stated age of 81 Vital signs as documented. Head exam is normocephalic atraumatic Neck is without JVD, thyromegaly, or carotid bruits. Lungs are clear to auscultation, no focal loss of breath sounds Cardiac exam, Rhythm is regular.. No murmurs, rubs or gallops. Abdominal exam reveals normal bowel sounds, soft uncomfortable to exam Extremities are nonedematous and both pedal pulses are present Neurologic exam is alert and oriented, no focal loss of strength or sensation Skin is without bruises or rashes Psychologically is without concerns for anxiety or depression..she does have some memory loss Constitutional: WD/WN, vitals as above Respiratory: normal respiratory effort, lungs clear to auscultation Cardiovascular: Rate/Rhythm: regular rate and regular rhythm Heart Sounds: no murmur Gastrointestinal (Abdomen): normal bowel sounds, soft, nontender, no hepat osplenomegaly Psychiatric: A+Ox3, euthymic affect Results & Data Results & Data ([facility]) Vital Signs (Past 12 Hours) Vital Signs Temp Pulse Resp BP Pulse Ox O2 Del Method 01/28/22 14:36 36.7 C 97 H 16 127/74 94 Room Air 01/28/22 07:13 36.6 C 76 16 126/68 95 Room Air PG Care Time/CCT Total # of Minutes Spent Total Time Spent with Patient: Total time spent is greater than 50% in coordination of care (as documented) at patient's floor/unit and/or counseling patient: Coding Level of Care Code 60014 Subseq Hosp Care Lvl 2 Diagnoses Diarrhea R19.7 Diarrhea type: unspecified type Generalized weakness R53.1 Acute kidney failure N17.9 Chronic cystitis N30.20 Allergy to multiple antibiotics Z88.1 Chronic kidney disease with active medical management without dialysis, stage 3 (moderate) N18.30 Hepatocellular carcinoma C22.0 Weight loss R63.4 (1) Diarrhea Diarrhea type: unspecified type Qualified Code(s): R19.7 - Diarrhea, unspecified
[2022-01-28] MEDS: LORazepam 0.5 MG TAB PO SCH (20:41)
[2022-01-28] MEDS: oxyCODONE/ACETAMINOPHEN 5mg/325mg TAB PO PRN (20:41)
[2022-01-29] MEDS: HEPARIN SOD 5,000 UNIT/0.5 ML VIAL SQ SCH ×2 (07:58→21:03)
[2022-01-29] MEDS: SERTRALINE HCL 100 MG TABLET PO SCH (07:59)
[2022-01-29] MEDS: THIAMINE HCL 100 MG TAB PO SCH (07:59)
[2022-01-29] MEDS: CYANOCOBALAMIN (B-12) 500 MCG TABLET PO SCH (07:59)
[2022-01-29] MEDS: FOLIC ACID 1 MG TAB PO SCH (07:59)
[2022-01-29] MEDS: amLODIPine BESYLATE 5 MG TAB PO SCH (07:59)
[2022-01-29] MEDS: LEVOTHYROXINE SODIUM 25 MCG TABLET PO SCH (07:59)
[2022-01-29] MEDS: oxyCODONE/ACETAMINOPHEN 5mg/325mg TAB PO PRN ×2 (08:06→18:00)
[2022-01-29 08:32] LABS: Hemoglobin 10.2 g/dl (12.0-16.0); Mean Corpuscular Hemoglobin 31.1 pg (25.0-34.0); Mean Corpuscular Volume 91.5 fL (80.0-100.0); Mean Platelet Volume 10.8 fL (9.4-12.3); Platelet Count 259 K/uL (130-400); RDW Coefficient of Variation 16.6 % (11.5-14.5); RDW Standard Deviation 55.1 fL (36.4-46.3); Red Blood Count 3.28 M/uL (3.93-5.22); White Blood Count 13.01 K/ul (4.8-10.8)
[2022-01-29 08:59] LABS: BUN Creatinine Ratio 18.2 (10-20); Calcium 8.9 mg/dl (8.5-10.1); Creatinine Clr Calc Pharmacy 37.5 ml/min; Est GFR (African American) 54.5 ml/min; Potassium 3.6 mmol/L (3.5-5.1)
[2022-01-29] MEDS: VIBEGRON 75 MG TAB PO SCH (12:15)
[2022-01-29] MEDS: ONDANSETRON 4 MG OD TAB PO PRN ×2 (12:15→22:27)
--- NOTE | 2022-01-29 20:07 | Hospitalist Progress Note ---
Date of Service January 29, 2022 Assessment & Plan (1) Diarrhea: Plan: -Gradually is improving, patient has just 1 loose bowel movement today, felt nauseated, that was discussed with the daughter, discussed with the primary oncologist, did not recommend any GI consult at this point, recommend to manage symptomatically - Approx. 2 weeks of worsening diarrhea that at times is continuous, and as of recent, intermittent; no hematochezia or melena reported. 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 improving diarrhea . Had a recent treatment with immune modulating treatment which could be the culprit for her diarrhea - C. diff gene positive but toxin negative. Isolation precautions ordered but no need to treat. -Biofire negative for stool infection - Suspect diarrheal illness reason for her acute deterioration on top of her more chronic medical conditions. 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 Perea, brim stitcher here, who recommended the following whenever on non-regular ABX - Stop allergy medicine now d/c'd meropenem (6) Chronic kidney disease with active medical management without dialysis, stage 3 (moderate): Plan: Creatinine close back to baseline from July which is impressive given recent MRI showing extrahepatic tumor extension invading the right kidney to a greater extent than previously. (7) Hepatocellular carcinoma: Plan: Metastatic HCC - Follows with Dr. Meza, currently on immunotherapy (Optivo), receives MRI q3mo - Evidence of spread to kidney and retroperitoneal lymphatics on on 12/2021 MRI - Continue Percocet and Zofran (8) Weight loss: Plan: Weight Loss Severe protein-calorie malnutrition - >20lb weight loss in the last 6 months per EMR and reported by patient - Significant contribution likely from metastatic cancer burden and chronic inflammatory state - Nutritional shakes ordered - Thiamine and folate replacement daily Plan Code: DNR/DNI VTE Prophylaxis - not previously ordered, start heparin 5000 units SQ BID Dispo: continue on med/surg pending PT/OT evals and likely need for placement for acute rehab Admission and Anticipated Discharge Date Admission Date: January 24, 2022 Subjective The patient presented to the hospital with diarrhea for 2 weeks apparently she had immunotherapy about 6 weeks ago, diarrhea is subsiding gradually, over the course of admission patient had a CAT scan of the abdomen which showed progression of metastatic HCC otherwise unremarkable, discussed with Dr. Meza, her oncologist is on the patient the most likely her symptoms are due to progression of her underlying malignancy Physical Exam Physical Exam: The patient appeared chronically ill mild to moderate malnourishment and stated age of 81 Vital signs as documented. Head exam is normocephalic atraumatic Neck is without JVD, thyromegaly, or carotid bruits. Lungs are clear to auscultation, no focal loss of breath sounds Cardiac exam, Rhythm is regular.. No murmurs, rubs or gallops. Abdominal exam reveals normal bowel sounds, soft uncomfortable to exam Extremities are nonedematous and both pedal pulses are present Neurologic exam is alert and oriented, no focal loss of strength or sensation Skin is without bruises or rashes Psychologically is without concerns for anxiety or depression..she does have some memory loss Constitutional: WD/WN, vitals as above Respiratory: normal respiratory effort, lungs clear to auscultation Cardiovascular: Rate/Rhythm: regular rate and regular rhythm Heart Sounds: no murmur Gastrointestinal (Abdomen): normal bowel sounds, soft, nontender, no hepatosplenomegaly Psychiatric: A+Ox3, euthymic affect Results & Data Results & Data ([facility] [place]) Vital Signs (Past 12 Hours) Vital Signs Temp Pulse Resp BP Pulse Ox O2 Del Method 01/29/22 14:48 36.5 C 70 16 131/68 95 Room Air PG Care Time/CCT Total # of Minutes Spent Total Time Spent with Patient: Total time spent is greater than 50% in coordination of care (as documented) at patient's floor/unit and/or counseling patient: Coding Level of Care Code 90845 Subseq Hosp Care Lvl 2 Diagnoses Diarrhea R19.7 Diarrhea type: unspecified type Generalized weakness R53.1 Acute kidney failure N17.9 Chronic cystitis N30.20 Allergy to multiple antibiotics Z88.1 Chronic kidney disease with active medical management without dialysis, stage 3 (moderate) N18.30 Hepatocellular carcinoma C22.0 Weight loss R63.4 (1) Diarrhea Diarrhea type: unspecified type Qualified Code(s): R19.7 - Diarrhea, unspecified
[2022-01-29] MEDS: LORazepam 0.5 MG TAB PO SCH (21:03)
[2022-01-30] MEDS: LEVOTHYROXINE SODIUM 25 MCG TABLET PO SCH (05:24)
[2022-01-30] MEDS: amLODIPine BESYLATE 5 MG TAB PO SCH (08:29)
[2022-01-30] MEDS: CYANOCOBALAMIN (B-12) 500 MCG TABLET PO SCH (08:30)
[2022-01-30] MEDS: SERTRALINE HCL 100 MG TABLET PO SCH (08:30)
[2022-01-30] MEDS: THIAMINE HCL 100 MG TAB PO SCH (08:30)
[2022-01-30] MEDS: FOLIC ACID 1 MG TAB PO SCH (08:30)
[2022-01-30] MEDS: oxyCODONE/ACETAMINOPHEN 5mg/325mg TAB PO PRN ×2 (08:35→18:02)
[2022-01-30 10:56] LABS: BUN Creatinine Ratio 16.7 (10-20); Calcium 9.6 mg/dl (8.5-10.1); Creatinine Clr Calc Pharmacy 36.2 ml/min; Est GFR (African American) 52.2 ml/min; Est GFR (Non-African American) 45.1 ml/min; Potassium 3.9 mmol/L (3.5-5.1)
[2022-01-30] MEDS: VIBEGRON 75 MG TAB PO SCH (12:15)
[2022-01-30] MEDS: ONDANSETRON 4 MG OD TAB PO PRN ×2 (12:15→23:53)
[2022-01-30] MEDS: HEPARIN SOD 5,000 UNIT/0.5 ML VIAL SQ SCH ×2 (12:15→20:22)
[2022-01-30] MEDS: LOPERAMIDE HCL 2 MG CAP PO PRN (13:25)
--- NOTE | 2022-01-30 14:34 | Gastrointestinal Consultation ---
Date of Consultation January 30, 2022 Assessment & Plan (1) Diarrhea: (2) Hepatocellular carcinoma: Plan 1. Encouraged patient to request Imodium as this is ordered every 4 hours as needed for diarrhea. 2. If no improvement, can restrict diet to low residue diet. 3. Supportive care per primary team. Thank you for allowing us to participate in the care of this patient. If you have any questions or concerns, please do not hesitate to contact us. Supervising Physician Co-Signing Physician Notes Agree with RAIN Bowens as above Abd: Soft, NT, ND, +BS Continue current therapy and supportive care History of Present Illness Reason for Consultation: Diarrhea Requesting Physician: Dr. Leal Attending Physician: Hieu Leal MD History of Present Illness 81-year-old female with history of recurrent UTIs on methenamine followed by [facility] ID, HCV, HCC on immunotherapy, s/p chemoembolization by [facility] IR admitted with weakness and diarrhea that has been ongoing for the past 2 weeks. Typically, she reports issues with constipation related to opioid use, so the change in bowel habits is new for her. She did have a negative Biofire. CT a/p without any inflammatory or ischemic change. She states that she did have 3 episodes of urgent loose stools today with some associated FI and abdominal pain. She also endorses nausea without vomiting. She has been prescribed Imodium as an inpatient but has only been administered 2 doses since admission and the medication is ordered 2 mg every 4 hours as needed. Allergies Allergy/AdvReac Type Severity Reaction Status Date / Time celecoxib Allergy Severe Rash Verified 08/07/21 13:16 ciprofloxacin [From Cipro] Allergy Severe DRESS Verified 08/07/21 13:16 adhesive Allergy Intermediate RED Verified 08/07/21 13:16 IRRITATED SKIN Sulfa (Sulfonamide Allergy Mild Hives Verified 08/07/21 13:16 Antibiotics) amoxicillin Allergy Unknown Rash Verified 08/07/21 13:16 cefepime Allergy Unknown Rash, drug Verified 08/07/21 13:16 eruption Penicillins Allergy Unknown Rash Verified 08/07/21 13:16 lactose AdvReac Intermediate GI UPSET Verified 08/07/21 13:16 vancomycin AdvReac Unknown Mook Verified 08/07/21 13:16 syndrome Home Medications Medication Instructions Recorded Confirmed Type polyethylene glycol 3350 17 17 g PO DAILY PRN Constipation 08/26/18 01/24/22 History gram/dose oral powder (Miralax) lorazepam 0.5 mg tablet (Ativan) 0.5 mg PO HS 04/08/19 01/24/22 History acetaminophen 500 mg tablet 500 mg PO Q6H PRN Pain 04/12/20 01/24/22 History (Tylenol Extra Strength) amlodipine 2.5 mg tablet 2.5 mg PO DAILY 05/11/20 01/24/22 History ascorbic acid (vitamin C) 500 mg 500 mg PO DAILY 09/16/20 01/24/22 History tablet (Vitamin C) methenamine hippurate 1 gram tablet 1 g PO BID 09/16/20 01/24/22 History lorazepam 0.5 mg tablet 0.5 mg PO UD PRN for cancer 10/24/20 01/24/22 History treatment fosfomycin tromethamine 3 gram 1 packet PO ONCE PRN uti 05/31/21 01/24/22 History oral packet Lactobacillus acidophilus 1.5 mg 1,000 mmu cells PO DAILY 01/24/22 01/24/22 History (250 million cell) capsule (Probiotic Acidophilus) Opdivo 1 dose IV UD 01/24/22 01/24/22 History biotin 1,000 mcg chewable tablet 1,000 mcg PO DAILY 01/24/22 01/24/22 History cholecalciferol (vitamin D3) 50 50 mcg PO DAILY 01/24/22 01/24/22 History mcg (2,000 unit) capsule (Vitamin D3) levothyroxine 25 mcg tablet 25 mcg PO QAM 01/24/22 01/24/22 History magnesium 250 mg tablet 250 mg PO DAILY 01/24/22 01/24/22 History multivit with 1 tab PO DAILY 01/24/22 01/24/22 History wqielgyh-caex-IE-lutein 8 mg iron-400 mcg-300 mcg tablet (Centrum Silver Women) ondansetron HCl 8 mg tablet 8 mg PO Q8 PRN Nausea 01/24/22 01/24/22 History oxycodone-acetaminophen 5 mg-325 1 tab PO Q6 PRN Pain, Moderate 01/24/22 01/24/22 History mg tablet sertraline 100 mg tablet 100 mg PO DAILY 01/24/22 01/24/22 History vibegron 75 mg tablet (Gemtesa) 75 mg PO .DAILY AT NOON 01/24/22 01/24/22 His tory Patient History Medical History Acute ischemic colitis Allergic reaction (06/17/13) Carcinoid tumor of lung Cervical cancer Colitis Cystitis Desensitization to allergens Diverticulosis of colon DVT prophylaxis Febrile illness GI bleed Hepatitis C virus Hyperkalemia Pneumonia Recurrent UTI (urinary tract infection) 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 Urinary tract infection Urticaria Surgical History H/O: hysterectomy History of cholecystectomy History of splenectomy Family History Other Family history non-contributory Social History Smoking Status: Never smoker Second Hand Exposure: Yes (first smoked); Hx Alcohol Use: No Hx Substance Use: Yes Substance Use Type Other:: patient stated she takes percoset Q6H Preferred Language: Arabic Communication Ability: Effective Preventive Medicine Specialist Required: No Beliefs That Will Affect Care: Restorationist Restorationist Beliefs: Patient stated she is [employer] marital status: / Current Living Situation: Family Current Living Situation Comment: with son and daughter in law at this time How many Children do You have: 6 Other Information That Helps Us Care for You: No Feels Safe at Home: Yes Safety Concerns: Feels Safe At This Time Assistive Devices: Cane Assistive Devices Comment: patient wears reading glasses Review of Systems Constitutional: as per Subjective / HPI Respiratory: no cough and no dyspnea Cardiovascular: no chest pain and no edema Gastrointestinal: as per Subjective / HPI Physical Exam Constitutional: WD/WN, vitals as above Respiratory: normal respiratory effort, lungs clear to auscultation Cardiovascular: Rate/Rhythm: regular rate and regular rhythm Gastrointestinal (Abdomen): Inspection/Auscultation: + abdomen distended and + hyperactive bowel sounds Percussion/Palpation: + abdomen tender, abdomen soft and + abdominal mass Psychiatric: A+Ox3, euthymic affect Results & Data ([place]) Vital Signs (Past 12 Hours) Vital Signs Temp Pulse Pulse Resp BP Pulse Ox O2 Del Method 01/30/22 12:10 36.3 C L 73 18 122/66 96 Room Air 01/30/22 06:16 36.8 C 77 18 144/84 H 93 Room Air Diagnostic Findings Laboratory Results WBC 13.01 K/ul (4.8-10.8) H 01/29/22 08:10 RBC 3.28 M/uL (3.93-5.22) L 01/29/22 08:10 Hgb 10.2 g/dl (12.0-16.0) L 01/29/22 08:10 Hct 30.0 % (34.1-44.9) L 01/29/22 08:10 MCV 91.5 fL (80.0-100.0) 01/29/22 08:10 MCH 31.1 pg (25.0-34.0) 01/29/22 08:10 MCHC 34.0 g/dL (32.0-36.0) 01/29/22 08:10 RDW Std Deviation 55.1 fL (36.4-46.3) H 01/29/22 08:10 RDW Coeff of Bakari 16.6 % (11.5-14.5) H 01/29/22 08:10 Plt Count 259 K/uL (130-400) 01/29/22 08:10 MPV 10.8 fL (9.4-12.3) 01/29/22 08:10 Immature Gran % (Auto) 0.3 % 01/26/22 07:04 Neut % (Auto) 58.8 % 01/26/22 07:04 Lymph % (Auto) 17.5 % 01/26/22 07:04 Smyth % (Auto) 12.4 % 01/26/22 07:04 Eos % (Auto) 9.7 % 01/26/22 07:04 Baso % (Auto) 1.3 % 01/26/22 07:04 Neut # (Auto) 6.94 K/uL (1.4-6.5) H 01/26/22 07:04 Lymph # (Auto) 2.06 K/uL (1.2-3.4) 01/26/22 07:04 Smyth # (Auto) 1.46 K/uL (0.24-0.82) H 01/26/22 07:04 Eos # (Auto) 1.14 K/uL (0-0.50) H 01/26/22 07:04 Baso # (Auto) 0.15 K/uL (0-0.2) 01/26/22 07:04 Immature Gran # (Auto) 0.04 K/uL (0.00-0.02) H 01/26/22 07:04 Acanthocytes (Spur) 1+ 01/24/22 16:52 Sodium 139 mmol/L (136-145) 01/30/22 10:04 Potassium 3.9 mmol/L (3.5-5.1) 01/30/22 10:04 Chloride 108 mmol/L (98-107) H 01/30/22 10:04 Carbon Dioxide 25 mmol/L (21-32) 01/30/22 10:04 Anion Gap 6 (3-11) 01/30/22 10:04 BUN 19 mg/dl (6-23) 01/30/22 10:04 Creatinine 1.14 mg/dl (0.6-1.2) 01/30/22 10:04 Est Cr Clr Drug Dosing 36.2 ml/min 01/30/22 10:04 Est GFR ( Amer) 52.2 ml/min 01/30/22 10:04 Est GFR (Non-Af Amer) 45.1 ml/min 01/30/22 10:04 BUN/Creatinine Ratio 16.7 (10-20) 01/30/22 10:04 Glucose 123 mg/dl (70-99(Fasting)) H 01/30/22 10:04 Lactate 0.6 mmol/L (0.4-2.0) 01/24/22 19:09 Calcium 9.6 mg/dl (8.5-10.1) 01/30/22 10:04 Phosphorus 2.9 mg/dl (2.5-4.9) 01/27/22 08:00 Magnesium 1.7 mg/dl (1.7-2.4) 01/27/22 08:00 Total Bilirubin 0.4 mg/dl (0.2-1.0) 01/27/22 08:00 AST 16 U/L (13-39) 01/27/22 08:00 ALT 8 U/L (7-52) 01/27/22 08:00 Alkaline Phosphatase 45 U/L (34-104) 01/27/22 08:00 Total Creatine Kinase 142 U/L (26-192) 01/26/22 07:03 C-Reactive Protein 2.85 mg/dl (0-0.5) H 01/26/22 07:03 Total Protein 5.8 gm/dl (6.0-8.3) L 01/27/22 08:00 Albumin 2.9 gm/dl (3.4-5.0) L 01/27/22 08:00 Globulin 2.9 gm/dl (2.5-4.0) 01/27/22 08:00 Albumin/Globulin Ratio 1.0 (0.9-2) 01/27/22 08:00 Procalcitonin 0.07 ng/ml (0-0.5) 01/24/22 16:52 Urine Color Yellow 01/24/22 16:52 Urine Appearance Turbid (Clear) A 01/24/22 16:52 Urine pH 6.5 (4.5-7.5) 01/24/22 16:52 Ur Specific Combs 1.015 (1.000-1.030) 01/24/22 16:52 Urine Protein 2+ (Negative) H 01/24/22 16:52 Urine Glucose (UA) Negative (Negative) 01/24/22 16:52 Urine Ketones Trace (Negative) H 01/24/22 16:52 Urine Blood 2+ (Negative) H 01/24/22 16:52 Urine Nitrite Negative (Negative) 01/24/22 16:52 Urine Bilirubin Negative (Negative) 01/24/22 16:52 Urine Urobilinogen Negative (Negative) 01/24/22 16:52 Ur Leukocyte Esterase 3+ (Negative) H 01/24/22 16:52 Urine WBC (Auto) >30 /hpf (0-5) H 01/24/22 16:52 Urine RBC (Auto) 10-30 /hpf (0-4) H 01/24/22 16:52 U Hyaline Cast (Auto) 1-5 /lpf (0-5) 01/24/22 16:52 U Epithel Cells (Auto) 20-30 /lpf (0-5) H 01/24/22 16:52 Urine Bacteria (Auto) Negative (Negative) 01/24/22 16:52 Urine Yeast Not Reportable 01/24/22 16:52 Stl C. cayetanensis PCR Not Detected (NotDetected) 01/25/22 19:00 Stool Rotavirus A PCR Not Detected (NotDetected) 01/25/22 19:00 Stl Adenov F 40/41 PCR Not Detected (NotDetected) 01/25/22 19:00 Stool Astrovirus (PCR) Not Detected (NotDetected) 01/25/22 19:00 Stool Campylobacter PCR Not Detected (NotDetected) 01/25/22 19:00 Stl C. diff Tox B Gene Positive Cdiff Gene (Neg) H 01/25/22 19:00 Stl C.difficile Tox A&B Negative Cdiff Toxin (Negative) 01/25/22 19:00 Stool Cryptosporidium PCR Not Detected (NotDetected) 01/25/22 19:00 Stl E.coli Shiga Tox PCR Not Detected (NotDetected) 01/25/22 19:00 Stl Enterotoxigenic E PCR Not Detected (NotDetected) 01/25/22 19:00 Stool EPEC (PCR) Not Detected (NotDetected) 01/25/22 19:00 Stool EAEC (PCR) Not Detected (NotDetected) 01/25/22 19:00 Stl E. histolytica PCR Not Detected (NotDetected) 01/25/22 19:00 Stool Giardia Lamblia PCR Not Detected (NotDetected) 01/25/22 19:00 Stool Salmonella PCR Not Detected (NotDetected) 01/25/22 19:00 Stool Sapovirus (PCR) Not Detected (NotDetected) 01/25/22 19:00 Stl P. shigelloides PCR Not Detected (NotDetected) 01/25/22 19:00 Stl Shigella/EIEC PCR Not Detected (NotDetected) 01/25/22 19:00 St Y.enterocolitica PCR Not Detected (NotDetected) 01/25/22 19:00 Stool Vibrio (PCR) Not Detected (NotDetected) 01/25/22 19:00 Stl Vibrio cholerae PCR Not Detected (NotDetected) 01/25/22 19:00 Stl Norovirus GI/GII PCR Not Detected (NotDetected) 01/25/22 19:00 SARS-CoV-2 (PCR) NEGATIVE (Negative) 01/24/22 16:52 Influenza Type A (PCR) Negative (Neg) 01/24/22 16:52 Influenza Type B (PCR) Negative (Neg) 01/24/22 16:52 RSV (RT-PCR) Negative (Neg) 01/24/22 16:52 Impressions Chest X-Ray 01/24/22 16:13 SINGLE VIEW CHEST CLINICAL HISTORY: Illness FINDINGS: An AP, portable, upright chest radiograph is compared to study dated 10/24/2020 and correlated with chest CT dated 10/25/2020. The cardiomediastinal silhouette is unremarkable. Chronic interstitial thickening is similar to previous. A left suprahilar nodule measures up to 2.5 cm. No airspace consolidation or large pleural effusion is identified. Scarring/atelectasis is noted at the lung bases. No pneumothorax is seen. The skeletal structures are osteopenic. The bony thorax is grossly intact. A surgical clip is seen in the left upper quadrant. IMPRESSION: 1. No active disease in the chest. 2. A 2.5 cm left suprahilar nodule is similar to previous. ACT 112: Negative or not required by law. Electronically signed by: Angel Samaniego M.D. 01/24/2022 5:13 PM Abdomen/Pelvis CT 01/27/22 16:18 CT abd pelvis oral and IV con CLINICAL HISTORY: eval for metastatic cancer invasion. Hepatocellular carcinoma with metastases. TECHNIQUE: Helical axial images of the abdomen and pelvis were obtained and displayed. Automated dose lowering techniques and/or adjustment according to patient size were utilized for this exam. This exam was performed with intravenous contrast. CT DOSE: 251.10 mGy.cm COMPARISON: Comparison is made to CT abdomen pelvis 10/24/2020 FINDINGS: Lower chest: Bibasilar atelectasis versus scarring is seen. Liver: Hypodensity in the right lobe of the liver is somewhat decreased from prior exam, measuring 42 mm compared to 47 mm in prior exam. However there is increased size of an ill-defined lobulated lesion in the superior right hepatic lobe measuring 73 x 47 mm compared to 53 x 45 mm on prior exam. There is also an increased inferior component abutting the right kidney. Postsurgical changes of partial right hepatectomy are seen. Gallbladder and biliary tree: Patient is status post cholecystectomy. No intra- or extrahepatic biliary ductal dilation. Pancreas: Unremarkable, no focal lesions. Spleen: Patient is status post splenectomy. Adrenals: Unremarkable. Kidneys and ureters: Subcentimeter hypodensities are too small to characterize. 19 mm cyst is seen in the left kidney. Compared to prior exam, there is a less direct abutment of the liver mass upon the right kidney. However, loss of fat plane is still seen, particularly inferiorly. Bladder: Diffuse homogeneous wall thickening is seen. Reproductive organs: Unremarkable. Bowel: Diverticulosis is seen without evidence of diverticulitis. A hiatal hernia is seen. Lymph nodes Retroperitoneal: There is a lymph node conglomerate in the retroperitoneum measuring 54 x 31 mm, this is enlarged from prior exam where it measured 27 x 28 mm and was necrotic-appearing of the time. Bee hepatis lymph nodes are decreased in size. Bee hepatis nodes are now subcentimeter, decreased from prior exam. Pelvic: Unremarkable. Mesenteric: Unremarkable. Peritoneum: Normal. Vessels: Atherosclerotic calcifications are seen. Abdominal wall: Unremarkable. Bones: Degenerative changes in the visualized spine. Posterior fixation hardware is seen in the lower lumbar spine. IMPRESSION: 1. Concern for worsening disease. There is enlargement of the irregular nodularity of the right kidney concerning for residual disease. There is enlargement of a lymph node conglomerate in the retroperitoneum. This previously had appeared necrotic. 2. Mucous thickening of the bladder may represent cystitis, correlation with urinalysis is recommended. 3. Additional findings as above. ACT 112: Negative or not required by law. Electronically signed by: Mars Felix M.D. 01/27/2022 9:00 PM PG Care Time/CCT Total # of Minutes Spent Total Time Spent with Patient: Total time spent is greater than 50% in coordination of care (as documented) at patient's floor/unit and/or counseling patient: Coding Level of Care Code 90983 Initial Inpt Care Lvl 3 Diagnoses Diarrhea R19.7 Diarrhea type: unspecified type Hepatocellular carcinoma C22.0 (1) Diarrhea Diarrhea type: unspecified type Qualified Code(s): R19.7 - Diarrhea, unspecified
--- NOTE | 2022-01-30 19:20 | Hospitalist Progress Note ---
Date of Service January 30, 2022 Assessment & Plan (1) Diarrhea: Plan: -Consult with GI, today had 2 loose bowel movement, responded to Lomotil, consulted GI would not want to be aggressive, possibly discharge tomorrow - Approx. 2 weeks of worsening diarrhea that at times is continuous, and as of recent, intermittent; no hematochezia or melena reported. 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 improving diarrhea . Had a recent treatment with immune modulating treatment which could be the culprit for her diarrhea - C. diff gene positive but toxin negative. Isolation precautions ordered but no need to treat. -Biofire negative for stool infection - Suspect diarrheal illness reason for her acute deterioration on top of her more chronic medical conditions. 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 Perea, die maker stamping here, who recommended the following whenever on non-regular ABX - Stop allergy medicine now d/c'd meropenem (6) Chronic kidney disease with active medical management without dialysis, stage 3 (moderate): Plan: Creatinine close back to baseline from July which is impressive given recent MRI showing extrahepatic tumor extension invading the right kidney to a greater extent than previously. (7) Hepatocellular carcinoma: Plan: Metastatic HCC - Follows with Dr. Meza, currently on immunotherapy (Optivo), receives MRI q3mo - Evidence of spread to kidney and retroperitoneal lymphatics on on 12/2021 MRI - Continue Percocet and Zofran (8) Weight loss: Plan: Weight Loss Severe protein-calorie malnutrition - >20lb weight loss in the last 6 months per EMR and reported by patient - Significant contribution likely from metastatic cancer burden and chronic inflammatory state - Nutritional shakes ordered - Thiamine and folate replacement daily Plan Code: DNR/DNI VTE Prophylaxis - not previously ordered, start heparin 5000 units SQ BID Dispo: continue on med/surg pending PT/OT evals and likely need for placement for acute rehab Admission and Anticipated Discharge Date Admission Date: January 24, 2022 Subjective The patient has 2 loose bowel movements today, responded to Lomotil, consult with GI, recommend conservative management, possible discharge tomorrow Results & Data Results & Data ([facility]) Vital Signs (Past 12 Hours) Vital Signs Temp Pulse Resp BP Pulse Ox O2 Del Method 01/30/22 16:00 36.3 C L 80 18 124/76 95 Room Air 01/30/22 12:10 36.3 C L 73 18 122/66 96 Room Air PG Care Time/CCT Total # of Minutes Spent Total Time Spent with Patient: Total time spent is greater than 50% in coordination of care (as documented) at patient's floor/unit and/or counseling patient: Coding Level of Care Code 31681 Subseq Hosp Care Lvl 2 Diagnoses Diarrhea R19.7 Diarrhea type: unspecified type Generalized weakness R53.1 Acute kidney failure N17.9 Chronic cystitis N30.20 Allergy to multiple antibiotics Z88.1 Chronic kidney disease with active medical management without dialysis, stage 3 (moderate) N18.30 Hepatocellular carcinoma C22.0 Weight loss R63.4 (1) Diarrhea Diarrhea type: unspecified type Qualified Code(s): R19.7 - Diarrhea, unspecified
[2022-01-30] MEDS: LORazepam 0.5 MG TAB PO SCH (20:22)
[2022-01-31] MEDS: LEVOTHYROXINE SODIUM 25 MCG TABLET PO SCH (05:45)
[2022-01-31] MEDS: THIAMINE HCL 100 MG TAB PO SCH (09:05)
[2022-01-31] MEDS: FOLIC ACID 1 MG TAB PO SCH (09:06)
[2022-01-31] MEDS: amLODIPine BESYLATE 5 MG TAB PO SCH (09:06)
[2022-01-31] MEDS: SERTRALINE HCL 100 MG TABLET PO SCH (09:07)
[2022-01-31] MEDS: CYANOCOBALAMIN (B-12) 500 MCG TABLET PO SCH (09:07)
[2022-01-31] MEDS: ONDANSETRON 4 MG OD TAB PO PRN ×2 (09:08→18:39)
[2022-01-31] MEDS: HEPARIN SOD 5,000 UNIT/0.5 ML VIAL SQ SCH (09:09)
[2022-01-31 10:42] LABS: BUN Creatinine Ratio 14.5 (10-20); Calcium 9.8 mg/dl (8.5-10.1); Creatinine Clr Calc Pharmacy 33.3 ml/min; Est GFR (African American) 47.2 ml/min; Est GFR (Non-African American) 40.7 ml/min; Potassium 3.7 mmol/L (3.5-5.1)
[2022-01-31] MEDS: oxyCODONE/ACETAMINOPHEN 5mg/325mg TAB PO PRN (10:49)
[2022-01-31] MEDS: VIBEGRON 75 MG TAB PO SCH (12:50)
--- NOTE | 2022-01-31 15:47 | Palliative Care Consultation ---
Date of Consultation January 31, 2022 Assessment & Plan (1) Generalized weakness: With chronic diarrhea. Some improvement with lomotil. GI following (2) Anxiety: Mrs. Douglas is initially anxious during our visit and talks openly about the continued grief that she is experiencing after the of her 3 years ago. He had been her support and accompanied her to all appointments. She has been living alone but her son and daughter in law have moved into a basement apartment in her home. She has been receiving bereavement support. She has a lot of support with a very close friend and additional family. She is finding the holiday time difficult, particularly with her illness. Mrs. Douglas is aware that recent imaging shows progression of her liver malignancy with extracapsular extension to the right kidney and right retroperitoneal LAD. She asked about whether optivo could be causing her diarrhea. While it would certainly be possible, she has tolerated it for over a year without symptoms of diarrhea and CT did not show signs of inflammation. She feels that she would like to continue it even if it is helping "just a little bit". We talked about whether there was a point where she would feel that the benefits no longer outweighed the side effects. She feels that if she were feeling sick like this all the time, that might be a point at which she'd consider stopping treatment. She is scheduled for treatment next week and would like to continue at this time. She asked about having home care support at home after discharge which could be arranged. She also asked about hospice. We discussed hospice being a better fit for her if she decided against further treatment or continued to have significant disease progression. She would consider that. We talked about her surrogate decision maker. She would want her daughter, Kait Cole, to be her surrogate and has discussed this with her. We discussed ongoing followup with outpatient palliative care for additional support with her grief and disease process and to help her transition to hospice when appropriate. She is agreeable to this. She could see Dr. Gupta in [facility] with Dr. Meza. [phone] (3) Pain: on prn percocet with relief (4) Palliative care encounter: as above History of Present Illness Reason for Consultation: goals of care Requesting Physician: Dr. Leal Attending Physician: Hieu Leal MD History of Present Illness 81 yo lady with history of hepatitis C and hepatocellular carcinoma. She is s/p chemoembolization at [facility] and has been followed by Dr. Meza. She has been on Optivo since September of 2020 and had been tolerating that relatively well. In the last few weeks she has had severe diarrhea, sometimes having BMs every hour, with incontinence at times. She has lost a significant amount of weight and has progressive weakness. She had been using a cane to get around prior to admission because her legs felt weak. 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 She tells me that she is having less frequent BMs and feels a little better today but is still very weak. She has abdominal pain across her lower abdomen for which she takes percocet. This has generally been effective. Allergies Allergy/AdvReac Type Severity Reaction Status Date / Time celecoxib Allergy Severe Rash Verified 08/07/21 13:16 ciprofloxacin [From Cipro] Allergy Severe DRESS Verified 08/07/21 13:16 adhesive Allergy Intermediate RED Verified 08/07/21 13:16 IRRITATED SKIN Sulfa (Sulfonamide Allergy Mild Hives Verified 08/07/21 13:16 Antibiotics) amoxicillin Allergy Unknown Rash Verified 08/07/21 13:16 cefepime Allergy Unknown Rash, drug Verified 08/07/21 13:16 eruption Penicillins Allergy Unknown Rash Verified 08/07/21 13:16 lactose AdvReac Intermediate GI UPSET Verified 08/07/21 13:16 vancomycin AdvReac Unknown Mook Verified 08/07/21 13:16 syndrome Home Medications Medication Instructions Recorded Confirmed Type polyethylene glycol 3350 17 17 g PO DAILY PRN Constipation 08/26/18 01/24/22 History gram/dose oral powder (Miralax) lorazepam 0.5 mg tablet (Ativan) 0.5 mg PO HS 04/08/19 01/24/22 History acetaminophen 500 mg tablet 500 mg PO Q6H PRN Pain 04/12/20 01/24/22 History (Tylenol Extra Strength) amlodipine 2.5 mg tablet 2.5 mg PO DAILY 05/11/20 01/24/22 History ascorbic acid (vitamin C) 500 mg 500 mg PO DAILY 09/16/20 01/24/22 History tablet (Vitamin C) methenamine hippurate 1 gram tablet 1 g PO BID 09/16/20 01/24/22 History lorazepam 0.5 mg tablet 0.5 mg PO UD PRN for cancer 10/24/20 01/24/22 History treatment fosfomycin tromethamine 3 gram 1 packet PO ONCE PRN uti 05/31/21 01/24/22 History oral packet Lactobacillus acidophilus 1.5 mg 1,000 mmu cells PO DAILY 01/24/22 01/24/22 History (250 million cell) capsule (Probiotic Acidophilus) Opdivo 1 dose IV UD 01/24/22 01/24/22 History biotin 1,000 mcg chewable tablet 1,000 mcg PO DAILY 01/24/22 01/24/22 History cholecalciferol (vitamin D3) 50 50 mcg PO DAILY 01/24/22 01/24/22 History mcg (2,000 unit) capsule (Vitamin D3) levothyroxine 25 mcg tablet 25 mcg PO QAM 01/24/22 01/24/22 History magnesium 250 mg tablet 250 mg PO DAILY 01/24/22 01/24/22 History multivit with 1 tab PO DAILY 01/24/22 01/24/22 History qtuzxyir-rwuc-ZF-lutein 8 mg iron-400 mcg-300 mcg tablet (Centrum Silver Women) ondansetron HCl 8 mg tablet 8 mg PO Q8 PRN Nausea 01/24/22 01/24/22 History oxycodone-acetaminophen 5 mg-325 1 tab PO Q6 PRN Pain, Moderate 01/24/22 01/24/22 History mg tablet sertraline 100 mg tablet 100 mg PO DAILY 01/24/22 01/24/22 History vibegron 75 mg tablet (Gemtesa) 75 mg PO .DAILY AT NOON 01/24/22 01/24/22 History Patient History Medical History Acute ischemic colitis Allergic reaction (06/17/13) Carcinoid tumor of lung Cervical cancer Colitis Cystitis Desensitization to allergens Diverticulosis of colon DVT prophylaxis Febrile illness GI bleed Hepatitis C virus Hyperkalemia Pneumonia Recurrent UTI (urinary tract infection) 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 Urinary tract infection Urticaria Surgical History H/O: hysterectomy History of cholecystectomy History of splenectomy Family History Other Family history non-contributory Social History Smoking Status: Never smoker Second Hand Exposure: Yes (first smoked); Hx Alcohol Use: No Hx Substance Use: Yes Substance Use Type Other:: patient stated she takes percoset Q6H Preferred Language: Zambian Communication Ability: Effective Instructional Systems Design Consultant Required: No Beliefs That Will Affect Care: Holiness Holiness Beliefs: Patient stated she is Adventism marital status: / Current Living Situation: Family Current Living Situation Comment: with son and daughter in law at this time How many Children do You have: 6 Other Information That Helps Us Care for You: No Feels Safe at Home: Yes Safety Concerns: Feels Safe At This Time Assistive Devices: Cane Assistive Devices Comment: patient wears reading glasses Review of Systems Review of Systems: ESAS Pain 1/3 Dyspnea 0/3 Nausea 1/3 Drowsiness 0/3 FAtigue 2/3 Physical Exam Constitutional: + frail appearing ENMT: Mouth: oral mucous membranes not dry Respiratory: normal respiratory effort; no labored breathing Cardiovascular: Extremities: no edema Musculoskeletal: Extremities: + muscle atrophy Neurologic: Speech / Cognition: normal cognition Psychiatric: Affect: + anxious affect Results & Data ([facility]) Vital Signs (Past 12 Hours) Vital Signs Temp Pulse Resp BP Pulse Ox O2 Del Method 01/31/22 15:32 97.9 F 71 17 119/63 94 Room Air 01/31/22 08:10 Room Air 01/31/22 09:00 128/61 01/31/22 07:50 98.2 F 69 16 133/57 L 95 Room Air PG Care Time/CCT Total # of Minutes Spent Total Time Spent: 78 Total Time Spent with Patient: Total time spent is greater than 50% in coordination of care (as documented) at patient's floor/unit and/or counseling patient:symptom management, goals of care, patient education and support Coding Level of Care Code 87049 Initial Inpt Care Lvl 3 Diagnoses Generalized weakness R53.1 Anxiety F41.9 Pain R52 Palliative care encounter Z51.5
--- NOTE | 2022-01-31 18:43 | Discharge Summary ---
Date of Service January 31, 2022 Admission HPI Per Admitting Provider 81-year-old female with history of recurrent UTIs on methenamine followed by [facility], HCV, HCC (on immunotherapy via Dr. Meza) s/p chemoembolization by [facility] IR, carcinoid tumor of the lung, hairy cell leukemia (in remission), CKD3b who presented to [facility] for evaluation of weakness, generalized fatigue, and diarrhea. She is accompanied by her daughter, who contributes to the history. She says beginning about 2 to 3 weeks ago, she began feeling ill. She describes this is a severe sense of fatigue, lack of appetite. She also says over the last couple days she has got new chills and night sweats. She notes that she began developing diarrhea around this time. Initially, it was pretty much flcffb-wac-bjnen. Then it became more spaced out. However, 2 days ago, she said it was "nearly every hour." Denies hematochezia/melena. She thinks that over the past couple days, she is also had some increased urinary frequency, urgency, and dysuria. She further adds that over the past 2 months, she has lost almost 20 pounds. She is currently on immunotherapy, Opdivo. She receives MRIs of the abdomen and pelvis every [address] Meza. Most recent scan from December 2021 demonstrated "continue to enlargement of the right hepatic lobe viable tumor surrounding the treatment cavity. Increasing extrahepatic tumor extension invading the right kidney to a greater extent than previously. Enlarging metas tatic hepatocellular carcinoma deposit at the posterior margin Increasing metastatic retroperitoneal lymphadenopathy. " In the ED, patient found to be mildly hypertensive to 150/80 with heart rate 102. Weight 60.6 kg which is a notable change from 69.4 kg in July 2021. Labs demonstrated leukocytosis with left shift, monocytosis, eosinophilia. Chemistries reveal mild hyponatremia 135, BUN 41/creatinine 2.05 (baseline creatinine about 1.1). LFTs normal. Urine had a turbid appearance with 2+ protein, 2+ blood, 3+ leuk esterase in the setting of over 30 WBCs, 10-30 RBCs, but also 20-30 epithelial cells. Urine yeast negative. COVID-negative, flu negative, RSV negative. Chest x-ray demonstrated similar-appearing left suprahilar lung nodule. --- This documentation was created utilizing dictation software. As such, syntax, grammatical, and word-choice errors may be present. Notes are screened prior to submission in an attempt to reduce these errors. If there are any questions or concerns, please contact the author directly for clarification. Principal Diagnosis Diarrhea for 3 weeks, associate with nausea Discharge Exam The patient appeared chronically ill mild to moderate malnourishment and stated age of 81 Vital signs as documented. Head exam is normocephalic atraumatic Neck is without JVD, thyromegaly, or carotid bruits. Lungs are clear to auscultation, no focal loss of breath sounds Cardiac exam, Rhythm is regular.. No murmurs, rubs or gallops. Abdominal exam reveals normal bowel sounds, soft uncomfortable to exam Extremities are nonedematous and both pedal pulses are present Neurologic exam is alert and oriented, no focal loss of strength or sensation Skin is without bruises or rashes Psychologically is without concerns for anxiety or depression..she does have some memory loss Constitutional WD/WN, vitals as above Respiratory normal respiratory effort, lungs clear to auscultation Cardiovascular Rate/Rhythm: regular rate and regular rhythm Heart Sounds: no murmur Gastrointestinal (Abdomen) normal bowel sounds, soft, nontender, no hepatosplenomegaly Psychiatric A+Ox3, euthymic affect Discharge Data Allergies Allergy/AdvReac Type Severity Reaction Status Date / Time celecoxib Allergy Severe Rash Verified 08/07/21 13:16 ciprofloxacin [From Cipro] Allergy Severe DRESS Verified 08/07/21 13:16 adhesive Allergy Intermediate RED Verified 08/07/21 13:16 IRRITATED SKIN Sulfa (Sulfonamide Allergy Mild Hives Verified 08/07/21 13:16 Antibiotics) amoxicillin Allergy Unknown Rash Verified 08/07/21 13:16 cefepime Allergy Unknown Rash, drug Verified 08/07/21 13:16 eruption Penicillins Allergy Unknown Rash Verified 08/07/21 13:16 lactose AdvReac Intermediate GI UPSET Verified 08/07/21 13:16 vancomycin AdvReac Unknown Mook Verified 08/07/21 13:16 syndrome Consultations 01/24/22 19:26 ED Decision to Admit Stat 01/30/22 12:33 Consult Palliative Care Routine 01/30/22 14:03 Consult Gastroenterology Routine Ordered Studies 01/27/22 16:18 CT Abd and Pelvis [CT abd pelvis oral and IV con] Routine Hospital Course (1) Diarrhea: - Approx. 2 weeks of worsening diarrhea that at times is continuous, and as of recent, intermittent; no hematochezia or melena reported. 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 improving diarrhea . Had a recent treatment with immune modulating treatment which could be the culprit for her diarrhea - C. diff gene positive but toxin negative. Isolation precautions ordered but no need to treat. -Biofire negative for stool infection - Suspect diarrheal illness reason for her acute deterioration on top of her more chronic medical conditions. 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 Meza, discussed with GI, recommend manage conservatively, patient is not dehydrated, responded well to loperamide and Zofran, (2) Generalized weakness: -Multifactorial: Given her age and underlying malignancy which is not unfortunately responded to current treatment, patient was offered to go to rehab however she would like to go home (3) Acute kidney failure: Improved with IV No lightheaded, dizziness therefore will continue low dose amlodipine 2.5mg PO daily (4) Chronic cystitis: Chronic Cystitis - Reporting several days' worth of more frequent urination, urgency, and dysuria - Initial concern for acute UTI ruled out, culture with no growth after 24 hours. Antibiotics discontinued along with allergy medication (5) Allergy to multiple antibiotics: - patient has a significant amount of cutaneous allergies to antimicrobials - has followed with Dr. Perea, commutator v ring assembler here, who recommended the following whenever on non-regular ABX - Stop allergy medicine now d/c'd meropenem (6) Chronic kidney disease with active medical management without dialysis, stage 3 (moderate): Creatinine close back to baseline from July which is impressive given recent MRI showing extrahepatic tumor extension invading the right kidney to a greater extent than previously. (7) Hepatocellular carcinoma: Metastatic HCC - Follows with Dr. Meza, currently on immunotherapy (Optivo), receives MRI q3mo - Evidence of spread to kidney and retroperitoneal lymphatics on on 12/2021 MRI - Continue Percocet and Zofran (8) Weight loss: Weight Loss Severe protein-calorie malnutrition - >20lb weight loss in the last 6 months per EMR and reported by patient - Significant contribution likely from metastatic cancer burden and chronic inflammatory state - Nutritional shakes ordered - Thiamine and folate replacement daily Plan The patient will be discharged home today, will be followed by palliative care, her oncologist Dr. Meza, patient would like to continue treatment for her cancer Total Time Total Time Spent Total Time Spent (In Minutes): 45 Discharge Plan Discharge Items Patient Disposition: Home - Self-Care Reason For Visit: GENERALIZED WEAKNESS, DIARRHEA Discharge Diagnosis: Diarrhea with nausea Activity: Resume your previous activity Lifting: Gradually increase as tolerated Sexual Activity: When tolerated Driving/Machine Use: No limitations Weightbearing: Full weightbearing Non-emergency contact: Primary Care Provider and Oncologist Call non-emergency contact if: you have any medication questions and your symptoms worsen Follow-up/Referrals: Bradley Jeter [Primary Care Provider] - Diet: Heart Healthy Addtl Attending Provider Instructions: Please follow-up with Dr. Meza your oncologist Pending Studies at Discharge: No Stand-Alone Forms: My [employer] [place], Smoking Cessation Medications and DC Order Prescriptions: New diphenoxylate-atropine [Lomotil] 2.5-0.025 mg tablet 1 tab PO Q8H PRN (Reason: diarrhea) Qty: 30 0RF Continued polyethylene glycol 3350 [Miralax] 17 gram/dose powder 17 g PO DAILY PRN (Reason: Constipation) amlodipine 2.5 mg tablet 2.5 mg PO DAILY lorazepam [Ativan] 0.5 mg tablet 0.5 mg PO HS fosfomycin tromethamine 3 gram packet 1 packet PO ONCE PRN (Reason: uti) acetaminophen [Tylenol Extra Strength] 500 mg Tablet 500 mg PO Q6H PRN (Reason: Pain) methenamine hippurate 1 gram tablet 1 g PO BID Rx Instructions: take with vitamin c ascorbic acid (vitamin C) [Vitamin C] 500 mg tablet 500 mg PO DAILY lorazepam 0.5 mg tablet 0.5 mg PO UD PRN (Reason: for cancer treatment) oxycodone-acetaminophen 5-325 mg tablet 1 tab PO Q6 PRN (Reason: Pain, Moderate) Gemtesa 75 mg tablet 75 mg PO .DAILY AT NOON levothyroxine 25 mcg tablet 25 mcg PO QAM Opdivo 1 dose IV UD cholecalciferol (vitamin D3) [Vitamin D3] 50 mcg (2,000 unit) Capsule 50 mcg PO DAILY sertraline 100 mg tablet 100 mg PO DAILY magnesium 250 mg Tablet 250 mg PO DAILY biotin 1,000 mcg Tablet,Chewable 1,000 mcg PO DAILY Centrum Silver Women 8 mg iron-400 mcg-300 mcg Tablet 1 tab PO DAILY Probiotic Acidophilus 1.5 mg (250 million cell) Capsule 1,000 mmu cells PO DAILY ondansetron HCl 8 mg tablet 8 mg PO Q8 PRN (Reason: Nausea) Qty: 30 1RF Discharge Orders: Discharge Order (Routine); Ordered 01/31/22 Ordered By: Hieu Leal Admission Data Admit Date/Time: 01/24/22 19:07 Attending Provider: Hieu Leal Admit Provider: Shayne Toscano Primary Care Provider: Bradley Jeter Other Providers: Raji Thornton ; Soraya Liu ; Guille Alegria ; Marek Han ; Yesenia Saini ; Gracia Mcgrath ; Zenaida Hamilton ; Cinthia Pizarro ; Morteza Elizabeth ; Carmine Mas ; Gudelia James ; Christina Rao ; Cha Sheffield ; Kaycee Barrera ; Meri Prater ; Johanne Morris ; Louis Sloan ; Jagdish Betancourt ; Shashank Larson ; Liz Ruiz ; Virginia Alcaraz Jr Other Interventions: Discharge Summary Assessment (RN) Last Done: 01/31/22 17:43 Coding Level of Care Code D/C DAY MANAGEMENT >30 MINS Diagnoses Diarrhea R19.7 Diarrhea type: unspecified type Generalized weakness R53.1 Acute kidney failure N17.9 Chronic cystitis N30.20 Allergy to multiple antibiotics Z88.1 Chronic kidney disease with active medical management without dialysis, stage 3 (moderate) N18.30 Hepatocellular carcinoma C22.0 Weight loss R63.4
== END 2022-01-31 19:25 | disposition home health service (06) | DRG 640 ==
LOC: ED 16:02 → SUATTDRO 19:07 → 3W 19:07
DX: R19.7 Diarrhea, unspecified; Z87.440 Personal history of urinary (tract) infections; Z88.2 Allergy status to sulfonamides; Z79.890 Hormone replacement therapy; Z88.0 Allergy status to penicillin; C7B.8 Other secondary neuroendocrine tumors; C22.0 Liver cell carcinoma; N30.20 Other chronic cystitis without hematuria; N18.32 Chronic kidney disease, stage 3b; Z88.1 Allergy status to other antibiotic agents; Z66 Do not resuscitate; N39.0 Urinary tract infection, site not specified; E86.0 Dehydration; E43 Unspecified severe protein-calorie malnutrition; E03.9 Hypothyroidism, unspecified; C7A.090 Malignant carcinoid tumor of the bronchus and lung; C91.41 Hairy cell leukemia, in remission; N17.9 Acute kidney failure, unspecified

== ENCOUNTER 2022-03-12 09:17 | Inpatient (IN) ==
[2022-03-12] MEDS ORDERED: fentaNYL citrate 100 MCG/2 ML VIAL IV STA ×2 (09:37→12:21)
[2022-03-12] MEDS ORDERED: ONDANSETRON INJ 2 MG/ML 2 ML VIAL IV STA (09:42)
--- NOTE | 2022-03-12 09:44 | Emergency Department Note ---
Impression & Plan Fall, Hepatocellular carcinoma, Multiple drug allergies, Complicated UTI (urinary tract infection), Closed fracture of right hip ED Provider Note Provider: Daniel Albert MD DATE OF SERVICE: 03/12/2022 CHIEF COMPLAINT: Fall HISTORY OF PRESENT ILLNESS: Patient is a 81-year-old female history of recurrent UTIs on the thiamine, HCC, carcinoid tumor, leukemia in remission, CKD presenting here after a fall. Patient states she was at home and was in the bathroom and tripped on the rug and fell onto her right side. Denies loss of consciousness. Did strike the right side of her head as well as her shoulder chest and pelvis hip on the ground. States she was on the ground until found by caregiver/[id number] but was not there very long. Planes a bit of right- sided head pain and right neck pain as well as pain in the right shoulder, right chest wall, and right hip. Unable to ambulate since the fall. Normally takes Percocet by her report but did not receive anything for pain prior to arrival. Patient endorses may be a touch of nausea. Patient denies numbness or tingling nearly in the lower extremities PAST MEDICAL HISTORY: As noted above MEDICATIONS: Reviewed home medications and denies anticoagulants SOCIAL HISTORY: Lives at home PHYSICAL EXAM: GENERAL: alert and oriented in no acute distress on stretcher fatigued in appearance with cervical collar in place Head: normocephalic and atraumatic EYES: No injection, discharge or icterus. NECK: Trachea midline. Supple without midline tenderness but some tenderness of the right side of the neck. ENT: Mucous membranes pink and moist. LUNGS: Airway patent. No retractions. Breath sounds clear with good air entry bilaterally. HEART: Regular rate and rhythm. No chest wall tenderness ABDOMEN: Soft and non-tender, without guarding or rebound. SKIN: Acyanotic, warm, dry, without rashes EXTREMITIES: Without swelling, tenderness or deformity patient with pain with ROM of the right hip. There is a slight 1 x 2 cm skin tear/abrasion to the right knee without significant joint line tenderness. Intact sensation of the bilateral lower feet. No significant tenderness of the bilateral compartments of the lower legs or in the upper arms. No significant bony tenderness of the snuffbox of the bilateral wrists or in the elbows. Slight tenderness of the right shoulder NEUROLOGICAL: No focal deficits. No aphasia. No facial droop or slurred speech. Normal strength and tone in the extremities limited in the right lower extremity due to pain around the hip. Sensation to gross touch normal. EK bpm normal sinus rhythm. No PVC or PAC. No acute ST segment elevation or depression with QTC of 447 CONTINUOUS CARDIAC MONITORING: was ordered and showed a heart rate of 70s-80s bpm in normal sinus rhythm GCS 15. Patient's laboratory studies and imaging reviewed. Differential includes Fracture, dislocation, contusion, intra-abdominal, pneumothorax, intrathoracic, intracranial, neurologic, compartment syndrome, rhabdomyolysis, as well as other pathologies. IMPRESSION/MEDICAL DECISION MAKING: Patient with a sounds like mechanical type fall falling onto her right side without loss of consciousness earlier today. Not on the floor for very long we will check a CK to help exclude rhabdomyolysis. Given the complaint of some head pain as well as pain in her right neck shoulder chest and pelvic region CT scans completed. Given her SALAZAR on CKD without contrast. X-rays of the right elbow and shoulder as well as her right hip region will be obtained. Question possible hip fracture. Neurovascular intact without significant tenderness or trauma of the lower extremities otherwise. There is a slight skin tear abrasion on the right knee but no significant bony tenderness. Not on high risk anticoagulants by report. Given a small mount of fentanyl for pain IV and later received a repeat dose as well some IV Tylenol. Blood work with a chronic leukocytosis today 14.6. No anemia. Platelets within normal limits. Evidence of an acute kidney injury today with a mildly elevated BUN as well. Given some gentle IV fluid hydration. No other severe electrolyte abnormality noted. No signs of acute hepatitis based on labs. Urinalysis concerning for possible infection. Reviewed prior microbiology in the computer. Negative COVID. CT report per radiology of the head, chest, and cervical spine without acute traumatic injury and only incidentally notes subacute third and fourth right rib fractures and there was report of fall in January according to patient and daughter at bedside. CT abdomen pelvis shows unfortunately further imaging of the nondisplaced intertrochanteric right femur fracture. There is evidence of persistent right hepatic mass as well as a slight increase of retroperitoneal lymph nodes. Some bladder inflammation was noted by the report as well. Discussed with the patient and daughter at bedside. Discussed with patient and daughters at bedside and she wishes for me [facility]. Discussed with pharmacist antibiotic choice given his h istory of allergies and prior microbiology. Given ceftriaxone and based on prior allergy immunology notes given antihistamines as well as steroid. Discussed with the hospitalist team for further care here. Discussed with orthopedics, [facility], based on family's choice making them aware of the hip fracture. DIAGNOSIS: Acute UTI, SALAZAR on CKD, fall, right intertrochanteric fracture DISPOSITION: Hospitalist will evaluate Patient was agreeable with this plan. 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 Urinary tract infection Urticaria Surgical History H/O: hysterectomy History of cholecystectomy History of splenectomy Family History Other Family history non-contributory Social History Smoking Status: Never smoker Second Hand Exposure: Yes (first smoked); Hx Alcohol Use: No Hx Substance Use: Yes Substance Use Type Other:: patient stated she takes percoset Q6H Preferred Language: French Communication Ability: Effective 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 Required: No Beliefs That Will Affect Care: Evangelical Evangelical Beliefs: Patient stated she is Islam marital status: / Current Living Situation: Family Current Living Situation Comment: with son and daughter in law at this time How many Children do You have: 6 Feels Safe at Home: Yes Assistive Devices: Cane Allergies Allergies Allergy/AdvReac Type Severity Reaction Status Date / Time celecoxib Allergy Severe Rash Verified 03/12/22 13:31 ciprofloxacin [From Cipro] Allergy Severe DRESS Verified 03/12/22 13:31 adhesive Allergy Intermediate RED Verified 03/12/22 13:31 IRRITATED SKIN Sulfa (Sulfonamide Allergy Mild Hives Verified 03/12/22 13:31 Antibiotics) amoxicillin Allergy Unknown Rash Verified 03/12/22 13:31 cefepime Allergy Unknown Rash, drug Verified 03/12/22 13:31 eruption Penicillins Allergy Unknown Rash Verified 03/12/22 13:31 lactose AdvReac Intermediate GI UPSET Verified 03/12/22 13:31 vancomycin AdvReac Unknown Mook Verified 03/12/22 13:31 syndrome Home Meds Home Medications Medication Instructions Recorded Confirmed polyethylene glycol 3350 17 17 g PO DAILY PRN Constipation 08/26/18 03/12/22 gram/dose oral powder (Miralax) lorazepam 0.5 mg tablet (Ativan) 0.5 mg PO HS 04/08/19 03/12/22 acetaminophen 500 mg tablet 500 mg PO Q6H PRN Pain 04/12/20 03/12/22 (Tylenol Extra Strength) amlodipine 2.5 mg tablet 2.5 mg PO DAILY 05/11/20 03/12/22 ascorbic acid (vitamin C) 500 mg 500 mg PO DAILY 09/16/20 03/12/22 tablet (Vitamin C) methenamine hippurate 1 gram tablet 1 g PO BID 09/16/20 03/12/22 lorazepam 0.5 mg tablet 0.5 mg PO UD PRN for cancer 10/24/20 03/12/22 treatment fosfomycin tromethamine 3 gram 1 packet PO ONCE PRN uti 05/31/21 03/12/22 oral packet Lactobacillus acidophilus 1.5 mg 1,000 mmu cells PO DAILY 01/24/22 03/12/22 (250 million cell) capsule (Probiotic Acidophilus) Opdivo 1 dose IV UD 01/24/22 03/12/22 biotin 1,000 mcg chewable tablet 1,000 mcg PO DAILY 01/24/22 03/12/22 cholecalciferol (vitamin D3) 50 50 mcg PO DAILY 01/24/22 03/12/22 mcg (2,000 unit) capsule (Vitamin D3) levothyroxine 25 mcg tablet 25 mcg PO QAM 01/24/22 03/12/22 magnesium 250 mg tablet 250 mg PO DAILY 01/24/22 03/12/22 multivit with 1 tab PO DAILY 01/24/22 03/12/22 [id number] 8 mg iron-400 mcg-300 mcg tablet (Centrum Silver Women) oxycodone-acetaminophen 5 mg-325 1 tab PO Q6 PRN Pain, Moderate 01/24/22 03/12/22 mg tablet sertraline 100 mg tablet 100 mg PO DAILY 01/24/22 03/12/22 vibegron 75 mg tablet (Gemtesa) 75 mg PO .DAILY AT NOON 01/24/22 03/12/22 food supplemt, lactose-reduced 1 ea PO DAILY 03/12/22 03/12/22 Previous Rx's Medication Instructions Recorded diphenoxylate-atropine 2.5 1 tab PO Q8H PRN diarrhea #30 tabs 01/31/22 mg-0.025 mg tablet (Lomotil) ondansetron HCl 8 mg tablet 8 mg PO Q8 PRN Nausea #30 tabs 01/31/22 Results & Data (ED) Vital Signs Vital Signs - 24 hr 03/12/22 09:29 03/12/22 09:37 Temperature 36.7 C Temperature Source Oral Pulse Rate 105 H Respiratory Rate 12 Respiratory Effort / Characteristics Non-Labored Respiratory Depth Normal Respiratory Pattern Regular Blood Pressure 123/56 L Blood Pressure Mean 78 Pulse Oximetry 95 Oxygen Delivery Method Room Air Room Air Sepsis Recent Fever Within 48 Hours No Sepsis New/Unexplained Change in Mental Status No Sepsis Action Taken by Nursing No Action Required Laboratory Data 03/12/22 09:30 03/12/22 09:30 Lab Results 03/12/22 03/12/22 03/12/22 Range/Units 09:30 09:30 09:30 WBC 14.61 H (4.8-10.8) K/ul RBC 4.01 L (4.20-5.40) M/uL Hgb 12.8 (12.0-16.0) g/dl Hct 37.6 (37.0-47.0) % MCV 93.8 (80.0-100.0) fL MCH 31.9 (25.0-34.0) pg MCHC 34.0 (32.0-36.0) g/dL RDW Std Deviation 55.8 H (36.4-46.3) fL RDW Coeff of Bakari 16.2 H (11.5-14.5) % Plt Count 253 (130-400) K/uL MPV 11.5 (9.4-12.4) fL Immature Gran % (Auto) 0.4 % Neut % (Auto) 66.5 % Lymph % (Auto) 17.2 % Butler % (Auto) 8.6 % Eos % (Auto) 6.3 % Baso % (Auto) 1.0 % Neut # (Auto) 9.73 H (1.40-6.50) K/uL Lymph # (Auto) 2.51 (1.2-3.4) K/uL Butler # (Auto) 1.25 H (0.11-0.59) K/uL Eos # (Auto) 0.92 H (0-0.50) K/uL Baso # (Auto) 0.14 (0-0.2) K/uL Immature Gran # (Auto) 0.06 (0.01-0.20) K/uL PT 11.2 (9.0-12.0) Seconds INR 1.1 (0.9-1.1) Sodium 138 (136-145) mmol/L Potassium 3.9 (3.5-5.1) mmol/L Chloride 107 (98-107) mmol/L Carbon Dioxide 25 (21-32) mmol/L Anion Gap 6 (3-11) BUN 42 H (6-23) mg/dl Creatinine 1.98 H (0.6-1.2) mg/dl Est Cr Clr Drug Dosing 19.3 ml/min Est GFR ( Amer) 26.8 ml/min Est GFR (Non-Af Amer) 23.1 ml/min BUN/Creatinine Ratio 21.2 H (10-20) Glucose 101 H (70-99(Fasting)) mg/dl Calcium 10.5 H (8.5-10.1) mg/dl Total Bilirubin 0.5 (0.2-1.0) mg/dl AST 17 (13-39) U/L ALT 17 (7-52) U/L Alkaline Phosphatase 68 (34-104) U/L Total Creatine Kinase 41 (26-192) U/L Total Protein 6.3 (6.0-8.3) gm/dl Albumin 3.2 L (3.4-5.0) gm/dl Globulin 3.1 (2.5-4.0) gm/dl Albumin/Globulin Ratio 1.0 (0.9-2) Urine Color Urine Appearance (Clear) Urine pH (4.5-7.5) Ur Specific [place] (1.000-1.030) Urine Protein (Negative) Urine Glucose (UA) (Negative) Urine Ketones (Negative) Urine Blood (Negative) Urine Nitrite (Negative) Urine Bilirubin (Negative) Urine Urobilinogen (Negative) Ur Leukocyte Esterase (Negative) Urine WBC (Auto) (0-5) /hpf Urine RBC (Auto) (0-4) /hpf U Hyaline Cast (Auto) (0-5) /lpf U Epithel Cells (Auto) (0-5) /lpf Urine Bacteria (Auto) (Negative) SARS-CoV-2, RNA, NAAT (NEGATIVE) 03/12/22 03/12/22 Range/Units 10:10 10:10 WBC (4.8-10.8) K/ul RBC (4.20-5.40) M/uL Hgb (12.0-16.0) g/dl Hct (37.0-47.0) % MCV (80.0-100.0) fL MCH (25.0-34.0) pg MCHC (32.0-36.0) g/dL RDW Std Deviation (36.4-46.3) fL RDW Coeff of Bakari (11.5-14.5) % Plt Count (130-400) K/uL MPV (9.4-12.4) fL Immature Gran % (Auto) % Neut % (Auto) % Lymph % (Auto) % Butler % (Auto) % Eos % (Auto) % Baso % (Auto) % Neut # (Auto) (1.40-6.50) K/uL Lymph # (Auto) (1.2-3.4) K/uL Butler # (Auto) (0.11-0.59) K/uL Eos # (Auto) (0-0.50) K/uL Baso # (Auto) (0-0.2) K/uL Immature Gran # (Auto) (0.01-0.20) K/uL PT (9.0-12.0) Seconds INR (0.9-1.1) Sodium (136-145) mmol/L Potassium (3.5-5.1) mmol/L Chloride (98-107) mmol/L Carbon Dioxide (21-32) mmol/L Anion Gap (3-11) BUN (6-23) mg/dl Creatinine (0.6-1.2) mg/dl Est Cr Clr Drug Dosing ml/min Est GFR ( Amer) ml/min Est GFR (Non-Af Amer) ml/min BUN/Creatinine Ratio (10-20) Glucose (70-99(Fasting)) mg/dl Calcium (8.5-10.1) mg/dl Total Bilirubin (0.2-1.0) mg/dl AST (13-39) U/L ALT (7-52) U/L Alkaline Phosphatase (34-104) U/L Total Creatine Kinase (26-192) U/L Total Protein (6.0-8.3) gm/dl Albumin (3.4-5.0) gm/dl Globulin (2.5-4.0) gm/dl Albumin/Globulin Ratio (0.9-2) Urine Color Yellow Urine Appearance Turbid A (Clear) Urine pH 6.5 (4.5-7.5) Ur Specific [place] 1.013 (1.000-1.030) Urine Protein 2+ H (Negative) Urine Glucose (UA) Negative (Negative) Urine Ketones Trace H (Negative) Urine Blood 1+ H (Negative) Urine Nitrite Negative (Negative) Urine Bilirubin Negative (Negative) Urine Urobilinogen Negative (Negative) Ur Leukocyte Esterase 3+ H (Negative) Urine WBC (Auto) >30 H (0-5) /hpf Urine RBC (Auto) 0-4 (0-4) /hpf U Hyaline Cast (Auto) 1-5 (0-5) /lpf U Epithel Cells (Auto) 10-20 H (0-5) /lpf Urine Bacteria (Auto) Negative (Negative) SARS-CoV-2, RNA, NAAT NEGATIVE (NEGATIVE) Administered Medications Hydromorphone HCl (Hydromorphone Hcl 2 Mg Tab) 1 mg PO Q4H PRN PRN Reason: Mod to Sev Pain (4-10) & Pre PT Stop: 03/26/22 15:18 Last Admin: 03/12/22 16:36 Dose: 1 mg Documented By: SWAPNIL Parenteral Electrolytes (Normosol-R) 1,000 mls @ 80 mls/hr IV .[id number] KEVIN Stop: 04/11/22 15:18 Last Admin: 03/12/22 15:50 Dose: 80 mls/hr Documented By: SWAPNIL Discontinued Medications Cetirizine HCl (Cetirizine Hcl 10 Mg Tablet) 10 mg PO BID KEVIN Stop: 04/11/22 15:18 Last Admin: 03/12/22 15:50 Dose: 10 mg Documented By: SWAPNIL Diphenhydramine HCl (Diphenhydramine 50 Mg/Ml Vial) 25 mg IV NOW STA Stop: 03/12/22 12:34 Last Admin: 03/12/22 13:05 Dose: 25 mg Documented By: SELENA Fentanyl Citrate (Fentanyl Citrate 100 Mcg/2 Ml Vial) 50 mcg IV NOW STA Stop: 03/12/22 09:38 Last Admin: 03/12/22 10:02 Dose: 50 mcg Documented By: SELENA Fentanyl Citrate (Fentanyl Citrate 100 Mcg/2 Ml Vial) 50 mcg IV NOW STA Stop: 03/12/22 12:22 Last Admin: 03/12/22 13:05 Dose: 50 mcg Documented By: SELENA Sodium Chloride (Nss) 500 mls @ 999 mls/hr IV .Q31M ONE Stop: 03/12/22 11:04 Last Infusion: 03/12/22 13:00 Dose: 0 mls/hr Documented By: Admin: 03/12/22 11:31 Dose: 999 mls/hr Documented By: SELENA Acetaminophen (Ofirmev) 1,000 mg in 100 mls @ 400 mls/hr IV NOW STA Stop: 03/12/22 12:35 Last Infusion: 03/12/22 13:21 Dose: 0 mls/hr Documented By: Admin: 03/12/22 13:06 Dose: 400 mls/hr Documented By: SELENA Ceftriaxone Sodium (Rocephin) 2,000 mg in 70 mls @ 140 mls/hr IV NOW STA Stop: 03/12/22 12:57 Last Infusion: 03/12/22 14:28 Dose: 0 mls/hr Documented By: Admin: 03/12/22 13:38 Dose: 140 mls/hr Documented By: JAZMÍN Methylprednisolone (Methylprednisolone 40 Mg/Ml Vial) 40 mg IV NOW STA Stop: 03/12/22 12:34 Last Admin: 03/12/22 13:05 Dose: 40 mg Documented By: SELENA Ondansetron HCl (Ondansetron Inj 2 Mg/Ml 2 Ml Vial) 4 mg IV NOW STA Stop: 03/12/22 09:43 Last Admin: 03/12/22 10:02 Dose: 4 mg Documented By: [employer] Data Radiologist's Impression: Head CT 03/12/22 09:[address] DOSE: 1405.30 mGy.cm HISTORY: Trauma, fall TECHNIQUE: Multiaxial CT images of the head were performed without the use of intravenous contrast. Automated exposure control was utilized for this study. A dose lowering technique was utilized adhering to the principles of ALARA. Comparison: None. Findings: The paranasal sinuses and mastoid air cells are clear. The calvarium and skull base are intact. The ventricles and sulci are within normal limits. There is no mass, hematoma, midline shift, or acute infarct. Impression: No acute intracranial abnormality. ACT 112: Negative or not required by law. Electronically signed by: Hung Sommer M.D. 03/12/2022 10:38 AM Hip/Pelvis X-Ray 03/12/22 09:37 XR hip RT 2V w pelvis CLINICAL HISTORY: fall, hip pain right COMPARISON STUDY: Abdomen and pelvis CT 03/12/2022. FINDINGS: Confirmation of the acute nondisplaced intertrochanteric fracture of the proximal right femur. No dislocation. The patient has pelvic bones and left hip are intact. Lumbar spinal fusion hardware is partially visualized. There are mild vascular calcifications. IMPRESSION: Nondisplaced intertrochanteric fracture of the proximal right femur. No dislocation. ACT 112: Negative or not required by law. Electronically signed by: Hung Sommer M.D. 03/12/2022 11:[address] 03/12/22 09:38 CT cervical spine wo con CLINICAL HISTORY: 81 years-old Female with Trauma. Acute neck pain status post trauma COMPARISON: Head CT of same day TECHNIQUE: Multiple axial CT images of the cervical spine were obtained without contrast. A dose lowering technique was utilized adhering to the principles of ALARA. FINDINGS: Anterior plate and screw fusion with discectomy at C6-C7. The hardware appears intact. There is greater than 75% bony fusion of the vertebral bodies diffuse level. Mild to moderate C5-C6 intervertebral disc space narrowing with moderate multilevel facet arthrosis. Demineralized appearance of the bones. Minimal levoscoliosis. The cervical soft tissues appear unremarkable. Calcified plaque of the carotid bulbs. The visualized lung apices appear clear. IMPRESSION: 1. No acute cervical spine fracture or subluxation identified. 2. Degenerative and postoperative changes as above. ACT 112: Negative or not required by law. The above report was generated using voice recognition software. It may contain grammatical, syntax or spelling errors. Electronically signed by: Real Mac M.D. 03/12/2022 10:44 AM Elbow X-Ray 03/12/22 09:39 XR elbow RT min 3V routine HISTORY: 81 years-old Female fall acute right elbow pain COMPARISON: None TECHNIQUE: 3 views of the right elbow FINDINGS: Mild dorsal soft tissue swelling. No acute fracture, dislocation or large joint effusion. Mild degenerative marginal spurring with mild osteoarthritis. IMPRESSION: Mild soft tissue swelling without acute fracture identified. ACT 112: Negative or not required by law. The above report was generated using voice recognition software. It may contain grammatical, syntax or spelling errors. Electronically signed by: Real Mac M.D. 03/12/2022 11:34 AM Shoulder X-Ray 03/12/22 09:39 RIGHT SHOULDER 3 VIEWS CLINICAL HISTORY: Fall with right shoulder pain. FINDINGS: 3 views of the right shoulder are obtained. No prior studies are available for comparison at the time of dictation. The skeletal structures are osteopenic. There is no radiographic evidence of fracture or dislocation. Mild degenerative change is seen at the glenohumeral and acromioclavicular joints. Fusion hardware is noted in the lower cervical spine. The overlying soft tissues are within normal limits. The right lung parenchyma is clear as imaged. IMPRESSION: No acute bony abnormality is identified Electronically signed by: Angel Samaniego M.D. 03/12/2022 11:34 AM Abdomen/Pelvis CT 03/12/22 10:[address] WITHOUT CONTRAST HISTORY: Acute abdominal pain status post trauma fall, right pain, CKD TECHNIQUE: Multiaxial CT images of the abdomen and pelvis were performed without contrast. A dose lowering technique was utilized adhering to the principles of ALARA. COMPARISON STUDY: CT chest of same day, CT abdomen and pelvis 01/27/2022 FINDINGS: Mild subsegmental bibasilar densities suggest atelectasis. No pneumatosis or pneumoperitoneum. The study is degraded by a partially positioning and respiratory motion artifact. Coronary artery calcifications. Absent spleen. Moderately atrophic pancreas. Unremarkable left adrenal gland. The right adrenal gland is not visualized. Complex mixed cystic and solid partially calcified mass within the residual right hepatic lobe at the resection margin is again noted measuring up to approximately 5.6 x 8.0 cm in AP and tra nsverse dimension. This appears generally stable from the 01/27/2022 study, however as previously mentioned has increased in size from 10/24/2020. Again, this lesion abuts the superior pole right kidney. 1.7 cm peripherally calcified hypodense lesion of the liver on image 43 series 11 is unchanged. 1.4 cm ill- defined hypodense focus of the left hepatic lobe on image 30 series 7 may be artifactual. Attention at follow-up recommended. Gallbladder appears to be surgically absent. Stable 2 cm left renal cyst. Decompressed urinary bladder with wall thickening and perivesicular stranding. Pritchett catheter is in place. Atherosclerosis of the aorta. Pathologic conglomerate retroperitoneal lymphadenopathy measures up to 6.3 x 3.5 cm on image 134 series 11, previously 5.5 x 3.2 cm. Distal esophageal wall thickening with small hiatal hernia. Moderate colonic fecal retention. Colonic diverticulosis. Chronic wall thickening of the sigmoid. Additional wall thickening within the adjacent ascending and transverse colon. The appendix is not diagnostically visualized. Postoperative changes of the anterior abdominal wall. Posterior interbody charito and screw fusion hardware at L3-L5 with L4-L5 and L5-S1 discectomy. Hardware appears intact. Acute nondisp laced intertrochanteric fracture of the right femur with mild impaction. No additional acute fracture identified. IMPRESSION: 1. Acute nondisplaced intertrochanteric fracture of the right femur. 2. Mixed cystic and solid mass within the residual right hepatic lobe at the resection margin suggestive of malignancy appears stable to slightly increased in size from the 01/27/2022 study. 3. Stable to slightly increased size of the pathologic retroperitoneal lymphadenopathy. 4. Colonic diverticulosis without acute diverticulitis. 5. Wall thickening of the large bowel is likely secondary to partial distention. A nonspecific colitis considered less likely. 6. Decompressed urinary bladder with wall thickening and perivesicular stranding. Correlate with urinalysis. ACT 112: Negative or not required by law. The above report was generated using voice recognition software. It may contain grammatical, syntax or spelling errors. Electronically signed by: Real Mac M.D. 03/12/2022 11:[address] 03/12/22 10:17 CT SCAN OF THE CHEST WITHOUT IV CONTRAST CLINICAL HISTORY: Fall. COMPARISON STUDY: Chest CT dated 10/25/2020. TECHNIQUE: CT scan of the thorax was performed from the thoracic inlet to the upper abdomen. Images are reviewed in the axial, sagittal, and coronal planes. IV contrast was not administered for this examination as per the referring clinician. A dose lowering technique was utilized adhering to the principles of ALARA. The examination is degraded by streak artifact from the arms which could not be elevated above the chest. FINDINGS: Thyroid: Atrophic. Thoracic aorta: There is atherosclerotic calcification of the thoracic aorta, which is normal in caliber and demonstrates standard 3-vessel arch anatomy. Heart: The heart is top normal in size and without pericardial effusion. The coronary arteries are densely calcified. Lungs and pleural spaces: There is no airspace consolidation typical for pneumonia, pleural effusion, or pneumothorax. Subpleural reticulation is seen throughout both lungs with foci of parenchymal scarring. The trachea and central airways are clear. Mediastinum: There is no mediastinal hematoma or lymphadenopathy. Diane: Not well assessed without IV contrast. Axillae: There is no axillary lymphadenopathy. Upper abdomen: There is a [id number] hiatal hernia. The gallbladder is surgically absent. The spleen is not identified and presumed surgically absent. Postsurgical change is again noted in the right hepatic lobe. A peripherally calcified solid and cystic lesion is again seen in the right lobe of the liver. There is compensatory hypertrophy of the left lobe. A 1.7 cm cystic structure along the left hepatic capsule is again seen on image #255. A 2.4 x 2.2 cm left upper lobe nodule has not significant changed in appearance as compared to 10/25. No new pulmonary lesion is seen. Skeletal structures: The skeletal structures are osteopenic. No acute fracture is identified. There are late subacute appearing right anterior third and fourth rib fractures. Additional right-sided rib fractures are chronic/healed. No lytic or blastic bony lesions are seen. Postsurgical changes noted in the lower cervical spine. Arthritic change is seen in the shoulders. IMPRESSION: 1. No acute posttraumatic intrathoracic abnormality is identified. 2. There are late subacute appearing right third and fourth rib fractures. Correlate for point tenderness. 3. There is no airspace consolidation, pleural effusion, or pneumothorax. 4. A 2.4 cm left upper lobe pulmonary nodule has not significantly changed as compared to 10/25/2020. A solid and cystic right hepatic lobe lesion is also si milar to previous. Correlate with the patient's oncological history. 5. Additional findings and postsurgical changes as above. ACT 112: Negative or not required by law. Electronically signed by: Angel Samaniego M.D. 03/12/2022 10:52 AM Discharge Plan Visit Data Chief Complaint: Fall Stated Complaint: FALL, NECK, BACK, HIP & R SHOULDER PAIN ED Provider: Daniel Albert Discharge Problem: Fall, Hepatocellular carcinoma, Multiple drug allergies, Complicated UTI (urinary tract infection), Closed fracture of right hip Patient Disposition: Admitted As Inpatient Discharge Instructions Interventions: ED Discharge Assessment Last Done: 03/12/22 15:20
[2022-03-12 10:01] LABS: Basophils # (auto) 0.14 K/uL (0-0.2); Eosinophils # (auto) 0.92 K/uL (0-0.50); Eosinophils % (auto) 6.3 %; Hematocrit (blood only) 37.6 % (37.0-47.0); Hemoglobin 12.8 g/dl (12.0-16.0); Immature Granulocytes # (auto) 0.06 K/uL (0.01-0.20); Immature Granulocytes % (auto) 0.4 %; Lymphocytes # (auto) 2.51 K/uL (1.2-3.4); Lymphocytes % (auto) 17.2 %; Mean Corpuscular Hemoglobin 31.9 pg (25.0-34.0); Mean Corpuscular Volume 93.8 fL (80.0-100.0); Mean Platelet Volume 11.5 fL (9.4-12.4); Monocytes # (auto) 1.25 K/uL (0.11-0.59); Monocytes % (auto) 8.6 %; Neutrophils # (auto) 9.73 K/uL (1.40-6.50); Neutrophils % (auto) 66.5 %; Platelet Count 253 K/uL (130-400); RDW Coefficient of Variation 16.2 % (11.5-14.5); RDW Standard Deviation 55.8 fL (36.4-46.3); Red Blood Count 4.01 M/uL (4.20-5.40); White Blood Count 14.61 K/ul (4.8-10.8)
[2022-03-12 10:04] LABS: Albumin Level 3.2 gm/dl (3.4-5.0); BUN Creatinine Ratio 21.2 (10-20); Bilirubin,Total 0.5 mg/dl (0.2-1.0); Calcium 10.5 mg/dl (8.5-10.1); Creatinine Clr Calc Pharmacy 19.3 ml/min; Est GFR (African American) 26.8 ml/min; Est GFR (Non-African American) 23.1 ml/min; Globulin 3.1 gm/dl (2.5-4.0); Potassium 3.9 mmol/L (3.5-5.1); Total Protein 6.3 gm/dl (6.0-8.3)
[2022-03-12 10:30] LABS: INR 1.1 (0.9-1.1); Prothrombin Time 11.2 Seconds (9.0-12.0)
[2022-03-12 10:32] LABS: Appearance Urine Turbid (Clear); Bacteria Urine Automated Negative (Negative); Bilirubin Urine Negative (Negative); Blood Urine 1+ (Negative); Color Urine Yellow; Glucose Urine UA Negative (Negative); Ketones Urine Trace (Negative); Leukocyte Esterase Urine 3+ (Negative); Nitrite Urine Negative (Negative); Protein Urine 2+ (Negative); RBC Urine Automated 0-4 /hpf (0-4); Specific Gravity Urine 1.013 (1.000-1.030); Urobilinogen Urine Negative (Negative); WBC Urine Automated >30 /hpf (0-5); pH Urine 6.5 (4.5-7.5)
[2022-03-12] MEDS ORDERED: SODIUM CHLORIDE 0.9% 500 ML IV ONE (10:34)
--- NOTE | 2022-03-12 10:39 | CT Scan Report ---
HEAD CT NONCONTRAST CT DOSE: 1405.30 mGy.cm HISTORY: Trauma, fall TECHNIQUE: Multiaxial CT images of the head were performed without the use of intravenous contrast. A utomated exposure control was utilized for this study. A dose lowering technique was utilized adheri ng to the principles of ALARA. Comparison: None. Findings: The paranasal sinuses and mastoid air cells are clear. The calvarium and skull base are int act. The ventricles and sulci are within normal limits. There is no mass, hematoma, midline shift, or acute infarct. Impression: No acute intracranial abnormality. ACT 112: Negative or not required by law. Electronically signed by: Hung Sommer M.D. 03/12/2022 10:38 AM
--- NOTE | 2022-03-12 10:45 | CT Scan Report ---
CT cervical spine wo con CLINICAL HISTORY: 81 years-old Female with Trauma. Acute neck pain status post trauma COMPARISON: Head CT of same day TECHNIQUE: Multiple axial CT images of the cervical spine were obtained without contrast. A dose low ering technique was utilized adhering to the principles of ALARA. FINDINGS: Anterior plate and screw fusion with discectomy at C6-C7. The hardware appears intact. Ther e is greater than 75% bony fusion of the vertebral bodies diffuse level. Mild to moderate C5-C6 inter vertebral disc space narrowing with moderate multilevel facet arthrosis. Demineralized appearance of the bones. Minimal levoscoliosis. The cervical soft tissues appear unremarkable. Calcified plaque of the carotid bulbs. The visualized lung apices appear clear. IMPRESSION: 1. No acute cervical spine fracture or subluxation identified. 2. Degenerative and postoperative changes as above. ACT 112: Negative or not required by law. The above report was generated using voice recognition software. It may contain grammatical, syntax o r spelling errors. Electronically signed by: Real Mac M.D. 03/12/2022 10:44 AM
--- NOTE | 2022-03-12 10:53 | CT Scan Report ---
CT SCAN OF THE CHEST WITHOUT IV CONTRAST CLINICAL HISTORY: Fall. COMPARISON STUDY: Chest CT dated 10/25/2020. TECHNIQUE: CT scan of the thorax was performed from the thoracic inlet to the upper abdomen. Images are reviewed in the axial, sagittal, and coronal planes. IV contrast was not administered for this ex amination as per the referring clinician. A dose lowering technique was utilized adhering to the han nciples of MARK. The examination is degraded by streak artifact from the arms which could not be dixie vated above the chest. FINDINGS: Thyroid: Atrophic. Thoracic aorta: There is atherosclerotic calcification of the thoracic aorta, which is normal in [place] and demonstrates standard 3-vessel arch anatomy. Heart: The heart is top normal in size and without pericardial effusion. The coronary arteries are de nsely calcified. Lungs and pleural spaces: There is no airspace consolidation typical for pneumonia, pleural effusion, or pneumothorax. Subpleural reticulation is seen throughout both lungs with foci of parenchymal scar ring. The trachea and central airways are clear. Mediastinum: There is no mediastinal hematoma or lymphadenopathy. Diane: Not well assessed without IV contrast. Axillae: There is no axillary lymphadenopathy. Upper abdomen: There is a vtrxd-by-apulhfqt hiatal hernia. The gallbladder is surgically absent. The spleen is not identified and presumed surgically absent. Postsurgical change is again noted in the ri ght hepatic lobe. A peripherally calcified solid and cystic lesion is again seen in the right lobe of the liver. There is compensatory hypertrophy of the left lobe. A 1.7 cm cystic structure along the l eft hepatic capsule is again seen on image #255. A 2.4 x 2.2 cm left upper lobe nodule has not signif icant changed in appearance as compared to 10/25/2020. No new pulmonary lesion is seen. Skeletal structures: The skeletal structures are osteopenic. No acute fracture is identified. There a re late subacute appearing right anterior third and fourth rib fractures. Additional right-sided rib fractures are chronic/healed. No lytic or blastic bony lesions are seen. Postsurgical changes noted i n the lower cervical spine. Arthritic change is seen in the shoulders. IMPRESSION: 1. No acute posttraumatic intrathoracic abnormality is identified. 2. There are late subacute appearing right third and fourth rib fractures. Correlate for point tender ness. 3. There is no airspace consolidation, pleural effusion, or pneumothorax. 4. A 2.4 cm left upper lobe pulmonary nodule has not significantly changed as compared to 10/25/2020. A solid and cystic right hepatic lobe lesion is also similar to previous. Correlate with the patient' s oncological history. 5. Additional findings and postsurgical changes as above. ACT 112: Negative or not required by law. Electronically signed by: Angel Samaniego M.D. 03/12/2022 10:52 AM
--- NOTE | 2022-03-12 11:27 | CT Scan Report ---
ABDOMEN AND PELVIS CT WITHOUT CONTRAST HISTORY: Acute abdominal pain status post trauma fall, right pain, CKD TECHNIQUE: Multiaxial CT images of the abdomen and pelvis were performed without contrast. A dose lo wering technique was utilized adhering to the principles of ALARA. COMPARISON STUDY: CT chest of same day, CT abdomen and pelvis 01/27/2022 FINDINGS: Mild subsegmental bibasilar densities suggest atelectasis. No pneumatosis or pneumoperitone um. The study is degraded by a partially positioning and respiratory motion artifact. Coronary artery calcifications. Absent spleen. Moderately atrophic pancreas. Unremarkable left adrenal gland. The right adrenal gland is not visualized. Complex mixed cystic and solid partially calcified mass within the residual right hepatic lobe at the resection margin is again noted measuring up to approximately 5.6 x 8.0 cm in AP and transverse dimension. This appears generally stable from the 01/27/2022 study, however as previo usly mentioned has increased in size from 10/24/2020. Again, this lesion abuts the superior pole right kidney. 1.7 cm peripherally calcified hypodense lesion of the liver on image 43 series 11 is unchang ed. 1.4 cm ill-defined hypodense focus of the left hepatic lobe on image 30 series 7 may be artifactu al. Attention at follow-up recommended. Gallbladder appears to be surgically absent. Stable 2 cm left renal cyst. Decompressed urinary bladder with wall thickening and perivesicular stra nding. Pritchett catheter is in place. Atherosclerosis of the aorta. Pathologic conglomerate retroperiton eal lymphadenopathy measures up to 6.3 x 3.5 cm on image 134 series 11, previously 5.5 x 3.2 cm. Distal esophageal wall thickening with small hiatal hernia. Moderate colonic fecal retention. Colonic diverticulosis. Chronic wall thickening of the sigmoid. Additional wall thickening within the adjace nt ascending and transverse colon. The appendix is not diagnostically visualized. Postoperative stoen es of the anterior abdominal wall. Posterior interbody charito and screw fusion hardware at L3-L5 with L4 -L5 and L5-S1 discectomy. Hardware appears intact. Acute nondisplaced intertrochanteric fracture of t he right femur with mild impaction. No additional acute fracture identified. IMPRESSION: 1. Acute nondisplaced intertrochanteric fracture of the right femur. 2. Mixed cystic and solid mass within the residual right hepatic lobe at the resection margin suggest jordan of malignancy appears stable to slightly increased in size from the 01/27/2022 study. 3. Stable to slightly increased size of the pathologic retroperitoneal lymphadenopathy. 4. Colonic diverticulosis without acute diverticulitis. 5. Wall thickening of the large bowel is likely secondary to partial distention. A nonspecific coliti s considered less likely. 6. Decompressed urinary bladder with wall thickening and perivesicular stranding. Correlate with urin alysis. ACT 112: Negative or not required by law. The above report was generated using voice recognition software. It may contain grammatical, syntax o r spelling errors. Electronically signed by: Real Mac M.D. 03/12/2022 11:25 AM
--- NOTE | 2022-03-12 11:35 | XRay Report ---
XR elbow RT min 3V routine HISTORY: 81 years-old Female fall acute right elbow pain COMPARISON: None TECHNIQUE: 3 views of the right elbow FINDINGS: Mild dorsal soft tissue swelling. No acute fracture, dislocation or large joint effusion. Mild degene rative marginal spurring with mild osteoarthritis. IMPRESSION: Mild soft tissue swelling without acute fracture identified. ACT 112: Negative or not required by law. The above report was generated using voice recognition software. It may contain grammatical, syntax o r spelling errors. Electronically signed by: Real Mac M.D. 03/12/2022 11:34 AM
--- NOTE | 2022-03-12 11:36 | XRay Report ---
RIGHT SHOULDER 3 VIEWS CLINICAL HISTORY: Fall with right shoulder pain. FINDINGS: 3 views of the right shoulder are obtained. No prior studies are available for comparison a t the time of dictation. The skeletal structures are osteopenic. There is no radiographic evidence of fracture or dislocation. Mild degenerative change is seen at the glenohumeral and acromioclavicular joints. Fusion hardware is noted in the lower cervical spine. The overlying soft tissues are within n ormal limits. The right lung parenchyma is clear as imaged. IMPRESSION: No acute bony abnormality is identified Electronically signed by: Angel Samaniego M.D. 03/12/2022 11:34 AM
--- NOTE | 2022-03-12 11:43 | XRay Report ---
XR hip RT 2V w pelvis CLINICAL HISTORY: fall, hip pain right COMPARISON STUDY: Abdomen and pelvis CT 03/12/2022. FINDINGS: Confirmation of the acute nondisplaced intertrochanteric fracture of the proximal right fem ur. No dislocation. The patient has pelvic bones and left hip are intact. Lumbar spinal fusion hardwa re is partially visualized. There are mild vascular calcifications. IMPRESSION: Nondisplaced intertrochanteric fracture of the proximal right femur. No dislocation. ACT 112: Negative or not required by law. Electronically signed by: Hung Sommer M.D. 03/12/2022 11:42 AM
[2022-03-12] MEDS ORDERED: ACETAMINOPHEN 1,000 MG/100 ML VIAL IV STA (12:21)
[2022-03-12] MEDS ORDERED: cefTRIAXone SODIUM 2,000 MG/70 ML BAG IV STA (12:28)
[2022-03-12] MEDS ORDERED: diphenhydrAMINE 50 MG/ML VIAL IV STA (12:33)
--- NOTE | 2022-03-12 12:41 | History & Physical Report ---
Date of Service March 12, 2022 Assessment & Plan (1) Closed right hip fracture: Plan: Fall, chronic weakness and generalized fatigue Patient fell her right side without lightheadedness/dizziness/syncope, fall reportedly mechanical CT: Right nondisplaced intertrochanteric femur fracture. Persistent right hepatic masses noted. Bladder inflammation noted on report, UA UOC consulted per family request EKG: Normal sinus rhythm, no territorial ST segment changes, QTC 447 -CTA/P: Acute nondisplaced right femur intertrochanteric fracture. Mixed cystic and solid mass within the residual right hepatic lobe at the resection margin suggestive of malignancy appears stable to slightly increased in size from the 01/27/2022 study. Stable to slightly increased size of the pathologic retroperitoneal lymphadenopathy. Colonic diverticulosis without acute diverticulitis. Wall thickening of the large bowel is likely secondary to partial distention. A nonspecific colitis considered less likely. Decompressed urinary bladder with wall thickening and perivesicular stranding. Correlate with urinalysis. -CTchest: No acute posttraumatic intrathoracic abnormality identified. Late subacute appearing right third and fourth rib fracture. No airspace consolidation/pneumothorax. Left upper lobe pulmonary nodule not significantly changed compared to 2020, solid and cystic right hepatic lobe also similar to prior noted. Right shoulder CXR: No acute fracture Elbow right XR: No acute fracture CTC-spine: No acute findings CThead: No acute findings XR Hip/Pelvis: Nondisplaced intertrochanteric fracture of the proximal right femur. No dislocation. (2) Drug eruption: Plan: Multiple medication allergies Follows with Dr. Perea Recommended to be on prednisone 40 mg daily, cetirizine 10 mg twice daily, hydroxyzine 10 mg nightly 1 on any additional antibiotics Do not use quinolones, penicillin Patient okay to receive cephalosporins, prior tympanograms, aztreonam with steroid pretreatment if required UA: Turbid, 1+ blood, 3+ LE, epithelial cells.? Contaminated versus infected appearing. Continued on Rocephin pending speciation, patient was pretreated with steroids (3) Hypertension: Plan: Hypertension HCTZ discontinued 1 month ago due to cramping. Unable to tolerate metoprolol due to fatigue Tolerating 2.5 mg p.o. daily, up titration has been limited by leg swelling ARB/VANESSA limited due to SALAZAR/CKD/hyperkalemia (4) Recurrent UTI: Plan: CKD 3 Baseline creatinine 1.01.3 Admitting creatinine: 1.98. BUN/creatinine ratio 21.2 Calcium 10.5, SALAZAR gentle hydration given (5) Weakness: (6) Vitamin D deficiency: (7) Anxiety: (8) Carcinoid tumor of lung: (9) Palliative care encounter: Plan: Prior palliative consultation Patient wish to continue Opdivo even if it was causing diarrhea. Reports she would consider stopping if she does not call the time, but would like to continue at this time Patient reports she would consider hospice or she did clinically declining future, however had not wanted to switch to the services at time of last follow- up 01/31. - Outpt Palliative care report reviewed. 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 Meza. Held pending surgical eval With renal and retroperitoneal lymphatic spread last seen 12/2021 With chronic diarrhea, may continue home Imodium every 4 hours as needed. Weight loss: With worsening p.o. intake, diarrhea, cancer burden, chronic inflammation Continue thiamine/folate Boost/nutrition to follow (11) UTI (urinary tract infection): Plan: Acute Recurrent UTI - UA infected appearing Hold home phosphomycin/vitamin C - On rocephin pending speciation - Pred/methylpred + cetirizine BID + hydroxyzine qHS while on abx (12) Multiple drug allergies: Plan DVT PPx: Heparin 2/2 CKD Diet: NPO Dispo: MedTle 2/2 drug rxn risk & for airway monitoring CODE: DNR/DNI History of Present Illness Primary Care Provider: Bradley Jeter Ann is an 81-year-old female with past medical history of hep C virus, hepatocellular carcinoma on immunotherapy s/p chemoembolization, carcinoid lung tumor, hairy cell leukemia in remission, CKD 3B, and recurrent UTIs on chronic methenamine therapy followed by [facility] who presents with a fall. Was getting ready for an appoitnment with Dr. Meza today and usually uses a walker. Was dced last month and was doign therapy for global weakness since dc. Went to turn from using her walker to the sink and tripped while pivoting and fell striking the R hip. NO lightheadedness, dizziness, syncope, or presyncope. R arm, R lateral rib, and R hip all hurt. Initially 10/10 after falling, improved a little with IV pain medicine. No numbness tingling No heart problems, no lung problems. No hx of strokes No blood thinners, no aspirin or aspirin like medications She is followed for extensive metastatic cancer on immunotherapy following with Dr. Meza. Patient reports she has met with palliative care this past week. At this time she has discussed the option of hospice when ready but currently wants to continue with all treatments including immunotherapy and would like surgical evaluation for repair of her hip. Has had gradual weight loss and progressive weakness in the past few weeks. No focal weakness, denies numbness/tingling/neuropathy. She reports she has extensive allergies with various antibiotics which have caused broad skin swelling/erythematous eruptions which have included the neck, but have not included for lip/tongue before. She thinks she has been able to tolerate cephalosporins, but cannot tolerate penicillins, sulfa, or fluoroquinolones. She has been recommended for pretreatment cocktail as noted by immunotherapy previous notes. . Is agreeable to this Medical History: Reviewed Medications: Reviewed Surgical History: Reviewed Allergies: Reviewed Social History: No tobacco/etoh Code Status:DNR Allergies Allergy/AdvReac Type Severity Reaction Status Date / Time celecoxib Allergy Severe Rash Verified 02/07/22 13:31 ciprofloxacin [From Cipro] Allergy Severe DRESS Verified 02/07/22 13:31 adhesive Allergy Intermediate RED Verified 02/07/22 13:31 IRRITATED SKIN Sulfa (Sulfonamide Allergy Mild Hives Verified 02/07/22 13:31 Antibiotics) amoxicillin Allergy Unknown Rash Verified 02/07/22 13:31 cefepime Allergy Unknown Rash, drug Verified 02/07/22 13:31 eruption Penicillins Allergy Unknown Rash Verified 02/07/22 13:31 lactose AdvReac Intermediate GI UPSET Verified 02/07/22 13:31 vancomycin AdvReac Unknown Mook Verified 02/07/22 13:31 syndrome Home Medications Medication Instructions Recorded Confirmed Type polyethylene glycol 3350 17 17 g PO DAILY PRN Constipation 08/26/18 02/07/22 His tory gram/dose oral powder (Miralax) lorazepam 0.5 mg tablet (Ativan) 0.5 mg PO HS 04/08/19 02/07/22 History acetaminophen 500 mg tablet 500 mg PO Q6H PRN Pain 04/12/20 02/07/22 History (Tylenol Extra Strength) amlodipine 2.5 mg tablet 2.5 mg PO DAILY 05/11/20 02/07/22 History ascorbic acid (vitamin C) 500 mg 500 mg PO DAILY 09/16/20 02/07/22 History tablet (Vitamin C) methenamine hippurate 1 gram tablet 1 g PO BID 09/16/20 02/07/22 History lorazepam 0.5 mg tablet 0.5 mg PO UD PRN for cancer 10/24/20 02/07/22 History treatment fosfomycin tromethamine 3 gram 1 packet PO ONCE PRN uti 05/31/21 02/07/22 History oral packet Lactobacillus acidophilus 1.5 mg 1,000 mmu cells PO DAILY 01/24/22 02/07/22 History (250 million cell) capsule (Probiotic Acidophilus) Opdivo 1 dose IV UD 01/24/22 02/07/22 History biotin 1,000 mcg chewable tablet 1,000 mcg PO DAILY 01/24/22 02/07/22 History cholecalciferol (vitamin D3) 50 50 mcg PO DAILY 01/24/22 02/07/22 History mcg (2,000 unit) capsule (Vitamin D3) levothyroxine 25 mcg tablet 25 mcg PO QAM 01/24/22 02/07/22 History magnesium 250 mg tablet 250 mg PO DAILY 01/24/22 02/07/22 History multivit with 1 tab PO DAILY 01/24/22 02/07/22 History vrqiluov-ifpy-HP-lutein 8 mg iron-400 mcg-300 mcg tablet (Centrum Silver Women) oxycodone-acetaminophen 5 mg-325 1 tab PO Q6 PRN Pain, Moderate 01/24/22 02/07/22 History mg tablet sertraline 100 mg tablet 100 mg PO DAILY 01/24/22 02/07/22 History vibegron 75 mg tablet (Gemtesa) 75 mg PO .DAILY AT NOON 01/24/22 02/07/22 History diphenoxylate-atropine 2.5 1 tab PO Q8H PRN diarrhea #30 tabs 01/31/22 02/07/22 Rx mg-0.025 mg tablet (Lomotil) ondansetron HCl 8 mg tablet 8 mg PO Q8 PRN Nausea #30 tabs 01/31/22 02/07/22 Rx 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 Urinary tract infection Urticaria Surgical History H/O: hysterectomy History of cholecystectomy History of splenectomy Family History Other Family history non-contributory Social History Smoking Status: Never smoker Second Hand Exposure: Yes (first smoked); Hx Alcohol Use: No Hx Substance Use: Yes Substance Use Type Other:: patient stated she takes percoset Q6H Preferred Language: Congolese Communication Ability: Effective Board Certified Behavioral Analyst Required: No Beliefs That Will Affect Care: Spiritism Spiritism Beliefs: Patient stated she is Mosque marital status: / Current Living Situation: Family Current Living Situation Comment: with son and daughter in law at this time How many Children do You have: 6 Feels Safe at Home: Yes Assistive Devices: Cane Review of Systems Review of Systems: All systems reviewed & are unremarkable except as noted in HPI & below Physical Exam Physical Exam: General: A&Ox3. NAD. Cooperative. Cachectic HEENT: Atraumatic, normocephalic. Vision/hearing grossly intact Pulm: CTAB A&P. -wheezes, -rales, -rhonchi. Symmetrical chest rise. No increased work of breathing. No respiratory distress. Cardiac: Regular, tachycardic. Right anterior/lateral mid rib tender to palpation radial pulses intact and symmetrical. Abdominal: Nontender, nondistended, soft. BS present. Extremities: Right hip TTP, slightly shortened and internally rotated. Able to wiggle toes bilaterally. Cap refill brisk bilaterally. Sensation soft touch intact in feet bilaterally without asymmetry. PT pulse intact bilaterally. Results & Data Results & Data ([facility]) Vital Signs (Past 12 Hours) Vital Signs Temp Pulse Resp BP Pulse Ox O2 Del Method 03/12/22 09:37 Room Air 03/12/22 09:29 36.7 C 105 H 12 123/56 L 95 Room Air PG Care Time/CCT Total # of Minutes Spent Total Time Spent with Patient: Total time spent is greater than 50% in coordination of care (as documented) at patient's floor/unit and/or counseling patient: Coding Level of Care Code 76165 INT INP/OBS CARE 3/75MIN Diagnoses Closed right hip fracture S72.001A Drug eruption L27.0 Hypertension I10 Recurrent UTI N39.0 Weakness R53.1 Vitamin D deficiency E55.9 Anxiety F41.9 Carcinoid tumor of lung D3A.090 Palliative care encounter Z51.5 HCC (hepatocellular carcinoma) C22.0 UTI (urinary tract infection) N39.0 Multiple drug allergies Z88.9
[2022-03-12] MEDS ORDERED: NALOXONE HCL 0.4 MG/1 ML VIAL/CARP IV PRN (15:19)
[2022-03-12] MEDS ORDERED: ACETAMINOPHEN 325 MG TAB PO PRN (15:19)
[2022-03-12] MEDS ORDERED: bisacodyL 10 MG SUPP PR PRN (15:19)
[2022-03-12] MEDS ORDERED: CETIRIZINE HCL 10 MG TABLET PO SCH (15:19)
--- NOTE | 2022-03-12 15:36 | Electrocardiogram Report ---
Test Reason : Blood Pressure : / mmHG Vent. Rate : 086 BPM Atrial Rate : 086 BPM P-R Int : 140 ms QRS Dur : 090 ms QT Int : 374 ms P-R-T Axes : 072 078 078 degrees QTc Int : 447 ms Normal sinus rhythm Normal ECG When compared with ECG of 24-JAN-2022 16:46, Questionable change in QRS axis Confirmed by Daniel Duncan ([id number]) on 03/12/2022 3:36:21 PM Referred By: REFERRED SELF Confirmed By:Daniel Duncan
[2022-03-12] MEDS: NORMOSOL-R 1,000 ML IV SCH (15:50)
[2022-03-12] MEDS: HYDROmorphone HCL 2 MG TAB PO PRN ×2 (16:36→20:11)
[2022-03-12] MEDS ORDERED: NORMOSOL-R 250 ML IV ONE (18:45)
[2022-03-12 20:00] LABS: Hematocrit (blood only) 32.2 % (37.0-47.0)
[2022-03-12] MEDS: CETIRIZINE HCL 10 MG TABLET PO SCH (20:33)
[2022-03-12] MEDS: hydrOXYzine HCl 10 MG TAB PO SCH (20:33)
[2022-03-12] MEDS: DOCUSATE SODIUM/SENNA 50/8.6MG TAB PO SCH (20:33)
[2022-03-13] MEDS: HYDROmorphone HCL 2 MG TAB PO PRN (01:52)
[2022-03-13] MEDS: NORMOSOL-R 1,000 ML IV SCH ×2 (03:19→20:02)
[2022-03-13] MEDS ORDERED: HYDROmorphone INJ 0.5 MG/0.5 ML SYR IV STA (04:18)
[2022-03-13 04:56] LABS: Basophils # (auto) 0.05 K/uL (0-0.2); Basophils % (auto) 0.4 %; Eosinophils # (auto) 0.01 K/uL (0-0.50); Eosinophils % (auto) 0.1 %; Hematocrit (blood only) 32.1 % (37.0-47.0); Immature Granulocytes # (auto) 0.09 K/uL (0.01-0.20); Immature Granulocytes % (auto) 0.7 %; Lymphocytes # (auto) 1.53 K/uL (1.2-3.4); Lymphocytes % (auto) 11.3 %; Mean Corpuscular Hgb Conc 34.3 g/dL (32.0-36.0); Mean Corpuscular Volume 93.3 fL (80.0-100.0); Mean Platelet Volume 10.9 fL (9.4-12.4); Monocytes % (auto) 8.1 %; Neutrophils # (auto) 10.78 K/uL (1.40-6.50); Neutrophils % (auto) 79.4 %; Platelet Count 214 K/uL (130-400); RDW Coefficient of Variation 16.2 % (11.5-14.5); RDW Standard Deviation 55.1 fL (36.4-46.3); Red Blood Count 3.44 M/uL (4.20-5.40); White Blood Count 13.56 K/ul (4.8-10.8)
[2022-03-13 05:22] LABS: BUN Creatinine Ratio 27.2 (10-20); Calcium 9.5 mg/dl (8.5-10.1); Creatinine Clr Calc Pharmacy 25.6 ml/min; Est GFR (African American) 38.1 ml/min; Est GFR (Non-African American) 32.9 ml/min; Potassium 4.7 mmol/L (3.5-5.1)
--- NOTE | 2022-03-13 08:17 | Orthopedic Consultation ---
Date of Consultation March 13, 2022 Assessment & Plan (1) Closed intertrochanteric fracture of right femur: She has a nondisplaced right hip intertrochanteric femur fracture. She is normally ambulatory. She does have multiple medical problems including metastatic hepatocellular carcinoma and is considering hospice care. We discussed that surgical fixation of this hip fracture will help reduce her hip pain with right leg motion, and allow return to ambulation. She would like to proceed with this. I recommended short cephalomedullary nailing of this fracture. Risks, benefits, and alternatives of surgery were explained in detail. The surgical procedure, as well as postoperative recovery and rehab ilitation, was also explained in detail. Risks include bleeding; infection; damage to surrounding structures such as nerves, blood vessels, and tendons that run in the area; persistent pain or stiffness; nonunion; malunion; hardware failure; painful prominent hardware requiring removal; or need for further surgery. The patient understands all of this and wishes to proceed with surgery. Informed consent was obtained. History of Present Illness Reason for Consultation: Right hip fracture Attending Physician: Raji Thornton MD History of Present Illness Ms. Douglas is an 82-year-old female who injured her right hip during a ground- level fall yesterday at home. She states that she normally does not use any ambulatory aids, but around [place] time she had an illness that caused some dehydration and fatigue, requiring the use of a walker for the past month or so. She lost her balance in the bathroom and fell directly onto her right side. She complains of right shoulder and right hip pain. She was unable to bear weight on her right leg due to the hip pain. She has numerous medical problems, including hepatocellular carcinoma, carcinoid lung tumor, hairy cell leukemia. Allergies Allergy/AdvReac Type Severity Reaction Status Date / Time celecoxib Allergy Severe Rash Verified 03/12/22 13:31 ciprofloxacin [From Cipro] Allergy Severe DRESS Verified 03/12/22 13:31 adhesive Allergy Intermediate RED Verified 03/12/22 13:31 IRRITATED SKIN Sulfa (Sulfonamide Allergy Mild Hives Verified 03/12/22 13:31 Antibiotics) amoxicillin Allergy Unknown Rash Verified 03/12/22 13:31 cefepime Allergy Unknown Rash, drug Verified 03/12/22 13:31 eruption Penicillins Allergy Unknown Rash Verified 03/12/22 13:31 lactose AdvReac Intermediate GI UPSET Verified 03/12/22 13:31 vancomycin AdvReac Unknown Mook Verified 03/12/22 13:31 syndrome Home Medications Medication Instructions Recorded Confirmed Type polyethylene glycol 3350 17 17 g PO DAILY PRN Constipation 08/26/18 03/12/22 History gram/dose oral powder (Miralax) lorazepam 0.5 mg tablet (Ativan) 0.5 mg PO HS 04/08/19 03/12/22 History acetaminophen 500 mg tablet 500 mg PO Q6H PRN Pain 04/12/20 03/12/22 History (Tylenol Extra Strength) amlodipine 2.5 mg tablet 2.5 mg PO DAILY 05/11/20 03/12/22 History ascorbic acid (vitamin C) 500 mg 500 mg PO DAILY 09/16/20 03/12/22 History tablet (Vitamin C) methenamine hippurate 1 gram tablet 1 g PO BID 09/16/20 03/12/22 History lorazepam 0.5 mg tablet 0.5 mg PO UD PRN for cancer 10/24/20 03/12/22 History treatment fosfomycin tromethamine 3 gram 1 packet PO ONCE PRN uti 05/31/21 03/12/22 History oral packet Lactobacillus acidophilus 1.5 mg 1,000 mmu cells PO DAILY 01/24/22 03/12/22 History (250 million cell) capsule (Probiotic Acidophilus) Opdivo 1 dose IV UD 01/24/22 03/12/22 History biotin 1,000 mcg chewable tablet 1,000 mcg PO DAILY 01/24/22 03/12/22 History cholecalciferol (vitamin D3) 50 50 mcg PO DAILY 01/24/22 03/12/22 History mcg (2,000 unit) capsule (Vitamin D3) levothyroxine 25 mcg tablet 25 mcg PO QAM 01/24/22 03/12/22 History magnesium 250 mg tablet 250 mg PO DAILY 01/24/22 03/12/22 History multivit with 1 tab PO DAILY 01/24/22 03/12/22 History jippjhyp-wkqr-NH-lutein 8 mg iron-400 mcg-300 mcg tablet (Centrum Silver Women) oxycodone-acetaminophen 5 mg-325 1 tab PO Q6 PRN Pain, Moderate 01/24/22 03/12/22 History mg tablet sertraline 100 mg tablet 100 mg PO DAILY 01/24/22 03/12/22 History vibegron 75 mg tablet (Gemtesa) 75 mg PO .DAILY AT NOON 01/24/22 03/12/22 History diphenoxylate-atropine 2.5 1 tab PO Q8H PRN diarrhea #30 tabs 01/31/22 03/12/22 Rx mg-0.025 mg tablet (Lomotil) ondansetron HCl 8 mg tablet 8 mg PO Q8 PRN Nausea #30 tabs 01/31/22 03/12/22 Rx food supplemt, lactose-reduced 1 ea PO DAILY 03/12/22 03/12/22 History Patient History Medical History Acute ischemic colitis Allergic reaction (06/17/13) Carcinoid tumor of lung Cervical cancer Colitis Cystitis Desensitization to allergens Diverticulosis of colon DVT prophylaxis Febrile illness GI bleed Hepatitis C virus Hyperkalemia Pneumonia Recurrent UTI (urinary tract infection) 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 Urinary tract infection Urticaria Surgical History H/O: hysterectomy History of cholecystectomy History of splenectomy Family History Other Family history non-contributory Social History Smoking Status: Never smoker Second Hand Exposure: Yes (first smoked); Hx Alcohol Use: No Hx Substance Use: No Preferred Language: Ghanaian Communication Ability: Effective Import/Export Administrator Required: No Beliefs That Will Affect Care: None marital status: / Current Living Situation: Alone Current Living Situation Comment: with son and daughter in law at this time How many Children do You have: 6 Feels Safe at Home: Yes Safety Concerns: Feels Safe At This Time Assistive Devices: Cane Physical Exam Physical Exam: Examination of the right hip shows no open wounds. There is no obvious shortening or external rotation of the leg. There is mild swelling and tenderness to palpation of the thigh and hip area. No significant swelling. Compartments are soft and compressible. Intact ankle dorsiflexion and plantarflexion. She does have reproduction of hip and groin pain with any motion of the right leg. Results & Data ([facility]) Vital Signs (Past 12 Hours) Vital Signs Temp Pulse Pulse Resp BP BP Pulse Ox 03/13/22 08:00 37 C 90 21 129/57 L 94 03/13/22 05:00 98 H 15 93 03/13/22 05:00 110/54 L 03/13/22 04:50 99 H 16 92 03/13/22 04:40 95 H 22 94 03/13/22 04:30 94 H 20 03/13/22 04:30 111/52 L 03/13/22 04:20 94 H 16 03/13/22 04:10 92 H 19 03/13/22 04:00 92 H 13 03/13/22 04:00 110/52 L 03/13/22 03:50 83 18 03/13/22 03:40 89 13 03/13/22 03:30 92 H 13 03/13/22 03:30 96/50 L 03/13/22 03:20 86 16 03/13/22 03:10 99 H 21 96 03/13/22 03:00 96 H 16 96 03/13/22 03:00 120/52 L 03/13/22 02:50 101 H 18 96 03/13/22 02:40 110 H 16 95 03/13/22 02:30 106 H 18 95 03/13/22 02:30 121/60 03/13/22 02:20 102 H 16 93 03/13/22 02:10 97 H 19 93 03/13/22 02:00 95 H 14 94 03/13/22 02:00 115/52 L 03/13/22 01:50 97 H 17 93 03/13/22 01:40 98 H 13 93 03/13/22 01:30 106 H 18 94 03/13/22 01:30 123/56 L 03/13/22 01:20 98 H 13 94 03/13/22 01:10 100 H 14 94 03/13/22 01:00 97 H 13 93 03/13/22 01:00 116/48 L 03/13/22 00:50 99 H 16 93 03/13/22 00:40 100 H 16 93 03/13/22 00:30 99 H 14 93 03/13/22 00:30 113/50 L 03/13/22 00:20 103 H 17 93 03/13/22 00:10 99 H 11 L 93 03/13/22 00:00 99 H 14 93 03/13/22 00:00 112/47 L 03/12/22 23:50 103 H 18 93 03/12/22 23:40 102 H 13 94 03/12/22 23:30 102 H 15 93 03/12/22 23:30 110/51 L 03/12/22 23:20 102 H 18 92 03/12/22 23:10 104 H 21 93 03/12/22 23:00 106 H 15 93 03/12/22 23:00 118/51 L 03/12/22 22:50 101 H 14 92 03/12/22 22:40 104 H 14 92 03/12/22 22:30 104 H 15 93 03/12/22 22:30 103/49 L 03/12/22 22:20 102 H 16 92 03/12/22 22:10 105 H 14 92 03/12/22 22:00 105 H 16 92 03/12/22 22:00 101/55 L 03/12/22 21:50 109 H 18 92 03/12/22 21:40 109 H 14 94 03/12/22 21:30 107 H 15 93 03/13/22 02:00 83 122/64 98 03/13/22 02:00 03/12/22 22:23 104 H 101/55 L 91 03/12/22 22:23 Pulse Ox O2 Del Method O2 Del Method 03/13/22 08:00 Room Air 03/13/22 05:00 03/13/22 05:00 03/13/22 04:50 03/13/22 04:40 03/13/22 04:30 03/13/22 04:30 03/13/22 04:20 03/13/22 04:10 03/13/22 04:00 03/13/22 04:00 03/13/22 03:50 03/13/22 03:40 03/13/22 03:30 03/13/22 03:30 03/13/22 03:20 03/13/22 03:10 03/13/22 03:00 03/13/22 03:00 03/13/22 02:50 03/13/22 02:40 03/13/22 02:30 03/13/22 02:30 03/13/22 02:20 03/13/22 02:10 03/13/22 02:00 03/13/22 02:00 03/13/22 01:50 03/13/22 01:40 03/13/22 01:30 03/13/22 01:30 03/13/22 01:20 03/13/22 01:10 03/13/22 01:00 03/13/22 01:00 03/13/22 00:50 03/13/22 00:40 03/13/22 00:30 03/13/22 00:30 03/13/22 00:20 03/13/22 00:10 03/13/22 00:00 03/13/22 00:00 03/12/22 23:50 03/12/22 23:40 03/12/22 23:30 03/12/22 23:30 03/12/22 23:20 03/12/22 23:10 03/12/22 23:00 03/12/22 23:00 03/12/22 22:50 03/12/22 22:40 03/12/22 22:30 03/12/22 22:30 03/12/22 22:20 03/12/22 22:10 03/12/22 22:00 03/12/22 22:00 03/12/22 21:50 03/12/22 21:40 03/12/22 21:30 03/13/22 02:00 Room Air 03/13/22 02:00 98 Room Air 03/12/22 22:23 Room Air 03/12/22 22:23 91 Diagnostic Findings X-rays and CT scan of the right hip area were reviewed. They show a nondisplaced intertrochanteric proximal femur fracture. On the CT scan, the nondisplaced fracture line extends from the greater trochanter and tapers out at the level of the lesser trochanter. No visible fracture extension down into the femoral shaft.
--- NOTE | 2022-03-13 08:45 | Hospitalist Progress Note ---
Date of Service March 13, 2022 Assessment & Plan (1) Closed right hip fracture: Plan: Acute hip fracture, unstable, for surgical correction impart significant mortality morbidity the patient even when surgically corrected CT: Right nondisplaced intertrochanteric femur fracture. Persistent right hepatic masses noted. Bladder inflammation noted on report, UA -CTA/P: Acute nondisplaced right femur intertrochanteric fracture. Mixed cystic and solid mass within the residual right hepatic lobe at the resection margin suggestive of malignancy appears stable to slightly increased in size from the 01/27/2022 study. Stable to slightly increased size of the pathologic retroperitoneal lymphadenopathy. Colonic diverticulosis without acute diverticulitis. Wall thickening of the large bowel is likely secondary to partial distention. A nonspecific colitis considered less likely. Decompressed urinary bladder with wall thickening and perivesicular stranding. Correlate with urinalysis. -CTchest: No acute posttraumatic intrathoracic abnormality identified. Late subacute appearing right third and fourth rib fracture. No airspace consolidation/pneumothorax. Left upper lobe pulmonary nodule not significantly changed compared to 2020, solid and cystic right hepatic lobe also similar to prior noted. Right shoulder CXR: No acute fracture Elbow right XR: No acute fracture CTC-spine: No acute findings CThead: No acute findings XR Hip/Pelvis: Nondisplaced intertrochanteric fracture of the proximal right femur. No dislocation. (2) HCC (hepatocellular carcinoma): Plan: Metastatic HCC, chronic unstable, recurrence seen on CT abd/pelvis imparts moderate risk the patient has persistent and progressing On Opdivo, follows with Dr. Meza. Held pending surgical eval With renal and retroperitoneal lymphatic spread last seen 12/2021 With chronic diarrhea, may continue home Imodium every 4 hours as needed. 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 Perea Recommended to be on prednisone 40 mg daily, cetirizine 10 mg twice daily, hydroxyzine 10 mg nightly 1 on any additional antibiotics Do not use quinolones, penicillin Patient okay to receive cephalosporins, prior to procedures, aztreonam with steroid pretreatment if required (4) Hypertension: Plan: Hypertension, chronic and stable moderate risk the patient HCTZ discontinued 1 month ago due to cramping. Unable to tolerate metoprolol due to fatigue Tolerating 2.5 mg p.o. daily, up titration has been limited by leg swelling ARB/VANESSA limited due to SALAZAR/CKD/hyperkalemia (5) Recurrent UTI: Plan: Acute UTI poa, abnormal ua, awaiting culture, continue ceftriaxone CKD 3 stable chronic and stable imparts moderate risk with requirement for medication dosing (6) Carcinoid tumor of lung: (7) Palliative care encounter: Plan: Prior palliative consultation Patient wish to continue Opdivo even if it was causing diarrhea. Reports she would consider stopping if she does not call the time, but would like to continue at this time Patient reports she would consider hospice if she did clinically decline in the future, however had not wanted to switch to the services at time of last follow-up 01/31. - Outpt Palliative care report reviewed. [employer] was on Oxy 5mg Q4h prn for pain, Pending followup next week to discuss treatments and whether or not to continue these vs hospice, Stay hydrated, liberal diet, continue Opdivo per last note Plan DVT PPx: Heparin 2/2 CKD CODE: DNR/DNI Admission and Anticipated Discharge Date Admission Date: March 12, 2022 Subjective Patient is seen in the presence of her daughter. She is having significant pain at the fracture site of her right intertrochanteric femoral fracture. Denies previous shortness of breath or chest pain Physical Exam Physical Exam: Examination has point tenderness to the right lateral hip. She has good distal intact sensation and capillary refill to the right leg distally. Her cardiac exam is regular lungs are clear Results & Data Results & Data ([facility]) Vital Signs (Past 12 Hours) Vital Signs Temp Pulse Pulse Resp BP BP Pulse Ox 03/13/22 08:00 98.6 F 90 21 129/57 L 94 03/13/22 05:00 98 H 15 93 03/13/22 05:00 110/54 L 03/13/22 04:50 99 H 16 92 03/13/22 04:40 95 H 22 94 03/13/22 04:30 94 H 20 03/13/22 04:30 111/52 L 03/13/22 04:20 94 H 16 03/13/22 04:10 92 H 19 03/13/22 04:00 92 H 13 03/13/22 04:00 110/52 L 03/13/22 03:50 83 18 03/13/22 03:40 89 13 03/13/22 03:30 92 H 13 03/13/22 03:30 96/50 L 03/13/22 03:20 86 16 03/13/22 03:10 99 H 21 96 03/13/22 03:00 96 H 16 96 03/13/22 03:00 120/52 L 03/13/22 02:50 101 H 18 96 03/13/22 02:40 110 H 16 95 03/13/22 02:30 106 H 18 95 03/13/22 02:30 121/60 03/13/22 02:20 102 H 16 93 03/13/22 02:10 97 H 19 93 03/13/22 02:00 95 H 14 94 03/13/22 02:00 115/52 L 03/13/22 01:50 97 H 17 93 03/13/22 01:40 98 H 13 93 03/13/22 01:30 106 H 18 94 03/13/22 01:30 123/56 L 03/13/22 01:20 98 H 13 94 03/13/22 01:10 100 H 14 94 03/13/22 01:00 97 H 13 93 03/13/22 01:00 116/48 L 03/13/22 00:50 99 H 16 93 03/13/22 00:40 100 H 16 93 03/13/22 00:30 99 H 14 93 03/13/22 00:30 113/50 L 03/13/22 00:20 103 H 17 93 03/13/22 00:10 99 H 11 L 93 03/13/22 00:00 99 H 14 93 03/13/22 00:00 112/47 L 03/12/22 23:50 103 H 18 93 03/12/22 23:40 102 H 13 94 03/12/22 23:30 102 H 15 93 03/12/22 23:30 110/51 L 02 23:20 102 H 18 92 02 23:10 104 H 21 93 02 23:00 106 H 15 93 03/12/22 23:00 118/51 L 03/12/22 22:50 101 H 14 92 02 22:40 104 H 14 92 03/12/22 22:30 104 H 15 93 03/12/22 22:30 103/49 L 03/12/22 22:20 102 H 16 92 03/12/22 22:10 105 H 14 92 03/12/22 22:00 105 H 16 92 03/12/22 22:00 101/55 L 03/12/22 21:50 109 H 18 92 03/12/22 21:40 109 H 14 94 03/12/22 21:30 107 H 15 93 03/13/22 02:00 83 122/64 98 03/13/22 02:00 03/12/22 22:23 104 H 101/55 L 91 03/12/22 22:23 Pulse Ox O2 Del Method O2 Del Method 03/13/22 08:00 Room Air 03/13/22 05:00 03/13/22 05:00 03/13/22 04:50 03/13/22 04:40 03/13/22 04:30 03/13/22 04:30 03/13/22 04:20 03/13/22 04:10 03/13/22 04:00 03/13/22 04:00 03/13/22 03:50 03/13/22 03:40 03/13/22 03:30 03/13/22 03:30 03/13/22 03:20 03/13/22 03:10 03/13/22 03:00 03/13/22 03:00 03/13/22 02:50 03/13/22 02:40 03/13/22 02:30 03/13/22 02:30 03/13/22 02:20 03/13/22 02:10 03/13/22 02:00 03/13/22 02:00 03/13/22 01:50 03/13/22 01:40 03/13/22 01:30 03/13/22 01:30 03/13/22 01:20 03/13/22 01:10 03/13/22 01:00 03/13/22 01:00 03/13/22 00:50 03/13/22 00:40 03/13/22 00:30 03/13/22 00:30 03/13/22 00:20 03/13/22 00:10 03/13/22 00:00 03/13/22 00:00 03/12/22 23:50 03/12/22 23:40 03/12/22 23:30 03/12/22 23:30 03/12/22 23:20 03/12/22 23:10 03/12/22 23:00 03/12/22 23:00 03/12/22 22:50 03/12/22 22:40 03/12/22 22:30 03/12/22 22:30 03/12/22 22:20 03/12/22 22:10 03/12/22 22:00 03/12/22 22:00 03/12/22 21:50 03/12/22 21:40 03/12/22 21:30 03/13/22 02:00 Room Air 03/13/22 02:00 98 Room Air 03/12/22 22:23 Room Air 03/12/22 22:23 91 Diagnostic Findings Reviewed CBC white count 13.5 Reviewed chemistry panel creatinine stable 1.4 PG Care Time/CCT Total # of Minutes Spent Total Time Spent with Patient: Total time spent is greater than 50% in coordination of care (as documented) at patient's floor/unit and/or counseling patient: Coding Level of Care Code 66883 SUB INP/OBS CARE 350MIN Diagnoses Closed right hip fracture S72.001A HCC (hepatocellular carcinoma) C22.0 Drug eruption L27.0 Hypertension I10 Recurrent UTI N39.0 Carcinoid tumor of lung [id number].090 Palliative care encounter Z51.5
[2022-03-13] MEDS: MoRPHine SULFATE 4 MG/ML 1 ML CARP\\VIAL IV PRN ×2 (09:06→11:17)
[2022-03-13] MEDS: predniSONE 20 MG TAB PO SCH (11:17)
[2022-03-13] MEDS ORDERED: ACETAMINOPHEN 1,000 MG/100 ML VIAL IV PRN (11:24)
[2022-03-13] MEDS ORDERED: BUPIVACAINE 0.5 % 5 MG/1 ML PF 10ML VIAL ONE ×2 (15:46→16:29)
[2022-03-13] MEDS ORDERED: BUPIVACAINE 0.5 % 5 MG/1 ML MPF 30ML VIAL ONE (16:14)
[2022-03-13] MEDS ORDERED: LIDOCAINE 1% LOCAL 20 ML VIAL ONE (16:14)
[2022-03-13] MEDS ORDERED: LIDOCAINE 2% MPF LOCAL 5 ML VIAL INFIL ONE (16:28)
[2022-03-13] MEDS ORDERED: fentaNYL citrate 100 MCG/2 ML VIAL ONE (16:28)
[2022-03-13] MEDS ORDERED: PROPOFOL IV EMULSION 10 MG/ML 20 ML VIAL IV ONE ×2 (16:28→17:02)
[2022-03-13] MEDS ORDERED: ceFAZolin 2000MG 2,000 MG/15 ML SYR IV SCH (16:30)
[2022-03-13] MEDS ORDERED: ePHEDrine sulfate 50 MG/ML AMP IV PRN (16:32)
[2022-03-13] MEDS ORDERED: fentaNYL citrate 100 MCG/2 ML VIAL IV PRN (16:32)
[2022-03-13] MEDS ORDERED: ATROPINE SULFATE 0.1 MG/ML 10ML SYR IV PRN (16:32)
[2022-03-13] MEDS ORDERED: ONDANSETRON INJ 2 MG/ML 2 ML VIAL IV PRN (16:32)
--- NOTE | 2022-03-13 16:32 | Anesthesiology Consultation ---
Date of Service March 13, 2022 Assessment & Plan ASA ASA4 Proposed Anesthesia Anesthesia Type: MAC Spinal Risk / Benefits Reviewed With: PT / POA / Parent / Guardian, Accepts Plan and Informed Consent Obtained History Surgery Operation Date: 03/13/22 10:10 Proposed Procedures p Right Trochanteric Femoral Nail - Bjorn Way M.D. Height/Weight Height: 5 ft 6 in Weight: 55 kg Allergies Allergy/AdvReac Type Severity Reaction Status Date / Time celecoxib Allergy Severe Rash Verified 03/12/22 13:31 ciprofloxacin [From Cipro] Allergy Severe DRESS Verified 03/12/22 13:31 adhesive Allergy Intermediate RED Verified 03/12/22 13:31 IRRITATED SKIN Sulfa (Sulfonamide Allergy Mild Hives Verified 03/12/22 13:31 Antibiotics) amoxicillin Allergy Unknown Rash Verified 03/12/22 13:31 cefepime Allergy Unknown Rash, drug Verified 03/12/22 13:31 eruption Penicillins Allergy Unknown Rash Verified 03/12/22 13:31 lactose AdvReac Intermediate GI UPSET Verified 03/12/22 13:31 vancomycin AdvReac Unknown Mook Verified 03/12/22 13:31 syndrome Medications Home Medications Medication Instructions Recorded Confirmed Last Taken polyethylene glycol 3350 17 17 g PO DAILY PRN Constipation 08/26/18 03/12/22 04/12/20 gram/dose oral powder (Miralax) lorazepam 0.5 mg tablet (Ativan) 0.5 mg PO HS 04/08/19 03/12/22 04/11/20 acetaminophen 500 mg tablet 500 mg PO Q6H PRN Pain 04/12/20 03/12/22 04/11/20 (Tylenol Extra Strength) 500 mg amlodipine 2.5 mg tablet 2.5 mg PO DAILY 05/11/20 03/12/22 Unknown ascorbic acid (vitamin C) 500 mg 500 mg PO DAILY 09/16/20 03/12/22 Unknown tablet (Vitamin C) methenamine hippurate 1 gram tablet 1 g PO BID 09/16/20 03/12/22 Unknown lorazepam 0.5 mg tablet 0.5 mg PO UD PRN for cancer 10/24/20 03/12/22 Unknown treatment fosfomycin tromethamine 3 gram 1 packet PO ONCE PRN uti 05/31/21 03/12/22 Unknown oral packet Lactobacillus acidophilus 1.5 mg 1,000 mmu cells PO DAILY 01/24/22 03/12/22 Unknown (250 million cell) capsule (Probiotic Acidophilus) Opdivo 1 dose IV UD 01/24/22 03/12/22 Unknown biotin 1,000 mcg chewable tablet 1,000 mcg PO DAILY 01/24/22 03/12/22 Unknown cholecalciferol (vitamin D3) 50 50 mcg PO DAILY 01/24/22 03/12/22 Unknown mcg (2,000 unit) capsule (Vitamin D3) levothyroxine 25 mcg tablet 25 mcg PO QAM 01/24/22 03/12/22 Unknown magnesium 250 mg tablet 250 mg PO DAILY 01/24/22 03/12/22 Unknown multivit with 1 tab PO DAILY 01/24/22 03/12/22 Unknown cafkhqfa-ztrg-TP-lutein 8 mg iron-400 mcg-300 mcg tablet (Centrum Silver Women) oxycodone-acetaminophen 5 mg-325 1 tab PO Q6 PRN Pain, Moderate 01/24/22 03/12/22 Unknown mg tablet sertraline 100 mg tablet 100 mg PO DAILY 01/24/22 03/12/22 Unknown vibegron 75 mg tablet (Gemtesa) 75 mg PO .DAILY AT NOON 01/24/22 03/12/22 Unknown diphenoxylate-atropine 2.5 1 tab PO Q8H PRN diarrhea #30 tabs 01/31/22 03/12/22 Unknown mg-0.025 mg tablet (Lomotil) ondansetron HCl 8 mg tablet 8 mg PO Q8 PRN Nausea #30 tabs 01/31/22 03/12/22 Unknown food supplemt, lactose-reduced 1 ea PO DAILY 03/12/22 03/12/22 Unknown Active Medications Generic Name Dose Route Start Last Admin Trade Name Freq PRN Reason Stop Dose Admin Acetaminophen 650 mg 03/12/22 15:19 03/13/22 03:47 Acetaminophen 325 Mg Tab PO 04/11/22 15:18 650 mg Q4H PRN Administration Pain or Fever Cetirizine HCl 10 mg 03/12/22 21:00 03/12/22 20:33 Cetirizine Hcl 10 Mg Tablet PO 04/11/22 20:59 Not Given PM KEVIN Hydromorphone HCl 1 mg 03/12/22 15:19 03/13/22 01:52 Hydromorphone Hcl 2 Mg Tab PO 03/26/22 15:18 1 mg Q4H PRN Administration Mod to Sev Pain (4-10) & Pre PT Hydroxyzine HCl 10 mg 03/12/22 21:00 03/12/22 20:33 Hydroxyzine Hcl 10 Mg Tab PO 04/11/22 20:59 10 mg HS KEVIN Administration Parenteral Electrolytes 1,000 mls @ 100 mls/hr 03/12/22 15:19 03/13/22 03:19 Normosol-R IV 04/11/22 15:18 80 mls/hr .Q10H KEVIN Administration Morphine Sulfate 4 mg 03/13/22 08:36 03/13/22 11:17 Morphine Sulfate 4 Mg/Ml 1 Ml Carp\Vial IV 03/27/22 08:35 4 mg Q4 PRN Administration Severe Pain Prednisone 40 mg 03/13/22 09:00 03/13/22 11:17 Prednisone 20 Mg Tab PO 04/12/22 08:59 40 mg DAILY KEVIN Administration Senna/Docusate Sodium 2 tab 03/12/22 21:00 03/12/22 20:33 Docusate Sodium/Senna 50/8.6mg Tab PO 04/11/22 20:59 2 tab HS KEVIN Administration NPO Date Last Intake of Fluids: 03/12/22 Time Last Intake of Fluids: 20:00 Last Intake of Fluids Comment: sip w/meds 0400 Date Last Intake of Solids: 03/11/22 Time Last Intake of Solids: 17:00 Past Medical History Medical History Acute ischemic colitis Allergic reaction (06/17/13) Carcinoid tumor of lung Cervical cancer Colitis Cystitis Desensitization to allergens Diverticulosis of colon DVT prophylaxis Febrile illness GI bleed Hepatitis C virus Hyperkalemia Pneumonia Recurrent UTI (urinary tract infection) 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 Urinary tract infection Urticaria Exercise / Class Metabolic Activity II 4-5 Yardwork/Stairs/Walk up hill Past Family History Family History Other Family history non-contributory Past Surgical History Surgical History H/O: hysterectomy History of cholecystectomy History of splenectomy Past Anesthesia History No Hx of Anesthesia Complications and No Family Hx of Anesthesia Complications History of PONV No Hx of PONV and No Hx of Motion Sickness Social History Smoking Status: Never smoker Hx Alcohol Use: No Alcohol type: wine alcohol intake frequency: holidays/special occasions only Hx Substance Use: No substance use type: painkillers and prescription drug Substance Use Type Other:: patient stated she takes percoset Q6H Review of Systems denies fever/cough/ colds/ chest pain/ SOB/ PEDRO denies PEDRO Physical Exam Vital Signs Last Vital Signs Temp 36.5 C 03/13/22 14:15 Pulse 102 H 03/13/22 14:15 Resp 20 03/13/22 14:15 BP 128/64 03/13/22 14:15 Pulse Ox 95 03/13/22 14:15 O2 Del Method 03/13/22 14:15 ENMT Mouth: no TMJ abnormality and no dentition abnormality Thyromental Distance: > or= 3.5 Finger Breadths Mallampati Class: II Neck neck extension not limited Respiratory normal respiratory effort; no respiratory distress Auscultation: lungs clear to auscultation bilaterally Cardiovascular Rate/Rhythm: regular rate and regular rhythm Neurologic moves all extremities Psychiatric Orientation: alert and oriented x 3 Testing Laboratory Results 03/13/22 04:26 03/13/22 04:26 PT 11.2 Seconds (9.0-12.0) 03/12/22 09:30 INR 1.1 (0.9-1.1) 03/12/22 09:30 Urine Color Yellow 03/12/22 10:10 Urine Appearance Turbid (Clear) A 03/12/22 10:10 Urine pH 6.5 (4.5-7.5) 03/12/22 10:10 Ur Specific Annabella 1.013 (1.000-1.030) 03/12/22 10:10 Urine Protein 2+ (Negative) H 03/12/22 10:10 Urine Glucose (UA) Negative (Negative) 03/12/22 10:10 Urine Ketones Trace (Negative) H 03/12/22 10:10 Urine Nitrite Negative (Negative) 03/12/22 10:10 Ur Leukocyte Esterase 3+ (Negative) H 03/12/22 10:10 Urine WBC (Auto) >30 /hpf (0-5) H 03/12/22 10:10 Urine RBC (Auto) 0-4 /hpf (0-4) 03/12/22 10:10 U Hyaline Cast (Auto) 1-5 /lpf (0-5) 03/12/22 10:10 U Epithel Cells (Auto) 10-20 /lpf (0-5) H 03/12/22 10:10 Urine Bacteria (Auto) Negative (Negative) 03/12/22 10:10 Blood Type A Positive 03/12/22 15:35 Antibody Screen NEGATIVE 03/12/22 15:35 03/12/22 10:10 Urine Culture - Preliminary Urine,Clean Catch No growth - Less than 1,000 colonies/mL, Final report to follow.
[2022-03-13] MEDS ORDERED: DEXAMETHASONE SOD INJ 4 MG/ML VIAL ONE (17:04)
--- NOTE | 2022-03-13 17:55 | Fluoroscopy Report ---
FL hip RT 2-3V CLINICAL HISTORY: RT TROCH NAILacute fracture of the right hip COMPARISON STUDY: Radiographs March 12, 2022 FLUOROSCOPY TIME: 48.2 seconds FLUOROSCOPY IMAGES: 4 EXPOSURE DOSE: 7.67 mGy FINDINGS: Status post placement of an intratrochanteric femoral medullary charito fixating the acute inte rtrochanteric fracture. Satisfactory alignment with expected postoperative soft tissue swelling and d eep tissue air. IMPRESSION: Fluoroscopic assistance as above. ACT 112: Negative or not required by law. Electronically signed by: Real Mac M.D. 03/13/2022 5:54 PM
--- NOTE | 2022-03-13 18:06 | Operative Report ---
Post Operative Report Pre & Post Diagnosis Operation Date: 03/13/22 10:10 Pre-Op Diagnosis: Right hip nondisplaced intertrochanteric femur fracture Post-Op Diagnosis: Right hip nondisplaced intertrochanteric femur fracture I identified the patient and participated in the time-out.: Yes Procedure Operation Date: 03/13/22 10:10 Actual Procedures Right hip short cephalomedullary nailing for nondisplaced intertrochanteric femur fracture (15593) - Bjorn Way M.D. Surgeon Bjorn Way MD Chief Clinical Dietitian None Estimated Blood Loss 50 Findings Consistent with Post-Op Diagnosis Specimens None Anesthesia Type MAC Spinal Regional Complications none Disposition Disposition: Recovery Room Indications Ms. Douglas is an 82-year-old female who injured her right hip during a ground- level fall yesterday. History, clinical exam, and imaging were consistent with the above diagnosis. Risks, benefits, and alternatives of surgery were explained in detail. The patient understood all this and wished to proceed. Description of Procedure Implants: Synthes Short (170mm) 130 degree 12mm Trochanteric Fixation Nail, 11mm helical blade, 5mm distal locking screw Patient was identified in the preoperative holding area. Operative extremity was marked. Patient was then brought back to the operating room, and a spinal blockade was given by the anesthesia staff. MAC anesthesia was then induced without complication. Appropriate weight-based dose of Ancef was infused intravenously for antibiotic prophylaxis. Patient was then positioned on the fracture table with the traction apparatus. The nonoperative hip was flexed and placed into the well leg tarango. Longitudinal traction was applied to the operative hip. Fracture reduction was then performed under fluoroscopic imagi ng. Once acceptable reduction had been achieved, the right hip was then prepped and draped in a standard sterile fashion using Chlorhexidine prep. I first made an incision just proximal to the greater trochanter in line with the femoral shaft axis, and split the fibers of the iliotibial band. I then bluntly palpated down to the greater trochanter and inserted the guidewire down to the tip of the greater trochanter. It was appropriately positioned on AP and lateral images, and then driven into the proximal femur. I then inserted the soft tissue protector down to the tip of the greater trochanter and then passed the entry reamer over top of the guidewire. It was advanced down towards the lesser trochanter to open the proximal femur. I then inserted the Synthes short TFN attached to the targeting arm into the proximal femur. I malleted it down to an appropriate depth for proper trajectory of the helical blade into the femoral head. Once the nail was at an appropriate depth, I then attached the targeting guide for the helical blade onto the targeting arm. Incision was made in line with the guide through the skin and iliotibial band. The guide sleeve was placed against the lateral cortex of the femur. Guidewire was then inserted through the guide and up into the femoral neck and head. I verified proper placement and trajectory under both AP and lateral images. I advanced the guidewire to the subchondral bone in the femoral head and verified proper depth on orthogonal images. I then measured the depth off of the guidewire. The drill for the helical blade was then set at an appropriate level to match the measured length. The drill was then advanced to the set depth. An appropriate length helical blade was selected and malleted into place over the guidewire. I then deployed the set screw proximally to prevent rotation of the helical blade during fracture compression. Fracture compression was then applied using the compression ring on the helical blade targeting sleeve. I then made an incision for the distal locking screw in line with the drill guide through skin and iliotibial band. I then placed the drill sleeve down on the lateral cortex of the femur and drilled through the distal locking hole. Screw length was then measured off of the calibrated drill bit, and an appropriate length was selected and then inserted. The screw length was verified under fluoroscopic imaging. Final fluoroscopic images were then obtained to ensure proper hardware placement, screw length, and fracture reduction. The wounds were then copiously irrigated with sterile saline. I then closed the iliotibial band and deep dermal tissue with #0 Vicryl suture. Subcutaneous tissues closed with 3-0 Vicryl suture, and skin was closed with alexys. Sterile dressings were then applied with Xeroform, sterile gauze, and foam tape. Drapes were then removed and traction apparatus was disconnected. The patient was awakened from general anesthesia, transferred over to the stretcher, and taken to the Post Anesthesia Care Unit in stable condition. There were no immediate complications from the procedure. I was present and scrubbed for the entire procedure. I attest to the content of the Intraoperative Record and any orders documented therein. Any exceptions are noted below.
--- NOTE | 2022-03-13 18:49 | Anesthesiology Progress Note ---
Date of Service March 13, 2022 Anesthesia Post Procedure Vital Signs Vital Signs: Temp Pulse Pulse Pulse Resp BP BP 03/13/22 18:30 97.3 F L 80 16 112/57 L 03/13/22 18:20 78 18 105/53 L 03/13/22 18:10 84 13 108/54 L 03/13/22 18:00 97.9 F 91 H 22 106/51 L 03/13/22 14:15 97.7 F 102 H 20 128/64 03/13/22 08:00 98.6 F 90 21 129/57 L 03/13/22 05:00 98 H 15 03/13/22 05:00 110/54 L 03/13/22 04:50 99 H 16 03/13/22 04:40 95 H 22 03/13/22 04:30 94 H 20 03/13/22 04:30 111/52 L 03/13/22 04:20 94 H 16 03/13/22 04:10 92 H 19 03/13/22 04:00 92 H 13 03/13/22 04:00 110/52 L 03/13/22 03:50 83 18 03/13/22 03:40 89 13 03/13/22 03:30 92 H 13 03/13/22 03:30 96/50 L 03/13/22 03:20 86 16 03/13/22 03:10 99 H 21 03/13/22 03:00 96 H 16 03/13/22 03:00 120/52 L 03/13/22 02:50 101 H 18 03/13/22 02:40 110 H 16 03/13/22 02:30 106 H 18 03/13/22 02:30 121/60 03/13/22 02:20 102 H 16 03/13/22 02:10 97 H 19 03/13/22 02:00 95 H 14 03/13/22 02:00 115/52 L 03/13/22 01:50 97 H 17 03/13/22 01:40 98 H 13 03/13/22 01:30 106 H 18 03/13/22 01:30 123/56 L 03/13/22 01:20 98 H 13 03/13/22 01:10 100 H 14 03/13/22 01:00 97 H 13 03/13/22 01:00 116/48 L 03/13/22 00:50 99 H 16 03/13/22 00:40 100 H 16 03/13/22 00:30 99 H 14 03/13/22 00:30 113/50 L 03/13/22 00:20 103 H 17 03/13/22 00:10 99 H 11 L 03/13/22 00:00 99 H 14 03/13/22 00:00 112/47 L 03/12/22 23:50 103 H 18 03/12/22 23:40 102 H 13 03/12/22 23:30 102 H 15 03/12/22 23:30 110/51 L 03/12/22 23:20 102 H 18 03/12/22 23:10 104 H 21 03/12/22 23:00 106 H 15 03/12/22 23:00 118/51 L 03/12/22 22:50 101 H 14 03/12/22 22:40 104 H 14 03/12/22 22:30 104 H 15 03/12/22 22:30 103/49 L 03/12/22 22:20 102 H 16 03/12/22 22:10 105 H 14 03/12/22 22:00 105 H 16 03/12/22 22:00 101/55 L 03/12/22 21:50 109 H 18 03/12/22 21:40 109 H 14 03/12/22 21:30 107 H 15 03/13/22 02:00 83 122/64 03/13/22 02:00 03/12/22 22:23 104 H 101/55 L 03/12/22 22:23 Pulse Ox Pulse Ox O2 Del Method O2 Del Method O2 Flow Rate 03/13/22 18:30 100 Nasal Cannula 2 03/13/22 18:20 94 Room Air 03/13/22 18:10 99 Nasal Cannula 2 03/13/22 18:00 98 Nasal Cannula 3 03/13/22 14:15 95 Room Air 03/13/22 08:00 94 Room Air 03/13/22 05:00 93 03/13/22 05:00 03/13/22 04:50 92 03/13/22 04:40 94 03/13/22 04:30 03/13/22 04:30 03/13/22 04:20 03/13/22 04:10 03/13/22 04:00 03/13/22 04:00 03/13/22 03:50 03/13/22 03:40 03/13/22 03:30 03/13/22 03:30 03/13/22 03:20 03/13/22 03:10 96 03/13/22 03:00 96 03/13/22 03:00 03/13/22 02:50 96 03/13/22 02:40 95 03/13/22 02:30 95 03/13/22 02:30 03/13/22 02:20 93 03/13/22 02:10 93 03/13/22 02:00 94 03/13/22 02:00 03/13/22 01:50 93 03/13/22 01:40 93 03/13/22 01:30 94 03/13/22 01:30 03/13/22 01:20 94 03/13/22 01:10 94 03/13/22 01:00 93 03/13/22 01:00 03/13/22 00:50 93 03/13/22 00:40 93 03/13/22 00:30 93 03/13/22 00:30 03/13/22 00:20 93 03/13/22 00:10 93 03/13/22 00:00 93 03/13/22 00:00 03/12/22 23:50 93 03/12/22 23:40 94 03/12/22 23:30 93 03/12/22 23:30 03/12/22 23:20 92 03/12/22 23:10 93 03/12/22 23:00 93 03/12/22 23:00 03/12/22 22:50 92 03/12/22 22:40 92 03/12/22 22:30 93 03/12/22 22:30 03/12/22 22:20 92 03/12/22 22:10 92 03/12/22 22:00 92 03/12/22 22:00 03/12/22 21:50 92 03/12/22 21:40 94 03/12/22 21:30 93 03/13/22 02:00 98 Room Air 03/13/22 02:00 98 Room Air 03/12/22 22:23 91 Room Air 03/12/22 22:23 91 Pain Intensity Right Upper Leg: Pain Intensity: 9 Transfer of Care Handoff Completed per policy Notes Mental Status: alert / awake / arousable and participated in evaluation Patient Amnestic to Procedure: Yes Nausea / Vomiting: adequately controlled Pain: adequately controlled Airway Patency, RR, SpO2: stable & adequate BP & HR: stable & adequate Hydration State: stable & adequate Neuraxial Anesthesia: was administered and sensory block is resolving Anesthetic Complications: no major complications apparent and Pt Satisfied with anesthetic care
[2022-03-13] MEDS ORDERED: traMADol HCL 50 MG TABLET PO PRN (19:02)
[2022-03-13] MEDS ORDERED: SODIUM CHLORIDE 0.9% 1000ML 1,000 ML IV SCH (19:02)
[2022-03-13] MEDS ORDERED: NALOXONE HCL 0.4 MG/1 ML VIAL/CARP IV PRN (19:02)
[2022-03-13] MEDS: hydrOXYzine HCl 10 MG TAB PO SCH (21:01)
[2022-03-13] MEDS: CETIRIZINE HCL 10 MG TABLET PO SCH (21:01)
[2022-03-13] MEDS: DOCUSATE SODIUM/SENNA 50/8.6MG TAB PO SCH (21:01)
[2022-03-14] MEDS: ceFAZolin 1000MG 1,000 MG/7.5 ML SYR IV SCH ×2 (00:25→08:12)
[2022-03-14] MEDS: MoRPHine SULFATE 2 MG/ML CARP IV PRN (00:27)
[2022-03-14] MEDS: MoRPHine SULFATE 4 MG/ML 1 ML CARP\\VIAL IV PRN ×3 (04:13→21:05)
--- NOTE | 2022-03-14 07:21 | Hospitalist Progress Note ---
Date of Service March 14, 2022 Assessment & Plan (1) Closed right hip fracture: Plan: Acute hip fracture, now stable, status post surgical correction 03/13/2022 Other radiological studies for this hospital stay include CT: Right nondisplaced intertrochanteric femur fracture. Persistent right hepatic masses noted. Bladder inflammation noted on report, UA -CTA/P: Acute nondisplaced right femur intertrochanteric fracture. Mixed cystic and solid mass within the residual right hepatic lobe at the resection margin suggestive of malignancy appears stable to slightly increased in size from the 01/27/2022 study. Stable to slightly increased size of the pathologic retroperitoneal lymphadenopathy. Colonic diverticulosis without acute diverticulitis. Wall thickening of the large bowel is likely secondary to partial distention. A nonspecific colitis considered less likely. Decompressed urinary bladder with wall thickening and perivesicular stranding. Correlate with urinalysis. -CTchest: No acute posttraumatic intrathoracic abnormality identified. Late alvarado bacute appearing right third and fourth rib fracture. No airspace consolidation/pneumothorax. Left upper lobe pulmonary nodule not significantly changed compared to 2020, solid and cystic right hepatic lobe also similar to prior noted. Right shoulder CXR: No acute fracture Elbow right XR: No acute fracture CTC-spine: No acute findings CThead: No acute findings XR Hip/Pelvis: Nondisplaced intertrochanteric fracture of the proximal right femur. No dislocation. (2) HCC (hepatocellular carcinoma): Plan: Metastatic HCC, chronic unstable, recurrence seen on CT abd/pelvis imparts moderate risk the patient has persistent and progressing On Opdivo, follows with Dr. Meza. 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 Perea Recommended to be on prednisone 40 mg daily, cetirizine 10 mg twice daily, hydroxyzine 10 mg nightly 1 on any additional antibiotics Do not use quinolones, penicillin Patient okay to receive cephalosporins, prior to procedures, aztreonam with steroid pretreatment if required (4) Hypertension: Plan: Hypertension, chronic and stable moderate risk the patient HCTZ discontinued 1 month ago due to cramping. Unable to tolerate metoprolol due to fatigue Tolerating amlodipine 2.5 mg p.o. daily, up titration has been limited by leg swelling currently on hold due to post operative blood pressure ARB/VANESSA limited due to SALAZAR/CKD/hyperkalemia (5) Recurrent UTI: Plan: Acute UTI poa, has been ruled out although had a abnormal ua, negative urine culture will stop antibiotics at this time CKD 3 stable chronic and stable imparts moderate risk with requirement for medication dosing (6) Carcinoid tumor of lung: (7) Palliative care encounter: Plan: Prior palliative consultation Patient wish to continue Opdivo even if it was causing diarrhea. Reports she would consider stopping if she does not call the time, but would like to continue at this time Patient reports she would consider hospice if she did clinically decline in the future, however had not wanted to switch to the services at time of last follow-up 01/31. - Outpt Palliative care report reviewed. 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 Patient has no other complaints or problems is deconditioned Physical Exam Physical Exam: Patient awake alert appropriate heart is regular lungs are clear extremities are without edema she has good distal sensation and strength in the right side although limited somewhat by pain in her hip Results & Data Results & Data ([facility]) Vital Signs (Past 12 Hours) Vital Signs Temp Pulse Pulse Pulse Resp BP Pulse Ox 03/14/22 04:00 97.5 F L 88 18 118/65 91 03/13/22 22:00 72 03/13/22 21:00 97.5 F L 88 16 130/66 95 03/13/22 20:00 97.2 F L 78 18 110/65 98 03/13/22 19:30 97.3 F L 67 16 120/67 99 O2 Del Method O2 Flow Rate 03/14/22 04:00 Room Air 03/13/22 22:00 03/13/22 21:00 Room Air 03/13/22 20:00 Nasal Cannula 2 03/13/22 19:30 Nasal Cannula 2 Diagnostic Findings Reviewed CBC evidence of acute blood loss anemia postoperatively hemoglobin reduction by 1.8 g Reviewed chemistry panel PG Care Time/CCT Total # of Minutes Spent Total Time Spent with Patient: Total time spent is greater than 50% in coordination of care (as documented) at patient's floor/unit and/or counseling patient: Coding Level of Care Code 98264 SUB INP/OBS CARE 2/35MIN Diagnoses Closed right hip fracture S72.001A HCC (hepatocellular carcinoma) C22.0 Drug eruption L27.0 Hypertension I10 Recurrent UTI N39.0 Carcinoid tumor of lung D3A.090 Palliative care encounter Z51.5
[2022-03-14] MEDS: predniSONE 20 MG TAB PO SCH (08:11)
[2022-03-14] MEDS: MULTIVITAMIN TAB PO SCH (08:11)
[2022-03-14 08:33] LABS: Hematocrit (blood only) 31.4 % (37.0-47.0); Mean Corpuscular Hemoglobin 31.9 pg (25.0-34.0); Mean Platelet Volume 11.4 fL (9.4-12.4); Platelet Count 187 K/uL (130-400); RDW Coefficient of Variation 16.5 % (11.5-14.5); Red Blood Count 3.45 M/uL (4.20-5.40); White Blood Count 15.35 K/ul (4.8-10.8)
[2022-03-14 09:25] LABS: BUN Creatinine Ratio 33.6 (10-20); Creatinine Clr Calc Pharmacy 24.8 ml/min; Est GFR (African American) 36.6 ml/min; Est GFR (Non-African American) 31.6 ml/min; Potassium 4.5 mmol/L (3.5-5.1)
--- NOTE | 2022-03-14 11:12 | Orthopedic Progress Note ---
Date of Service March 14, 2022 Assessment & Plan (1) Closed intertrochanteric fracture of right femur: Plan: POD 1 s/p Right TFN PT/OT protocol. WBAT. DVT prophylaxis - Enoxaparin, SCD's Pain management as written. Admission and Anticipated Discharge Date Admission Date: March 12, 2022 Subjective POD 1 Pt lying in bed awake, alert. No complaints presently. Pain controlled at rest. States she was up with PT this AM. She feels she did ok. Physical Exam Physical Exam: Dressings C/D/I. Thigh without swelling. Right calf with generalized soreness. No point tenderness. No edema of the ankle/foot. NV intact. Toes mobile. Results & Data ([facility]) Vital Signs (Past 12 Hours) Vital Signs Temp Pulse Pulse Resp BP Pulse Ox O2 Del Method 03/14/22 11:02 36.6 C 84 20 111/63 90 Room Air 03/14/22 07:52 36.3 C L 87 18 112/61 91 Room Air 03/14/22 07:23 77 03/14/22 04:00 36.4 C L 88 18 118/65 91 Room Air Laboratory Results Laboratory Results WBC 15.35 K/ul (4.8-10.8) H 03/14/22 07:44 RBC 3.45 M/uL (4.20-5.40) L 03/14/22 07:44 Hgb 11.0 g/dl (12.0-16.0) L 03/14/22 07:44 Hct 31.4 % (37.0-47.0) L 03/14/22 07:44 MCV 91.0 fL (80.0-100.0) 03/14/22 07:44 MCH 31.9 pg (25.0-34.0) 03/14/22 07:44 MCHC 35.0 g/dL (32.0-36.0) 03/14/22 07:44 RDW Std Deviation 55.0 fL (36.4-46.3) H 03/14/22 07:44 RDW Coeff of Bakari 16.5 % (11.5-14.5) H 03/14/22 07:44 Plt Count 187 K/uL (130-400) 03/14/22 07:44 MPV 11.4 fL (9.4-12.4) 03/14/22 07:44 Immature Gran % (Auto) 0.7 % 03/13/22 04:26 Neut % (Auto) 79.4 % 03/13/22 04:26 Lymph % (Auto) 11.3 % 03/13/22 04:26 Haralson % (Auto) 8.1 % 03/13/22 04:26 Eos % (Auto) 0.1 % 03/13/22 04:26 Baso % (Auto) 0.4 % 03/13/22 04:26 Neut # (Auto) 10.78 K/uL (1.40-6.50) H 03/13/22 04:26 Lymph # (Auto) 1.53 K/uL (1.2-3.4) 03/13/22 04:26 Haralson # (Auto) 1.10 K/uL (0.11-0.59) H 03/13/22 04:26 Eos # (Auto) 0.01 K/uL (0-0.50) 03/13/22 04:26 Baso # (Auto) 0.05 K/uL (0-0.2) 03/13/22 04:26 Immature Gran # (Auto) 0.09 K/uL (0.01-0.20) 03/13/22 04:26 PT 11.2 Seconds (9.0-12.0) 03/12/22 09:30 INR 1.1 (0.9-1.1) 03/12/22 09:30 Sodium 138 mmol/L (136-145) 03/14/22 07:44 Potassium 4.5 mmol/L (3.5-5.1) 03/14/22 07:44 Chloride 107 mmol/L (98-107) 03/14/22 07:44 Carbon Dioxide 23 mmol/L (21-32) 03/14/22 07:44 Anion Gap 8 (3-11) 03/14/22 07:44 BUN 51 mg/dl (6-23) H 03/14/22 07:44 Creatinine 1.52 mg/dl (0.6-1.2) H 03/14/22 07:44 Est Cr Clr Drug Dosing 24.8 ml/min 03/14/22 07:44 Est GFR ( Amer) 36.6 ml/min 03/14/22 07:44 Est GFR (Non-Af Amer) 31.6 ml/min 03/14/22 07:44 BUN/Creatinine Ratio 33.6 (10-20) H 03/14/22 07:44 Glucose 125 mg/dl (70-99(Fasting)) H 03/14/22 07:44 Calcium 9.5 mg/dl (8.5-10.1) 03/13/22 04:26 Total Bilirubin 0.5 mg/dl (0.2-1.0) 03/12/22 09:30 AST 17 U/L (13-39) 03/12/22 09:30 ALT 17 U/L (7-52) 03/12/22 09:30 Alkaline Phosphatase 68 U/L (34-104) 03/12/22 09:30 Total Creatine Kinase 41 U/L (26-192) 03/12/22 09:30 Total Protein 6.3 gm/dl (6.0-8.3) 03/12/22 09:30 Albumin 3.2 gm/dl (3.4-5.0) L 03/12/22 09:30 Globulin 3.1 gm/dl (2.5-4.0) 03/12/22 09:30 Albumin/Globulin Ratio 1.0 (0.9-2) 03/12/22 09:30 Urine Color Yellow 03/12/22 10:10 Urine Appearance Turbid (Clear) A 03/12/22 10:10 Urine pH 6.5 (4.5-7.5) 03/12/22 10:10 Ur Specific Dalton 1.013 (1.000-1.030) 03/12/22 10:10 Urine Protein 2+ (Negative) H 03/12/22 10:10 Urine Glucose (UA) Negative (Negative) 03/12/22 10:10 Urine Ketones Trace (Negative) H 03/12/22 10:10 Urine Blood 1+ (Negative) H 03/12/22 10:10 Urine Nitrite Negative (Negative) 03/12/22 10:10 Urine Bilirubin Negative (Negative) 03/12/22 10:10 Urine Urobilinogen Negative (Negative) 03/12/22 10:10 Ur Leukocyte Esterase 3+ (Negative) H 03/12/22 10:10 Urine WBC (Auto) >30 /hpf (0-5) H 03/12/22 10:10 Urine RBC (Auto) 0-4 /hpf (0-4) 03/12/22 10:10 U Hyaline Cast (Auto) 1-5 /lpf (0-5) 03/12/22 10:10 U Epithel Cells (Auto) 10-20 /lpf (0-5) H 03/12/22 10:10 Urine Bacteria (Auto) Negative (Negative) 03/12/22 10:10 SARS-CoV-2, RNA, NAAT NEGATIVE (NEGATIVE) 03/12/22 10:10 Blood Type A Positive 03/12/22 15:35 Antibody Screen NEGATIVE 03/12/22 15:35 Impressions Hip X-Ray 03/13/22 00:00 FL hip RT 2-3V CLINICAL HISTORY: RT TROCH NAILacute fracture of the right hip COMPARISON STUDY: Radiographs March 12, 2022 FLUOROSCOPY TIME: 48.2 seconds FLUOROSCOPY IMAGES: 4 EXPOSURE DOSE: 7.67 mGy FINDINGS: Status post placement of an intratrochanteric femoral medullary charito fixating the acute intertrochanteric fracture. Satisfactory alignment with expected postoperative soft tissue swelling and deep tissue air. IMPRESSION: Fluoroscopic assistance as above. ACT 112: Negative or not required by law. Electronically signed by: Real Mac M.D. 03/13/2022 5:54 PM
--- NOTE | 2022-03-14 17:30 | Hospitalist Progress Note ---
Date of Service March 14, 2022 Assessment & Plan (1) Closed right hip fracture: Plan: Acute hip fracture, now stable, status post surgical correction 03/13/2022 Other radiological studies for this hospital stay include CT: Right nondisplaced intertrochanteric femur fracture. Persistent right hepatic masses noted. Bladder inflammation noted on report, UA -CTA/P: Acute nondisplaced right femur intertrochanteric fracture. Mixed cystic and solid mass within the residual right hepatic lobe at the resection margin suggestive of malignancy appears stable to slightly increased in size from the 01/27/2022 study. Stable to slightly increased size of the pathologic retroperitoneal lymphadenopathy. Colonic diverticulosis without acute diverticulitis. Wall thickening of the large bowel is likely secondary to partial distention. A nonspecific colitis considered less likely. Decompressed urinary bladder with wall thickening and perivesicular stranding. Correlate with urinalysis. -CTchest: No acute posttraumatic intrathoracic abnormality identified. Late alvarado bacute appearing right third and fourth rib fracture. No airspace consolidation/pneumothorax. Left upper lobe pulmonary nodule not significantly changed compared to 2020, solid and cystic right hepatic lobe also similar to prior noted. Right shoulder CXR: No acute fracture Elbow right XR: No acute fracture CTC-spine: No acute findings CThead: No acute findings XR Hip/Pelvis: Nondisplaced intertrochanteric fracture of the proximal right femur. No dislocation. (2) HCC (hepatocellular carcinoma): Plan: Metastatic HCC, chronic unstable, recurrence seen on CT abd/pelvis imparts moderate risk the patient has persistent and progressing On Opdivo, follows with Dr. Meza. 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 Perea Recommended to be on prednisone 40 mg daily, cetirizine 10 mg twice daily, hydroxyzine 10 mg nightly 1 on any additional antibiotics Do not use quinolones, penicillin Patient okay to receive cephalosporins, prior to procedures, aztreonam with steroid pretreatment if required (4) Hypertension: Plan: Hypertension, chronic and stable moderate risk the patient HCTZ discontinued 1 month ago due to cramping. Unable to tolerate metoprolol due to fatigue Tolerating amlodipine 2.5 mg p.o. daily, up titration has been limited by leg swelling currently on hold due to post operative blood pressure ARB/VANESSA limited due to SALAZAR/CKD/hyperkalemia (5) Recurrent UTI: Plan: Acute UTI poa, has been ruled out although had a abnormal ua, negative urine culture will stop antibiotics at this time CKD 3 stable chronic and stable imparts moderate risk with requirement for medication dosing (6) Carcinoid tumor of lung: (7) Palliative care encounter: Plan: Prior palliative consultation Patient wish to continue Opdivo even if it was causing diarrhea. Reports she would consider stopping if she does not call the time, but would like to continue at this time Patient reports she would consider hospice if she did clinically decline in the future, however had not wanted to switch to the services at time of last follow-up 01/31. - Outpt Palliative care report reviewed. 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 Q4h prn for pain, Pending followup next week to discuss treatments and whether or not to continue these vs hospice, Stay hydrated, liberal diet, continue Opdivo per last note (8) Severe protein-calorie malnutrition: Plan DVT PPx: Heparin 2/2 CKD CODE: DNR/DNI Admission and Anticipated Discharge Date Admission Date: March 12, 2022 Results & Data Results & Data ([facility]) Vital Signs (Past 12 Hours) Vital Signs Temp Pulse Pulse Resp BP Pulse Ox O2 Del Method 03/14/22 15:52 94 H 03/14/22 15:39 98.6 F 89 18 130/70 94 Room Air 03/14/22 11:02 97.9 F 84 20 111/63 90 Room Air 03/14/22 07:52 97.3 F L 87 18 112/61 91 Room Air 03/14/22 07:23 77 PG Care Time/CCT Total # of Minutes Spent Total Time Spent with Patient: Total time spent is greater than 50% in coordination of care (as documented) at patient's floor/unit and/or counseling patient: Coding Level of Care Code None Diagnoses Closed right hip fracture S72.001A HCC (hepatocellular carcinoma) C22.0 Drug eruption L27.0 Hypertension I10 Recurrent UTI N39.0 Carcinoid tumor of lung D3A.090 Palliative care encounter Z51.5 Severe protein-calorie malnutrition E43
[2022-03-14] MEDS: CETIRIZINE HCL 10 MG TABLET PO SCH (21:23)
[2022-03-14] MEDS: hydrOXYzine HCl 10 MG TAB PO SCH (21:23)
[2022-03-14] MEDS: DOCUSATE SODIUM/SENNA 50/8.6MG TAB PO SCH (21:23)
[2022-03-15 06:48] LABS: Creatinine Clr Calc Pharmacy 32.7 ml/min; Est GFR (African American) 46.8 ml/min; Est GFR (Non-African American) 40.4 ml/min
--- NOTE | 2022-03-15 07:54 | Orthopedic Progress Note ---
Date of Service March 15, 2022 Assessment & Plan (1) Closed intertrochanteric fracture of right femur: Plan: POD#2 s/p Right TFN PT/OT protocol. WBAT. DVT prophylaxis - Enoxaparin, SCD's Pain management as written. D/c planning-PT recommending inpatient rehab SNF. Case management following. Patient is orthopedically stable for discharge once placement is set up and medically stable. Ortho will sign off at this time. Patient can call [phone] for an ap pointment with Dr. Way 12-14 days post operatively. D/c instructions placed. Please call with any questions. Admission and Anticipated Discharge Date Admission Date: March 12, 2022 Subjective Patient resting in bed comfortably. Pain is controlled. States PT went okay yesterday. Otherwise if feeling okay. Denies chest pain, sob, dizziness, headache, fever/chills. Review of Systems Review of Systems: All systems reviewed & are unremarkable except as noted in Subjective Physical Exam Physical Exam: Right hip dressings are c/d/i. Compartments soft and non tender. No calf tenderness. Toes are mobile with good dorsiflexion. Distally n/v status and sensation grossly intact. Constitutional: no acute distress Results & Data ([facility]) Vital Signs (Past 12 Hours) Vital Signs Temp Pulse Pulse Resp BP Pulse Ox O2 Del Method 03/15/22 07:00 36.4 C L 62 18 130/58 L 93 Room Air 03/15/22 03:44 36.4 C L 79 18 153/73 H 93 Room Air 03/15/22 02:24 76 03/14/22 23:00 36.8 C 81 18 122/73 93 Room Air
--- NOTE | 2022-03-15 08:22 | Hospitalist Progress Note ---
Date of Service March 15, 2022 Assessment & Plan (1) Closed right hip fracture: Plan: Acute hip fracture, now stable, status post surgical correction 03/13/2022 Other radiological studies for this hospital stay include CT: Right nondisplaced intertrochanteric femur fracture. Persistent right hepatic masses noted. Bladder inflammation noted on report, UA -CTA/P: Acute nondisplaced right femur intertrochanteric fracture. Mixed cystic and solid mass within the residual right hepatic lobe at the resection margin suggestive of malignancy appears stable to slightly increased in size from the 01/27/2022 study. Stable to slightly increased size of the pathologic retroperitoneal lymphadenopathy. Colonic diverticulosis without acute diverticulitis. Wall thickening of the large bowel is likely secondary to partial distention. A nonspecific colitis considered less likely. Decompressed urinary bladder with wall thickening and perivesicular stranding. Correlate with urinalysis. -CTchest: No acute posttraumatic intrathoracic abnormality identified. Late alvarado bacute appearing right third and fourth rib fracture. No airspace consolidation/pneumothorax. Left upper lobe pulmonary nodule not significantly changed compared to 2020, solid and cystic right hepatic lobe also similar to prior noted. Right shoulder CXR: No acute fracture Elbow right XR: No acute fracture CTC-spine: No acute findings CThead: No acute findings XR Hip/Pelvis: Nondisplaced intertrochanteric fracture of the proximal right femur. No dislocation. Patient is some constipation post procedure we will add a bowel regiment ordered on 03/15/2022 Patient has some insomnia due to her hospital stay and pain request Ativan at bedtime this is ordered as needed on 03/15/2022 (2) HCC (hepatocellular carcinoma): Plan: Metastatic HCC, chronic unstable, recurrence seen on CT abd/pelvis imparts moderate risk the patient has persistent and progressing On Opdivo, follows with Dr. Meza. 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 Perea Recommended to be on prednisone 40 mg daily, cetirizine 10 mg twice daily, hydroxyzine 10 mg nightly 1 on any additional antibiotics Do not use quinolones, penicillin Patient okay to receive cephalosporins, prior to procedures, aztreonam with steroid pretreatment if required (4) Hypertension: Plan: Hypertension, chronic and stable moderate risk the patient HCTZ discontinued 1 month ago due to cramping. Unable to tolerate metoprolol due to fatigue Tolerating amlodipine 2.5 mg p.o. daily, up titration has been limited by leg swelling currently on hold due to post operative blood pressure ARB/VANESSA limited due to SALAZAR/CKD/hyperkalemia (5) Recurrent UTI: Plan: Acute UTI poa, has been ruled out although had a abnormal ua, negative urine culture will stop antibiotics at this time CKD 3 stable chronic and stable imparts moderate risk with requirement for medication dosing (6) Carcinoid tumor of lung: (7) Palliative care encounter: Plan: Prior palliative consultation Patient wish to continue Opdivo even if it was causing diarrhea. Reports she would consider stopping if she does not call the time, but would like to continue at this time Patient reports she would consider hospice if she did clinically decline in the future, however had not wanted to switch to the services at time of last follow-up 01/31. - Outpt Palliative care report reviewed. 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 Q4h prn for pain, Pending followup next week to discuss treatments and whether or not to continue these vs hospice, Stay hydrated, liberal diet, continue Opdivo per last note (8) Severe protein-calorie malnutrition: Plan DVT PPx: Heparin 2/2 CKD CODE: DNR/DNI Admission and Anticipated Discharge Date Admission Date: March 12, 2022 Subjective Patient complains of not being able to sleep and having a nightmare about mowing her grass and a mouse biting her foot She is still has reasonable pain in her greater trochanteric nailing site Physical Exam Physical Exam: Patient is awake alert appropriate she is in no distress her lungs are clear and unlabored her card exam is regular with a systolic murmur her distal right leg is with good capillary refill and sensation her surgical site is clean dry and intact but tender Results & Data Results & Data ([facility]) Vital Signs (Past 12 Hours) Vital Signs Temp Pulse Pulse Resp BP Pulse Ox O2 Del Method 03/15/22 07:00 97.5 F L 62 18 130/58 L 93 Room Air 03/15/22 03:44 97.5 F L 79 18 153/73 H 93 Room Air 03/15/22 02:24 76 03/14/22 23:00 98.2 F 81 18 122/73 93 Room Air PG Care Time/CCT Total # of Minutes Spent Total Time Spent with Patient: Total time spent is greater than 50% in coordination of care (as documented) at patient's floor/unit and/or counseling patient: Coding Level of Care Code 04594 SUB INP/OBS CARE 2/35MIN Diagnoses Closed right hip fracture S72.001A HCC (hepatocellular carcinoma) C22.0 Drug eruption L27.0 Hypertension I10 Recurrent UTI N39.0 Carcinoid tumor of lung D3A.090 Palliative care encounter Z51.5 Severe protein-calorie malnutrition E43
[2022-03-15] MEDS: ENOXAPARIN INJ 30 MG/0.3 ML SYR SQ SCH (09:15)
[2022-03-15] MEDS: MULTIVITAMIN TAB PO SCH (09:16)
[2022-03-15] MEDS: predniSONE 20 MG TAB PO SCH (09:16)
[2022-03-15] MEDS: MAGNESIUM HYDROXIDE SUSP 30 ML UDC PO PRN (09:18)
[2022-03-15] MEDS: ONDANSETRON INJ 2 MG/ML 2 ML VIAL IV PRN (09:18)
[2022-03-15] MEDS ORDERED: DOCUSATE SODIUM/SENNA 50/8.6MG TAB PO ONE (10:54)
[2022-03-15] MEDS: ACETAMINOPHEN 500 MG TAB PO SCH ×2 (13:25→22:13)
[2022-03-15] MEDS: MoRPHine SULFATE 2 MG/ML CARP IV PRN (13:28)
[2022-03-15] MEDS: hydrOXYzine HCl 10 MG TAB PO SCH (20:11)
[2022-03-15] MEDS: CETIRIZINE HCL 10 MG TABLET PO SCH (20:11)
[2022-03-15] MEDS: DOCUSATE SODIUM/SENNA 50/8.6MG TAB PO SCH (20:11)
[2022-03-15] MEDS: MoRPHine SULFATE 4 MG/ML 1 ML CARP\\VIAL IV PRN (20:12)
[2022-03-16] MEDS: LORazepam 0.5 MG TAB PO PRN ×2 (01:24→23:50)
[2022-03-16] MEDS: MoRPHine SULFATE 2 MG/ML CARP IV PRN (01:25)
[2022-03-16 02:30] LABS: Appearance Urine Clear (Clear); Bacteria Urine Automated Negative (Negative); Bilirubin Urine Negative (Negative); Blood Urine 2+ (Negative); Color Urine Yellow; Epithelial Cell Urine Auto >30 /lpf (0-5); Glucose Urine UA Negative (Negative); Ketones Urine Negative (Negative); Leukocyte Esterase Urine 1+ (Negative); Nitrite Urine Negative (Negative); Protein Urine Negative (Negative); Specific Gravity Urine 1.015 (1.000-1.030); Urobilinogen Urine Negative (Negative); WBC Urine Automated >30 /hpf (0-5); pH Urine 6.5 (4.5-7.5)
--- NOTE | 2022-03-16 07:25 | Hospitalist Progress Note ---
Date of Service March 16, 2022 Assessment & Plan (1) Closed right hip fracture: Plan: Acute hip fracture, now stable, status post surgical correction 03/13/2022 Other radiological studies for this hospital stay include CT: Right nondisplaced intertrochanteric femur fracture. Persistent right hepatic masses noted. Bladder inflammation noted on report, UA -CTA/P: Acute nondisplaced right femur intertrochanteric fracture. Mixed cystic and solid mass within the residual right hepatic lobe at the resection margin suggestive of malignancy appears stable to slightly increased in size from the 01/27/2022 study. Stable to slightly increased size of the pathologic retroperitoneal lymphadenopathy. Colonic diverticulosis without acute diverticulitis. Wall thickening of the large bowel is likely secondary to partial distention. A nonspecific colitis considered less likely. Decompressed urinary bladder with wall thickening and perivesicular stranding. Correlate with urinalysis. -CTchest: No acute posttraumatic intrathoracic abnormality identified. Late alvarado bacute appearing right third and fourth rib fracture. No airspace consolidation/pneumothorax. Left upper lobe pulmonary nodule not significantly changed compared to 2020, solid and cystic right hepatic lobe also similar to prior noted. Right shoulder CXR: No acute fracture Elbow right XR: No acute fracture CTC-spine: No acute findings CThead: No acute findings XR Hip/Pelvis: Nondisplaced intertrochanteric fracture of the proximal right femur. No dislocation. Patient is some constipation post procedure we will add a bowel regiment ordered on 03/15/2022 Patient has some insomnia due to her hospital stay and pain request Ativan at bedtime this is ordered as needed on 03/15/2022 (2) Dysuria: Plan: Acute problem moderate risk. Postop Pritchett catheter in place. Since removal patient had dysuria and frequency. Urine culture will be sent start on Keflex p.o. on 03/16/2022 (3) HCC (hepatocellular carcinoma): Plan: Metastatic HCC, chronic unstable, recurrence seen on CT abd/pelvis imparts moderate risk the patient has persistent and progressing On Opdivo, follows with Dr. Meza. 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 Weight loss: Continue thiamine/folate Boost/nutrition to follow (4) Drug eruption: Plan: Chronic condition currently stable multiple medication allergies, Follows with Dr. Perea Recommended to be on prednisone 40 mg daily, cetirizine 10 mg twice daily, hydroxyzine 10 mg nightly 1 on any additional antibiotics Do not use quinolones, penicillin Patient okay to receive cephalosporins, prior to procedures, aztreonam with steroid pretreatment if required (5) Hypertension: Plan: Hypertension, chronic and stable moderate risk the patient HCTZ discontinued 1 month ago due to cramping. Unable to tolerate metoprolol due to fatigue Tolerating amlodipine 2.5 mg p.o. daily, up titration has been limited by leg swelling currently on hold due to post operative blood pressure ARB/VANESSA limited due to SALAZAR/CKD/hyperkalemia (6) Recurrent UTI: Plan: Acute UTI poa, has been ruled out although had a abnormal ua, negative urine culture will stop antibiotics at this time CKD 3 stable chronic and stable imparts moderate risk with requirement for medication dosing (7) Carcinoid tumor of lung: (8) Palliative care encounter: Plan: Prior palliative consultation Patient wish to continue Opdivo even if it was causing diarrhea. Reports she would consider stopping if she does not call the time, but would like to continue at this time Patient reports she would consider hospice if she did clinically decline in the future, however had not wanted to switch to the services at time of last follow-up 01/31. - Outpt Palliative care report reviewed. ANTI T[employer] MISSILEMAN was on Oxy 5mg Q4h prn for pain, Pending followup next week to discuss treatments and whether or not to continue these vs hospice, Stay hydrated, liberal diet, continue Opdivo per last note (9) Severe protein-calorie malnutrition: Plan DVT PPx: Heparin 2/2 CKD CODE: DNR/DNI Admission and Anticipated Discharge Date Admission Date: March 12, 2022 Subjective Patient complains of not being able to sleep this biding having her typical Ativan. She is fairly tired and agrees to try an alternative medication to help sleep this evening She is still has reasonable pain in her greater trochanteric nailing site Physical Exam Physical Exam: Patient is awake alert appropriate she is in no distress her lungs are clear and unlabored her card exam is regular with a systolic murmur She has point tenderness to her hip repair site but is clean dry and intact. Her distal right leg is with good capillary refill and sensation Results & Data Results & Data ([place]) Vital Signs (Past 12 Hours) Vital Signs Temp Pulse Pulse Resp BP Pulse Ox O2 Del Method 03/16/22 07:22 97.7 F 65 20 122/66 93 Room Air 03/15/22 22:05 69 03/16/22 02:52 98.1 F 64 18 131/63 93 Room Air 03/15/22 22:59 98.1 F 65 18 151/74 H 94 Room Air Laboratory Results Reviewed urine analysis from today showing 2+ blood 1+ leukocyte Estrace however it is a contaminated specimen PG Care Time/CCT Total # of Minutes Spent Total Time Spent with Patient: Total time spent is greater than 50% in coordination of care (as documented) at patient's floor/unit and/or counseling patient: Coding Level of Care Code 18863 SUB INP/OBS CARE 2/35MIN Diagnoses Closed right hip fracture S72.001A Dysuria R30.0 HCC (hepatocellular carcinoma) C22.0 Drug eruption L27.0 Hypertension I10 Recurrent UTI N39.0 Carcinoid tumor of lung D3A.090 Palliative care encounter Z51.5 Severe protein-calorie malnutrition E43
[2022-03-16] MEDS ORDERED: CIPROFLOXACIN 250 MG TAB PO SCH (07:30)
[2022-03-16] MEDS: ACETAMINOPHEN 500 MG TAB PO SCH ×4 (09:37→21:32)
[2022-03-16] MEDS: cephALEXin 500 MG CAP PO SCH ×2 (09:38→21:26)
[2022-03-16] MEDS: DOCUSATE SODIUM/SENNA 50/8.6MG TAB PO SCH ×2 (09:38→21:25)
[2022-03-16] MEDS: ENOXAPARIN INJ 30 MG/0.3 ML SYR SQ SCH (09:38)
[2022-03-16] MEDS: MULTIVITAMIN TAB PO SCH (09:39)
[2022-03-16] MEDS: predniSONE 20 MG TAB PO SCH (09:39)
[2022-03-16] MEDS: ONDANSETRON INJ 2 MG/ML 2 ML VIAL IV PRN (11:54)
[2022-03-16] MEDS: MoRPHine SULFATE 4 MG/ML 1 ML CARP\\VIAL IV PRN ×3 (11:55→21:31)
[2022-03-16] MEDS: MAGNESIUM HYDROXIDE SUSP 30 ML UDC PO PRN (18:28)
[2022-03-16] MEDS ORDERED: traZODone HCL 50 MG TAB PO SCH (21:00)
[2022-03-16] MEDS: CETIRIZINE HCL 10 MG TABLET PO SCH (21:24)
[2022-03-16] MEDS: hydrOXYzine HCl 10 MG TAB PO SCH (21:27)
[2022-03-17] MEDS: MoRPHine SULFATE 4 MG/ML 1 ML CARP\\VIAL IV PRN ×2 (04:09→09:09)
[2022-03-17 07:21] LABS: Creatinine Clr Calc Pharmacy 38.7 ml/min; Est GFR (African American) 59.3 ml/min; Est GFR (Non-African American) 51.2 ml/min
[2022-03-17] MEDS: ACETAMINOPHEN 500 MG TAB PO SCH ×3 (09:12→20:47)
[2022-03-17] MEDS: predniSONE 20 MG TAB PO SCH (09:12)
[2022-03-17] MEDS: cephALEXin 500 MG CAP PO SCH ×2 (09:12→20:47)
[2022-03-17] MEDS: DOCUSATE SODIUM/SENNA 50/8.6MG TAB PO SCH ×2 (09:12→20:48)
[2022-03-17] MEDS: MULTIVITAMIN TAB PO SCH (09:13)
[2022-03-17] MEDS: ENOXAPARIN INJ 30 MG/0.3 ML SYR SQ SCH (09:13)
[2022-03-17] MEDS: LIDOCAINE 5% 1 PATCH TD SCH (10:18)
[2022-03-17] MEDS: POTASSIUM CITRATE 10 MEQ TAB PO SCH ×2 (10:18→20:48)
[2022-03-17] MEDS: ONDANSETRON INJ 2 MG/ML 2 ML VIAL IV PRN (10:25)
[2022-03-17] MEDS ORDERED: oxyCODONE HCL IR 5 MG TAB (IMMEDIATE RELEASE) PO PRN (13:54)
--- NOTE | 2022-03-17 14:01 | Hospitalist Progress Note ---
Date of Service March 17, 2022 Assessment & Plan (1) Closed right hip fracture: Plan: Acute hip fracture, now stable, status post surgical correction 03/13/2022 Other radiological studies for this hospital stay include CT: Right nondisplaced intertrochanteric femur fracture. Persistent right hepatic masses noted. Bladder inflammation noted on report, UA -CTA/P: Acute nondisplaced right femur intertrochanteric fracture. Mixed cystic and solid mass within the residual right hepatic lobe at the resection margin suggestive of malignancy appears stable to slightly increased in size from the 01/27/2022 study. Stable to slightly increased size of the pathologic retroperitoneal lymphadenopathy. Colonic diverticulosis without acute diverticulitis. Wall thickening of the large bowel is likely secondary to partial distention. A nonspecific colitis considered less likely. Decompressed urinary bladder with wall thickening and perivesicular stranding. Correlate with urinalysis. -CTchest: No acute posttraumatic intrathoracic abnormality identified. Late alvarado bacute appearing right third and fourth rib fracture. No airspace consolidation/pneumothorax. Left upper lobe pulmonary nodule not significantly changed compared to 2020, solid and cystic right hepatic lobe also similar to prior noted. Right shoulder CXR: No acute fracture Elbow right XR: No acute fracture CTC-spine: No acute findings CThead: No acute findings XR Hip/Pelvis: Nondisplaced intertrochanteric fracture of the proximal right femur. No dislocation. Patient is some constipation post procedure we will add a bowel regiment ordered on 03/15/2022, still not successful Patient has some insomnia due to her hospital stay and pain Pain control is now scheduled tylenol, oxycodone, lidoderm patch and prn tramadol for sleep increase trazadone to 50 mg hs continue to offer ativan prn (2) Dysuria: Plan: Acute problem moderate risk. Postop Pritchett catheter in place. Since removal patient had dysuria and dameon quency. Urine culture 3 or more organisms, started on Keflex p.o. on 03/16/2022, complete 3 days (3) HCC (hepatocellular carcinoma): Plan: Metastatic HCC, chronic unstable, recurrence seen on CT abd/pelvis imparts moderate risk the patient has persistent and progressing On Opdivo, follows with Dr. Meza. 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 Weight loss: Continue thiamine/folate Boost/nutrition to follow (4) Drug eruption: Plan: Chronic condition currently stable multiple medication allergies, Follows with Dr. Perea Recommended to be on prednisone 20 mg daily, cetirizine 10 mg twice daily, hydroxyzine 10 mg nightly 1 on any additional antibiotics Do not use quinolones, penicillin Patient okay to receive cephalosporins, prior to procedures, aztreonam with steroid pretreatment if required (5) Hypertension: Plan: Hypertension, chronic and stable moderate risk the patient HCTZ discontinued 1 month ago due to cramping. Unable to tolerate metoprolol due to fatigue Tolerating amlodipine 2.5 mg p.o. daily, up titration has been limited by leg swelling currently on hold due to post operative blood pressure ARB/VANESSA limited due to SALAZAR/CKD/hyperkalemia (6) Recurrent UTI: Plan: Acute UTI poa, has been ruled out although had a abnormal ua, negative urine culture will stop antibiotics at this time CKD 3 stable chronic and stable imparts moderate risk with requirement for medication dosing (7) Carcinoid tumor of lung: (8) Palliative care encounter: Plan: Prior palliative consultation Patient wish to continue Opdivo even if it was causing diarrhea. Reports she would consider stopping if she does not call the time, but would like to continue at this time Patient reports she would consider hospice if she did clinically decline in the future, however had not wanted to switch to the services at time of last follow-up 01/31. - Outpt Palliative care report reviewed. 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 for pain, Pending followup next week to discuss treatments and whether or not to continue these vs hospice, Stay hydrated, liberal diet, continue Opdivo per last note (9) Severe protein-calorie malnutrition: Plan DVT PPx: Heparin 2/2 CKD CODE: DNR/DNI Admission and Anticipated Discharge Date Admission Date: March 12, 2022 Subjective Patient complains of not being able to sleep we tried trazadone, but she had a room mate brought into the room in the middle of the night, She is fairly tired and continues to have pain in her greater trochanteric nailing site Physical Exam Physical Exam: Patient is awake alert appropriate she is in no distress her lungs are clear and unlabored her card exam is regular with a systolic murmur She has point tenderness to her hip repair site but is clean dry and intact. Her distal right leg is with good capillary refill and sensation Results & Data Results & Data ([facility]) Vital Signs (Past 12 Hours) Vital Signs Temp Pulse Pulse Resp BP Pulse Ox O2 Del Method 03/17/22 12:00 98.1 F 85 18 103/65 94 Room Air 03/17/22 07:32 97.5 F L 62 20 127/71 96 Room Air 03/17/22 03:08 97.7 F 60 18 117/63 94 Room Air PG Care Time/CCT Total # of Minutes Spent Total Time Spent with Patient: Total time spent is greater than 50% in coordination of care (as documented) at patient's floor/unit and/or counseling patient: Coding Level of Care Code 43971 SUB INP/OBS CARE 2/35MIN Diagnoses Closed right hip fracture S72.001A Dysuria R30.0 HCC (hepatocellular carcinoma) C22.0 Drug eruption L27.0 Hypertension I10 Recurrent UTI N39.0 Carcinoid tumor of lung D3A.090 Palliative care encounter Z51.5 Severe protein-calorie malnutrition E43
[2022-03-17] MEDS ORDERED: bisacodyL 10 MG SUPP PR STA (14:12)
[2022-03-17] MEDS: MAGNESIUM HYDROXIDE SUSP 30 ML UDC PO PRN (18:55)
[2022-03-17] MEDS: traZODone HCL 50 MG TAB PO SCH (20:47)
[2022-03-17] MEDS: CETIRIZINE HCL 10 MG TABLET PO SCH (20:47)
[2022-03-17] MEDS ORDERED: oxyCODONE HCL IR 5 MG TAB (IMMEDIATE RELEASE) PO SCH (21:00)
[2022-03-18] MEDS ORDERED: oxyCODONE HCL IR 5 MG TAB (IMMEDIATE RELEASE) PO STA (04:39)
[2022-03-18] MEDS: LORazepam 0.5 MG TAB PO PRN ×2 (05:55→20:27)
--- NOTE | 2022-03-18 07:55 | Hospitalist Progress Note ---
Date of Service March 18, 2022 Assessment & Plan (1) Closed right hip fracture: Plan: Acute hip fracture, status post surgical correction 03/13/2022, increased pain since 03/17/22, repeat x ray without significant changes on 03/18, orthopedic reevaluation on 03/18 without concern Other radiological studies for this hospital stay include CT: Right nondisplaced intertrochanteric femur fracture. Persistent right hepatic masses noted. Bladder inflammation noted on report, UA -CTA/P: Acute nondisplaced right femur intertrochanteric fracture. Mixed cystic and solid mass within the residual right hepatic lobe at the resection margin suggestive of malignancy appears stable to slightly increased in size from the 01/27/2022 study. Stable to slightly increased size of the pathologic retroperitoneal lymphadenopathy. Colonic diverticulosis without acute diverticulitis. Wall thickening of the large bowel is likely secondary to partial distention. A nonspecific colitis considered less likely. Decompressed urinary bladder with wall thickening and perivesicular stranding. Correlate with urinalysis. -CTchest: No acute posttraumatic intrathoracic abnormality identified. Late subacute appearing right third and fourth rib fracture. No airspace consolidation/pneumothorax. Left upper lobe pulmonary nodule not significantly changed compared to 2020, solid and cystic right hepatic lobe also similar to prior noted. Right shoulder CXR: No acute fracture Elbow right XR: No acute fracture CTC-spine: No acute findings CThead: No acute findings XR Hip/Pelvis: Nondisplaced intertrochanteric fracture of the proximal right femur. No dislocation. Patient is some constipation post procedure we will add a bowel regiment ordered on 03/15/2022, still not successful Patient has some insomnia due to her hospital stay and pain Pain control is now scheduled tylenol, oxycodone, lidoderm patch and prn tramadol Discussed pain control at length with daughter. Are agreeable to attempt fentanyl patch with backup oxycodone as needed for sleep increase trazadone to 50 mg hs continue to offer ativan prn (2) Dysuria: Plan: Acute problem moderate risk. Postop Pritchett catheter in place. Since removal patient had dysuria and frequency. Urine culture 3 or more organisms, started on Keflex p.o. on 03/16/2022, complete 3 days , repeat urine culture 2 6 shows greater than 100,000 colonies gram- negative bacilli. She has a history of both Klebsiella and E. coli which fortunately are fairly sensitive to many antibiotics, however she does have a history of Pseudomonas in the past. From discharge summary it looks like she has tolerated meropenem in the past we will await speciation of this bacteria (3) HCC (hepatocellular carcinoma): Plan: Metastatic HCC, chronic unstable, recurrence seen on CT abd/pelvis imparts moderate risk the patient has persistent and progressing On Opdivo, follows with Dr. Meza. 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 Weight loss: Continue thiamine/folate Boost/nutrition to follow Transition of fentanyl patches for cancer pain and acute pain control (4) Drug eruption: Plan: Chronic condition currently stable multiple medication allergies, Follows with Dr. Perea Recommended to be on prednisone 20 mg daily, cetirizine 10 mg twice daily, hydroxyzine 10 mg nightly 1 on any additional antibiotics no further reaction with antibiotic use currently Do not use quinolones, penicillin Patient okay to receive cephalosporins, prior to procedures, aztreonam with steroid pretreatment if required (5) Hypertension: Plan: Hypertension, chronic and stable moderate risk the patient HCTZ discontinued 1 month ago due to cramping. Unable to tolerate metoprolol due to fatigue Tolerating amlodipine 2.5 mg p.o. daily, up titration has been limited by leg swelling currently on hold due to post operative blood pressure ARB/VANESSA limited due to SALAZAR/CKD/hyperkalemia (6) Recurrent UTI: Plan: Acute UTI poa, has been ruled out although had a abnormal ua, negative urine culture will stop antibiotics at this time CKD 3 stable chronic and stable imparts moderate risk with requirement for medication dosing (7) Carcinoid tumor of lung: (8) Palliative care encounter: Plan: Prior palliative consultation Patient wish to continue Opdivo even if it was causing diarrhea. Reports she would consider stopping if she does not call the time, but would like to continue at this time Patient reports she would consider hospice if she did clinically decline in t he future, however had not wanted to switch to the services at time of last follow-up 01/31. - Outpt Palliative care report reviewed. 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 Worsens with increased physical therapy. There is no change at the surgical site. We did request orthopedic reevaluate. They feel there is nothing objectively unusual about her hip upon exam we reviewed x-ray which also confirmed there is no new fractures malalignments or concerns. Patient's pain control is challenging given the fact that she did have a intratrochanteric nail placed. She also is on chronic daily Percocet therapy at home for her metastatic hepatocellular carcinoma. This makes opiate dosing challenging. Stability the patient is with good pain control at rest but worsens with movement. We did have a discussion at the bedside and with the patient's daughter and are advancing towards instituting a fentanyl patch with backup oxycodone until the fentanyl gets to its steady state at around 48 to 72 hours Physical Exam Physical Exam: Patient claims of 78/10 pain she however is without significant tachycardia or other abnormal vital signs. Her cardiac exam is regular there is a systolic murmur Lungs are clear Right hip area is without significant induration fluctuance erythema or warmth. She is tender to movement she is tender in the inguinal fold Results & Data Results & Data ([facility]) Vital Signs (Past 12 Hours) Vital Signs Temp Pulse Resp BP BP Pulse Ox O2 Del Method 03/18/22 02:55 97.9 F 59 L 16 114/62 94 Room Air 03/17/22 23:52 97.3 F L 60 20 118/65 95 Room Air 03/17/22 20:00 97.3 F L 67 18 112/67 95 Room Air Laboratory Results Evaluation of CBC shows stable hemoglobin Evaluation of chemistry with stable renal function Urinalysis performed 03/17 shows greater than 100,000 colonies gram-negative bacilli PG Care Time/CCT Total # of Minutes Spent Total Time Spent with Patient: Total time spent is greater than 50% in coordination of care (as documented) at patient's floor/unit and/or counseling patient: Coding Level of Care Code 31973 SUB INP/OBS CARE 3/50MIN Diagnoses Closed right hip fracture S72.001A Dysuria R30.0 HCC (hepatocellular carcinoma) C22.0 Drug eruption L27.0 Hypertension I10 Recurrent UTI N39.0 Carcinoid tumor of lung D3A.090 Palliative care encounter Z51.5 Severe protein-calorie malnutrition E43
[2022-03-18 08:08] LABS: Hematocrit (blood only) 34.9 % (37.0-47.0); Hemoglobin 12.2 g/dl (12.0-16.0); Mean Corpuscular Hemoglobin 31.8 pg (25.0-34.0); Mean Corpuscular Volume 90.9 fL (80.0-100.0); Mean Platelet Volume 11.6 fL (9.4-12.4); Platelet Count 183 K/uL (130-400); RDW Standard Deviation 55.5 fL (36.4-46.3); Red Blood Count 3.84 M/uL (4.20-5.40); White Blood Count 15.26 K/ul (4.8-10.8)
[2022-03-18 08:25] LABS: BUN Creatinine Ratio 31.1 (10-20); Calcium 9.7 mg/dl (8.5-10.1); Creatinine Clr Calc Pharmacy 37.1 ml/min; Est GFR (African American) 56.6 ml/min; Est GFR (Non-African American) 48.9 ml/min
[2022-03-18] MEDS: ENOXAPARIN INJ 30 MG/0.3 ML SYR SQ SCH (10:00)
[2022-03-18] MEDS: oxyCODONE HCL IR 5 MG TAB (IMMEDIATE RELEASE) PO SCH ×2 (10:00→20:28)
[2022-03-18] MEDS: LIDOCAINE 5% 1 PATCH TD SCH (10:00)
[2022-03-18] MEDS: ONDANSETRON INJ 2 MG/ML 2 ML VIAL IV PRN ×2 (10:00→17:53)
[2022-03-18] MEDS: POTASSIUM CITRATE 10 MEQ TAB PO SCH ×2 (10:01→20:31)
[2022-03-18] MEDS: cephALEXin 500 MG CAP PO SCH ×2 (10:01→20:32)
[2022-03-18] MEDS: ACETAMINOPHEN 500 MG TAB PO SCH ×3 (10:01→20:28)
[2022-03-18] MEDS: SERTRALINE HCL 50 MG TABLET PO SCH (10:03)
[2022-03-18] MEDS: predniSONE 20 MG TAB PO SCH (10:03)
[2022-03-18] MEDS: LEVOTHYROXINE SODIUM 25 MCG TABLET PO SCH (10:03)
[2022-03-18] MEDS: MULTIVITAMIN TAB PO SCH (10:03)
[2022-03-18] MEDS: DOCUSATE SODIUM/SENNA 50/8.6MG TAB PO SCH ×2 (10:03→20:28)
[2022-03-18] MEDS ORDERED: KETOROLAC 30 MG/ML VIAL IV ONE (10:16)
--- NOTE | 2022-03-18 10:34 | Orthopedic Progress Note ---
Date of Service March 18, 2022 Assessment & Plan (1) Closed intertrochanteric fracture of right femur: Plan: POD#5 s/p Right TFN Repeat x-rays have been ordered by hospitalist service. X-rays compared to her operative views appear normal. I cannot appreciate any new fractures. The alignment of the TFN is within normal limits. I have discussed the case with Dr. Thornton. Patient has a history of taking Percocet for the past year for other pain issues. Although she may have developed a tolerance to the Percocet, currently she is receiving oxycodone 10 mg p.o. twice daily. She was receiving a dose of oxycodone every 6 hours between the twice daily dosing which apparently had timed out or been discontinued. Dr. Thornton is aware and will reorder. I have placed an order for a one-time dose of Toradol 15 mg IV to help with current discomfort. Will recheck over the next 24 hours concerning her pain control. Dr Way aware. Admission and Anticipated Discharge Date Admission Date: March 12, 2022 Subjective Post op day 5 ATSP due to increased pain issues in the right hip. Patient's sitting up in bed awake and alert. Pt states she's been having regular pain in the hip which has been worse yesterday into today. She did not sleep well and has been having some vivid dreams. She feels that she had not been getting some of her regular medications over the weekend. Nursing is present and concurs. There is a question of some the medications getting held secondary to confusion but patient does not remember this. Nursing states that all of her normal medications have been ordered and she is getting them today. Patient states that she became very emotional secondary to not having good pain control and also not having some of her regular medications. Patient states that most of her pain is over the lateral hip and also groin. Discussed that this is consistent with her recent surgery. No other complaints at this time. Physical Exam Physical Exam: On examination of the right lower extremity, her incisions are benign at this time. The wounds are well approximated. She has some slight staple irritation noted. There is no purulent drainage. No serous drainage. Wounds appear dry. She has minimal swelling around the incisional area. The calf is soft on palpation. She has mild tenderness on palpation when doing so. Her tenderness travels to approximately mid thigh. She denies any pain in the right knee at this time and there is no effusion. She is able to move the ankle and toes well without discomfort. Sensation is intact. Calves are soft nontender. I am able to take her through gentle passive range of motion without causing her severe pain. She states that she does have some soreness while moving it but is not excruciating. She appears fairly comfortable in taking her through the range of motion. Results & Data ([facility]) Vital Signs (Past 12 Hours) Vital Signs Temp Pulse Resp BP BP Pulse Ox O2 Del Method 03/18/22 08:10 36.4 C L 59 L 16 146/71 H 96 Room Air 03/18/22 02:55 36.6 C 59 L 16 114/62 94 Room Air 03/17/22 23:52 36.3 C L 60 20 118/65 95 Room Air
[2022-03-18] MEDS: VIBEGRON 75 MG TAB PO SCH (13:35)
--- NOTE | 2022-03-18 14:48 | XRay Report ---
RIGHT HIP 2 VIEWS CLINICAL HISTORY: Postoperative right hip pain. FINDINGS: AP and frog-leg views of the right hip are compared to study dated 03/12/2022. The skeletal s tructures are osteopenic. Intertrochanteric and intramedullary nails have been placed transfixing an intratrochanteric fracture. Near-anatomic alignment is maintained. The visualized right hemipelvis ap pears intact. Mild arthritic change and joint space narrowing is noted in the right hip. There is deg enerative sclerosis of the right sacroiliac joint. Fusion hardware is partially visualized in the lum bar spine. Skin clips and soft tissue edema overlying the right hip are expected postoperative change s. There is atherosclerotic calcification of the right femoral artery. IMPRESSION: 1. Intertrochanteric and intramedullary nails transfix an intertrochanteric fracture of the right pro ximal femur. Near-anatomic alignment is maintained. 2. No new fracture is seen. Electronically signed by: Angel Samaniego M.D. 03/18/2022 2:47 PM
[2022-03-18] MEDS: fentaNYL 25 MCG/HR TDSY TD SCH (18:54)
[2022-03-18] MEDS: traZODone HCL 50 MG TAB PO SCH (20:29)
[2022-03-18] MEDS: CETIRIZINE HCL 10 MG TABLET PO SCH (20:32)
[2022-03-19] MEDS: CHECK fentaNYL PATCH PLACEMENT SCH ×4 (08:11→22:58)
[2022-03-19] MEDS: MAGNESIUM OXIDE 400 MG TAB PO SCH (08:12)
[2022-03-19] MEDS: predniSONE 20 MG TAB PO SCH (08:13)
[2022-03-19] MEDS: ADVANCED PROBIOTIC 1250 MG CAPSULE PO SCH (08:13)
[2022-03-19] MEDS: cephALEXin 500 MG CAP PO SCH (08:13)
[2022-03-19] MEDS: ASCORBIC ACID 500 MG TAB PO SCH (08:14)
[2022-03-19] MEDS: POTASSIUM CITRATE 10 MEQ TAB PO SCH ×2 (08:14→20:04)
[2022-03-19] MEDS: DOCUSATE SODIUM/SENNA 50/8.6MG TAB PO SCH ×2 (08:14→20:06)
[2022-03-19] MEDS: ACETAMINOPHEN 500 MG TAB PO SCH ×3 (08:14→20:03)
[2022-03-19] MEDS: CHOLECALCIFEROL 1,000 UNITS 25 MCG TAB PO SCH (08:14)
[2022-03-19] MEDS: MULTIVITAMIN TAB PO SCH (08:15)
[2022-03-19] MEDS: ENOXAPARIN INJ 30 MG/0.3 ML SYR SQ SCH (08:15)
[2022-03-19] MEDS: SERTRALINE HCL 50 MG TABLET PO SCH (08:15)
[2022-03-19] MEDS: LIDOCAINE 5% 1 PATCH TD SCH (08:16)
[2022-03-19] MEDS: LEVOTHYROXINE SODIUM 25 MCG TABLET PO SCH (08:16)
[2022-03-19] MEDS: oxyCODONE HCL IR 5 MG TAB (IMMEDIATE RELEASE) PO SCH ×2 (08:18→20:04)
--- NOTE | 2022-03-19 08:30 | Communication Note ---
Date of Service: March 19, 2022 Pt currently sitting up at the bedside eating her breakfast. She states that she has much better pain control today and overall is feeling a bit better. Pain currently controlled. No further needs identified. Please call with any further questions.
[2022-03-19] MEDS ORDERED: NON-FORMULARY MEDICATION (Biotin 1,000 mcg Tablet,Chewable) PO SCH (09:00)
[2022-03-19] MEDS: ONDANSETRON INJ 2 MG/ML 2 ML VIAL IV PRN (09:21)
[2022-03-19] MEDS: MEROPENEM 500 MG in SYRINGE 0 ML IV SCH ×2 (10:23→21:33)
[2022-03-19] MEDS: VIBEGRON 75 MG TAB PO SCH (11:59)
[2022-03-19] MEDS: oxyCODONE HCL IR 5 MG TAB (IMMEDIATE RELEASE) PO PRN (12:41)
--- NOTE | 2022-03-19 15:50 | Hospitalist Progress Note ---
Date of Service March 19, 2022 Assessment & Plan (1) Closed right hip fracture: Plan: Acute hip fracture, status post surgical correction 03/13/2022, increased pain since 03/17/22, repeat x ray without significant changes on 03/18, orthopedic reevaluation on 03/18 without concern Other radiological studies for this hospital stay include CT: Right nondisplaced intertrochanteric femur fracture. Persistent right hepatic masses noted. Bladder inflammation noted on report, UA -CTA/P: Acute nondisplaced right femur intertrochanteric fracture. Mixed cystic and solid mass within the residual right hepatic lobe at the resection margin suggestive of malignancy appears stable to slightly increased in size from the 01/27/2022 study. Stable to slightly increased size of the pathologic retroperitoneal lymphadenopathy. Colonic diverticulosis without acute diverticulitis. Wall thickening of the large bowel is likely secondary to partial distention. A nonspecific colitis considered less likely. Decompressed urinary bladder with wall thickening and perivesicular stranding. Correlate with urinalysis. -CTchest: No acute posttraumatic intrathoracic abnormality identified. Late subacute appearing right third and fourth rib fracture. No airspace consolidation/pneumothorax. Left upper lobe pulmonary nodule not significantly changed compared to 2020, solid and cystic right hepatic lobe also similar to prior noted. Right shoulder CXR: No acute fracture Elbow right XR: No acute fracture CTC-spine: No acute findings CThead: No acute findings XR Hip/Pelvis: Nondisplaced intertrochanteric fracture of the proximal right femur. No dislocation. Patient is some constipation post procedure continue bowel regiment ordered on 03/15/2022, increased frequency of senna to twice daily Pain control is now scheduled tylenol, oxycodone, lidoderm patch and prn tramadol Discussed pain control at length with daughter. Are agreeable to attempt fentanyl patch with backup oxycodone as needed fentanyl patch started on 03/18/2022 for sleep increase trazadone to 50 mg hs continue to offer ativan prn (2) Dysuria: Plan: Acute problem moderate risk. Postop Pritchett catheter in place. Since removal patient had dysuria and frequency. Urine culture from 03/17 has grown Pseudomonas she will be gone on meropenem will complete 5-day course hopeful to continue this when transfer to next level for r ehab (3) HCC (hepatocellular carcinoma): Plan: Metastatic HCC, chronic unstable, recurrence seen on CT abd/pelvis imparts moderate risk the patient has persistent and progressing On Opdivo, follows with Dr. Meza. 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 Perea Recommended to be on prednisone 20 mg daily, cetirizine 10 mg twice daily, hydroxyzine 10 mg nightly 1 on any additional antibiotics no further reaction with antibiotic use currently tapering prednisone therapy once antibiotics are done Do not use quinolones, penicillin Patient okay to receive cephalosporins, prior to procedures, aztreonam with steroid pretreatment if required (5) Hypertension: Plan: Hypertension, chronic and stable moderate risk the patient HCTZ discontinued 1 month ago due to cramping. Unable to tolerate metoprolol due to fatigue ARB/VANESSA limited due to SALAZAR/CKD/hyperkalemia Patient is CKD 3 which is stable (6) Palliative care encounter: Plan: Prior palliative consultation Patient wish to continue Opdivo even if it was causing diarrhea. Reports she would consider stopping if she does not call the time, but would like to continue at this time Patient reports she would consider hospice if she did clinically decline in the future, however had not wanted to switch to the services at time of last follow-up 01/31. - Outpt Palliative care report reviewed. 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 At times at rest she is in good control with exertion after PT her pain is more painful. As mentioned we began fentanyl patches on 03/18/2022 to help her overall pain from a metastatic hepatocellular carcinoma but also to help with her hip pain. She has additional oxycodone which are tapering off as the fentanyl patch comes to full strength but keep as needed Percocet available for pain control Physical Exam Physical Exam: Patient claims of pain is worse after physical therapy at rest her pain is in better control Her cardiac exam is regular there is a systolic murmur Lungs are clear Right hip area remains without significant induration fluctuance erythema or warmth. Results & Data Results & Data ([facility]) Vital Signs (Past 12 Hours) Vital Signs Temp Pulse Resp BP Pulse Ox O2 Del Method 03/19/22 15:29 97.7 F 75 18 116/63 92 Room Air 03/19/22 08:22 Room Air 03/19/22 07:00 97.5 F L 58 L 18 133/78 95 Room Air PG Care Time/CCT Total # of Minutes Spent Total Time Spent with Patient: Total time spent is greater than 50% in coordination of care (as documented) at patient's floor/unit and/or counseling patient: Coding Level of Care Code 16286 SUB INP/OBS CARE 2/35MIN Diagnoses Closed right hip fracture S72.001A Dysuria R30.0 HCC (hepatocellular carcinoma) C22.0 Drug eruption L27.0 Hypertension I10 Palliative care encounter Z51.5 Severe protein-calorie malnutrition E43
[2022-03-19] MEDS: CETIRIZINE HCL 10 MG TABLET PO SCH (20:02)
[2022-03-19] MEDS: traZODone HCL 50 MG TAB PO SCH (20:03)
[2022-03-20] MEDS: oxyCODONE HCL IR 5 MG TAB (IMMEDIATE RELEASE) PO PRN ×2 (01:51→22:11)
[2022-03-20] MEDS: CHECK fentaNYL PATCH PLACEMENT SCH ×2 (08:04→16:12)
[2022-03-20] MEDS: ACETAMINOPHEN 500 MG TAB PO SCH ×3 (08:05→20:19)
[2022-03-20] MEDS: LIDOCAINE 5% 1 PATCH TD SCH (08:05)
[2022-03-20] MEDS: SERTRALINE HCL 50 MG TABLET PO SCH (08:06)
[2022-03-20] MEDS: POTASSIUM CITRATE 10 MEQ TAB PO SCH ×2 (08:06→20:21)
[2022-03-20] MEDS: CHOLECALCIFEROL 1,000 UNITS 25 MCG TAB PO SCH (08:06)
[2022-03-20] MEDS: ASCORBIC ACID 500 MG TAB PO SCH (08:07)
[2022-03-20] MEDS: MAGNESIUM OXIDE 400 MG TAB PO SCH (08:07)
[2022-03-20] MEDS: predniSONE 20 MG TAB PO SCH (08:08)
[2022-03-20] MEDS: MULTIVITAMIN TAB PO SCH (08:08)
[2022-03-20] MEDS: ADVANCED PROBIOTIC 1250 MG CAPSULE PO SCH (08:08)
[2022-03-20] MEDS: MAGNESIUM HYDROXIDE SUSP 30 ML UDC PO PRN (08:18)
[2022-03-20] MEDS: ENOXAPARIN INJ 30 MG/0.3 ML SYR SQ SCH (08:18)
[2022-03-20] MEDS: oxyCODONE HCL IR 5 MG TAB (IMMEDIATE RELEASE) PO SCH (08:18)
[2022-03-20] MEDS: DOCUSATE SODIUM/SENNA 50/8.6MG TAB PO SCH ×2 (08:18→20:28)
[2022-03-20 09:10] LABS: Creatinine Clr Calc Pharmacy 35.8 ml/min; Est GFR (African American) 54.1 ml/min; Est GFR (Non-African American) 46.7 ml/min
[2022-03-20] MEDS: ONDANSETRON INJ 2 MG/ML 2 ML VIAL IV PRN (09:28)
[2022-03-20] MEDS ORDERED: PROCHLORPERAZINE 5 MG in SYRINGE 4 ML IV PRN (09:53)
[2022-03-20] MEDS: LEVOTHYROXINE SODIUM 25 MCG TABLET PO SCH (10:20)
[2022-03-20] MEDS: MEROPENEM 500 MG in SYRINGE 0 ML IV SCH ×2 (10:26→22:07)
[2022-03-20] MEDS: VIBEGRON 75 MG TAB PO SCH (11:45)
[2022-03-20] MEDS ORDERED: oxyCODONE HCL IR 5 MG TAB (IMMEDIATE RELEASE) PO PRN (13:24)
[2022-03-20 15:04] LABS: Hematocrit (blood only) 32.6 % (37.0-47.0); Hemoglobin 11.2 g/dl (12.0-16.0); Mean Corpuscular Hemoglobin 31.7 pg (25.0-34.0); Mean Corpuscular Hgb Conc 34.4 g/dL (32.0-36.0); Mean Corpuscular Volume 92.4 fL (80.0-100.0); Mean Platelet Volume 11.2 fL (9.4-12.4); Platelet Count 205 K/uL (130-400); RDW Coefficient of Variation 17.2 % (11.5-14.5); RDW Standard Deviation 58.2 fL (36.4-46.3); Red Blood Count 3.53 M/uL (4.20-5.40); White Blood Count 14.52 K/ul (4.8-10.8)
[2022-03-20 15:25] LABS: Albumin Level 3.1 gm/dl (3.4-5.0); Bilirubin,Total 0.5 mg/dl (0.2-1.0); Calcium 9.4 mg/dl (8.5-10.1); Potassium 5.7 mmol/L (3.5-5.1)
[2022-03-20 15:30] LABS: Troponin I High Sensitivity 8.4 pg/ml (0-14)
[2022-03-20 15:32] LABS: Albumin Globulin Ratio 1.1 (0.9-2); BUN Creatinine Ratio 28.5 (10-20); C Reactive Protein 1.05 mg/dl (0-0.5); Creatinine Clr Calc Pharmacy 28.7 ml/min; Est GFR (African American) 41.5 ml/min; Est GFR (Non-African American) 35.8 ml/min; Globulin 2.9 gm/dl (2.5-4.0)
[2022-03-20] MEDS: CETIRIZINE HCL 10 MG TABLET PO SCH (20:19)
[2022-03-20] MEDS: traZODone HCL 50 MG TAB PO SCH (20:21)
--- NOTE | 2022-03-20 21:05 | Hospitalist Progress Note ---
Date of Service March 20, 2022 Assessment & Plan (1) Closed right hip fracture: Plan: Acute hip fracture, status post surgical correction 03/13/2022, increased pain since 03/17/22, repeat x ray without significant changes on 03/18, orthopedic reevaluation on 03/18 without concern Other radiological studies for this hospital stay include CT: Right nondisplaced intertrochanteric femur fracture. Persistent right hepatic masses noted. Bladder inflammation noted on report, UA -CTA/P: Acute nondisplaced right femur intertrochanteric fracture. Mixed cystic and solid mass within the residual right hepatic lobe at the resection margin suggestive of malignancy appears stable to slightly increased in size from the 01/27/2022 study. Stable to slightly increased size of the pathologic retroperitoneal lymphadenopathy. Colonic diverticulosis without acute diverticulitis. Wall thickening of the large bowel is likely secondary to partial distention. A nonspecific colitis considered less likely. Decompressed urinary bladder with wall thickening and perivesicular stranding. Correlate with urinalysis. -CTchest: No acute posttraumatic intrathoracic abnormality identified. Late subacute appearing right third and fourth rib fracture. No airspace consolidation/pneumothorax. Left upper lobe pulmonary nodule not significantly changed compared to 2020, solid and cystic right hepatic lobe also similar to prior noted. Right shoulder CXR: No acute fracture Elbow right XR: No acute fracture CTC-spine: No acute findings CThead: No acute findings XR Hip/Pelvis: Nondisplaced intertrochanteric fracture of the proximal right femur. No dislocation. Patient is some constipation post procedure continue bowel regiment ordered on 03/15/2022, increased frequency of senna to twice daily Pain control is now scheduled tylenol, oxycodone, lidoderm patch and prn tramadol Discussed pain control at length with daughter. Are agreeable to attempt fentanyl patch with backup oxycodone as needed fentanyl patch started on 03/18/2022 for sleep increase trazadone to 50 mg hs continue to offer ativan prn\\MOved times of her medicines to AM and noon. will monitor her nausea. (2) Dysuria: Plan: Acute problem moderate risk. Postop Pritchett catheter in place. Since removal patient had dysuria and frequency. Urine culture from 03/17 has grown Pseudomonas she will be gone on meropenem will complete 5-day course hopeful to continue this when transfer to next level for rehab (3) HCC (hepatocellular carcinoma): Plan: Metastatic HCC, chronic unstable, recurrence seen on CT abd/pelvis imparts moderate risk the patient has persistent and progressing On Opdivo, follows with Dr. Meza. 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 Perea Recommended to be on prednisone 20 mg daily, cetirizine 10 mg twice daily, hydroxyzine 10 mg nightly 1 on any additional antibiotics no further reaction with antibiotic use currently tapering prednisone therapy once antibiotics are done Do not use quinolones, penicillin Patient okay to receive cephalosporins, prior to procedures, aztreonam with steroid pretreatment if required (5) Hypertension: Plan: Hypertension, chronic and stable moderate risk the patient HCTZ discontinued 1 month ago due to cramping. Unable to tolerate metoprolol due to fatigue ARB/VANESSA limited due to SALAZAR/CKD/hyperkalemia Patient is CKD 3 which is stable (6) Palliative care encounter: Plan: Prior palliative consultation Patient wish to continue Opdivo even if it was causing diarrhea. Reports she would consider stopping if she does not call the time, but would like to continu e at this time Patient reports she would consider hospice if she did clinically decline in the future, however had not wanted to switch to the services at time of last follow-up 01/31. - Outpt Palliative care report reviewed. 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 Her daughter is at bedside and reports that she is not able to take all her medicines at once. Review of Systems Review of Systems: All systems reviewed & are unremarkable except as noted in HPI & below Physical Exam Physical Exam: Patient claims of pain is worse after physical therapy at rest her pain is in better control Her cardiac exam is regular there is a systolic murmur Lungs are clear Right hip area remains without significant induration fluctuance erythema or warmth. Results & Data Results & Data ([facility]) Vital Signs (Past 12 Hours) Vital Signs Temp Pulse Resp BP BP Pulse Ox Pulse Ox 03/20/22 19:00 36.9 C 70 18 124/67 95 03/20/22 10:00 94 03/20/22 09:31 74 135/72 94 O2 Del Method O2 Del Method 03/20/22 19:00 Room Air 03/20/22 10:00 Room Air 03/20/22 09:31 Room Air PG Care Time/CCT Total # of Minutes Spent Total Time Spent with Patient: Total time spent is greater than 50% in coordination of care (as documented) at patient's floor/unit and/or counseling patient: Coding Level of Care Code 50679 SUB INP/OBS CARE 2/35MIN Diagnoses Closed right hip fracture S72.001A Dysuria R30.0 HCC (hepatocellular carcinoma) C22.0 Drug eruption L27.0 Hypertension I10 Palliative care encounter Z51.5 Severe protein-calorie malnutrition E43
[2022-03-21] MEDS: CHECK fentaNYL PATCH PLACEMENT SCH ×2 (00:20→09:04)
[2022-03-21] MEDS: LORazepam 0.5 MG TAB PO PRN (01:14)
[2022-03-21] MEDS ORDERED: LEVOTHYROXINE SODIUM 25 MCG TABLET PO SCH (06:30)
[2022-03-21 08:46] LABS: Hematocrit (blood only) 32.2 % (37.0-47.0); Mean Corpuscular Hgb Conc 34.2 g/dL (32.0-36.0); Mean Corpuscular Volume 93.6 fL (80.0-100.0); Mean Platelet Volume 11.5 fL (9.4-12.4); Platelet Count 231 K/uL (130-400); RDW Coefficient of Variation 17.1 % (11.5-14.5); RDW Standard Deviation 57.4 fL (36.4-46.3); Red Blood Count 3.44 M/uL (4.20-5.40); White Blood Count 14.59 K/ul (4.8-10.8)
[2022-03-21 09:01] LABS: BUN Creatinine Ratio 29.7 (10-20); Calcium 9.1 mg/dl (8.5-10.1); Creatinine Clr Calc Pharmacy 35.5 ml/min; Est GFR (African American) 53.6 ml/min; Est GFR (Non-African American) 46.2 ml/min; Magnesium 2.2 mg/dl (1.7-2.4); Phosphorus 3.4 mg/dl (2.5-4.9); Potassium 4.9 mmol/L (3.5-5.1)
[2022-03-21] MEDS: ACETAMINOPHEN 500 MG TAB PO SCH ×3 (09:05→15:33)
[2022-03-21] MEDS: predniSONE 20 MG TAB PO SCH (09:07)
[2022-03-21] MEDS: SERTRALINE HCL 50 MG TABLET PO SCH (09:07)
[2022-03-21] MEDS: LIDOCAINE 5% 1 PATCH TD SCH (09:07)
[2022-03-21] MEDS: POTASSIUM CITRATE 10 MEQ TAB PO SCH (09:07)
[2022-03-21] MEDS: MULTIVITAMIN TAB PO SCH (09:07)
[2022-03-21] MEDS: ENOXAPARIN INJ 30 MG/0.3 ML SYR SQ SCH (09:08)
[2022-03-21] MEDS: oxyCODONE HCL IR 5 MG TAB (IMMEDIATE RELEASE) PO PRN ×2 (09:13→15:33)
[2022-03-21] MEDS: DOCUSATE SODIUM/SENNA 50/8.6MG TAB PO SCH (09:25)
[2022-03-21] MEDS: MEROPENEM 500 MG in SYRINGE 0 ML IV SCH (11:19)
[2022-03-21] MEDS ORDERED: ASCORBIC ACID 500 MG TAB PO SCH (12:00)
[2022-03-21] MEDS ORDERED: MAGNESIUM OXIDE 400 MG TAB PO SCH (12:00)
[2022-03-21] MEDS ORDERED: CHOLECALCIFEROL 1,000 UNITS 25 MCG TAB PO SCH (12:00)
[2022-03-21] MEDS: VIBEGRON 75 MG TAB PO SCH (12:39)
--- NOTE | 2022-03-21 13:11 | Discharge Summary ---
Date of Service March 21, 2022 Admission HPI Per Admitting Provider Many is an 81-year-old female with past medical history of hep C virus, hepatocellular carcinoma on immunotherapy s/p chemoembolization, carcinoid lung tumor, hairy cell leukemia in remission, CKD 3B, and recurrent UTIs on chronic methenamine therapy followed by [facility] who presents with a fall. Was getting ready for an appoitnment with Dr. Meza today and usually uses a walker. Was dced last month and was doign therapy for global weakness since dc. Went to turn from using her walker to the sink and tripped while pivoting and fell striking the R hip. NO lightheadedness, dizziness, syncope, or presyncope. R arm, R lateral rib, and R hip all hurt. Initially 10/10 after falling, improved a little with IV pain medicine. No numbness tingling No heart problems, no lung problems. No hx of strokes No blood thinners, no aspirin or aspirin like medications She is followed for extensive metastatic cancer on immunotherapy following with Dr. Meza. Patient reports she has met with palliative care this past week. At this time she has discussed the option of hospice when ready but currently wants to continue with all treatments including immunotherapy and would like surgical evaluation for repair of her hip. Has had gradual weight loss and progressive weakness in the past few weeks. No focal weakness, denies numbness/tingling/neuropathy. She reports she has extensive allergies with various antibiotics which have caused broad skin swelling/erythematous eruptions which have included the neck, but have not included for lip/tongue before. She thinks she has been able to tolerate cephalosporins, but cannot tolerate penicillins, sulfa, or fluoroquinolones. She has been recommended for pretreatment cocktail as noted by immunotherapy previous notes. . Is agreeable to this Medical History: Reviewed Medications: Reviewed Surgical History: Reviewed Allergies: Reviewed Social History: No tobacco/etoh Code Status:DNR Discharge Data Allergies Allergy/AdvReac Type Severity Reaction Status Date / Time celecoxib Allergy Severe Rash Verified 03/12/22 13:31 ciprofloxacin [From Cipro] Allergy Severe DRESS Verified 03/12/22 13:31 adhesive Allergy Intermediate RED Verified 03/12/22 13:31 IRRITATED SKIN Sulfa (Sulfonamide Allergy Mild Hives Verified 03/12/22 13:31 Antibiotics) amoxicillin Allergy Unknown Rash Verified 03/12/22 13:31 cefepime Allergy Unknown Rash, drug Verified 03/12/22 13:31 eruption Penicillins Allergy Unknown Rash Verified 03/19/22 09:29 lactose AdvReac Intermediate GI UPSET Verified 03/12/22 13:31 vancomycin AdvReac Unknown Mook Verified 03/12/22 13:31 syndrome Consultations 03/12/22 12:37 ED Decision to Admit Stat 03/12/22 15:19 Consult Orthopedic Surgery Routine Procedures Performed Operation Date: 03/13/22 10:10 Actual Procedures p Right Trochanteric Femoral Nail(Right) - Bjorn Way M.D. Ordered Studies 03/12/22 09:37 CT head/brain wo con Stat 03/12/22 09:38 CT cervical spine wo con Stat 03/12/22 10:17 CT abd pelvis wo con Stat CT chest diagnostic wo con Stat 03/13/22 FL hip RT 2-3V Routine Hospital Course (1) Closed right hip fracture: Acute hip fracture, status post surgical correction 03/13/2022, increased pain since 03/17/22, repeat x ray without significant changes on 03/18, orthopedic reevaluation on 03/18 without concern Other radiological studies for this hospital stay include CT: Right nondisplaced intertrochanteric femur fracture. Persistent right hepatic masses noted. Bladder inflammation noted on report, UA -CTA/P: Acute nondisplaced right femur intertrochanteric fracture. Mixed cystic and solid mass within the residual right hepatic lobe at the resection margin suggestive of malignancy appears stable to slightly increased in size from the 01/27/2022 study. Stable to slightly increased size of the pathologic r etroperitoneal lymphadenopathy. Colonic diverticulosis without acute diverticulitis. Wall thickening of the large bowel is likely secondary to partial distention. A nonspecific colitis considered less likely. Decompressed urinary bladder with wall thickening and perivesicular stranding. Correlate with urinalysis. -CTchest: No acute posttraumatic intrathoracic abnormality identified. Late subacute appearing right third and fourth rib fracture. No airspace consolidation/pneumothorax. Left upper lobe pulmonary nodule not significantly changed compared to 2020, solid and cystic right hepatic lobe also similar to prior noted. Right shoulder CXR: No acute fracture Elbow right XR: No acute fracture CTC-spine: No acute findings CThead: No acute findings XR Hip/Pelvis: Nondisplaced intertrochanteric fracture of the proximal right femur. No dislocation. Patient is some constipation post procedure continue bowel regiment ordered on 03/15/2022, increased frequency of senna to twice daily Pain control is now scheduled tylenol, oxycodone, lidoderm patch and prn tramadol Discussed pain control at length with daughter. Are agreeable to attempt fentanyl patch with backup oxycodone as needed fentanyl patch started on 03/18/2022 for sleep increase trazadone to 50 mg hs continue to offer ativan prn\\MOved times of her medicines to AM and noon. will monitor her nausea. (2) Dysuria: Acute problem moderate risk. Postop Pritchett catheter in place. Since removal patient had dysuria and frequency. Urine culture from 03/17 has grown Pseudomonas she will be gone on meropenem will complete 5-day course hopeful to continue this when transfer to next level for rehab (3) HCC (hepatocellular carcinoma): Metastatic HCC, chronic unstable, recurrence seen on CT abd/pelvis imparts moderate risk the patient has persistent and progressing On Opdivo, follows with Dr. Meza. Held during postoperative period With renal and retroperitoneal lymphatic spread last seen 12/2021 Weight loss: Continue thiamine/folate Boost/nutrition to follow Transition of fentanyl patches for cancer pain and acute pain control (4) Drug eruption: Chronic condition currently stable multiple medication allergies, Follows with Dr. Perea Recommended to be on prednisone 20 mg daily, cetirizine 10 mg twice daily, hydroxyzine 10 mg nightly 1 on any additional antibiotics no further reaction with antibiotic use currently tapering prednisone therapy once antibiotics are done Do not use quinolones, penicillin Patient okay to receive cephalosporins, prior to procedures, aztreonam with steroid pretreatment if required (5) Hypertension: Hypertension, chronic and stable moderate risk the patient HCTZ discontinued 1 month ago due to cramping. Unable to tolerate metoprolol due to fatigue ARB/VANESSA limited due to SALAZAR/CKD/hyperkalemia Patient is CKD 3 which is stable (6) Palliative care encounter: Prior palliative consultation Patient wish to continue Opdivo even if it was causing diarrhea. Reports she would consider stopping if she does not call the time, but would like to continue at this time Patient reports she would consider hospice if she did clinically decline in the future, however had not wanted to switch to the services at time of last follow-up 12/23. - Outpt Palliative care report reviewed. 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, Pending followup next week to discuss treatments and whether or not to continue these vs hospice, Stay hydrated, liberal diet, continue Opdivo per last note (7) Severe protein-calorie malnutrition: Plan DVT PPx: Heparin 2/2 CKD CODE: DNR/DNI Discharge Plan Discharge Items Patient Disposition: Home - Self-Care Reason For Visit: HIP FXR, HIP SEVERE NECK/SKIN RXN W ABX Discharge Diagnosis: hip fracture, hip severe neck/skin reaction with antibiotic Activity: As commented below Weightbearing: Right weightbearing Weightbearing Comment: As tolerated with walker Non-emergency contact: Surgeon Call non-emergency contact if: your pain is not controlled, your temperature is above 101.5, your wound has increased redness and your wound has increased drainage Follow-up/Referrals: Bradley Jeter [Primary Care Provider] - Bjorn Way M.D. [Physician] - (Follow-up with Dr. Mack who is or his PA Sony eJnsen in 2 weeks from the date of your surgery for your first postoperative visit.) Diet: Regular Addtl Attending Provider Instructions: Patient is some constipation post procedure continue bowel regiment ordered on 03/15/2022, increased frequency of senna to twice daily Pain control is now scheduled tylenol, oxycodone, lidoderm patch and prn tramadol fentanyl patch (next dose 03/21 at 6pm) with backup oxycodone as needed fentanyl patch started on 03/18/2022 for sleep increase trazadone to 50 mg hs continue to offer ativan prn\ Urine culture from 03/17 has grown Pseudomonas she will be gone on meropenem will complete 5-day course hopeful to continue this when transfer to next level for rehab will need 5 more doses to complete 5 day course. es, Recommended to be on prednisone 20 mg daily, cetirizine 10 mg twice daily, hydroxyzine 10 mg nightly 1 on any additional antibiotics no further reaction with antibiotic use currently tapering prednisone therapy once antibiotics are done Do not use quinolones, penicillin Hypertension: Plan: Hypertension, chronic and stable moderate risk the patient HCTZ discontinued 1 month ago due to cramping. Unable to tolerate metoprolol due to fatigue ARB/VANESSA limited due to SALAZAR/CKD/hyperkalemia Patient is CKD 3 which is stable Prior palliative consultation Patient wish to continue Opdivo even if it was causing diarrhea. Reports she would consider stopping if she does not call the time, but would like to continue at this time Patient reports she would consider hospice if she did clinically decline in the future, however had not wanted to switch to the services at time of last follow-up 01/31. - Outpt Palliative care report reviewed. 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 You are to ambulate with a walker or crutches for approximately 6 weeks. B. You are WEIGHT BEARING TOLERATED on your operative lower extremity for at least 6 weeks. C. Wear low heeled shoes with non-slip soles D. Be sure that your floors are free of things that could trip you throw rugs, electrical cords, and small objects. Avoid wet and waxed floors, especially with crutches/walker/cane. E. Try to walk several times a day with rest periods between. F. You may shower 48 hours after surgery and get the incision area wet, but DO NOT soak or submerge incision area in water. (No baths, swimming pools, hot tubs) G. You may have a large, band-aid like dressing over your incision (Aquacel). This will remain on your incision for 7 days, and then can be removed. You CAN shower with this on. If incision is leaking through the dressing, please call the office . H. Do NOT apply soap or any ointment/lotions directly over incision. I. You may use ice as needed to operative site. SPECIAL CARE INSTRUCTIONS: VERY IMPORTANT TO READ AND REVIEW A. You may be at risk for phlebitis or blood clots. a. Wear surgical stockings (MACKENZIE hose) for 2 weeks after surgery to improve circulation and reduce swelling. b. Take LOVENOX 30mg SQ Daily for 4 weeks or as directed. This is your blood thinner. B. There are a few signs you need to watch for after you are home. Call [facility] at [phone] if you experience any of the following: a. If you have a temperature of 101 degrees or higher. b. Sudden increase in pain in your hip not relieved by rest or pain medication. c. Any fluid or drainage from the incision; redness of the incision. d. Shortness of breath or chest pain. C. Pain Medication: a. You will be prescribed pain medication upon discharge that should last till your first post-operative appointment. b. If you experience nausea and/or skin rash, discontinue this medication and contact our office for an alternative medication. c. Caution- narcotic pain medication can cause constipation. FOLLOW UP VISIT: Please call [facility] at [phone] to schedule a follow up appointment 10-14 days from the date of your surgery date. Pending Studies at Discharge: No Stand-Alone Forms: My [place], Smoking Cessation Medications and DC Order Prescriptions: New acetaminophen [Tylenol Extra Strength] 500 mg Tablet 1,000 mg PO TID Qty: 30 0RF lidocaine 5 % Adhesive Patch,Medicated 1 patch transdermal QAM Qty: 0 0RF trazodone 50 mg Tablet 50 mg PO QPM Qty: 10 0RF sertraline 50 mg Tablet 50 mg PO DAILY Qty: 30 0RF fentanyl 25 mcg/hr Patch 72 Hour 25 mcg transdermal Q3D Qty: 5 0RF Rx Instructions: next dose at 6pm cholecalciferol (vitamin D3) 25 mcg (1,000 unit) Capsule 2,000 unit PO 1200 Qty: 30 0RF ascorbic acid (vitamin C) [Vitamin C] 500 mg Tablet 500 mg PO 1200 Qty: 30 0RF oxycodone 5 mg Tablet 5 mg PO Q4 PRNQty: 15 0RF magnesium hydroxide [Milk of Magnesia] 400 mg/5 mL Suspension 30 ml PO DAILY PRN (Reason: constipation) Qty: 0 0RF cetirizine 10 mg Tablet 10 mg PO PM Qty: 10 0RF sennosides-docusate sodium [Senokot-S] 8.6-50 mg Tablet 2 tab PO BID Qty: 0 0RF potassium citrate 10 mEq (1,080 mg) Tablet Extended Release 10 meq PO BID Qty: 10 0RF prednisone 20 mg Tablet 20 mg PO DAILY Qty: 3 0RF Continued polyethylene glycol 3350 [Miralax] 17 gram/dose powder 17 g PO DAILY PRN (Reason: Constipation) lorazepam [Ativan] 0.5 mg tablet 0.5 mg PO HS lorazepam 0.5 mg tablet 0.5 mg PO UD PRN (Reason: for cancer treatment) Rx Instructions: Q MRI Gemtesa 75 mg tablet 75 mg PO .DAILY AT NOON levothyroxine 25 mcg tablet 25 mcg PO QAM Opdivo 1 dose IV UD magnesium 250 mg Tablet 250 mg PO DAILY biotin 1,000 mcg Tablet,Chewable 1,000 mcg PO DAILY Centrum Silver Women 8 mg iron-400 mcg-300 mcg Tablet 1 tab PO DAILY Probiotic Acidophilus 1.5 mg (250 million cell) Capsule 1,000 mmu cells PO DAILY diphenoxylate-atropine [Lomotil] 2.5-0.025 mg tablet 1 tab PO Q8H PRN (Reason: diarrhea) Qty: 30 0RF ondansetron HCl 8 mg tablet 8 mg PO Q8 PRN (Reason: Nausea) Qty: 30 1RF Boost Liquid 1 ea PO DAILY fosfomycin tromethamine 3 gram packet 1 packet PO ONCE PRN (Reason: uti) Qty: 1 0RF Rx Instructions: PRN FOR UTI restart after meropenem is completed methenamine hippurate 1 gram tablet 1 g PO BID Qty: 1 0RF Rx Instructions: take with vitamin c restart after meropenem is completed. Discontinued amlodipine 2.5 mg tablet 2.5 mg PO DAILY acetaminophen [Tylenol Extra Strength] 500 mg Tablet 500 mg PO Q6H PRN (Reason: Pain) ascorbic acid (vitamin C) [Vitamin C] 500 mg tablet 500 mg PO DAILY oxycodone-acetaminophen 5-325 mg tablet 1 tab PO Q6 PRN (Reason: Pain, Moderate) cholecalciferol (vitamin D3) [Vitamin D3] 50 mcg (2,000 unit) Capsule 50 mcg PO DAILY sertraline 100 mg tablet 100 mg PO DAILY Discharge Orders: Discharge Order (Routine); Ordered 03/21/22 Ordered By: Arcadio Aguilar Admission Data Admit Date/Time: 03/12/22 13:01 Attending Provider: Arcadio Aguilar Admit Provider: Seferino Restrepo Primary Care Provider: Bradley Jeter Other Providers: Isabelle Whitaker at [place] ; Waylon Reid [place] ; Seferino Restrepo ; Real Matthew ; [facility] Coding Diagnoses Closed right hip fracture S72.001A Dysuria R30.0 HCC (hepatocellular carcinoma) C22.0 Drug eruption L27.0 Hypertension I10 Palliative care encounter Z51.5 Severe protein-calorie malnutrition E43
[2022-03-21] MEDS: fentaNYL 25 MCG/HR TDSY TD SCH (15:34)
[2022-03-21] MEDS ORDERED: ADVANCED PROBIOTIC 1250 MG CAPSULE PO SCH (21:00)
[2022-03-22] MEDS ORDERED: ENOXAPARIN INJ 40 MG/0.4 ML SYR SQ SCH (09:00)
== END 2022-03-21 16:29 | DRG 480 ==
LOC: ED 09:17 → SUATTDRO 13:01 → EDINP 13:01 → 2W 03-13 18:50